=== PATIENT | male | born 1945 | race Caucasian/White ===

== ENCOUNTER → 2016-11-15 | Outpatient (CLI) | payer MEDICARE ==
--- NOTE | 2016-11-15 14:20 | XR ---
Abdomen HISTORY: Kidney stone Frontal view of the abdomen submitted and correlated to prior abdomen 28 June 2016 Surgical clips present in the pelvis. There are vascular calcifications present. Scoliotic curvature present in the lumbar spine. No bowel obstruction or pneumoperitoneum. There are small calcifications superimposed over the lower pole of the right kidney measuring approximately 3 mm in greatest dimens ion, smaller fragments are suspected, there may be 4-5 fragments. IMPRESSION: There may been interval lithotripsy lower pole right renal stone.
== END | disposition home or self-care (01) ==
LOC: RADXRMAIN 11:35
PROVIDERS: ATTEND Urology
DX: N20.0 Calculus of kidney (principal)
CPT/HCPCS: 74000

== ENCOUNTER → 2017-03-08 | Outpatient (CLI) | payer MEDICARE ==
--- NOTE | 2017-03-08 10:44 | US ---
EXAMINATION TYPE: US carotid duplex BILAT DATE OF EXAM: 03/08/2017 10:16 AM COMPARISON: NONE CLINICAL HISTORY: R42 Light Headedness. EXAM MEASUREMENTS: RIGHT: Peak Systolic Velocity (PSV) cm/sec ----- Right CCA: 66.6 ----- Right ICA: 86.6 ----- Right ECA: 107.0 ICA/CCA ratio: 1.3 RIGHT: End Diastole cm/sec ----- Right CCA: 16.0 ----- Right ICA: 27.0 ----- Right ECA: 12.5 LEFT: Peak Systolic Velocity (PSV) cm/sec ----- Left CCA: 74.5 ----- Left ICA: 88.8 ----- Left ECA: 109.2 ICA/CCA ratio: 1.2 LEFT: End Diastole cm/sec ----- Left CCA: 18.9 ----- Left ICA: 28.0 ----- Left ECA: 17.1 VERTEBRALS (direction of flow): Right Vertebral: Antegrade Left Vertebral: Antegrade Mild atherosclerotic change in Left Bulb No hemodynamic stenosis Grayscale images show intimal hyperplasia bilaterally. There is mild eccentric plaque at left carot id bulb. Velocity measurements and ratios remain within normal limits bilaterally in both internal ca rotid arteries. IMPRESSION: No hemodynamically significant stenosis is seen in either internal carotid artery.
== END | disposition home or self-care (01) ==
LOC: RADUSWWP 09:51
PROVIDERS: ATTEND Family Medicine
DX: R42 Dizziness and giddiness (principal)
CPT/HCPCS: 93880

== ENCOUNTER → 2017-05-16 | Outpatient (CLI) | payer MEDICARE ==
--- NOTE | 2017-05-16 10:04 | XR ---
EXAMINATION TYPE: XR KUB DATE OF EXAM: 05/16/2017 COMPARISON: 11/15/2016 HISTORY: Lithotripsy TECHNIQUE: One view abdominal series FINDINGS: No suspicious calcifications overlying the left kidney. There are approximately 4 Punctate less than 5 mm calcification overlying the lower pole right kidney. Stable in morphology, size and number from previous exam. Calcifications in the pelvis are stable and may be vascular. Arthropathy of the hip joints and surgic al clips noted. Diffuse osteopenia and degenerative change of the spine. Bowel gas pattern nonspecifi c. IMPRESSION: 1. There remain four less than 5 mm punctate calcifications overlying the lower pole right kidney unc hanged in size or position from previous exam.
== END | disposition home or self-care (01) ==
LOC: RADXRMAIN 09:45
PROVIDERS: ATTEND Nurse Practitioner
DX: N20.0 Calculus of kidney (principal)
CPT/HCPCS: 74000

== ENCOUNTER 2018-05-08 11:20 | Day surgery (SDC) | payer MEDICARE ==
[2018-05-06 08:43] VITALS: BMI 29.3
[~2018-05-08 11:20] MED LIST: LACTATED RINGERS 1,000 ML IV SCH
[2018-05-08 11:47] VITALS: RESP 16; TEMP 97.6
[2018-05-08] MEDS ORDERED: LIDOCAINE 1% 20 ML VIAL (10MG/ML) FOR IV START INTRADERMA ONE (11:56)
[2018-05-08] MEDS ORDERED: fentaNYL (PF) 50 MCG/ML 2 ML AMP ONE (12:17)
[2018-05-08] MEDS ORDERED: PROPOFOL 10 MG/ML 20 ML VIAL IV ONE (12:17)
--- NOTE | 2018-05-08 12:41 | P.PCN ---
Date of Procedure: 05/08/18 Procedure(s) Performed: Procedure: Total colonoscopy and polypectomy. Preoperative diagnosis: Screening for neoplasia. Postoperative diagnosis: Small sigmoid polyp snared but no large polyps or cancer. Preparation: HalfLytely prep. Sedation: Was provided by anesthesia. Brief clinical history: The patient is a 72-year-old male who is scheduled for this evaluation for screening for neoplasia. He had a prior exam around 11 years ago or more. He has no abdominal complaints, bleeding or anemia. Procedure: With the patient on his left lateral decubitus position and after informed consent and adequate sedation, the perianal area was inspected and it did not show any fissures or fistulas. There were no masses felt on digital rectal examination. The Olympus CFQ 160L video colonoscope was then inserted in the rectum in the usual fashion and advanced to the cecum. There was no obvious diverticular disease. In the distal sigmoid there was a small polyp which I snared and retrieved by suction but there were no large polyps or cancer. The mucosa appeared healthy. I retroflexed the endoscope in the rectum before the endoscope was withdrawn. The patient tolerated the procedure well. Plan: The patient was reassured. He will follow up with you as planned and I recommended repeat colonoscopy in 5-10 years depending on the pathology results.
[2018-05-08 12:59] VITALS: BP 138/75; PULSE 70
== END 2018-05-08 13:25 | disposition home or self-care (01) ==
LOC: ORWHC2ENDO 11:20
DX: Z12.11 Encounter for screening for malignant neoplasm of colon (principal); K63.5 Polyp of colon; J44.9 Chronic obstructive pulmonary disease, unspecified; Z85.46 Personal history of malignant neoplasm of prostate; Z96.652 Presence of left artificial knee joint; Z79.51 Long term (current) use of inhaled steroids; Z79.899 Other long term (current) drug therapy; Z88.0 Allergy status to penicillin; Z87.891 Personal history of nicotine dependence
CPT/HCPCS: 88305; 45385; J3010; J2704

== ENCOUNTER 2019-02-19 10:31 | Inpatient (IN) | payer MEDICARE ==
[2019-02-19] MEDS ORDERED: SODIUM CHLORIDE 0.9% 1,000 ML IV STA (11:18)
[2019-02-19] MEDS ORDERED: MORPHINE SULFATE 4 MG/ML SYRINGE IV STA (11:18)
[2019-02-19] MEDS ORDERED: ONDANSETRON 4 MG/2 ML VIAL IVP STA (11:18)
[2019-02-19] MEDS ORDERED: IPRATROPIUM-ALBUTEROL 3 ML NEB INHALATION STA (11:19)
--- NOTE | 2019-02-19 11:27 | ED ---
Abdominal Pain HPI - General Chief Complaint: Abdominal Pain Stated Complaint: SOB/back pain Time Seen by Provider: 02/19/19 11:05 Source: patient, RN notes reviewed Mode of arrival: ambulatory Limitations: no limitations - History of Present Illness Initial Comments: This a 73-year-old male presents emergency Department with multiple complaints. Patient complains of low back pain, flank pain with a history kidney stones. Patient states that he did see his PCP for this who felt that he may have underlying infection or kidney stone. Patient states pain has not worsened it was primarily on the left side but now is bilateral flank and low back pain. Patient has some noted urinary difficulty though he's had prostate surgeries in the past. Patient also had lithotripsy. Patient denies fever but states he had severe chills last night. Patient states that was alleviated with aspirin. Patient denies any current nausea vomiting diarrhea constipation. Patient also states that his hadn't having worsening shortness of breath, wheezing and cough. states cough is nonproductive. He does get relief of the shortness of breath with his Ventolin inhaler. Patient has been diagnosed with COPD. Patient does not take any other current medications. - Related Data Home Medications Medication Instructions Recorded Confirmed Albuterol Inhaler [Ventolin Hfa 1 - 2 puff INHALATION RT-Q6H PRN 05/06/18 02/19/19 Inhaler] Aspirin 650 mg PO DAILY PRN 02/19/19 02/19/19 Allergies Allergy/AdvReac Type Severity Reaction Status Date / Time Penicillins Allergy Unknown Rash/Hives Verified 02/19/19 11:25 Review of Systems ROS Statement: Those systems with pertinent positive or pertinent negative responses have been documented in the HPI. ROS Other: All systems not noted in ROS Statement are negative. Past Medical History Past Medical History: Cancer, COPD Additional Past Medical History / Comment(s): HX PROSTATE CANCER WITH SURGERY & RADIATION (2006), KIDNEY STONES. History of Any Multi-Drug Resistant Organisms: None Reported Past Surgical History: Joint Replacement, Orthopedic Surgery, Prostate Surgery Additional Past Surgical History / Comment(s): BRAIN SURGERY TO RELIEVE PRESSURE AFTER HEAD INJURY (6 YRS OLD), TOTAL LEFT KNEE, LEFT SHOULDER SURGERY, LEFT ARM SURGERY AFTER CRUSHING INJURY. Past Anesthesia/Blood Transfusion Reactions: No Reported Reaction, Motion Sickness Additional Past Anesthesia/Blood Transfusion Reaction / Comment(s): SLOW TO WAKE UP Past Psychological History: No Psychological Hx Reported Smoking Status: Former smoker Past Alcohol Use History: Occasional Past Drug Use History: None Reported - Past Family History Mother Family Medical History: No Reported History General Exam Limitations: no limitations General appearance: alert, in no apparent distress Head exam: Present: atraumatic, normocephalic, normal inspection Respiratory exam: Present: wheezes, decreased breath sounds. Absent: normal lung sounds bilaterally, respiratory distress, rales, rhonchi, stridor Cardiovascular Exam: Present: regular rate, normal rhythm, normal heart sounds. Absent: systolic murmur, diastolic murmur, rubs, gallop, clicks GI/Abdominal exam: Present: soft, tenderness, normal bowel sounds. Absent: distended, guarding, rebound, rigid Back exam: Present: full ROM, CVA tenderness (L). Absent: tenderness, CVA tenderness (R) Skin exam: Present: warm, dry, intact, normal color. Absent: rash Course Vital Signs 02/19/19 02/19/19 02/19/19 10:38 12:00 12:11 Temperature 97.6 F Pulse Rate 99 94 Respiratory 24 Rate Blood Pressure 145/77 138/73 O2 Sat by Pulse 96 Oximetry 02/19/19 02/19/19 02/19/19 12:21 13:00 13:30 Temperature Pulse Rate 91 100 97 Respiratory 22 18 Rate Blood Pressure 140/66 135/58 O2 Sat by Pulse 73 L 89 L Oximetry Medical Decision Making - Lab Data Result diagrams: 02/19/19 11:36 02/19/19 11:36 Lab Results 02/19/19 02/19/19 02/19/19 Range/Units 11:36 11:36 11:36 WBC 24.7 H (3.8-10.6) k/uL RBC 5.36 (4.30-5.90) m/uL Hgb 16.3 (13.0-17.5) gm/dL Hct 49.3 (39.0-53.0) % MCV 92.0 (80.0-100.0) fL MCH 30.4 (25.0-35.0) pg MCHC 33.1 (31.0-37.0) g/dL RDW 13.5 (11.5-15.5) % Plt Count 271 (150-450) k/uL Neutrophils % (Manual) 94 % Band Neutrophils % 4 % Lymphocytes % (Manual) 1 % Monocytes % (Manual) 1 % Neutrophils # (Manual) 24.20 H (1.3-7.7) k/uL Lymphocytes # (Manual) 0.25 L (1.0-4.8) k/uL Monocytes # (Manual) 0.25 (0-1.0) k/uL Nucleated RBCs 0 (0-0) /100 WBC Anisocytosis (manual) Present PT (9.0-12.0) sec INR (<1.2) APTT (22.0-30.0) sec Sodium 140 (137-145) mmol/L Potassium 4.4 (3.5-5.1) mmol/L Chloride 104 (98-107) mmol/L Carbon Dioxide 28 (22-30) mmol/L Anion Gap 8 mmol/L BUN 23 H (9-20) mg/dL Creatinine 0.81 (0.66-1.25) mg/dL Est GFR (CKD-EPI)AfAm >90 (>60 ml/min/1.73 sqM) Est GFR (CKD-EPI)NonAf 89 (>60 ml/min/1.73 sqM) Glucose 114 H (74-99) mg/dL Plasma Lactic Acid Alexis 2.1 H* (0.7-2.0) mmol/L Calcium 9.0 (8.4-10.2) mg/dL Total Bilirubin 1.2 (0.2-1.3) mg/dL AST 26 (17-59) U/L ALT 33 (21-72) U/L Alkaline Phosphatase 57 (38-126) U/L Troponin I (0.000-0.034) ng/mL Total Protein 6.9 (6.3-8.2) g/dL Albumin 4.0 (3.5-5.0) g/dL Amylase 47 (30-110) U/L Lipase 56 (23-300) U/L Urine Color Urine Appearance (Clear) Urine pH (5.0-8.0) Ur Specific [place] (1.001-1.035) Urine Protein (Negative) Urine Glucose (UA) (Negative) Urine Ketones (Negative) Urine Blood (Negative) Urine Nitrite (Negative) Urine Bilirubin (Negative) Urine Urobilinogen (<2.0) mg/dL Ur Leukocyte Esterase (Negative) Urine RBC (0-5) /hpf Urine WBC (0-5) /hpf Urine Bacteria (None) /hpf Hyaline Casts (0-2) /lpf Urine Mucus (None) /hpf 02/19/19 02/19/19 02/19/19 Range/Units 11:36 11:36 12:50 WBC (3.8-10.6) k/uL RBC (4.30-5.90) m/uL Hgb (13.0-17.5) gm/dL Hct (39.0-53.0) % MCV (80.0-100.0) fL MCH (25.0-35.0) pg MCHC (31.0-37.0) g/dL RDW (11.5-15.5) % Plt Count (150-450) k/uL Neutrophils % (Manual) % Band Neutrophils % % Lymphocytes % (Manual) % Monocytes % (Manual) % Neutrophils # (Manual) (1.3-7.7) k/uL Lymphocytes # (Manual) (1.0-4.8) k/uL Monocytes # (Manual) (0-1.0) k/uL Nucleated RBCs (0-0) /100 WBC Anisocytosis (manual) PT 11.3 (9.0-12.0) sec INR 1.1 (<1.2) APTT 24.1 (22.0-30.0) sec Sodium (137-145) mmol/L Potassium (3.5-5.1) mmol/L Chloride (98-107) mmol/L Carbon Dioxide (22-30) mmol/L Anion Gap mmol/L BUN (9-20) mg/dL Creatinine (0.66-1.25) mg/dL Est GFR (CKD-EPI)AfAm (>60 ml/min/1.73 sqM) Est GFR (CKD-EPI)NonAf (>60 ml/min/1.73 sqM) Glucose (74-99) mg/dL Plasma Lactic Acid Alexis (0.7-2.0) mmol/L Calcium (8.4-10.2) mg/dL Total Bilirubin (0.2-1.3) mg/dL AST (17-59) U/L ALT (21-72) U/L Alkaline Phosphatase (38-126) U/L Troponin I <0.012 (0.000-0.034) ng/mL Total Protein (6.3-8.2) g/dL Albumin (3.5-5.0) g/dL Amylase (30-110) U/L Lipase (23-300) U/L Urine Color Yellow Urine Appearance Cloudy (Clear) Urine pH 5.5 (5.0-8.0) Ur Specific [place] 1.027 (1.001-1.035) Urine Protein 1+ H (Negative) Urine Glucose (UA) Negative (Negative) Urine Ketones Negative (Negative) Urine Blood Moderate H (Negative) Urine Nitrite Negative (Negative) Urine Bilirubin Negative (Negative) Urine Urobilinogen <2.0 (<2.0) mg/dL Ur Leukocyte Esterase Small H (Negative) Urine RBC 150 H (0-5) /hpf Urine WBC 9 H (0-5) /hpf Urine Bacteria Rare H (None) /hpf Hyaline Casts 29 H (0-2) /lpf Urine Mucus Many H (None) /hpf Disposition Clinical Impression: COPD exacerbation, Mesenteric mass, Lymphoma Disposition: ADMITTED IP TO THIS [facility] Condition: Fair Referrals: Nathalie Garzon MD [Primary Care Provider] - 1-2 days
[2019-02-19 11:54] LABS: HCT 49.3 % (39.0-53.0); HGB 16.3 gm/dL (13.0-17.5); MCH 30.4 pg (25.0-35.0); MCHC 33.1 g/dL (31.0-37.0); Mean Platelet Volume 7.1; Platelet Count 271 k/uL (150-450); RBC 5.36 m/uL (4.30-5.90); RDW 13.5 % (11.5-15.5); WBC 24.7 k/uL (3.8-10.6)
[2019-02-19 12:03] LABS: Amylase 47 U/L (30-110); Anion Gap 8 mmol/L; Blood Urea Nitrogen 23 mg/dL (9-20); Carbon Dioxide 28 mmol/L (22-30); Chloride 104 mmol/L (98-107); Glucose 114 mg/dL (74-99); Lipase 56 U/L (23-300); Sodium 140 mmol/L (137-145); Total Bilirubin 1.2 mg/dL (0.2-1.3); Total Protein 6.9 g/dL (6.3-8.2)
[2019-02-19 12:10] LABS: ALT 33 U/L (21-72); AST 26 U/L (17-59); Alkaline Phosphatase 57 U/L (38-126); INR 1.1 (<1.2); Partial Thromboplastin Time 24.1 sec (22.0-30.0); Potassium 4.4 mmol/L (3.5-5.1); Prothrombin Time 11.3 sec (9.0-12.0)
[2019-02-19 12:11] LABS: Band Neutrophils % 4 %; Lymphocytes # (M) 0.25 k/uL (1.0-4.8); Monocytes # (M) 0.25 k/uL (0-1.0); Neutrophils % (M) 94 %; Nucleated Red Blood Cells 0 /100 WBC (0-0); Total Cells Counted 100
[2019-02-19 12:12] LABS: Anisocytosis (M) Present
--- NOTE | 2019-02-19 12:26 | CT ---
EXAMINATION TYPE: CT abdomen pelvis wo con DATE OF EXAM: 02/19/2019 COMPARISON: 02/25/2012 INDICATION: Flank pain DLP: 618.9 mGycm, Automated exposure control for dose reduction was used. CONTRAST: 0 mL of Isovue 300. Study performed without Oral Contrast TECHNIQUE: Axial images were obtained from above the diaphragm to the pubic rami in the axial plane a t 5 mm thick sections. Reconstructed images are reviewed on the computer in the coronal plane. FINDINGS: Limited CT sections are obtained the lung bases. There is a focal area of pneumonitis within the bas e right middle lobe. Series 201 image 10. There are patchy bilateral lung densities. Underlying nodul arity may be present measuring 0.9 and 0.8 cm, series 201 image is 13-15. This should be followed to clearing. Underlying mass is not excluded. CT ABDOMEN: Liver: Normal Spleen: Normal Pancreas: Normal Adrenal glands: The adrenal glands are normal. Gallbladder: Normal Kidneys: No masses are evident. No hydronephrosis is present. There is a 7.9 cm cyst measuring 6 Ho unsfield units on the anterior lateral lower pole left kidney. Multiple punctate nonobstructing renal stones are present on the right measuring approximately 0.2 cm each Aorta: Vascular calcification is within the aorta. Periaortic adenopathy is present below the level the renal arteries. This measures approximately 9.6 x 4.6 cm. Inferior vena cava: Normal. CT PELVIS: There is a nonspecific mass within the mid abdomen. This is difficult to separate from loops of bowel . Adenopathy could be considered. Consider other etiologies such as carcinoid. Some mild inflammatory changes within this region. This area measures 10.2 x 6.8 x 12.4 cm but includes small bowel. There are loops of bowel which are incompletely distended or lack oral contrast limiting their evaluation. Appendix: Normal as visualized. Urinary bladder: Normal. Suspected Surgical clips have been hardening artifact adjacent. Genitourinary structures: Prostate is normal. Small calcifications are within the prostate. Osseous structures: No suspicious lytic or sclerotic lesions. Degenerative disc changes are within th e lower lumbar spine. There is a grade 2 spondylolisthesis of L5 anterior on S1. A mild grade 1 retro listhesis of L4 on L5 is present. Spondylolysis of L5 is evident. IMPRESSIONS: 1. Soft tissue density within the mid mesentery with multiple large periaortic lymph nodes. Correlat e for lymphoma. Other etiologies including carcinoid could be considered. There is some limitation on this evaluation due to lack of intravenous and oral contrast. 2. Nonobstructing inferior pole right renal stones. 3. Cyst on the inferior pole left kidney. 4. Areas of pneumonitis and small nodularities at the lung bases. Metastatic disease is not excluded. Follow-up is recommended.
--- NOTE | 2019-02-19 13:16 | XR ---
EXAMINATION TYPE: XR chest 2V DATE OF EXAM: 02/19/2019 COMPARISON: CT same date HISTORY: Shortness of breath TECHNIQUE: Frontal and lateral views of the chest are obtained on 3 images. FINDINGS: There are overlying cardiac leads. Prominent lung volume with flattening the hemidiaphragm s may be indicative of underlying COPD. There are nodular densities at the posterior aspect of the lo wer lungs on the lateral exam. There is no pleural effusion or pneumothorax seen. The cardiac silho uette size is within normal limits. The osseous structures are intact. IMPRESSION: Lower lobe pulmonary nodules are present bilaterally.
[2019-02-19 13:28] LABS: Appearance,Urine Cloudy (Clear); Bacteria,Urine Rare /hpf; Bilirubin,Urine Negative (Negative); Blood,Urine Moderate (Negative); Color,Urine Yellow; Glucose,Urine (UA) Negative (Negative); Hyaline Casts,Urine 29 /lpf (0-2); Ketones,Urine Negative (Negative); Leukocyte Esterase,Urine Small (Negative); Mucus,Urine Many /hpf; Nitrite,Urine Negative (Negative); PH, Urine 5.5 (5.0-8.0); Protein,Urine 1+ (Negative); RBC,Urine 150 /hpf (0-5); Specific Gravity,Urine 1.027 (1.001-1.035); Urobilinogen,Urine <2.0 mg/dL (<2.0)
--- NOTE | 2019-02-19 14:30 | CT ---
CT CHEST FOR PULMONARY EMBOLISM. EXAMINATION TYPE: CT chest angio for PE DATE OF EXAM: 02/19/2019 INDICATION: SOB, back pain, history of prostate CA CT DLP: 447.4 mGycm, Automated exposure control for dose reduction was used. CONTRAST: Patient injected with 100 mL of Isovue 370. COMPARISON: CT abdomen pelvis 02/19/2019 TECHNIQUE: CT of the chest is performed on a spiral scan at 2 mm thick sections. Study is performed with intravenous contrast timed for evaluation for pulmonary embolism. This will limit additional po rtions of the evaluation. 3-D MIP images reconstructed by the technologist are reviewed on the compu ter in the coronal and sagittal planes. FINDINGS: No persistent filling defects are evident to suggest an acute pulmonary embolism. Some right hilar adenopathy may be present measuring 1.6 cm. Series 401 image 67. Shotty nodes are in the pretracheal and anterior mediastinum. The ascending aorta diameter at the level of the main pu lmonary artery is 3.2 cm. The main pulmonary artery diameter at the bifurcation is 2.6 cm. There is a pleural calcification and some tenting of the pleural margin in the posterior lateral righ t apex. This may has some pleural thickening estimated at 0.5 cm. Series 401 image 19. Small area of pneumonitis is in the superior segment right lower lobe. Series 406 image 77. This is n onspecific. Follow-up can be performed. Some peribronchial thickening extends in the right lower lobe . There are nodular densities within the posterior lateral left lung base.. These measure 0.8-1.2 cm in size. Image 406 image 24. These were present on the CT abdomen study same date. Limited CT section through the upper abdomen are unremarkable. IMPRESSIONS: 1. No acute pulmonary embolism. 2. Persistent nodularity at the left posterior lung base. 3. Suspected right hilar enlarged lymph node measuring 1.6 cm.
[2019-02-19] MEDS ORDERED: IPRATROPIUM-ALBUTEROL 3 ML NEB INHALATION PRN (15:11)
[2019-02-19] MEDS ORDERED: methylPREDNISolone SOD SUCCI 125 MG/2 ML VIAL IV STA (15:11)
[2019-02-19] MEDS ORDERED: MELATONIN 3 MG TABLET PO PRN (17:14)
[2019-02-19] MEDS ORDERED: HYDROcodone/APAP 5-325MG 1 EACH TAB PO PRN (17:14)
[2019-02-19] MEDS ORDERED: ALPRAZolam 0.25 MG TAB PO PRN (17:14)
[2019-02-19] MEDS ORDERED: NALOXONE 0.4 MG/ML 1 ML VIAL IV PRN (17:14)
[2019-02-19] MEDS ORDERED: ACETAMINOPHEN TAB 325 MG TAB PO PRN (17:14)
[2019-02-19] MEDS ORDERED: ONDANSETRON 4 MG/2 ML VIAL IVP PRN (17:14)
--- NOTE | 2019-02-19 17:16 | P.HPIM ---
History of Present Illness H&P Date: 02/19/19 Chief Complaint: back pain Patient is a 73-year-old male past medical history of nephrolithiasis requiring lithotripsy, COPD, prostate cancer status post prostatectomy and radiation, and history of pneumothorax requiring chest tube approximately 20 years ago who presented to the ER at the direction of his urologist for back pain. In the ER he underwent an extensive evaluation. His initial vital signs were within normal limits. Initial laboratory analysis demonstrated an elevated white blood cell count at 24.7, elevated lactic acid at 2.1, and a moderate ev unt of blood in the urine. He subsequently underwent a CT abdomen and pelvis as there was concern for kidney stones. CT abdomen and pelvis demonstrated a soft tissue mass within the mid mesentery with multiple large para-aortic lymph nodes. He subsequently underwent a CT PE protocol secondary to dyspnea which showed no PE but persistent nodularity at the left posterior lung base and enlarged right hilar lymph node measuring 1.6 cm. HEENT IV pain medications and DuoNeb's in the ER. He was found to be actively wheezing and was felt to have acute exacerbation of COPD. He was admitted for further monitoring and care. Patient seen and examined in the emergency department. He states that he started having back pain about 2 weeks ago. He had a sharp pain in the his left lower back it then resolved with Aspirin and recurred a week later. Yesterday evening he started having chills and riders he took 4 doses of aspirin and then felt very flushed and warm. He did not take temperature. Last night the back pain came back and was persistent. Back pain is now persisting and radiates across his low back. He states that aspirin did not take with the back pain. He then started having some shortness of breath and felt as though he was breathing fast. This led to some chest tightness which resolves once he slowed his breathing down and took a dose of his inhalers. He then noted some dizziness and palpitations. He laid down and was able to finally get some rest but again became slightly dyspneic. He reports a chronic cough with this unchanged. He denies any recent weight loss. He has had no changes in appetite. He has felt well otherwise up until this point. Review of Systems Pertinent positives and negatives as discussed in HPI, a complete review of systems was performed and all other systems are negative. Past Medical History Past Medical History: Cancer, COPD Additional Past Medical History / Comment(s): HX PROSTATE CANCER WITH SURGERY & RADIATION (2006), KIDNEY STONES. History of Any Multi-Drug Resistant Organisms: None Reported Past Surgical History: Joint Replacement, Orthopedic Surgery, Prostate Surgery Additional Past Surgical History / Comment(s): BRAIN SURGERY TO RELIEVE PRESSURE AFTER HEAD INJURY (6 YRS OLD), TOTAL LEFT KNEE, LEFT SHOULDER SURGERY, LEFT ARM SURGERY AFTER CRUSHING INJURY. Chest tube for pneumothorax. Lithotripsy. Prostatectomy secondary to prostate cancer. Past Anesthesia/Blood Transfusion Reactions: No Reported Reaction, Motion Sickness Additional Past Anesthesia/Blood Transfusion Reaction / Comment(s): SLOW TO WAKE UP Past Psychological History: No Psychological Hx Reported Smoking Status: Former smoker Past Alcohol Use History: Occasional Past Drug Use History: None Reported - Past Family History Mother Family Medical History: No Reported History Medications and Allergies Home Medications Medication Instructions Recorded Confirmed Type Albuterol Inhaler [Ventolin Hfa 1 - 2 puff INHALATION RT-Q6H PRN 05/06/18 02/19/19 History Inhaler] Aspirin 650 mg PO DAILY PRN 02/19/19 02/19/19 History Allergies Allergy/AdvReac Type Severity Reaction Status Date / Time Penicillins Allergy Unknown Rash/Hives Verified 02/19/19 11:25 Physical Exam Osteopathic Statement: *. No significant issues noted on an osteopathic structural exam other than those noted in the History and Physical/Consult. Vitals: Vital Signs Temp Pulse Resp BP Pulse Ox 02/19/19 16:53 96 02/19/19 16:41 96 02/19/19 15:30 91 16 116/61 95 02/19/19 15:00 93 14 120/68 92 L 02/19/19 14:30 100 16 136/64 93 L 02/19/19 13:30 97 18 135/58 89 L 02/19/19 13:00 100 22 140/66 73 L 02/19/19 12:21 91 02/19/19 12:11 94 02/19/19 12:00 138/73 02/19/19 10:38 97.6 F 99 24 145/77 96 Intake and Output 02/19/19 02/19/19 02/19/19 06:59 14:59 22:59 Other: Weight 89.358 kg General: non toxic, mild distress secondary to pain, appears at stated age, obese Derm: no unusual rashes/lesions no unusual ecchymoses, warm, dry Head: atraumatic, normocephalic, symmetric Eyes: EOMI, no lid lag, anicteric sclera, pupils equal round reactive to light ENT: Nose and ears atraumatic, no thrush, no pharyngeal erythema Neck: No thyromegaly, no cervical lymphadenopathy, trachea midline, supple Mouth: no lip lesion, mucus membranes moist Cardiovascular: S1S2 reg, no murmur, positive posterior tibial pulse bilateral, no edema, capillary refill less than 2 seconds Lungs: CTA bilateral, no rhonchi, no rales , no accessory muscle use Abdominal: soft, nontender to palpation, no guarding, no appreciable organomegaly, normal bowel sounds Ext: no gross muscle atrophy, muscle strength 5 out of 5 in all 4 extremities grossly, no contractures, Neuro: CN II-XI grossly intact, light touch intact all 4 extremities, finger to nose within normal limits, Psych: Alert, oriented, appropriate affect Results CBC & Chem 7: 02/19/19 11:36 02/19/19 11:36 Labs: Abnormal Lab Results - Last 24 Hours (Table) 02/19/19 02/19/19 02/19/19 Range/Units 11:36 11:36 11:36 WBC 24.7 H (3.8-10.6) k/uL Neutrophils # (Manual) 24.20 H (1.3-7.7) k/uL Lymphocytes # (Manual) 0.25 L (1.0-4.8) k/uL BUN 23 H (9-20) mg/dL Glucose 114 H (74-99) mg/dL Plasma Lactic Acid Alexis 2.1 H* (0.7-2.0) mmol/L Urine Protein (Negative) Urine Blood (Negative) Ur Leukocyte Esterase (Negative) Urine RBC (0-5) /hpf Urine WBC (0-5) /hpf Urine Bacteria (None) /hpf Hyaline Casts (0-2) /lpf Urine Mucus (None) /hpf 02/19/19 02/19/19 Range/Units 12:50 16:24 WBC (3.8-10.6) k/uL Neutrophils # (Manual) (1.3-7.7) k/uL Lymphocytes # (Manual) (1.0-4.8) k/uL BUN (9-20) mg/dL Glucose (74-99) mg/dL Plasma Lactic Acid Alexis 2.3 H* (0.7-2.0) mmol/L Urine Protein 1+ H (Negative) Urine Blood Moderate H (Negative) Ur Leukocyte Esterase Small H (Negative) Urine RBC 150 H (0-5) /hpf Urine WBC 9 H (0-5) /hpf Urine Bacteria Rare H (None) /hpf Hyaline Casts 29 H (0-2) /lpf Urine Mucus Many H (None) /hpf Comments: Soft tissue mass in the mid mesentery 10 X 12 cm, periaortic lymphadenopathy CT scan - abdomen: report reviewed CT scan - chest: report reviewed CT scan - pelvis: report reviewed Thrombosis Risk Factor Assmnt - DVT/VTE Prophylaxis DVT/VTE Prophylaxis: Mechanical Prophylaxis ordered - Choose All That Apply Each Factor Represents 1 point: Abnormal pulmonary function (COPD), Obesity (BMI >25) Each Risk Factor Represents 2 Points: Age 61-74 years, Malignancy Thrombosis Risk Factor Assessment Total Risk Factor Score: 6 Thrombosis Risk Factor Assessment Level: High Risk Assessment and Plan Assessment: Intractable back pain with mesenteric mass -Consult oncology for probable biopsy. Concern is for lymphoma with mesenteric mass and enlargement of periaortic lymph nodes as well as hilar lymph nodes. -Pain control with IV morphine and [place] Mild acute exacerbation of COPD -Continue with DuoNeb times, Pulmicort -Avoid systemic steroids of possible lymphoma prior to biopsy results if able, patient had decrease in his shortness of breath after one breathing treatment in the ER -Patient does not have purulent sputum and therefore will not start an antibiotic at this point in time Microscopic hematuria -Outpatient follow-up with his urologist out of [place] Elevated lactic acid -Not reflective of sepsis but reflective of his malignant process -No indication to continue to check lactic acid levels Leukocytosis -No signs of infection on CT chest, abdomen, pelvis or urinalysis -Likely reflective process -Repeat CBC with differential in a.m. Obesity BMI 30 - structured outpatient weight loss The patient is admitted with an anticipated greater than 2 midnight stay for evaluation of Acute exacerbation of COPD and mesenteric mass. Surrogate decision-maker: - Aminata CODE STATUS: Full, no prolonged vent DVT prophylaxis: SCDs Discussed with: Patient, family, nursing Anticipated discharge date: 1-[address]: home A total of 65 minutes was spent on the care of this complex patient more than 50% of the time was spent in counseling and care coordination.
[2019-02-19] MEDS ORDERED: ALBUTEROL NEBULIZED 2.5 MG/3 ML INHALATION PRN (17:17)
[2019-02-19] MEDS ORDERED: methylPREDNISolone SOD SUCCI 125 MG/2 ML VIAL IV SCH (18:00)
[2019-02-19] MEDS: MORPHINE SULFATE 4 MG/ML SYRINGE IV PRN (20:53)
[2019-02-19] MEDS: IPRATROPIUM-ALBUTEROL 3 ML NEB INHALATION SCH (21:12)
[2019-02-19] MEDS: BUDESONIDE 1 MG/2 ML NEBU INHALATION SCH (21:12)
[2019-02-19 21:19] VITALS: BMI 29.9
[2019-02-20] MEDS: MORPHINE SULFATE 4 MG/ML SYRINGE IV PRN (06:08)
[2019-02-20] MEDS: BUDESONIDE 1 MG/2 ML NEBU INHALATION SCH (09:00)
[2019-02-20] MEDS: IPRATROPIUM-ALBUTEROL 3 ML NEB INHALATION SCH ×4 (09:00→21:46)
[2019-02-20 12:05] LABS: Basophils # (A) 0.1 k/uL (0-0.2); Basophils % (A) 0 %; Eosinophils # (A) 0.1 k/uL (0-0.7); Eosinophils % (A) 1 %; HCT 43.9 % (39.0-53.0); HGB 14.1 gm/dL (13.0-17.5); Lymphocytes # (A) 0.8 k/uL (1.0-4.8); Lymphocytes % (A) 5 %; MCH 30.2 pg (25.0-35.0); MCHC 32.2 g/dL (31.0-37.0); MCV 93.9 fL (80.0-100.0); Monocytes # (A) 0.8 k/uL (0-1.0); Monocytes % (A) 5 %; Neutrophils # (A) 14.4 k/uL (1.3-7.7); Neutrophils % (A) 88 %; Platelet Count 240 k/uL (150-450); RBC 4.68 m/uL (4.30-5.90); RDW 13.7 % (11.5-15.5); WBC 16.4 k/uL (3.8-10.6)
[2019-02-20 12:15] LABS: ALT 29 U/L (21-72); AST 19 U/L (17-59); Albumin 3.4 g/dL (3.5-5.0); Alkaline Phosphatase 65 U/L (38-126); Anion Gap 7 mmol/L; Blood Urea Nitrogen 24 mg/dL (9-20); Carbon Dioxide 32 mmol/L (22-30); Chloride 99 mmol/L (98-107); Glucose 107 mg/dL (74-99); Potassium 3.9 mmol/L (3.5-5.1); Sodium 138 mmol/L (137-145); Total Bilirubin 1.2 mg/dL (0.2-1.3); Total Protein 5.9 g/dL (6.3-8.2)
--- NOTE | 2019-02-20 12:24 | P.PN ---
Subjective Progress Note Date: 02/20/19 Principal diagnosis: patient is seen in follow up for acute COPD exacerbation and mesenteric mass patient seen and examined today, reports trouble breathing, and coughing. denies any chest pain but reports chest tightness with bouts of coughing. denies any abd pain . Objective - Vital Signs Vital signs: Vital Signs Temp 98.8 F 02/20/19 07:00 Pulse 99 02/20/19 09:19 Resp 16 02/20/19 08:00 BP 126/68 02/20/19 07:00 Pulse Ox 93 L 02/20/19 09:00 Intake & Output 02/19/19 02/20/19 02/20/19 18:59 06:59 18:59 Weight 89.358 kg Other: # Voids 1 - Exam Constitutional: vital signs stable, patient is conversant and pleasant however difficulty with finishing sentences due to coughing and shortness of breath Lungs: Prolonged expiratory phase with expiratory wheezing, patient using accessory muscles of respiration Cardiovascular: Regular rate and rhythm, no murmurs, no gallops, no rubs, no peripheral edema Gastrointestinal: Mild distention, Soft, no tenderness to palpation, no palpable hepatosplenomegally, bowel sounds positive, no abdominal wall hernias Extremities: No digital cyanosis or clubbing, peripheral pulses palpable and equal over bilateral radial arteries and dorsalis pedis artery, no calf muscle tenderness Psych: Alert, oriented to place, person and time, appropriate affect, intact judgment - Labs CBC & Chem 7: 02/20/19 11:43 02/20/19 11:43 Labs: Abnormal Lab Results - Last 24 Hours (Table) 02/19/19 02/19/19 02/19/19 Range/Units 11:36 12:50 16:24 WBC (3.8-10.6) k/uL Neutrophils # (1.3-7.7) k/uL Lymphocytes # (1.0-4.8) k/uL Carbon Dioxide (22-30) mmol/L BUN (9-20) mg/dL Glucose (74-99) mg/dL Plasma Lactic Acid Alexis 2.1 H* 2.3 H* (0.7-2.0) mmol/L Total Protein (6.3-8.2) g/dL Albumin (3.5-5.0) g/dL Urine Protein 1+ H (Negative) Urine Blood Moderate H (Negative) Ur Leukocyte Esterase Small H (Negative) Urine RBC 150 H (0-5) /hpf Urine WBC 9 H (0-5) /hpf Urine Bacteria Rare H (None) /hpf Hyaline Casts 29 H (0-2) /lpf Urine Mucus Many H (None) /hpf 02/20/19 02/20/19 Range/Units 11:43 11:43 WBC 16.4 H (3.8-10.6) k/uL Neutrophils # 14.4 H (1.3-7.7) k/uL Lymphocytes # 0.8 L (1.0-4.8) k/uL Carbon Dioxide 32 H (22-30) mmol/L BUN 24 H (9-20) mg/dL Glucose 107 H (74-99) mg/dL Plasma Lactic Acid Alexis (0.7-2.0) mmol/L Total Protein 5.9 L (6.3-8.2) g/dL Albumin 3.4 L (3.5-5.0) g/dL Urine Protein (Negative) Urine Blood (Negative) Ur Leukocyte Esterase (Negative) Urine RBC (0-5) /hpf Urine WBC (0-5) /hpf Urine Bacteria (None) /hpf Hyaline Casts (0-2) /lpf Urine Mucus (None) /hpf Assessment and Plan Assessment: Patient is a 73-year-old male past medical history of nephrolithiasis requiring lithotripsy, COPD, not on home oxygen, prostate cancer status post prostatectomy and radiation, and history of pneumothorax requiring chest tube approximately 20 years ago who presented to the ER at the direction of his urologist for back pain. In the ER he underwent an extensive evaluation. Initial laboratory analysis demonstrated an elevated white blood cell count at 24.7, elevated lactic acid at 2.1, and a moderate amount of blood in the urine. He subsequently underwent a CT abdomen and pelvis which showed no kidney stones. CT abdomen and pelvis demonstrated a soft tissue mass within the mid mesentery with multiple large para-aortic lymph nodes. He subsequently underwent a CT PE protocol secondary to dyspnea which showed no PE but persistent nodularity at the left posterior lung base and enlarged right hilar lymph node measuring 1.6 cm. Today patient reports no ongoing abdominal pain or back pain. But he is conc erned regarding his mesenteric mass and lymph nodes enlargement. He is also having some trouble breathing with repeated dry cough and shortness of breath. Plan: acute exacerbation of COPD -Continue with DuoNeb , Symbicort, add doxycycline for bronchitis patient is complaining of pleuritic chest pain with repeated dry hacking cough, CT of the chest showed no evidence of infiltration, pneumonia ruled out -Start systemic by mouth steroids to optimize his breathing Assess for home oxygen requirement prior to discharge mesenteric mass -Consult oncology for probable biopsy. Concern is for lymphoma with mesenteric mass and enlargement of periaortic lymph nodes as well as hilar lymph nodes. -Pain control with IV morphine and [place] for back pain check PSA , with history of prostate cancer s/p resection Microscopic hematuria -Outpatient follow-up with his urologist out of [place] Elevated lactic acid -Not reflective of sepsis but reflective of his malignant process -Repeat lactic acid yesterday went up, we'll recheck lactic acid today Leukocytosis, improving -No signs of infection on CT chest, abdomen, pelvis or urinalysis -Likely reflective process -Repeat CBC with differential in a.m. Patient is afebrile Obesity BMI 30 - structured outpatient weight loss DVT prophylaxis heparin subcu 3 times a day
[2019-02-20] MEDS: SYMBICORT 160-4.5 MCG INHALER INHALATION SCH ×2 (13:34→21:46)
[2019-02-20] MEDS: BENZONATATE 100 MG CAP PO SCH ×3 (17:04→21:01)
[2019-02-20] MEDS: HEPARIN SODIUM,PORCINE 5,000 UNIT/ML 1 ML VIAL SQ SCH ×2 (17:04→23:24)
[2019-02-20] MEDS: DOXYCYCLINE 100 MG CAP PO SCH ×2 (17:12→21:01)
[2019-02-20] MEDS: predniSONE 20 MG TAB PO SCH (17:12)
--- NOTE | 2019-02-20 18:20 | P.CONS ---
History of Present Illness - Reason for Consult Consult date: 02/20/19 mesenteric mass,retroperitoneal lymphadenopathy - History of Present Illness The patient is a 73-year-old white male, with multiple vertebral overall well-controlled medical problems. The patient developed left-sided back pain that was fairly severe, about 2 weeks ago. This however resolved spontaneously. He had a prior history of kidney stones and thought he had passed the same. He had another episode about a week later. The day prior to this admission he developed subjective fever, though he did not take his temperature, along with flushing and chills. He then developed recurrent back pain that was radiating across his mid back. The pain did not resolve, and became more severe. He contacted his urologist and was last, into the emergency room. He also noted some increase in the pain with deep samuel athing. In the ER he had a CT of the abdomen and pelvis done, which showed a large mesenteric mass. A CT of the chest was negative for PE. It did show some nodular infiltration in the lower left lung, as well as a 1.4 cm right hilar node. Consult was therefore placed for further evaluation and recommendations He has a prior history of prostate cancer treated with surgery and radiation in 2006. He has been followed regularly by urology in the [place] area. Last PSA was about a year ago and was less than 1. Review of Systems Constitutional: Reports fatigue, Reports fever, Reports poor appetite Eyes: denies blurred vision, denies pain Ears: deny: decreased hearing, ear discharge, earache, tinnitus Ears, nose, mouth and throat: Denies headache, Denies sore throat Cardiovascular: Reports decreased exercise tolerance Respiratory: Reports dyspnea, Reports pain on inspiration Gastrointestinal: Denies abdominal pain, Denies diarrhea, Denies nausea, Denies vomiting Genitourinary: Reports as per HPI, Reports flank pain, Reports kidney stones Musculoskeletal: Reports low back pain Integumentary: Denies pruritus, Denies rash Neurological: Reports weakness, Denies numbness Psychiatric: Denies anxiety, Denies depression Endocrine: Reports fatigue Hematologic/Lymphatic: Reports as per HPI Past Medical History Past Medical History: Cancer, COPD Additional Past Medical History / Comment(s): HX PROSTATE CANCER WITH SURGERY & RADIATION (2006), KIDNEY STONES. History of Any Multi-Drug Resistant Organisms: None Reported Past Surgical History: Joint Replacement, Orthopedic Surgery, Prostate Surgery Additional Past Surgical History / Comment(s): BRAIN SURGERY TO RELIEVE PRESSURE AFTER HEAD INJURY (6 YRS OLD), TOTAL LEFT KNEE, LEFT SHOULDER SURGERY, LEFT ARM SURGERY AFTER CRUSHING INJURY. Chest tube for pneumothorax. Lithotripsy. Prostatectomy secondary to prostate cancer. Past Anesthesia/Blood Transfusion Reactions: No Reported Reaction, Motion Sic kness Additional Past Anesthesia/Blood Transfusion Reaction / Comm: SLOW TO WAKE UP Past Psychological History: No Psychological Hx Reported Smoking Status: Former smoker Past Alcohol Use History: Occasional Past Drug Use History: None Reported - Past Family History Mother Family Medical History: No Reported History Medications and Allergies Home Medications Medication Instructions Recorded Confirmed Type Albuterol Inhaler [Ventolin Hfa 1 - 2 puff INHALATION RT-Q6H PRN 05/06/18 02/19/19 History Inhaler] Aspirin 650 mg PO DAILY PRN 02/19/19 02/19/19 History Allergies Allergy/AdvReac Type Severity Reaction Status Date / Time Penicillins Allergy Unknown Rash/Hives Verified 02/19/19 11:25 Physical Exam Vitals: Vital Signs Temp Pulse Pulse Resp BP Pulse Ox 02/20/19 16:40 96 02/20/19 16:30 92 02/20/19 15:00 99.2 F 93 16 135/73 93 L 02/20/19 13:34 100 02/20/19 13:19 100 02/20/19 09:19 99 02/20/19 09:00 97 93 L 02/20/19 08:00 16 02/20/19 07:00 98.8 F 99 16 126/68 92 L 02/20/19 03:56 18 02/20/19 01:25 99.0 F 02/20/19 00:45 18 02/20/19 00:14 101.2 F H 111 H 15 145/71 91 L 02/19/19 21:27 108 H 02/19/19 21:13 115 H 02/19/19 20:00 15 02/19/19 19:24 99.7 F H 109 H 15 130/72 92 L Intake and Output 02/20/19 02/20/19 02/20/19 06:59 14:59 22:59 Other: # Voids 1 2 - Constitutional General appearance: no acute distress - EENT Eyes: EOMI, PERRLA ENT: hearing grossly normal, normal oropharynx - Neck Neck: no lymphadenopathy - Respiratory Respiratory: bilateral: CTA - Cardiovascular Rhythm: regular Heart sounds: normal: S1, S2 - Gastrointestinal General gastrointestinal: normal bowel sounds, soft - Neurologic Neurologic: CNII-XII intact - Musculoskeletal Musculoskeletal: generalized weakness, strength equal bilaterally - Psychiatric Psychiatric: A&O x's 3, appropriate affect Results CBC & Chem 7: 02/20/19 11:43 02/20/19 11:43 Labs: Abnormal Lab Results - Last 24 Hours (Table) 02/20/19 02/20/19 02/20/19 Range/Units 11:43 11:43 11:43 WBC 16.4 H (3.8-10.6) k/uL Neutrophils # 14.4 H (1.3-7.7) k/uL Lymphocytes # 0.8 L (1.0-4.8) k/uL Carbon Dioxide 32 H (22-30) mmol/L BUN 24 H (9-20) mg/dL Glucose 107 H (74-99) mg/dL Plasma Lactic Acid Alexis 2.1 H* (0.7-2.0) mmol/L Total Protein 5.9 L (6.3-8.2) g/dL Albumin 3.4 L (3.5-5.0) g/dL Chest x-ray: report reviewed CT scan - abdomen: report reviewed, image reviewed CT scan - chest: report reviewed CT scan - pelvis: report reviewed, image reviewed Assessment and Plan (1) Mesenteric mass Narrative/Plan: This is a new finding for this patient, on CT scan done to workup his back pain. The mass is quite substantial, about 12.4 cm. It is associated with fairly large periaortic adenopathy. Likely the adenopathy is responsible for his back pain. The CT findings and implications were discussed in detail with him and [facility] family members. He was advised that this is highly suspicious for malignancy. Recurrence of prostate cancer is a possibility though less so given the time lapse between his initial diagnosis, as well as the fact that his PSA was normal about a year ago. The patient did not have any palpable adenopathy. There was only one mildly enlarged right hilar lymph node on chest. The patient will need a tissue diagnosis. Based on my review of images, the mesenteric mass may be accessible to a percutaneous needle biopsy as it is fairly close to the anterior abdominal wall. The same will be ordered for interventional radiology. Check PSA Current Visit: Yes Status: Acute Code(s): K63.9 - DISEASE OF INTESTINE, UNSPECIFIED SNOMED Code(s): 532068435 (2) History of prostate cancer Narrative/Plan: Diagnostic and therapeutic circumstances as described. As noted this clinical presentation being a recurrence of prostate cancer is less likely but cannot be totally ruled out. PSA will be repeated. Current Visit: Yes Status: Acute Code(s): Z85.46 - PERSONAL HISTORY OF MALIGNANT NEOPLASM OF PROSTATE SNOMED Code(s): 984411557 Plan: Defer to the admitting service and other consultants for management of his multiple other medical problems. The patient is currently being treated for COPD exacerbation by pulmonary medicine. If he is stable from the medicine/pulmonary standpoint, he can be discharged home with biopsy as an outpatient and office follow-up
[2019-02-20 19:31] LABS: Glucose,Whole Blood 178 mg/dL (75-99)
[2019-02-21] MEDS: predniSONE 20 MG TAB PO SCH (07:11)
[2019-02-21] MEDS: BENZONATATE 100 MG CAP PO SCH ×3 (07:12→20:58)
[2019-02-21] MEDS: HEPARIN SODIUM,PORCINE 5,000 UNIT/ML 1 ML VIAL SQ SCH ×3 (07:12→23:50)
[2019-02-21] MEDS: DOXYCYCLINE 100 MG CAP PO SCH ×2 (07:12→20:58)
[2019-02-21] MEDS: IPRATROPIUM-ALBUTEROL 3 ML NEB INHALATION SCH ×4 (09:26→20:14)
[2019-02-21] MEDS: SYMBICORT 160-4.5 MCG INHALER INHALATION SCH (09:27)
--- NOTE | 2019-02-21 17:11 | P.PN ---
Subjective Progress Note Date: 02/21/19 Principal diagnosis: patient is seen in follow up for acute COPD exacerbation and mesenteric mass patient seen and examined today, patient became hypoxic upon ambulation on room air. Continues to have coughing, shortness of breath is improving. Tolerating by mouth intake denies any abdominal pain Objective - Vital Signs Vital signs: Vital Signs Temp 97.7 F 02/21/19 15:00 Pulse 92 02/21/19 16:43 Resp 15 02/21/19 15:00 BP 126/74 02/21/19 15:00 Pulse Ox 91 L 02/21/19 15:00 Intake & Output 02/20/19 02/21/19 02/21/19 18:59 06:59 18:59 Other: # Voids 2 2 - Exam Constitutional: vital signs stable, patient is conversant. Lungs: Prolonged expiratory phase, no wheezing or rhonchi. Good overall air entry Cardiovascular: Regular rate and rhythm, no murmurs, no gallops, no rubs, no peripheral edema Gastrointestinal: Mild distention, Soft, no tenderness to palpation, no palpable hepatosplenomegally, bowel sounds positive, no abdominal wall hernias Extremities: No digital cyanosis or clubbing, peripheral pulses palpable and equal over bilateral radial arteries and dorsalis pedis artery, no calf muscle tenderness Psych: Alert, oriented to place, person and time, appropriate affect, intact judgment - Labs CBC & Chem 7: 02/20/19 11:43 02/20/19 11:43 Labs: Abnormal Lab Results - Last 24 Hours (Table) 02/20/19 Range/Units 19:29 POC Glucose (mg/dL) 178 H (75-99) mg/dL Assessment and Plan Assessment: Patient is a 73-year-old male past medical history of nephrolithiasis requiring lithotripsy, COPD, not on home oxygen, prostate cancer status post prostatectomy and radiation, and history of pneumothorax requiring chest tube approximately 20 years ago who presented to the ER at the direction of his urologist for back pain. In the ER he underwent an extensive evaluation. Initial laboratory analysis demonstrated an elevated white blood cell count at 24.7, elevated lactic acid at 2.1, and a moderate amount of blood in the urine. He subsequently underwent a CT abdomen and pelvis which showed no kidney stones. CT abdomen and pelvis demonstrated a soft tissue mass within the mid mesentery with multiple large para-aortic lymph nodes. He subsequently underwent a CT PE protocol secondary to dyspnea which showed no PE but persistent nodularity at the left posterior lung base and enlarged right hilar lymph node measuring 1.6 cm. Patient continues on breathing treatments and COPD protocol with systemic steroids. He was evaluated by oncology who recommended to perform the biopsies inpatient versus outpatient. Patient was kept in the hospital due to acute hypoxic respiratory failure upon ambulation on room air in an attempt to optimize his COPD therapy. If he stays in the hospital until Saturday the biopsies will be performed while inpatient. He is expected to be discharged on Friday 02/23 Plan: Acute hypoxic respiratory failure secondary to underlying COPD exacerbation acute exacerbation of COPD, with bronchitis -Continue with DuoNeb , Symbicort, doxycycline for bronchitis patient is complaining of pleuritic chest pain with repeated dry hacking cough, CT of the chest showed no evidence of infiltration, pneumonia ruled out -Continue with by mouth prednisone Assess for home oxygen requirement prior to discharge, patient was hypoxic upon ambulation with room air today mesenteric mass -Oncology recommending biopsy inpatient versus outpatient. Interventional radiology was consulted if patient remains inpatient until Saturday and will be done while hospitalized -Pain control with IV morphine and [place] for back pain check PSA , with history of prostate cancer s/p resection Microscopic hematuria -Outpatient follow-up with his urologist out of [place] Elevated lactic acid, resolved Leukocytosis, improving -No signs of infection on CT chest, abdomen, pelvis or urinalysis -Likely reflective process -Continue to follow up Patient is afebrile Obesity BMI 30 - structured outpatient weight loss Plan to reassess his oxygen saturation upon ambulation on daily basis and optimizing his COPD therapy. By February 23 of patient continues to be hypoxic after 5 days of COPD treatment will start him on home oxygen and will be discharged on. If patient remains until Saturday hospitalized then he will get the biopsy done while inpatient prior to discharge DVT prophylaxis heparin subcu 3 times a day
[2019-02-21] MEDS: FORMOTEROL FUMARATE 20 MCG/2 ML NEBU INHALATION SCH (20:13)
[2019-02-21] MEDS: BUDESONIDE 1 MG/2 ML NEBU INHALATION SCH (20:14)
[2019-02-22] MEDS: IPRATROPIUM-ALBUTEROL 3 ML NEB INHALATION SCH ×4 (05:27→20:29)
[2019-02-22] MEDS: BENZONATATE 100 MG CAP PO SCH ×3 (06:51→21:05)
[2019-02-22] MEDS: DOXYCYCLINE 100 MG CAP PO SCH ×2 (06:51→21:05)
[2019-02-22] MEDS: predniSONE 20 MG TAB PO SCH (06:52)
[2019-02-22] MEDS: HEPARIN SODIUM,PORCINE 5,000 UNIT/ML 1 ML VIAL SQ SCH ×2 (06:53→16:49)
[2019-02-22] MEDS: FORMOTEROL FUMARATE 20 MCG/2 ML NEBU INHALATION SCH ×2 (08:29→20:29)
[2019-02-22] MEDS: BUDESONIDE 1 MG/2 ML NEBU INHALATION SCH ×2 (08:29→20:29)
--- NOTE | 2019-02-22 10:37 | P.PN ---
Subjective Progress Note Date: 02/22/19 Principal diagnosis: patient is seen in follow up for acute COPD exacerbation and mesenteric mass patient seen and examined today, patient was able to keep his oxygen saturation above 90% while ambulating on room air, he felt better compared to yesterday , no wheezing no coughing attack after walking. he feels way better compared to yesterday. denies any chest pain , nausea or vomiting Objective - Vital Signs Vital signs: Vital Signs Temp 98.7 F 02/22/19 07:00 Pulse 96 02/22/19 08:43 Resp 16 02/22/19 07:00 BP 151/73 02/22/19 07:00 Pulse Ox 91 L 02/22/19 09:18 Intake & Output 02/21/19 02/22/19 02/22/19 18:59 06:59 18:59 Other: Voiding Method Toilet Toilet # Voids 2 1 - Exam Constitutional: vital signs stable, patient is conversant. Lungs: good breath sounds clear to auscultation minimal scattered wheezing exp, no rales or rhonchi. Good overall air entry Cardiovascular: Regular rate and rhythm, no murmurs, no gallops, no rubs, no peripheral edema Gastrointestinal: Mild distention, Soft, no tenderness to palpation, no palpable hepatosplenomegally, bowel sounds positive, no abdominal wall hernias Extremities: No digital cyanosis or clubbing, peripheral pulses palpable and equal over bilateral radial arteries and dorsalis pedis artery, no calf muscle tenderness Psych: Alert, oriented to place, person and time, appropriate affect, intact judgment - Labs CBC & Chem 7: 02/20/19 11:43 02/20/19 11:43 Assessment and Plan Assessment: Patient is a 73-year-old male past medical history of nephrolithiasis requiring lithotripsy, COPD, not on home oxygen, prostate cancer status post prostatectomy and radiation, and history of pneumothorax requiring chest tube approximately 20 years ago who presented to the ER at the direction of his urologist for back pain. In the ER he underwent an extensive evaluation. [facility] analysis demonstrated an elevated white blood cell count at 24.7, elevated lactic acid at 2.1, and a moderate amount of blood in the urine. He subsequently underwent a CT abdomen and pelvis which showed no kidney stones. CT abdomen and pelvis demonstrated a soft tissue mass within the mid mesentery with multiple large para-aortic lymph nodes. He subsequently underwent a CT PE protocol secondary to dyspnea which showed no PE but persistent nodularity at the left posterior lung base and enlarged right hilar lymph node measuring 1.6 cm. 02/21 Patient continues on breathing treatments and COPD protocol with systemic steroids. He was evaluated by oncology who recommended to perform the biopsies inpatient versus outpatient. Patient was kept in the hospital due to acute h ypoxic respiratory failure upon ambulation on room air in an attempt to optimize his COPD therapy. If he stays in the hospital until Saturday the biopsies will be performed while inpatient. He is expected to be discharged on 02/23. breathing is much better, his oxygenation has improved compared to yesterday, still aiming at >92% on room air while ambulating, he would benefit from one more day of frequent breathing treatments and close monitoring of his pulmonary status, besides we would offer him the biopsy while inpatient in AM, after which if he is stable , he should be able to be discharged home, final home oxygen assessment will be performed tomorrow , patient agreeable with plan. he reported financial concerns with inhalers as they are expensive and he could not afford them in the past. Plan: Acute hypoxic respiratory failure secondary to underlying COPD exacerbation, improving acute exacerbation of COPD, with bronchitis -Continue with DuoNeb , ICS and LABA, doxycycline for bronchitis -Continue with by mouth prednisone Assess for home oxygen requirement prior to discharge, patient oygenation is improving mesenteric mass -Oncology recommending biopsy inpatient versus outpatient. Interventional radio logy was consulted if patient remains inpatient until Saturday and will be done while hospitalized -Pain control with IV morphine and [place] for back pain check PSA , with history of prostate cancer s/p resection NPO after midnight, check PT INR in am Microscopic hematuria -Outpatient follow-up with his urologist out of [place] Elevated lactic acid, resolved Leukocytosis, improving -No signs of infection on CT chest, abdomen, pelvis or urinalysis -Likely reflective process -Continue to follow up Patient is afebrile Obesity BMI 30 - structured outpatient weight loss Plan to reassess his oxygen saturation upon ambulation on daily basis and optimizing his COPD therapy. get the biopsy done while inpatient prior to discharge in AM, check PT inr, NPO AMN director of social services to assist with inhaler options upon discharge follow up with pulmonary as OP DVT prophylaxis heparin subcu 3 times a day
[2019-02-23] MEDS: HEPARIN SODIUM,PORCINE 5,000 UNIT/ML 1 ML VIAL SQ SCH ×2 (00:15→06:51)
[2019-02-23 06:37] LABS: Basophils % (A) 0 %; Eosinophils # (A) 0.1 k/uL (0-0.7); Eosinophils % (A) 1 %; HCT 43.7 % (39.0-53.0); HGB 14.2 gm/dL (13.0-17.5); Lymphocytes # (A) 1.6 k/uL (1.0-4.8); Lymphocytes % (A) 11 %; MCH 30.1 pg (25.0-35.0); MCHC 32.6 g/dL (31.0-37.0); MCV 92.4 fL (80.0-100.0); Mean Platelet Volume 6.7; Monocytes # (A) 1.1 k/uL (0-1.0); Monocytes % (A) 7 %; Neutrophils # (A) 11.1 k/uL (1.3-7.7); Neutrophils % (A) 78 %; Platelet Count 316 k/uL (150-450); RBC 4.73 m/uL (4.30-5.90); WBC 14.2 k/uL (3.8-10.6)
[2019-02-23 06:52] LABS: INR 0.9 (<1.2); Partial Thromboplastin Time 22.4 sec (22.0-30.0); Prothrombin Time 10.1 sec (9.0-12.0)
[2019-02-23] MEDS: BUDESONIDE 1 MG/2 ML NEBU INHALATION SCH ×2 (07:32→20:08)
[2019-02-23] MEDS: IPRATROPIUM-ALBUTEROL 3 ML NEB INHALATION SCH ×4 (07:32→20:08)
[2019-02-23] MEDS: FORMOTEROL FUMARATE 20 MCG/2 ML NEBU INHALATION SCH ×2 (07:32→20:08)
[2019-02-23] MEDS ORDERED: SODIUM CHLORIDE 0.9% 1,000 ML IV SCH (08:15)
[2019-02-23] MEDS: MORPHINE SULFATE 4 MG/ML SYRINGE IV PRN ×2 (10:25→14:46)
--- NOTE | 2019-02-23 11:01 | P.PN ---
Subjective Progress Note Date: 02/23/19 Principal diagnosis: patient is seen in follow up for acute COPD exacerbation and mesenteric mass patient seen and examined today, patient feels his breathing is better, denies any wheezing , or chest pain . patient is NPO for biopsy today. Objective - Vital Signs Vital signs: Vital Signs Temp 97.5 F L 02/23/19 07:36 Pulse 96 02/23/19 08:00 Resp 17 02/23/19 08:12 BP 129/63 02/23/19 07:36 Pulse Ox 90 L 02/23/19 07:36 Intake & Output 02/22/19 02/23/19 02/23/19 18:59 06:59 18:59 Intake Total 100 Balance 100 Intake: Oral 100 Other: Voiding Method Toilet # Voids 3 1 - Exam Constitutional: vital signs stable, patient is conversant. Lungs: good breath sounds clear to auscultation minimal scattered rhonci, no rales. Good overall air entry Cardiovascular: Regular rate and rhythm, no murmurs, no gallops, no rubs, no peripheral edema Gastrointestinal: Soft, no tenderness to palpation, no palpable masses, bowel sounds positive, no abdominal wall hernias Extremities: No digital cyanosis or clubbing, peripheral pulses palpable and equal over bilateral radial arteries and dorsalis pedis artery, no calf muscle tenderness Psych: Alert, oriented to place, person and time, appropriate affect, intact judgment - Labs CBC & Chem 7: 02/23/19 05:41 02/20/19 11:43 Labs: Abnormal Lab Results - Last 24 Hours (Table) 02/23/19 Range/Units 05:41 WBC 14.2 H (3.8-10.6) k/uL Neutrophils # 11.1 H (1.3-7.7) k/uL Monocytes # 1.1 H (0-1.0) k/uL Assessment and Plan Assessment: Patient is a 73-year-old male past medical history of nephrolithiasis requiring lithotripsy, COPD, not on home oxygen, prostate cancer status post prostatectomy and radiation, and history of pneumothorax requiring chest tube approximately 20 years ago who presented to the ER at the direction of his urologist for back pain. In the ER he underwent an extensive evaluation. Initial laboratory analysis demonstrated an elevated white blood cell count at 24.7, elevated lactic acid at 2.1, and a moderate amount of blood in the urine. He subsequently underwent a CT abdomen and pelvis which showed no kidney stones. CT abdomen and pelvis demonstrated a soft tissue mass within the mid mesentery with multiple large para-aortic lymph nodes. He subsequently underwent a CT PE protocol secondary to dyspnea which showed no PE but persistent nodularity at the left posterior lung base and enlarged right hilar lymph node measuring 1.6 cm. 02/21 Patient continues on breathing treatments and COPD protocol with systemic steroids. He was evaluated by oncology who recommended to perform the biopsies inpatient versus outpatient. Patient was kept in the hospital due to acute hypoxic respiratory failure upon ambulation on room air in an attempt to optimize his COPD therapy. If he stays in the hospital until Saturday the biopsies will be performed while inpatient. He is expected to be discharged on 02/23. breathing is much better, his oxygenation has improved compared to yesterday, still aiming at >92% on room air while ambulating, he would benefit from one more day of frequent breathing treatments and close monitoring of his pulmonary status, besides we would offer him the biopsy while inpatient in AM, after which if he is stable , he should be able to be discharged home, final home oxygen assessment will be performed tomorrow , patient agreeable with plan. he reported financial concerns with inhalers as they are expensive and he could not afford them in the past. 02/23 plans for biopsy today, patient is doing well. will assess his ambulatory oxygen level and determine if he will benefit from home oxygen. possible discharge today Plan: Acute hypoxic respiratory failure secondary to underlying COPD exacerbation, improving acute exacerbation of COPD, with bronchitis -Continue with DuoNeb , ICS and LABA, doxycycline for bronchitis -Continue with by mouth prednisone Assess for home oxygen requirement prior to discharge, patient oxygenation is improving mesenteric mass -IR for biopsy today oncology following -Pain control with IV morphine and [place] for back pain check PSA , with history of prostate cancer s/p resection PT/INR and Hgb all wnl Microscopic hematuria -Outpatient follow-up with his urologist out of [place] Elevated lactic acid, resolved Leukocytosis, improving -No signs of infection on CT chest, abdomen, pelvis or urinalysis -Likely reflective process -Continue to follow up Patient is afebrile Obesity BMI 30 - structured outpatient weight loss biopsy today , possible discharge later today after the procedure will need rescue inhaler, ICS, LABA, finish a 5 day course of systemic steroids. asses for home oxygen follow up with pulmonary as OP DVT prophylaxis heparin subcu 3 times a day
--- NOTE | 2019-02-23 13:05 | CT ---
EXAMINATION TYPE: CT abdomen w con DATE OF EXAM: 02/23/2019 COMPARISON: 02/19/2019 HISTORY: Abdominal mass CT DLP: 1770 mGycm Automated exposure control for dose reduction was used. TECHNIQUE: Helical acquisition of images was performed from the lung bases through the top of iliac crest to include entire abdomen. CONTRAST: Performed without Oral Contrast and with IV Contrast, patient injected with 100 mL of Isovue 300. FINDINGS: CT was performed prior to mesenteric lymph node biopsy. The mass was posterior to the bowel with no safe percutaneous access for mesenteric mass biopsy. Note is made of retroaortic adenopathy. However, the IVC is posterior in location with a retroaortic renal vein secured posterior access. Massive adenopathy hasn't variant retroaortic region noted. Aorta of normal caliber. Small hiatal her mary seen. Bilateral subsegmental consolidation noted. Simple left renal cyst noted. IMPRESSION: MESENTERIC MASS WAS OBSCURED BY BOWEL AND THERE WAS NO SAFE PERCUTANEOUS ACCESS FOR BIOPSY.
[2019-02-23] MEDS: predniSONE 20 MG TAB PO SCH (13:08)
[2019-02-23] MEDS: DOXYCYCLINE 100 MG CAP PO SCH (13:08)
[2019-02-23] MEDS: BENZONATATE 100 MG CAP PO SCH ×2 (13:08→16:33)
--- NOTE | 2019-02-23 16:24 | P.DS ---
Providers Date of admission: 02/19/19 14:39 Expected date of discharge: 02/23/19 Attending physician: Miri Ramos DO Consults: 02/19/19 15:11 Consult Physician Stat Consulting Provider: Edi Garcia Consult Reason/Comments: Mesenteric mass, rule out lymphoma Do you want consulting provider notified?: Yes [facility] Course: final diagnosis at discharge acute hypoxic respiratory failure 2/2 underlying acute COPD exacerbation mesenteric mass paraaortic lymphadenopathy Hospital course Patient is a 73-year-old male past medical history of nephrolithiasis requiring lithotripsy, COPD, not on home oxygen, prostate cancer status post prostatectomy and radiation, and history of pneumothorax requiring chest tube approximately 20 years ago who presented to the ER at the direction of his urologist for back pain. In the ER he underwent an extensive evaluation. Initial laboratory analysis demonstrated an elevated white blood cell count at 24.7, elevated lactic acid at 2.1, and a moderate amount of blood in the urine. He subsequently underwent a CT abdomen and pelvis which showed no kidney stones. CT abdomen and pelvis demonstrated a soft tissue mass within the mid mesentery with multiple large para-aortic lymph nodes. He subsequently underwent a CT PE protocol secondary to dyspnea which showed no PE but persistent nodularity at the left posterior lung base and enlarged right hilar lymph node measuring 1.6 cm. 02/21 Patient continues on breathing treatments and COPD protocol with systemic steroids. He was evaluated by oncology who recommended to perform the biopsies inpatient versus outpatient. Patient was kept in the hospital due to acute hypoxic respiratory failure upon ambulation on room air in an attempt to optimize his COPD therapy. If he stays in the hospital until Saturday the biopsies will be performed while inpatient. He is expected to be discharged on 02/23. breathing is much better, his oxygenation has improved compared to yesterday, still aiming at >92% on room air while ambulating, he would benefit from one more day of frequent breathing treatments and close monitoring of his pulmonary status, besides we would offer him the biopsy while inpatient in AM, after which if he is stable , he should be able to be discharged home, final home oxygen assessment will be performed tomorrow , patient agreeable with plan. he reported financial concerns with inhalers as they are expensive and he could not afford them in the past. 02/23 plans for biopsy today, patient is doing well. will assess his ambulatory oxygen level and determine if he will benefit from home oxygen. possible discharge today failed attempt for mesenteric biopsy under CT guidance, then radiologist was able to perform LN biopsy and was sent for flow and cytology patient seen and examined on day of discharge, denies any pain , tolerated procedure, denies any chest pain or trouble breathing. ambulatory oxygen saturation went well , and patient maintained his oxygen saturation above 91-92% on room air. Constitutional: vital signs stable, patient is conversant. Lungs: good breath sounds clear to auscultation minimal scattered rhonci, no rales. Good overall air entry Cardiovascular: Regular rate and rhythm, no murmurs, no gallops, no rubs, no peripheral edema Gastrointestinal: Soft, no tenderness to palpation, no palpable masses, bowel sounds positive, no abdominal wall hernias Extremities: No digital cyanosis or clubbing, peripheral pulses palpable and equal over bilateral radial arteries and dorsalis pedis artery, no calf muscle tenderness Psych: Alert, oriented to place, person and time, appropriate affect, intact judgment discharge home is stable clinical condition, follow up with PCP and oncology , on results of biopsy schedule an appointment with general surgery to perform Lap biopsy of the mesenteric mass if needed , depending on the results of the lymph node biopsy 45 minutes were spent discharging this patient, and more than 50% of the time was spent in counseling the patient and family and in coordinating care. Patient was examined immediately after LN biposy procedure and again interval exam [address] Samaniego, workers compensation claims specialist physician. Patient was stable and discharged home with stable vital sings and clinical condition with no signs of any complication post LN biopsy.. Pertinent Studies: CT abd pelvis and CTA chest Procedures: attempted mesenteeric biopsy under CT guide IR LN biopsy Patient Condition at Discharge: Stable Plan - Discharge Summary Discharge Rx Participant: No New Discharge Prescriptions: New Fluticasone/Salmeterol [Advair 250-50 Diskus] 1 inhalation PO BID 30 Days #1 inhaler predniSONE 60 mg PO DAILY #3 tab Tiotropium [place] [Spiriva] 1 cap INHALATION DAILY #1 device Albuterol Inhaler [Ventolin Hfa Inhaler] 1 - 2 puff INHALATION RT-Q6H PRN #1 inhaler PRN Reason: Shortness Of Breath Doxycycline [Vibramycin] 100 mg PO BID #6 cap Discontinued Albuterol Inhaler [Ventolin Hfa Inhaler] 1 - 2 puff INHALATION RT-Q6H PRN PRN Reason: Shortness Of Breath Aspirin 650 mg PO DAILY PRN PRN Reason: Pain Discharge Medication List Albuterol Inhaler [Ventolin Hfa Inhaler] 1 - 2 puff INHALATION RT-Q6H PRN #1 inhaler 02/23/19 [Rx] Doxycycline [Vibramycin] 100 mg PO BID #6 cap 02/23/19 [Rx] Fluticasone/Salmeterol [Advair 250-50 Diskus] 1 inhalation PO BID 30 Days #1 inhaler 02/23/19 [Rx] Tiotropium [place] [Spiriva] 1 cap INHALATION DAILY #1 device 02/23/19 [Rx] predniSONE 60 mg PO DAILY #3 tab 02/23/19 [Rx] Follow up Appointment(s)/Referral(s): Edi Garcia MD [STAFF PHYSICIAN] - 1 Week Kamilah Bobo DO [Doctor of Osteopathic Medicine] - 1 Week Azul Loco MD [STAFF PHYSICIAN] - 3 Weeks (for pulmonary function test) Nathalie Garzon MD [Primary Care Provider] - 3 Days Patient Instructions/Handouts: Lymphadenopathy (ED), COPD (Chronic Obstructive Pulmonary Disease) (ED) Care Plan Goals (MU): follow up with General surgery to schedule for laproscopic biopsy of the abd mass follow up with oncology and PCP , on lymphnode biopsy results follow up with pulmonary for pulmonary function test Discharge Disposition: HOME SELF-CARE
--- NOTE | 2019-02-23 16:26 | P.PN ---
Subjective Progress Note Date: 02/23/19 Principal diagnosis: Mesenteric Mass Patient sent for biopsy of mesenteric Mass, unfortunately due to location IR was unable to safely approach. Objective - Vital Signs Vital signs: Vital Signs Temp 98.4 F 02/23/19 13:47 Pulse 97 02/23/19 16:05 Resp 14 02/23/19 16:05 BP 145/82 02/23/19 16:05 Pulse Ox 93 L 02/23/19 16:05 Intake & Output 02/22/19 02/23/19 02/23/19 18:59 06:59 18:59 Intake Total 100 Balance 100 Intake: Oral 100 Other: Voiding Method Toilet # Voids 3 1 3 - Labs CBC & Chem 7: 02/23/19 05:41 02/20/19 11:43 Labs: Abnormal Lab Results - Last 24 Hours (Table) 02/23/19 Range/Units 05:41 WBC 14.2 H (3.8-10.6) k/uL Neutrophils # 11.1 H (1.3-7.7) k/uL Monocytes # 1.1 H (0-1.0) k/uL Assessment and Plan Plan: Chest x-ray: report reviewed CT scan - abdomen: report reviewed, image reviewed CT scan - chest: report reviewed CT scan - pelvis: report reviewed, image reviewed Assessment and Plan (1) Mesenteric mass - This is a new finding for this patient, on CT scan done to workup his back pain. - The mass is quite substantial, about 12.4 cm. It is associated with fairly large periaortic adenopathy. - Likely the adenopathy is responsible for his back pain. - The CT findings and implications were discussed in detail with him and multiple family members. - He was advised that this is highly suspicious for malignancy. - Recurrence of prostate cancer is a possibility though less so given the time lapse between his initial diagnosis, as well as the fact that his PSA was normal about a year ago. - The patient did not have any palpable adenopathy. There was only one mildly enlarged right hilar lymph node on chest. - The patient will need a tissue diagnosis. Unfortunetly due to location Interventional Radiology could not safely obtain this, will plan to set patient up as outpatient with OSH for tissue Biopsy. (2) History of prostate cancer - PSA does not show increase, mesenteric mass could likely be secondary primary cancer. Physician Attest: I have completed the full history and physical and developed the complete impression and plan, agree with dictation, dictated as a scribe
[2019-02-23 20:11] VITALS: BP 152/74; TEMP 98.3
[2019-02-23 20:15] VITALS: RESP 18
[2019-02-23 20:21] VITALS: PULSE 99
--- NOTE | 2019-02-24 08:34 | CT ---
EXAMINATION TYPE: CT biopsy lymph node DATE OF EXAM: 02/23/2019 COMPARISON: NONE HISTORY: Periaortic lymphadenopathy CT DLP: 4288mGycm The procedure was explained to the patient. The risks, complications, benefits, and alternatives wer e discussed and any questions were answered. Informed consent was obtained. Patient was placed pron e on the CT table and prepped and draped in the usual sterile fashion. All elements of maximal barrier and sterile technique utilized. Utilizing CT guidance, an 18 gauge core biopsy needle access into the right periaortic lymphadenopath y was achieved and a Two 18 gauge core samples were obtained. The patient was stable throughout the procedure and remained stable upon discharge. IMPRESSION: 1. Successful 18 gauge core biopsy of right periaortic lymphadenopathy.
--- NOTE | 2019-03-02 13:46 | CDI ---
Documentation Clarification Form Date: 03/02/19 From: Ivelisse Jeter Phone: If you have a question regardint this query, please contact Breann Lora at [phone] between 8am and 5pm. Admit Date: 02/19/2019 2:39:00 PM Patient Name: Dangelo Gibbons Visit Number: [id number] Discharge Date: 02/23/2019 9:16:00 PM ATTENTION: The Clinical Documentation Specialists (CDI) and [facility] Coding Staff appreciate your assistance in clarifying documentation. Please respond to the clarification below the line at the bottom and electronically sign. The CDI & [facility] Coding staff will review the response and follow-up if needed. Please note: Queries are made part of the Legal Health Record. If you have any questions, please contact the author of this message via ITS. Dr. 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 Documentation states: Mesenteric mass, rule out lymphoma. Patient history/risk factors: Patient has lymphadenopathy and a history of COPD. Clinical Indicators: Intractable back pain, mesenteric mass, enlargement of periaortic lymph nodes as well as hilar lymph nodes Procedure: biopsy of lymph node Please indicate if you concur with the pathology report specifying the paraaortic lymph node biopsy as B cell Non Hodgkin's Lymphoma consistent with follicular lymphoma? Yes No Other (please specify) Unable to determine yes MTDD
== END 2019-02-23 21:16 | disposition home or self-care (01) | DRG 190 ==
LOC: EC 10:31 → 4MS4W 14:39 → 4SSUR 18:07
PROVIDERS: ADMIT Internal Medicine; ATTEND Internal Medicine
PROC: 07D73ZX Extraction of Thorax Lymphatic, Percutaneous Approach, Diagnostic (ICD-10-PCS; principal; 2019-02-23)
DX: J44.1 Chronic obstructive pulmonary disease with (acute) exacerbation (principal); J96.01 Acute respiratory failure with hypoxia; C82.92 Follicular lymphoma, unspecified, intrathoracic lymph nodes; R31.29 Other microscopic hematuria; E66.9 Obesity, unspecified; D72.829 Elevated white blood cell count, unspecified; Z68.30 Body mass index [BMI] 30.0-30.9, adult; Z85.46 Personal history of malignant neoplasm of prostate; Z87.442 Personal history of urinary calculi; Z87.891 Personal history of nicotine dependence; Z90.79 Acquired absence of other genital organ(s); Z92.3 Personal history of irradiation; Z88.0 Allergy status to penicillin; Z96.60 Presence of unspecified orthopedic joint implant
CPT/HCPCS: 36415; 38505; 71046; 71275; 74160; 74176; 77012; 80053; 81001; 82150; 83605; 83690; 84153; 84484; 85025; 85610; 85730; 88305; 88341; 88342; 94640; 94760; 96361; 96374; 96375; 99285

== ENCOUNTER 2019-04-26 09:52 | Inpatient (IN) | payer MEDICARE ==
[2019-04-26] MEDS ORDERED: IPRATROPIUM-ALBUTEROL 3 ML NEB INHALATION STA (10:18)
[2019-04-26] MEDS ORDERED: methylPREDNISolone SOD SUCCI 125 MG/2 ML VIAL IV STA (10:18)
--- NOTE | 2019-04-26 10:50 | ED ---
URI HPI - General Source: patient, RN notes reviewed Mode of arrival: ambulatory Limitations: no limitations <Rashawn Kolb - Last Filed: 04/26/19 13:26> <Gordon Snell - Last Filed: 04/26/19 13:41> - General Chief Complaint: Upper Respiratory Infection Stated Complaint: LUNG Ca, COUGHING, CHEST TIGHTNESS, SOB Time Seen by Provider: 04/26/19 10:04 - History of Present Illness Initial Comments: This is a 73-year-old male presents emergency Department with chief complaint of cough, congestion shortness of breath. Patient was sent in by Dr. Garcia to rule out pneumonia versus PE. Patient sees Dr. Garcia for underlying lymphoma. Patient also states that he has underlying COPD. He did use his inhaler which helped some of his symptoms. Patient reports no fevers or chills. He initially had a productive cough which is now turned toward dry hacking type. He denies any current chest pain, nausea vomiting denies any fevers chills. (Rashawn Kolb) - Related Data Home Medications Medication Instructions Recorded Confirmed Docusate [Colace] 100 mg PO DAILY 04/26/19 04/26/19 Tiotropium [place] [Spiriva] 1 cap INHALATION RT-DAILY 04/26/19 04/26/19 Previous Rx's Medication Instructions Recorded Albuterol Inhaler [Ventolin Hfa 1 - 2 puff INHALATION RT-Q6H PRN 02/23/19 Inhaler] #1 inhaler Allergies Allergy/AdvReac Type Severity Reaction Status Date / Time Penicillins Allergy Unknown Rash/Hives Verified 04/26/19 10:35 Review of Systems ROS Other: All systems not noted in ROS Statement are negative. <Rashawn Kolb - Last Filed: 04/26/19 13:26> ROS Other: All systems not noted in ROS Statement are negative. <Gordon Snell - Last Filed: 04/26/19 13:41> ROS Statement: Those systems with pertinent positive or pertinent negative responses have been documented in the HPI. Past Medical History Past Medical History: Cancer, COPD Additional Past Medical History / Comment(s): HX PROSTATE CANCER WITH SURGERY & RADIATION (2006), KIDNEY STONES. lymphoma History of Any Multi-Drug Resistant Organisms: None Reported Past Surgical History: Joint Replacement, Orthopedic Surgery, Prostate Surgery Additional Past Surgical History / Comment(s): BRAIN SURGERY TO RELIEVE PRESSURE AFTER HEAD INJURY (6 YRS OLD), TOTAL LEFT KNEE, LEFT SHOULDER SURGERY, LEFT ARM SURGERY AFTER CRUSHING INJURY. Chest tube for pneumothorax. Lithotripsy. Prostatectomy secondary to prostate cancer. Past Anesthesia/Blood Transfusion Reactions: No Reported Reaction, Motion Sickness Additional Past Anesthesia/Blood Transfusion Reaction / Comment(s): SLOW TO WAKE UP Past Psychological History: No Psychological Hx Reported Smoking Status: Former smoker Past Alcohol Use History: Occasional Past Drug Use History: None Reported - Past Family History Mother Family Medical History: No Reported History <Rashawn Kolb - Last Filed: 04/26/19 13:26> General Exam General appearance: alert, in no apparent distress Head exam: Present: atraumatic, normocephalic, normal inspection Eye exam: Present: normal appearance, PERRL, EOMI. Absent: scleral icterus, conjunctival injection, periorbital swelling ENT exam: Present: normal exam, normal oropharynx, mucous membranes moist Neck exam: Present: normal inspection, full ROM. Absent: tenderness, meningismus, lymphadenopathy Respiratory exam: Present: wheezes. Absent: normal lung sounds bilaterally, respiratory distress, rales, rhonchi, stridor Cardiovascular Exam: Present: normal rhythm, tachycardia, normal heart sounds. Absent: systolic murmur, diastolic murmur, rubs, gallop, clicks GI/Abdominal exam: Present: soft, normal bowel sounds. Absent: distended, tenderness, guarding, rebound, rigid Neurological exam: Present: alert, oriented X3, CN II-XII intact Skin exam: Present: warm, dry, intact, normal color. Absent: rash <Rashawn Kolb - Last Filed: 04/26/19 13:26> Course <Gordon Snell - Last Filed: 04/26/19 13:41> Vital Signs 04/26/19 04/26/19 04/26/19 09:58 12:00 12:05 Temperature 98.4 F Pulse Rate 103 H 91 92 Respiratory 20 18 Rate Blood Pressure 137/62 157/98 O2 Sat by Pulse 94 L 95 Oximetry 04/26/19 04/26/19 12:18 13:00 Temperature Pulse Rate 92 96 Respiratory 18 Rate Blood Pressure 151/79 O2 Sat by Pulse 95 Oximetry - Reevaluation(s) Reevaluation #1: 04/26/19 13:41 A supervision: I proceeded [id number] evaluation the patient he does demonstrate evidence of exertional dyspnea. He was directed to come here by Dr. Garcia this morning who I did talk to. Patient scan was negative for PE or pneumonia. He demonstrates evidence of a COPD exacerbation at did discuss the case with Dr. Jovel patient will be admitted with consultation by pulmonary medicine. I do agree with the assessment and plan (Gordon Snell) Medical Decision Making - Lab Data Result diagrams: 04/26/19 11:21 04/26/19 11:21 <Rashawn Kolb - Last Filed: 04/26/19 13:26> - Lab Data Result diagrams: 04/26/19 11:21 04/26/19 11:21 <Gordon Snell - Last Filed: 04/26/19 13:41> - Medical Decision Making 73-year-old male presented for shortness breath. Patient had labs, x-ray and CT CT was negative for acute PE. Patient does have some atelectasis and scarring. Patient has known COPD. He had minimal improvement. Treatments. She still complains of shortness breath of the pain rates. Patient will be admitted for COPD exacerbation further evaluation. (Rashawn Kolb) - Lab Data Lab Results 04/26/19 04/26/19 04/26/19 Range/Units 11:21 11:21 11:21 WBC 16.4 H (3.8-10.6) k/uL RBC 5.43 (4.30-5.90) m/uL Hgb 16.4 (13.0-17.5) gm/dL Hct 49.9 (39.0-53.0) % MCV 91.9 (80.0-100.0) fL MCH 30.1 (25.0-35.0) pg MCHC 32.8 (31.0-37.0) g/dL RDW 17.1 H (11.5-15.5) % Plt Count 233 (150-450) k/uL Neutrophils % 87 % Lymphocytes % 4 % Monocytes % 6 % Eosinophils % 1 % Basophils % 0 % Neutrophils # 14.3 H (1.3-7.7) k/uL Lymphocytes # 0.6 L (1.0-4.8) k/uL Monocytes # 0.9 (0-1.0) k/uL Eosinophils # 0.2 (0-0.7) k/uL Basophils # 0.1 (0-0.2) k/uL Anisocytosis Slight PT 10.1 (9.0-12.0) sec INR 0.9 (<1.2) APTT 24.1 (22.0-30.0) sec D-Dimer 0.91 H (<0.60) mg/L FEU Sodium 139 (137-145) mmol/L Potassium 4.2 (3.5-5.1) mmol/L Chloride 104 (98-107) mmol/L Carbon Dioxide 29 (22-30) mmol/L Anion Gap 6 mmol/L BUN 10 (9-20) mg/dL Creatinine 0.83 (0.66-1.25) mg/dL Est GFR (CKD-EPI)AfAm >90 (>60 ml/min/1.73 sqM) Est GFR (CKD-EPI)NonAf 89 (>60 ml/min/1.73 sqM) Glucose 163 H (74-99) mg/dL Calcium 9.1 (8.4-10.2) mg/dL Total Bilirubin 0.9 (0.2-1.3) mg/dL AST 22 (17-59) U/L ALT 29 (21-72) U/L Alkaline Phosphatase 69 (38-126) U/L Troponin I (0.000-0.034) ng/mL NT-Pro-B Natriuret Pep pg/mL Total Protein 6.9 (6.3-8.2) g/dL Albumin 4.1 (3.5-5.0) g/dL 04/26/19 04/26/19 Range/Units 11:21 11:21 WBC (3.8-10.6) k/uL RBC (4.30-5.90) m/uL Hgb (13.0-17.5) gm/dL Hct (39.0-53.0) % MCV (80.0-100.0) fL MCH (25.0-35.0) pg MCHC (31.0-37.0) g/dL RDW (11.5-15.5) % Plt Count (150-450) k/uL Neutrophils % % Lymphocytes % % Monocytes % % Eosinophils % % Basophils % % Neutrophils # (1.3-7.7) k/uL Lymphocytes # (1.0-4.8) k/uL Monocytes # (0-1.0) k/uL Eosinophils # (0-0.7) k/uL Basophils # (0-0.2) k/uL Anisocytosis PT (9.0-12.0) sec INR (<1.2) APTT (22.0-30.0) sec D-Dimer (<0.60) mg/L FEU Sodium (137-145) mmol/L Potassium (3.5-5.1) mmol/L Chloride (98-107) mmol/L Carbon Dioxide (22-30) mmol/L Anion Gap mmol/L BUN (9-20) mg/dL Creatinine (0.66-1.25) mg/dL Est GFR (CKD-EPI)AfAm (>60 ml/min/1.73 sqM) Est GFR (CKD-EPI)NonAf (>60 ml/min/1.73 sqM) Glucose (74-99) mg/dL Calcium (8.4-10.2) mg/dL Total Bilirubin (0.2-1.3) mg/dL AST (17-59) U/L ALT (21-72) U/L Alkaline Phosphatase (38-126) U/L Troponin I <0.012 (0.000-0.034) ng/mL NT-Pro-B Natriuret Pep 206 pg/mL Total Protein (6.3-8.2) g/dL Albumin (3.5-5.0) g/dL 04/26/19 11:55 EKG performed at 11:17 no sinus rhythm rate of 96 AL 170 QRS 70 QT/QTC 354/447 (Rashawn Kolb) Disposition <Rashawn Kolb - Last Filed: 04/26/19 13:26> <Gordon Snell - Last Filed: 04/26/19 13:41> Clinical Impression: COPD exacerbation Disposition: ADMITTED IP TO THIS HOSP Condition: Fair Referrals: Nathalie Garzon MD [Primary Care Provider] - 1-2 days
[2019-04-26 11:42] LABS: ALT 29 U/L (21-72); AST 22 U/L (17-59); African American GFR (CKD) >90 (>60 ml/min/1.73 sqM); Albumin 4.1 g/dL (3.5-5.0); Alkaline Phosphatase 69 U/L (38-126); Anion Gap 6 mmol/L; Blood Urea Nitrogen 10 mg/dL (9-20); Calcium 9.1 mg/dL (8.4-10.2); Carbon Dioxide 29 mmol/L (22-30); Chloride 104 mmol/L (98-107); Glucose 163 mg/dL (74-99); Potassium 4.2 mmol/L (3.5-5.1); Sodium 139 mmol/L (137-145); Total Bilirubin 0.9 mg/dL (0.2-1.3); Total Protein 6.9 g/dL (6.3-8.2)
[2019-04-26 11:43] LABS: Anisocytosis Slight; Basophils # (A) 0.1 k/uL (0-0.2); Basophils % (A) 0 %; Eosinophils # (A) 0.2 k/uL (0-0.7); Eosinophils % (A) 1 %; HCT 49.9 % (39.0-53.0); HGB 16.4 gm/dL (13.0-17.5); Lymphocytes # (A) 0.6 k/uL (1.0-4.8); Lymphocytes % (A) 4 %; MCH 30.1 pg (25.0-35.0); MCHC 32.8 g/dL (31.0-37.0); MCV 91.9 fL (80.0-100.0); Monocytes # (A) 0.9 k/uL (0-1.0); Monocytes % (A) 6 %; Neutrophils # (A) 14.3 k/uL (1.3-7.7); Neutrophils % (A) 87 %; Platelet Count 233 k/uL (150-450); RBC 5.43 m/uL (4.30-5.90); RDW 17.1 % (11.5-15.5); WBC 16.4 k/uL (3.8-10.6)
[2019-04-26 11:52] LABS: INR 0.9 (<1.2)
--- NOTE | 2019-04-26 11:52 | XR ---
EXAMINATION TYPE: XR chest 2V DATE OF EXAM: 04/26/2019 HISTORY: difficulty breathing. REFERENCE: Previous study dated 02/19/2019. FINDINGS: Lung volumes are prominent. There is chronic apparent elevation right hemidiaphragm. Bilate ral lower lobe nodules are less clearly defined on this examination. There is some atelectasis at the right lung base. The heart is not enlarged. Pleural spaces are clear. IMPRESSION: 1. CORRELATE FOR COPD. 2. BIBASILAR NODULES. 3. ATELECTASIS, RIGHT LUNG BASE.
[2019-04-26 11:53] LABS: Partial Thromboplastin Time 24.1 sec (22.0-30.0); Prothrombin Time 10.1 sec (9.0-12.0)
[2019-04-26 11:56] LABS: D-Dimer 0.91 mg/L FEU (<0.60)
--- NOTE | 2019-04-26 13:03 | CT ---
EXAMINATION TYPE: CT chest angio for PE DATE OF EXAM: 04/26/2019 COMPARISON: Previous study dated 02/19/2019 HISTORY: Cough and congestion CT DLP: 405.8 mGycm Automated exposure control for dose reduction was used. CONTRAST: CT Chest for pulmonary embolism performed with with IV Contrast, patient injected with 100, wasted 21 mL of Isovue 370. FINDINGS: There is developed some atelectatic change at the right lung base. Nodularity at the lung b ases previously described is not as clearly evident on this examination. There is some nonspecific adenopathy in the right hilum. No definite pathologically involved lymph no daphne are seen. There is no evidence of pulmonary embolus. The aorta is normal in caliber without evidence of dissect ion. There is no pleural or pericardial fluid. The heart is not enlarged. Within the abdomen there is a simple appearing 2.8 cm left renal cyst. There is probable fatty infilt ration of the liver. No other definite abnormality is seen in the upper abdomen. There is minimal hypertrophic spondylosis within the spine. IMPRESSION: 1. THIS EXAMINATION IS NEGATIVE FOR PULMONARY EMBOLUS. 2. WORSENING ATELECTASIS OR CONSOLIDATION AT THE RIGHT LUNG BASE. 3. LEFT RENAL CYST. 4. MILD DEGENERATIVE CHANGE WITHIN THE SPINE.
[2019-04-26] MEDS ORDERED: AZITHROMYCIN 500 MG in SODIUM CHLORIDE 0.9% 250 ML IVPB STA (13:27)
[2019-04-26] MEDS ORDERED: cefTRIAXone IN SWFI 1,000 MG/10 ML SYRINGE IVP STA (13:27)
[2019-04-26] MEDS ORDERED: ALBUTEROL NEBULIZED 2.5 MG/3 ML INHALATION PRN (13:28)
[2019-04-26] MEDS ORDERED: INSULIN ASPART (NovoLOG) 100 UNIT/ML VIAL SQ PRN (15:11)
--- NOTE | 2019-04-26 15:25 | P.HPIM ---
History of Present Illness H&P Date: 04/26/19 Chief Complaint: Cough and difficulty breathing The patient is a 73-year-old male the past medical of prostate cancer status post prostatectomy and radiation and recently diagnosed B-cell non- Hodgkin's follicular lymphoma currently receiving chemotherapy from his o ncologist Dr. Stephenson and COPD not known to be oxygen dependent who presents to the ER via private vehicle with chief complaint of difficulty breathing starting yesterday. Apparently the patient began having shortness of breath with intermittently productive cough since yesterday, he denies any fevers or chills or night sweats. He denies any chest pain, nausea vomiting, diarrhea or abdominal pain. The patient reports given himself the treatment of his rescue inhaler then subsequently presented to the ER where he received a second breathing treatment. In the ER he had a comprehensive workup chest x-ray showed bibasilar nodules and atelectasis of the right lung base, d-dimer was slightly elevated at 0.91 and subsequent CTA of the chest was negative for PE, that showed worsening atelectasis or consolidation of the right lung base and left renal cyst. The patient was started on systemic steroids with IV Solu-Medrol and placed on empiric IV antibiotics with azithromycin and Rocephin and recommended for admission for COPD exacerbation Review of Systems Pertinent positives per HPI all other review of system otherwise negative Past Medical History Past Medical History: Cancer, COPD Additional Past Medical History / Comment(s): HX PROSTATE CANCER WITH SURGERY & RADIATION (2006), KIDNEY STONES. lymphoma History of Any Multi-Drug Resistant Organisms: None Reported Past Surgical History: Joint Replacement, Orthopedic Surgery, Prostate Surgery Additional Past Surgical History / Comment(s): BRAIN SURGERY TO RELIEVE PRESSURE AFTER HEAD INJURY (6 YRS OLD), TOTAL LEFT KNEE, LEFT SHOULDER SURGERY, LEFT ARM SURGERY AFTER CRUSHING INJURY. Chest tube for pneumothorax. Lithotripsy. Prostatectomy secondary to prostate cancer. Past Anesthesia/Blood Transfusion Reactions: No Reported Reaction, Motion Sickness Additional Past Anesthesia/Blood Transfusion Reaction / Comment(s): SLOW TO WAKE UP Past Psychological History: No Psychological Hx Reported Smoking Status: Former smoker Past Alcohol Use History: Occasional Past Drug Use History: None Reported - Past Family History Mother Family Medical History: No Reported History Medications and Allergies Home Medications Medication Instructions Recorded Confirmed Type Albuterol Inhaler [Ventolin Hfa 1 - 2 puff INHALATION RT-Q6H PRN 04/15/19 06/16/19 Rx Inhaler] #1 inhaler Docusate [Colace] 100 mg PO DAILY 04/26/19 04/26/19 History Tiotropium [place] [Spiriva] 1 cap INHALATION RT-DAILY 04/26/19 04/26/19 History Allergies Allergy/AdvReac Type Severity Reaction Status Date / Time Penicillins Allergy Unknown Rash/Hives Verified 04/26/19 10:35 Physical Exam Vitals: Vital Signs Temp Pulse Resp BP Pulse Ox 04/26/19 14:00 99 20 151/78 97 04/26/19 13:00 96 18 151/79 95 04/26/19 12:18 92 04/26/19 12:05 92 04/26/19 12:00 91 18 157/98 95 04/26/19 09:58 98.4 F 103 H 20 137/62 94 L Intake and Output 04/26/19 04/26/19 04/26/19 06:59 14:59 22:59 Other: Weight 88.36 kg Constitutional: No acute distress, conversant, pleasant Eyes: Anicteric sclerae, moist conjunctiva, no lid-lag, PERRLA ENMT: NC/AT,Oropharynx clear, no erythema, exudates Neck:Supple, FROM, no masses, or JVD, No carotid bruits; No thyromegaly Lungs: Diminished in the bases, faint wheezes, unlabored, no conversational dyspnea noted, normal saturations on 2 L is a cannula Cardiovascular: Heart regular in rate and rhythm, No murmurs, gallops, or rubs no peripheral edema Abdominal: Soft Nontender, nom distended, no guarding, no rebound or rigidity, Normoactive bowel sounds No hepatomegaly, No splenomegaly, No palpable mass No abdominal wall hernia noted Skin: Normal temperature, tone, texture, turgor, No induration No subcutaneous nodules, No rash, lesions, No ulcers Extremities:No digital cyanosis No clubbing, Pedal pulses intact and sym metrical Radial pulses intact and symmetrical Normal gait and station, No calf tenderness Psychiatric: Alert and oriented to person, place and time, Appropriate affect Intact judgement Neuro: Muscles Strength 5/5 in all 4 extremities, Sensation to light touch grossly present throughout, Cranial nerves II-XII grossly intact. No focal sensory deficits Results CBC & Chem 7: 04/26/19 11:21 04/26/19 11:21 Labs: Abnormal Lab Results - Last 24 Hours (Table) 04/26/19 04/26/19 04/26/19 Range/Units 11:21 11:21 11:21 WBC 16.4 H (3.8-10.6) k/uL RDW 17.1 H (11.5-15.5) % Neutrophils # 14.3 H (1.3-7.7) k/uL Lymphocytes # 0.6 L (1.0-4.8) k/uL D-Dimer 0.91 H (<0.60) mg/L FEU Glucose 163 H (74-99) mg/dL Assessment and Plan (1) COPD exacerbation Current Visit: Yes Status: Acute Code(s): J44.1 - CHRONIC OBSTRUCTIVE PULMONARY DISEASE W (ACUTE) EXACERBATION SNOMED Code(s): 574224364 (2) Leukocytosis Current Visit: Yes Status: Acute Code(s): D72.829 - ELEVATED WHITE BLOOD CELL COUNT, UNSPECIFIED SNOMED Code(s): 632111714 (3) Elevated blood pressure reading without diagnosis of hypertension Current Visit: Yes Status: Acute Code(s): R03.0 - ELEVATED BLOOD-PRESSURE READING, W/O DIAGNOSIS OF HTN SNOMED Code(s): 068060968 (4) Steroid-induced hyperglycemia Current Visit: Yes Status: Acute Code(s): R73.9 - HYPERGLYCEMIA, UNSPECIFIED; T38.0X5A - ADVERSE EFFECT OF GLUCOCORT/SYNTH ANALOG, INIT SNOMED Code(s): 212447707 (5) Lymphoma Current Visit: No Status: Acute Code(s): C85.90 - NON-HODGKIN LYMPHOMA, UNSPECIFIED, UNSPECIFIED SITE SNOMED Code(s): 389757128 Plan: The patient observation anticipated less than 2 midnight stay with acute COPD exacerbation after presenting with difficulty breathing and cough, workup with CT of the chest showing right lower lobe atelectasis versus consolidation, noted leukocytosis have that appears to be chronic. The patient is immunosuppressed and is on chemotherapy for his follicular B-cell lymphoma, we'll continue empiric IV antibiotics with Levaquin, continue systemic steroids Solu-Medrol, initiate perforomist and continue albuterol Atrovent DuoNeb breathing treatments Q4 and prn. The patient started on correctional scale insulin coverage for expected steroid-induced hyperglycemia. Patient SCDs and PPI therapy for DVT and GI prophylaxis Surrogate decision-maker: - Aminata CODE STATUS: Full, no prolonged vent DVT prophylaxis: SCDs Discussed with: Patient, family, nursing Anticipated discharge date: 1-[address]: home A total of 65 minutes was spent on the care of this complex patient more than 50% of the time was spent in counseling and care coordination.
[2019-04-26] MEDS: IPRATROPIUM-ALBUTEROL 3 ML NEB INHALATION SCH ×2 (15:46→19:28)
[2019-04-26] MEDS ORDERED: IPRATROPIUM-ALBUTEROL 3 ML NEB INHALATION SCH (16:00)
[2019-04-26 16:47] LABS: Glucose,Whole Blood 292 mg/dL (75-99)
[2019-04-26 17:00] VITALS: BMI 29.6
[2019-04-26] MEDS: LEVOFLOXACIN 750MG-D5W PMX 750 MG in DEXTROSE/WATER 1 150ML.BAG IVPB SCH (18:00)
[2019-04-26] MEDS: methylPREDNISolone SOD SUCCI 125 MG/2 ML VIAL IV SCH ×2 (18:00→23:45)
[2019-04-26] MEDS ORDERED: INSULIN ASPART (NovoLOG) 100 UNIT/ML VIAL SQ ONE (18:04)
[2019-04-26] MEDS: FORMOTEROL FUMARATE 20 MCG/2 ML NEBU INHALATION SCH (19:28)
[2019-04-26 20:22] LABS: Glucose,Whole Blood 244 mg/dL (75-99)
[2019-04-26] MEDS: guaiFENesin 600 MG TABLET.ER PO SCH (21:04)
[2019-04-26] MEDS: INSULIN ASPART (NovoLOG) 100 UNIT/ML VIAL SQ SCH (21:06)
[2019-04-27] MEDS ORDERED: hydrALAZINE HCL 25 MG TAB PO STA (04:42)
[2019-04-27] MEDS: methylPREDNISolone SOD SUCCI 125 MG/2 ML VIAL IV SCH ×2 (05:19→13:16)
[2019-04-27 07:03] LABS: Glucose,Whole Blood 219 mg/dL (75-99)
[2019-04-27] MEDS: IPRATROPIUM-ALBUTEROL 3 ML NEB INHALATION SCH ×4 (07:43→20:15)
[2019-04-27] MEDS: FORMOTEROL FUMARATE 20 MCG/2 ML NEBU INHALATION SCH ×2 (07:43→20:15)
[2019-04-27] MEDS: INSULIN ASPART (NovoLOG) 100 UNIT/ML VIAL SQ SCH ×8 (07:50→23:16)
[2019-04-27] MEDS: guaiFENesin 600 MG TABLET.ER PO SCH ×2 (07:50→21:40)
[2019-04-27 11:22] LABS: Basophils % (A) 0 %; Eosinophils % (A) 0 %; HCT 49.2 % (39.0-53.0); HGB 15.7 gm/dL (13.0-17.5); Lymphocytes # (A) 0.2 k/uL (1.0-4.8); Lymphocytes % (A) 1 %; MCH 29.6 pg (25.0-35.0); MCHC 31.9 g/dL (31.0-37.0); MCV 92.9 fL (80.0-100.0); Mean Platelet Volume 6.7; Monocytes # (A) 0.9 k/uL (0-1.0); Monocytes % (A) 5 %; Neutrophils # (A) 17.9 k/uL (1.3-7.7); Neutrophils % (A) 92 %; Platelet Count 263 k/uL (150-450); RDW 14.2 % (11.5-15.5); WBC 19.4 k/uL (3.8-10.6)
[2019-04-27 11:29] LABS: African American GFR (CKD) >90 (>60 ml/min/1.73 sqM); Anion Gap 12 mmol/L; Blood Urea Nitrogen 17 mg/dL (9-20); Calcium 9.5 mg/dL (8.4-10.2); Carbon Dioxide 21 mmol/L (22-30); Chloride 104 mmol/L (98-107); Glucose 326 mg/dL (74-99); Potassium 4.1 mmol/L (3.5-5.1); Sodium 137 mmol/L (137-145)
[2019-04-27 12:06] LABS: Glucose,Whole Blood 277 mg/dL (75-99)
[2019-04-27] MEDS ORDERED: IPRATROPIUM-ALBUTEROL 3 ML NEB INHALATION PRN (12:52)
[2019-04-27] MEDS ORDERED: NALOXONE 0.4 MG/ML 1 ML VIAL IV PRN (12:57)
--- NOTE | 2019-04-27 13:11 | P.CNPUL ---
History of Present Illness Consult date: 04/27/19 Requesting physician: Elkin Jovel Reason for consult: dyspnea, COPD Chief complaint: Shortness of breath, cough, congestion History of present illness: This a very pleasant 73-year-old gentleman who follows with Dr. Robertson as his primary care physician. He has a history of previous pneumothorax requiring chest tube placement, prostate cancer status post prostatectomy radiation, kidney stones with previous lithotripsy. He also has significant chronic obstructive pulmonary disease Gold stage II with an FEV1 value of 49% of predicted. He follows in our office for the same. He is continued on Breo and Spiriva in the outpatient setting. He is a former smoker of 30+ years at 1 pack per day however quit back in 1998. Computed tomography scan of the chest from previous admission in February 2019 revealed persistent nodularity at the left lung base. There is suspected right hilar enlarged lymph node measuring 1.6 cm. 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 He's been following with Dr. Garcia. He presented here to the emergency room yesterday with complaints of increasing shortness of breath, cough and congestion. Chest x-ray revealed evidence of COPD. Noted bibasilar nodules. Atelectatic changes in the right lung base. CT angiogram was negative for pulmonary embolus. There is some worsening atelectasis or consolidation in the right lung base. Previous basilar nodularity is not as clearly evident on this exam as compared to previous 02/19/2019. He is seen today in consultation on the regular medical floor. He is awake and alert in no acute distress. He is stating he is breathing a bit easier today as compared to yesterday. Still with a loose nonproductive cough. No chills or night sweats. He is afebrile. Maintaining O2 saturations in the 90s on room air. White count 19.4. Hemoglobin 15.7. Creatinine 0.79. He has been initiated on DuoNeb inhalations, IV Solu-Medrol. Antibiotics in the form of Levaquin. Review of Systems REVIEW OF SYSTEMS: CONSTITUTIONAL: Denies any recent significant weight loss or weight gain. EYES: Denies change in vision. EARS, NOSE, MOUTH, THROAT: Denies headaches, denies sore throat. CARDIOVASCULAR: Denies chest pain, palpitations or syncopal episodes. RESPIRATORY: Positive for shortness of breath, cough, congestion no hemoptysis. GASTROINTESTINAL: Denies change in appetite, denies abdominal pain GENITOURINARY: Denies hematuria, denies infections. MUSKULOSKELETAL: Denies pain, denies swelling. INTEGUMENTARY: Denies rash, denies eczema. NEUROLOGICAL: Denies recent memory loss, no recent seizure activity. PSYCHIATRIC: Denies anxiety, denies depression. HEMATOLOGIC/LYMPHATIC: Denies anemia, denies enlarged lymph nodes. Past Medical History Past Medical History: Cancer, COPD Additional Past Medical History / Comment(s): HX PROSTATE CANCER WITH SURGERY & RADIATION (2006), KIDNEY STONES. lymphoma History of Any Multi-Drug Resistant Organisms: None Reported Past Surgical History: Joint Replacement, Orthopedic Surgery, Prostate Surgery Additional Past Surgical History / Comment(s): BRAIN SURGERY TO RELIEVE PRESSURE AFTER HEAD INJURY (6 YRS OLD), TOTAL LEFT KNEE, LEFT SHOULDER SURGERY, LEFT ARM SURGERY AFTER CRUSHING INJURY. Chest tube for pneumothorax. Lithotripsy. Prostatectomy secondary to prostate cancer. Past Anesthesia/Blood Transfusion Reactions: No Reported Reaction, Motion Sickness Additional Past Anesthesia/Blood Transfusion Reaction / Comment(s): SLOW TO WAKE UP Past Psychological History: No Psychological Hx Reported Smoking Status: Former smoker Past Alcohol Use History: Occasional Past Drug Use History: None Reported - Past Family History Mother Family Medical History: No Reported History Medications and Allergies Home Medications Medication Instructions Recorded Confirmed Type Albuterol Inhaler [Ventolin Hfa 1 - 2 puff INHALATION RT-Q6H PRN 02/23/19 04/26/19 Rx Inhaler] #1 inhaler Docusate [Colace] 100 mg PO DAILY 04/26/19 04/26/19 History Tiotropium [place] [Spiriva] 1 cap INHALATION RT-DAILY 04/26/19 04/26/19 History Allergies Allergy/AdvReac Type Severity Reaction Status Date / Time Penicillins Allergy Unknown Rash/Hives Verified 04/26/19 10:35 Physical Exam Vitals: Vital Signs Temp Pulse Pulse Resp BP BP Pulse Ox 04/27/19 11:31 92 04/27/19 11:19 96 04/27/19 09:02 99 154/78 04/27/19 08:45 101 H 16 04/27/19 08:06 100 04/27/19 07:56 96 04/27/19 07:55 96 04/27/19 07:43 100 04/27/19 06:27 162/71 04/27/19 05:00 97.7 F 101 H 16 182/88 93 L 04/26/19 23:35 110 H 24 04/26/19 21:00 97.5 F L 110 H 16 145/65 94 L 04/26/19 19:41 96 04/26/19 19:27 98 04/26/19 16:02 98.2 F 99 18 134/62 93 L 04/26/19 15:55 99 04/26/19 15:49 98 04/26/19 15:48 101 H 04/26/19 14:00 99 20 151/78 97 04/26/19 13:00 96 18 151/79 95 Intake and Output 04/26/19 04/27/19 04/27/19 22:59 06:59 14:59 Intake Total 200 590 Balance 200 590 Intake: Oral 200 590 Other: Voiding Method Toilet Toilet Toilet # Voids 2 GENERAL EXAM: Alert, active, comfortable in no apparent distress. On room air. HEAD: Normocephalic. EYES: Normal reaction of pupils, equal size. NOSE: Clear with pink turbinates. THROAT: No erythema or exudates. NECK: No masses, no JVD. CHEST: No chest wall deformity. LUNGS: Equal air entry with crackles in the right posterior base, end expiratory wheeze, diminished CVS: S1 and S2 normal with no audible murmur, regular rhythm. ABDOMEN: No hepatosplenomegaly, normal bowel sounds, no guarding or rigidity. SPINE: No scoliosis or deformity SKIN: No rashes CENTRAL NERVOUS SYSTEM: No focal deficits, tone is normal in all 4 extremities. EXTREMITIES: There is no peripheral edema. No clubbing, no cyanosis. Peripheral pulses are intact. Results - Laboratory Findings CBC and BMP: 04/27/19 10:56 04/27/19 10:56 PT/INR, D-dimer PT 10.1 sec (9.0-12.0) 04/26/19 11:21 INR 0.9 (<1.2) 04/26/19 11:21 D-Dimer 0.91 mg/L FEU (<0.60) H 04/26/19 11:21 Abnormal lab findings: Abnormal Labs 04/26/19 04/26/19 04/26/19 11:21 11:21 11:21 WBC 16.4 H RDW 17.1 H Neutrophils # 14.3 H Lymphocytes # 0.6 L D-Dimer 0.91 H Carbon Dioxide Glucose 163 H POC Glucose (mg/dL) 04/26/19 04/26/19 04/27/19 16:46 20:21 06:57 WBC RDW Neutrophils # Lymphocytes # D-Dimer Carbon Dioxide Glucose POC Glucose (mg/dL) 292 H 244 H 219 H 04/27/19 04/27/19 04/27/19 10:56 10:56 11:51 WBC 19.4 H RDW Neutrophils # 17.9 H Lymphocytes # 0.2 L D-Dimer Carbon Dioxide 21 L Glucose 326 H POC Glucose (mg/dL) 277 H - Diagnostic Findings Chest x-ray: image reviewed CT scan - chest: image reviewed Assessment and Plan Assessment: Impression: #1 Acute exacerbation of chronic obstructive pulmonary disease with some noted atelectasis/consolidation changes in the right lower lobe, previous nodularity not clearly seen on this CAT scan. Pulmonary embolism ruled out. #2 History of chronic tobacco use of 30 years at 1 pack per day however quit back in 1998. #3 Recent diagnosis of B-cell non-Hodgkin's lymphoma. #4 History of previous pneumothorax status post chest tube placement 20 years ago. #5 History of prostate cancer status post prostatectomy and radiation. #6 History of nephrolithiasis, status post lithotripsy. Plan: The patient was seen and evaluated by Dr. Matthews. Chest x-ray, CAT scans and labs all reviewed. We'll continue with the current treatment plan including DuoNeb inhalations, Pulmicort and Perforomist inhalations, IV Solu-Medrol. Cur rently on antibiotics in the form of Levaquin. Increase his activity as tolerated. We will continue to follow and make further recommendations based on his clinical status. I, the cosigning physician, performed a history & physical examination of the patient. Lungs sounds have bilateral end expiratory wheeze, crackles in the right posterior base. Maintaining good O2 saturations in the 90s on room air. I discussed the assessment and plan of care with my nurse practitioner, Ally Mendieta. I attest to the above note as dictated by her. Time with Patient: Greater than 30
--- NOTE | 2019-04-27 14:23 | P.CONS ---
History of Present Illness - Reason for Consult Consult date: 04/27/19 NHL Requesting physician: Rashawn Kolb - Chief Complaint SOB - History of Present Illness Mr. Gibbons is a pleasant male pt of Dr. Garcia, initially seen in consult on 02/20/19. Presented with left-sided back pain, 2 weeks duration, severe but, resolved spontaneously-pt attributed this to kidney stone. He came into the ER with recurrent symptoms, radiating across the mid back, subjective fever with flushing and chills prior. CT AP showed a large mesenteric mass, 0.4 cm in size as well as significant periaortic adenopathy. The patient had a prior history of prostate cancer treated with surgery and radiation in 2006. PSA has been normal. The mesenteric mass was not safe for biopsy due to proximity to bowel, had biopsy of retroperitoneal nodes on 02/23/19, pathology positive for B cell non-Hodgkin's lymphoma, follicular, grade 1-2. He was started on bendamustine - Rituxan for symptomatic disease on 03/17/19. He is s/p 2 cycles, next treatment due 05/11. Pt called office over the weekend with c/o chest pain and MILES, he was directed to ER for evaluation, CTA was negative for PE but suspicious for pneumonia/COPD exacerbation. His symptoms have improved since admit, he is looking forward to going home. No fevers, chills, nausea, chest pain, MILES, diarrhea or constipation. Review of Systems 14 point ROS is negative except as stated in HPI Past Medical History Past Medical History: Cancer, COPD Additional Past Medical History / Comment(s): HX PROSTATE CANCER WITH SURGERY & RADIATION (2006), KIDNEY STONES. lymphoma History of Any Multi-Drug Resistant Organisms: None Reported Past Surgical History: Joint Replacement, Orthopedic Surgery, Prostate Surgery Additional Past Surgical History / Comment(s): BRAIN SURGERY TO RELIEVE PRESSURE AFTER HEAD INJURY (6 YRS OLD), TOTAL LEFT KNEE, LEFT SHOULDER SURGERY, LEFT ARM SURGERY AFTER CRUSHING INJURY. Chest tube for pneumothorax. Lithotripsy. Prostatectomy secondary to prostate cancer. Past Anesthesia/Blood Transfusion Reactions: No Reported Reaction, Motion Sickness Additional Past Anesthesia/Blood Transfusion Reaction / Comm: SLOW TO WAKE UP Past Psychological History: No Psychological Hx Reported Smoking Status: Former smoker Past Alcohol Use History: Occasional Past Drug Use History: None Reported - Past Family History Mother Family Medical History: No Reported History Medications and Allergies Home Medications Medication Instructions Recorded Confirmed Type Albuterol Inhaler [Ventolin Hfa 1 - 2 puff INHALATION RT-Q6H PRN 02/23/19 04/26/19 Rx Inhaler] #1 inhaler Docusate [Colace] 100 mg PO DAILY 04/26/19 04/26/19 History Tiotropium [place] [Spiriva] 1 cap INHALATION RT-DAILY 04/26/19 04/26/19 History Allergies Allergy/AdvReac Type Severity Reaction Status Date / Time Penicillins Allergy Unknown Rash/Hives Verified 04/26/19 10:35 Physical Exam Vitals: Vital Signs Temp Pulse Pulse Resp BP BP Pulse Ox 04/27/19 09:02 99 154/78 04/27/19 08:45 101 H 16 04/27/19 08:06 100 04/27/19 07:56 96 04/27/19 07:55 96 04/27/19 07:43 100 04/27/19 06:27 162/71 04/27/19 05:00 97.7 F 101 H 16 182/88 93 L 04/26/19 23:35 110 H 24 04/26/19 21:00 97.5 F L 110 H 16 145/65 94 L 04/26/19 19:41 96 04/26/19 19:27 98 04/26/19 16:02 98.2 F 99 18 134/62 93 L 04/26/19 15:55 99 04/26/19 15:49 98 04/26/19 15:48 101 H 04/26/19 14:00 99 20 151/78 97 04/26/19 13:00 96 18 151/79 95 04/26/19 12:18 92 04/26/19 12:05 92 04/26/19 12:00 91 18 157/98 95 04/26/19 09:58 98.4 F 103 H 20 137/62 94 L Intake and Output 04/26/19 04/27/19 04/27/19 22:59 06:59 14:59 Intake Total 200 590 Balance 200 590 Intake: Oral 200 590 Other: Voiding Method Toilet Toilet Toilet # Voids 2 - Constitutional General appearance: average body habitus, cooperative, no acute distress - EENT Eyes: anicteric sclerae, EOMI, normal appearance ENT: hearing grossly normal, normal oropharynx - Neck Neck: no lymphadenopathy - Respiratory Respiratory: right: rales (few scattered), bilateral: CTA - Cardiovascular Rhythm: regular Heart sounds: normal: S1, S2 Abnormal Heart Sounds: no systolic murmur, no diastolic murmur, no rub, no S3 Gallop, no S4 Gallop, no click, no other leg Peripheral Edema: bilateral: None - Gastrointestinal General gastrointestinal: no absent bowel sounds, no decreased bowel sounds, no distended, no hepatomegaly, no hyperactive bowel sounds, normal bowel sounds, no organomegaly, no rigid, no scaphoid, soft, no splenomegaly, no tenderness, no umbilical hernia, no ventral hernia - Integumentary Integumentary: normal - Neurologic Neurologic: CNII-XII intact - Musculoskeletal Musculoskeletal: strength equal bilaterally - Psychiatric Psychiatric: A&O x's 3, appropriate affect, intact judgment & insight Results CBC & Chem 7: 04/27/19 10:56 04/27/19 10:56 Labs: Abnormal Lab Results - Last 24 Hours (Table) 04/26/19 04/26/19 04/26/19 Range/Units 11:21 11:21 11:21 WBC 16.4 H (3.8-10.6) k/uL RDW 17.1 H (11.5-15.5) % Neutrophils # 14.3 H (1.3-7.7) k/uL Lymphocytes # 0.6 L (1.0-4.8) k/uL D-Dimer 0.91 H (<0.60) mg/L FEU Glucose 163 H (74-99) mg/dL POC Glucose (mg/dL) (75-99) mg/dL 04/26/19 04/26/19 04/27/19 Range/Units 16:46 20:21 06:57 WBC (3.8-10.6) k/uL RDW (11.5-15.5) % Neutrophils # (1.3-7.7) k/uL Lymphocytes # (1.0-4.8) k/uL D-Dimer (<0.60) mg/L FEU Glucose (74-99) mg/dL POC Glucose (mg/dL) 292 H 244 H 219 H (75-99) mg/dL CT scan - chest: report reviewed Assessment and Plan (1) Lymphoma Narrative/Plan: Pt is s/p 2 cycle of BR-dose last week. He will be due in 2 weeks for next cycle. Pt understands that he will complete antibiotic regimen prescribed to him, he has f/u with Dr. Garcia in office tomorrow if he is discharged today. Current Visit: Yes Status: Acute Priority: Medium Code(s): C85.90 - NON- HODGKIN LYMPHOMA, UNSPECIFIED, UNSPECIFIED SITE SNOMED Code(s): 482720057 (2) Pneumonia Current Visit: Yes Status: Acute Priority: High Code(s): J18.9 - PNEUMONI A, UNSPECIFIED ORGANISM SNOMED Code(s): 176736683 (3) COPD exacerbation Current Visit: Yes Status: Acute Priority: High Code(s): J44.1 - CHRONIC OBSTRUCTIVE PULMONARY DISEASE W (ACUTE) EXACERBATION SNOMED Code(s): 669091192 Plan: Cont abx as prescribed for COPD exacerbation/pneumonia Attests: I have seen pt, completed H&P and developed impression and plan of care. Discussed with dictator, agree with note, documented as a scribe.
[2019-04-27] MEDS: LEVOFLOXACIN 750MG-D5W PMX 750 MG in DEXTROSE/WATER 1 150ML.BAG IVPB SCH (16:32)
--- NOTE | 2019-04-27 16:56 | P.PN ---
Subjective Progress Note Date: 04/27/19 Principal diagnosis: COPD exacerbation, pneumonia Patient was seen and examined. No acute events overnight. Patient reports significant improvement in his breathing. Continues to complain of cough. States that he is 70% back to baseline. He denies any fever or chills. He d enies any chest pain or palpitations. No nausea or vomiting. Objective - Vital Signs Vital signs: Vital Signs Temp 97.7 F 04/27/19 05:00 Pulse 92 04/27/19 11:31 Resp 16 04/27/19 08:45 BP 154/78 04/27/19 09:02 Pulse Ox 93 L 04/27/19 05:00 Intake & Output 04/26/19 04/27/19 04/27/19 18:59 06:59 18:59 Intake Total 790 Balance 790 Weight 88.36 kg Intake: Oral 790 Other: Voiding Method Toilet Toilet Toilet # Voids 2 - Exam General: [non toxic], [no distress], [appears at stated age] Derm: [warm], [dry] Head: [atraumatic], [normocephalic], [symmetric] Eyes: [EOMI], [no lid lag], [anicteric sclera] Mouth: [no lip lesion], [mucus membranes moist] Cardiovascular: [S1S2 reg], [pericardium], [positive DP is pulse bilateral], Lungs: [decreased breath sounds bilateral], [no rhonchi, no rales] , [no accessory muscle use] Abdominal: [soft], [ nontender to palpation], [no guarding], [no appreciable organomegaly] Ext: [no gross muscle atrophy], [no edema], [no contractures] Neuro: [no focal neuro deficits] Psych: [Alert], [oriented], [appropriate affect] - Labs CBC & Chem 7: 04/27/19 10:56 04/27/19 10:56 Labs: Abnormal Lab Results - Last 24 Hours (Table) 04/26/19 04/26/19 04/27/19 Range/Units 16:46 20:21 06:57 WBC (3.8-10.6) k/uL Neutrophils # (1.3-7.7) k/uL Lymphocytes # (1.0-4.8) k/uL Carbon Dioxide (22-30) mmol/L Glucose (74-99) mg/dL POC Glucose (mg/dL) 292 H 244 H 219 H (75-99) mg/dL 04/27/19 04/27/19 04/27/19 Range/Units 10:56 10:56 11:51 WBC 19.4 H (3.8-10.6) k/uL Neutrophils # 17.9 H (1.3-7.7) k/uL Lymphocytes # 0.2 L (1.0-4.8) k/uL Carbon Dioxide 21 L (22-30) mmol/L Glucose 326 H (74-99) mg/dL POC Glucose (mg/dL) 277 H (75-99) mg/dL Assessment and Plan Assessment: Assessment and Plan Shortness of breath, likely COPD exacerbation secondary to pneumonia Community acquired pneumonia Leukocytosis Elevated blood pressure reading Steroid-induced hyperglycemia Lymphoma D-dimer elevated, CTA chest rules out PE. Troponin less than 0.012, 0.023,EKG showing normal sinus rhythm, ACS ruled out. CTA chest shows signs concerning for pneumonia. Plans: DuoNeb 4 times a day scheduled and as needed for shortness of breath and wheezing. Continue formoterol and budesonide. Continue IV Levaquin for treatment and pneumonia.continue Solu-Medrol 60 mg IV every 6 hours. O2 per NC to maintain O2 saturation greater than 92%. Follow pulmonology recommendations. Plans: Management as above. Obtain blood and sputum cultures. Start Robitussin. Leukocytosis from 16.4 to 19.4. Likely secondary to steroids. Plan: Daily CBC. BP 154/78. Plans:monitor vitals, adjust medications as necessary. [id number]-[id number] glucose 227. Likely secondary to slight medical. Plans: Continue insulin sliding scale. Will add NovoLog 5 units 3 times a day. Regular Accu- Cheks. Hypoglycemic precautions. Plans: Follow oncology recommendations. Patient admitted for COPD exacerbation likely secondary to maintain core pneumonia. Pulmonology was consulted. Oncology was consulted for continuity care. Patient is pending clinical improvement. Likely DC in 1-2 days.
[2019-04-27 17:17] LABS: Glucose,Whole Blood 234 mg/dL (75-99)
[2019-04-27 20:02] LABS: Glucose,Whole Blood 260 mg/dL (75-99)
[2019-04-27] MEDS: BUDESONIDE 1 MG/2 ML NEBU INHALATION SCH (20:15)
[2019-04-27] MEDS ORDERED: INSULIN REGULAR BOLUS (FROM DRIP BAG) IV ONE (21:52)
[2019-04-27] MEDS ORDERED: INSULIN REGULAR 100 UNIT in SODIUM CHLORIDE 0.9% 100 ML IV SCH (22:00)
[2019-04-27 22:34] LABS: Glucose,Whole Blood 206 mg/dL (75-99)
[2019-04-27] MEDS ORDERED: MELATONIN 5 MG TABLET PO STA (23:16)
[2019-04-27] MEDS: methylPREDNISolone SOD SUCCI 40 MG/ML 1 ML VIAL IV SCH (23:36)
[2019-04-28 07:10] LABS: Glucose,Whole Blood 180 mg/dL (75-99)
[2019-04-28] MEDS ORDERED: INSULIN ASPART (NovoLOG) 100 UNIT/ML VIAL SQ SCH ×2 (07:30)
[2019-04-28] MEDS: methylPREDNISolone SOD SUCCI 40 MG/ML 1 ML VIAL IV SCH (07:47)
[2019-04-28] MEDS: INSULIN ASPART (NovoLOG) 100 UNIT/ML VIAL SQ SCH ×8 (07:47→21:24)
[2019-04-28] MEDS: guaiFENesin 600 MG TABLET.ER PO SCH ×2 (07:47→21:24)
[2019-04-28] MEDS: FORMOTEROL FUMARATE 20 MCG/2 ML NEBU INHALATION SCH ×2 (08:14→19:59)
[2019-04-28] MEDS: BUDESONIDE 1 MG/2 ML NEBU INHALATION SCH ×2 (08:14→19:59)
[2019-04-28] MEDS: IPRATROPIUM-ALBUTEROL 3 ML NEB INHALATION SCH ×4 (08:14→19:58)
[2019-04-28 10:17] LABS: Basophils % (A) 0 %; Eosinophils % (A) 0 %; HCT 47.3 % (39.0-53.0); HGB 14.9 gm/dL (13.0-17.5); Lymphocytes # (A) 0.3 k/uL (1.0-4.8); Lymphocytes % (A) 2 %; MCH 30.1 pg (25.0-35.0); MCHC 31.5 g/dL (31.0-37.0); MCV 95.6 fL (80.0-100.0); Mean Platelet Volume 7.1; Monocytes # (A) 0.6 k/uL (0-1.0); Monocytes % (A) 3 %; Neutrophils % (A) 94 %; Platelet Count 313 k/uL (150-450); RBC 4.95 m/uL (4.30-5.90); RDW 15.1 % (11.5-15.5)
--- NOTE | 2019-04-28 11:02 | P.DS ---
Providers Date of admission: 04/26/19 14:12 Expected date of discharge: 04/28/19 Attending physician: Elkin Jovel MD Consults: 04/26/19 13:28 Consult Physician Routine Consulting Provider: Azul Loco Consult Reason/Comments: COPD exacerbation Do you want consulting provider notified?: Yes Consult Physician Routine Consulting Provider: Edi Garcia Consult Reason/Comments: Lymphoma Do you want consulting provider notified?: Yes Primary care physician: [facility]ath[facility] Course: The patient is a 73-year-old male the past medical of prostate cancer status post prostatectomy and radiation and recently diagnosed B-cell non- Hodgkin's follicular lymphoma currently receiving chemotherapy from his oncologist Dr. Stephenson and COPD not known to be oxygen dependent who presents to the ER via private vehicle with chief complaint of difficulty breathing starting yesterday. Patient shortness of breath was thought to be secondary to COPD exacerbation and possible pneumonia. Patient was noted to have an elevated d-dimer, but CT of the chest ruled out PE. Troponin was less than 0.012, 0.023 with EKG showing normal sinus rhythm and acute coronary syndrome was ruled out. CT of the chest showed signs that was concerning for pneumonia. He was started on DuoNeb's 4 times a day scheduled and as needed for shortness of breath and wheezing. Patient was started on Solu-Medrol and Levaquin IV for treatment and pneumonia. Pulmonology was consulted as well. Patient was noted to have elevated blood sugars throughout hospitalization this was thought to be secondary to steroid- induced hyperglycemia. He was started on insulin sliding scale. NovoLog 5 units 3 times a day was added for better glycemic coverage. Patient was seen and examined. No acute events overnight. Patient reports significant improvement in his breathing since yesterday. States that he underwent a 6 minute walk test this morning, 94% at his lowest on room air. Looking for to going home. He denies any chest pain, shortness of breath or palpitations. General: [non toxic], [no distress], [appears at stated age] Derm: [warm], [dry] Head: [atraumatic], [normocephalic], [symmetric] Eyes: [EOMI], [no lid lag], [anicteric sclera] Mouth: [no lip lesion], [mucus membranes moist] Cardiovascular: [S1S2 reg], [pericardium], [positive DP is pulse bilateral], Lungs: [decreased breath sounds bilateral], [no rhonchi, no rales] , [no accessory muscle use] Abdominal: [soft], [ nontender to palpation], [no guarding], [no appreciable organomegaly] Ext: [no gross muscle atrophy], [no edema], [no contractures] Neuro: [no focal neuro deficits] Psych: [Alert], [oriented], [appropriate affect] Assessment and Plan Shortness of breath, likely COPD exacerbation secondary to pneumonia Community acquired pneumonia Leukocytosis Elevated blood pressure reading Steroid-induced hyperglycemia Lymphoma D-dimer elevated, CTA chest rules out PE. Troponin less than 0.012, 0.023, EKG showing normal sinus rhythm, ACS ruled out. CTA chest shows signs concerning for pneumonia. Plans: DuoNeb 4 times a day scheduled and as needed for shortness of breath and wheezing. Continue formoterol and budesonide. Change Levaquin to PO to complete total 7 days. Transition Solumedrol to Prednisone to complete 5 days total. O2 per NC to maintain O2 saturation greater than 92%. Follow pulmonology recommendations. Plans: Management as above. Obtain blood and sputum cultures. Start Robitussin. Leukocytosis from 16.4 to 19.4 to 19. Likely secondary to steroids. Plan: Daily CBC. BP 155/81. Plans:monitor vitals, adjust medications as necessary. [id number]-[id number]-zsdy glucose 180. Likely secondary to slight medical. Plans: Continue insulin sliding scale. Will add NovoLog 5 units 3 times a day. Regular Accu- Cheks. Hypoglycemic precautions. Plans: Follow oncology recommendations. Patient admitted for COPD exacerbation likely secondary to maintain core p neumonia. Pulmonology was consulted. Oncology was consulted for continuity care. Patient is pending clinical improvement. Likely DC today. Pertinent Studies: Chest x-ray, chest CTA Patient Condition at Discharge: Fair Plan - Discharge Summary New Discharge Prescriptions: New Ipratropium-Albuterol Nebulize [Duoneb 0.5 mg-3 mg/3 ml Soln] 3 ml INHALATION RT-QID PRN #90 ampul.neb PRN Reason: Shortness Of Breath Or Wheezing Levofloxacin [Levaquin] 750 mg PO DAILY 5 Days #5 tab predniSONE 40 mg PO DAILY #8 tab Continue Albuterol Inhaler [Ventolin Hfa Inhaler] 1 - 2 puff INHALATION RT-Q6H PRN #1 inhaler PRN Reason: Shortness Of Breath Tiotropium [place] [Spiriva] 1 cap INHALATION RT-DAILY Docusate [Colace] 100 mg PO DAILY Discharge Medication List Albuterol Inhaler [Ventolin Hfa Inhaler] 1 - 2 puff INHALATION RT-Q6H PRN #1 inhaler 02/23/19 [Rx] Docusate [Colace] 100 mg PO DAILY 04/26/19 [History] Tiotropium [place] [Spiriva] 1 cap INHALATION RT-DAILY 04/26/19 [History] Ipratropium-Albuterol Nebulize [Duoneb 0.5 mg-3 mg/3 ml Soln] 3 ml INHALATION RT-QID PRN #90 ampul.neb 04/28/19 [Rx] Levofloxacin [Levaquin] 750 mg PO DAILY 5 Days #5 tab 04/28/19 [Rx] predniSONE 40 mg PO DAILY #8 tab 04/28/19 [Rx] Follow up Appointment(s)/Referral(s): Nathalie Garzon MD [Primary Care Provider] - 1-2 days Harry Matthews MD [STAFF PHYSICIAN] - 1 Week Activity/Diet/Wound Care/Special Instructions: Diet: Heart healthy Follow-up with PCP within 1-2 days of discharge. Follow-up with pulmonology within 1 week of discharge. Discharge Disposition: HOME SELF-CARE
[2019-04-28 11:31] LABS: Glucose,Whole Blood 264 mg/dL (75-99)
--- NOTE | 2019-04-28 12:59 | P.PN ---
Subjective Progress Note Date: 04/28/19 Principal diagnosis: Acute exacerbation of chronic obstructive pulmonary disease This a very pleasant 73-year-old gentleman who follows with Dr. Robertson as his primary care physician. He has a history of previous pneumothorax requiring chest tube placement, prostate cancer status post prostatectomy radiation, kidney stones with previous lithotripsy. He also has significant chronic obstructive pulmonary disease Gold stage II with an FEV1 value of 49% of predicted. He follows in our office for the same. He is continued on Breo and Spiriva in the outpatient setting. He is a former smoker of 30+ years at 1 pack per day however quit back in 1998. Computed tomography scan of the chest from previous admission in February 2019 revealed persistent nodularity at the left lung base. There is suspected right hilar enlarged lymph node measuring 1.6 cm. 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 He's been following with Dr. Garcia. He presented here to the emergency room yesterday with complaints of increasing shortness of breath, cough and congestion. Chest x-ray revealed evidence of COPD. Noted bibasilar nodules. Atelectatic changes in the right lung base. CT angiogram was negative for pulmonary embolus. There is some worsening atelectasis or consolidation in the right lung base. Previous basilar nodularity is not as clearly evident on this exam as compared to previous 02/19/2019. He is seen today in consultation on the regular medical floor. He is awake and alert in no acute distress. He is stating he is breathing a bit easier today as compared to yesterday. Still with a loose nonproductive cough. No chills or night sweats. He is afebrile. Maintaining O2 saturations in the 90s on room air. White count 19.4. Hemoglobin 15.7. Creatinine 0.79. He has been initiated on DuoNeb inhalations, IV Solu-Medrol. Antibiotics in the form of Levaquin. The patient was seen today 04/28/2019 in follow-up on the regular medical floor. Awake and alert in no acute distress. He is breathing quite a bit better today as compared to yesterday. Nearly back to his baseline. He is anxious to go home. He is maintaining good O2 saturations in the 90s on room air. He's been afebrile. Sputum cultures nonrevealing presumptive staph aureus. White count 19.0. Hemoglobin 14.9. He is currently on bronchodilators, IV Solu-Medrol, Levaquin. Objective - Vital Signs Vital signs: Vital Signs Temp 97.4 F L 04/28/19 05:00 Pulse 76 04/28/19 11:36 Resp 16 04/28/19 05:00 BP 155/81 04/28/19 05:00 Pulse Ox 95 04/28/19 05:00 Intake & Output 04/27/19 04/28/19 04/28/19 18:59 06:59 18:59 Intake Total 360 1380 240 Balance 360 1380 240 Intake: Oral 360 1380 240 Other: Voiding Method Toilet Toilet # Voids 3 3 - Exam GENERAL EXAM: Alert, active, comfortable in no apparent distress. On room air. HEAD: Normocephalic. EYES: Normal reaction of pupils, equal size. NOSE: Clear with pink turbinates. THROAT: No erythema or exudates. NECK: No masses, no JVD. CHEST: No chest wall deformity. LUNGS: Equal air entry with no crackles, wheeze, rhonchi or dullness. Diminished. CVS: S1 and S2 normal with no audible murmur, regular rhythm. ABDOMEN: No hepatosplenomegaly, normal bowel sounds, no guarding or rigidity. SPINE: No scoliosis or deformity SKIN: No rashes CENTRAL NERVOUS SYSTEM: No focal deficits, tone is normal in all 4 extremities. EXTREMITIES: There is no peripheral edema. No clubbing, no cyanosis. Peripheral pulses are intact. - Labs CBC & Chem 7: 04/28/19 09:20 04/27/19 10:56 Labs: Abnormal Lab Results - Last 24 Hours (Table) 04/27/19 04/27/19 04/27/19 Range/Units 17:12 20:01 22:32 WBC (3.8-10.6) k/uL Neutrophils # (1.3-7.7) k/uL Lymphocytes # (1.0-4.8) k/uL POC Glucose (mg/dL) 234 H 260 H 206 H (75-99) mg/dL 04/28/19 04/28/19 04/28/19 Range/Units 07:09 09:20 11:29 WBC 19.0 H (3.8-10.6) k/uL Neutrophils # 18.0 H (1.3-7.7) k/uL Lymphocytes # 0.3 L (1.0-4.8) k/uL POC Glucose (mg/dL) 180 H 264 H (75-99) mg/dL Microbiology - Last 24 Hours (Table) 04/27/19 15:37 Gram Stain - Preliminary Sputum Sputum Culture - Preliminary Presumptive Staph aureus Assessment and Plan Assessment: Impression: #1 Acute exacerbation of chronic obstructive pulmonary disease with some noted atelectasis/consolidation changes in the right lower lobe, previous nodularity not clearly seen on this CAT scan. Sputum is positive for presumptive staph aureus. #2 History of chronic tobacco use of 30 years at 1 pack per day however quit back in 1998. #3 Recent diagnosis of B-cell non-Hodgkin's lymphoma. #4 History of previous pneumothorax status post chest tube placement 20 years ago. #5 History of prostate cancer status post prostatectomy and radiation. #6 History of nephrolithiasis, status post lithotripsy. Plan: The patient was seen and evaluated by Dr. Matthews. Sputum culture with presumptive staph aureus. We will need to start the patient on IV vancomycin until final cultures resulted. Continue with his current treatment plan. I, the cosigning physician, performed a history & physical examination of the patient. Lungs sounds have bilateral end expiratory wheeze, crackles in the right posterior base. Maintaining good O2 saturations in the 90s on room air. I discussed the assessment and plan of care with my nurse practitioner, Ally Mendieta. I attest to the above note as dictated by her.
[2019-04-28] MEDS ORDERED: VANCOMYCIN 1,000 MG in SODIUM CHLORIDE 0.9% 250 ML IVPB STA (13:00)
[2019-04-28] MEDS ORDERED: VANCOMYCIN IV PER PHARMACY 1 EACH MISC MISCELLANE PRN (13:00)
[2019-04-28] MEDS: VANCOMYCIN 1,750 MG in SODIUM CHLORIDE 0.9% 500 ML 500 ML IVPB SCH (15:43)
[2019-04-28 16:54] LABS: Glucose,Whole Blood 222 mg/dL (75-99)
[2019-04-28] MEDS: methylPREDNISolone 4 MG TAB TAPER PO SCH (16:59)
[2019-04-28 18:57] LABS: Hemoglobin A1C 6.6 % (4.0-6.0)
[2019-04-28] MEDS: LEVOFLOXACIN 750MG-D5W PMX 750 MG in DEXTROSE/WATER 1 150ML.BAG IVPB SCH (19:24)
[2019-04-28 20:28] LABS: Glucose,Whole Blood 239 mg/dL (75-99)
[2019-04-28] MEDS: MAG HYDROX/AL HYDROX/SIMETH 30 ML CUP PO PRN (21:24)
[2019-04-29] MEDS: VANCOMYCIN 1,750 MG in SODIUM CHLORIDE 0.9% 500 ML 500 ML IVPB SCH ×3 (00:17→23:35)
[2019-04-29] MEDS: ZOLPIDEM 5 MG TAB PO PRN ×2 (00:18→23:35)
[2019-04-29 06:50] LABS: Glucose,Whole Blood 136 mg/dL (75-99)
[2019-04-29] MEDS: guaiFENesin 600 MG TABLET.ER PO SCH ×2 (08:54→21:15)
[2019-04-29] MEDS: INSULIN ASPART (NovoLOG) 100 UNIT/ML VIAL SQ SCH ×8 (08:55→21:15)
[2019-04-29] MEDS: IPRATROPIUM-ALBUTEROL 3 ML NEB INHALATION SCH ×4 (08:58→19:25)
[2019-04-29] MEDS: BUDESONIDE 1 MG/2 ML NEBU INHALATION SCH ×2 (08:58→19:25)
[2019-04-29] MEDS: FORMOTEROL FUMARATE 20 MCG/2 ML NEBU INHALATION SCH ×2 (08:58→19:25)
[2019-04-29 09:46] LABS: HCT 45.5 % (39.0-53.0); HGB 14.3 gm/dL (13.0-17.5); MCH 29.9 pg (25.0-35.0); MCHC 31.5 g/dL (31.0-37.0); MCV 94.9 fL (80.0-100.0); Platelet Count 303 k/uL (150-450); RBC 4.79 m/uL (4.30-5.90); RDW 15.1 % (11.5-15.5); WBC 13.6 k/uL (3.8-10.6)
[2019-04-29] MEDS: methylPREDNISolone 4 MG TAB TAPER PO SCH (09:48)
[2019-04-29 09:58] LABS: African American GFR (CKD) >90 (>60 ml/min/1.73 sqM); Anion Gap 7 mmol/L; Blood Urea Nitrogen 22 mg/dL (9-20); Calcium 8.6 mg/dL (8.4-10.2); Carbon Dioxide 27 mmol/L (22-30); Chloride 104 mmol/L (98-107); Glucose 254 mg/dL (74-99); Potassium 4.3 mmol/L (3.5-5.1); Sodium 138 mmol/L (137-145)
--- NOTE | 2019-04-29 11:24 | P.PN ---
Subjective Progress Note Date: 04/29/19 Principal diagnosis: Acute exacerbation of chronic obstructive pulmonary disease This a very pleasant 73-year-old gentleman who follows with Dr. Robertson as his primary care physician. He has a history of previous pneumothorax requiring chest tube placement, prostate cancer status post prostatectomy radiation, kidney stones with previous lithotripsy. He also has significant chronic obstructive pulmonary disease Gold stage II with an FEV1 value of 49% of predicted. He follows in our office for the same. He is continued on Breo and Spiriva in the outpatient setting. He is a former smoker of 30+ years at 1 pack per day however quit back in 1998. Computed tomography scan of the chest from previous admission in February 2019 revealed persistent nodularity at the left lung base. There is suspected right hilar enlarged lymph node measuring 1.6 cm. 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 He's been following with Dr. Garcia. He presented here to the emergency room yesterday with complaints of increasing shortness of breath, cough and congestion. Chest x-ray revealed evidence of COPD. Noted bibasilar nodules. Atelectatic changes in the right lung base. CT angiogram was negative for pulmonary embolus. There is some worsening atelectasis or consolidation in the right lung base. Previous basilar nodularity is not as clearly evident on this exam as compared to previous 02/19/2019. He is seen today in consultation on the regular medical floor. He is awake and alert in no acute distress. He is stating he is breathing a bit easier today as compared to yesterday. Still with a loose nonproductive cough. No chills or night sweats. He is afebrile. Maintaining O2 saturations in the 90s on room air. White count 19.4. Hemoglobin 15.7. Creatinine 0.79. He has been initiated on DuoNeb inhalations, IV Solu-Medrol. Antibiotics in the form of Levaquin. The patient was seen today 04/28/2019 in follow-up on the regular medical floor. Awake and alert in no acute distress. He is breathing quite a bit better today as compared to yesterday. Nearly back to his baseline. He is anxious to go home. He is maintaining good O2 saturations in the 90s on room air. He's been afebrile. Sputum cultures nonrevealing presumptive staph aureus. White count 19.0. Hemoglobin 14.9. He is currently on bronchodilators, IV Solu-Medrol, Levaquin. The patient is seen today 04/29/2019 in follow-up on the regular medical floor. He is awake and alert in no acute distress. Resting quite comfortably in bed. He's been initiated on vancomycin for the presumptive staph aureus in his sputum. Final cultures pending. He is breathing better today compared to yesterday. Continued on DuoNeb inhalations, Pulmicort and Perforomist inhalations, IV Solu-Medrol. Remains on vancomycin and Levaquin. Objective - Vital Signs Vital signs: Vital Signs Temp 97.7 F 04/29/19 04:49 Pulse 88 04/29/19 09:21 Resp 20 04/29/19 08:00 BP 160/88 04/29/19 04:49 Pulse Ox 97 04/29/19 04:49 Intake & Output 04/28/19 04/29/19 04/29/19 18:59 06:59 18:59 Intake Total 240 1180 Balance 240 1180 Intake: Oral 240 1180 Other: Voiding Method Toilet Toilet # Voids 3 2 - Exam GENERAL EXAM: Alert, active, comfortable in no apparent distress. On room air. HEAD: Normocephalic. EYES: Normal reaction of pupils, equal size. NOSE: Clear with pink turbinates. THROAT: No erythema or exudates. NECK: No masses, no JVD. CHEST: No chest wall deformity. LUNGS: Equal air entry with scattered rhonchi, end expiratory wheeze. Diminished. CVS: S1 and S2 normal with no audible murmur, regular rhythm. ABDOMEN: No hepatosplenomegaly, normal bowel sounds, no guarding or rigidity. SPINE: No scoliosis or deformity SKIN: No rashes CENTRAL NERVOUS SYSTEM: No focal deficits, tone is normal in all 4 extremities. EXTREMITIES: There is no peripheral edema. No clubbing, no cyanosis. Peripheral pulses are intact. - Labs CBC & Chem 7: 04/29/19 09:10 04/29/19 09:10 Labs: Abnormal Lab Results - Last 24 Hours (Table) 04/28/19 04/28/19 04/28/19 Range/Units 09:20 11:29 16:52 WBC (3.8-10.6) k/uL BUN (9-20) mg/dL Glucose (74-99) mg/dL POC Glucose (mg/dL) 264 H 222 H (75-99) mg/dL Hemoglobin A1c 6.6 H (4.0-6.0) % 04/28/19 04/29/19 04/29/19 Range/Units 20:27 06:49 09:10 WBC 13.6 H (3.8-10.6) k/uL BUN (9-20) mg/dL Glucose (74-99) mg/dL POC Glucose (mg/dL) 239 H 136 H (75-99) mg/dL Hemoglobin A1c (4.0-6.0) % 04/29/19 Range/Units 09:10 WBC (3.8-10.6) k/uL BUN 22 H (9-20) mg/dL Glucose 254 H (74-99) mg/dL POC Glucose (mg/dL) (75-99) mg/dL Hemoglobin A1c (4.0-6.0) % Microbiology - Last 24 Hours (Table) 04/27/19 14:53 Blood Culture - Preliminary Blood No Growth after 24 hours 04/27/19 15:37 Gram Stain - Preliminary Sputum Sputum Culture - Preliminary Presumptive Staph aureus Assessment and Plan Assessment: Impression: #1 Acute exacerbation of chronic obstructive pulmonary disease with some noted atelectasis/consolidation changes in the right lower lobe, previous nodularity not clearly seen on this CAT scan. Sputum is positive for presumptive staph aureus. #2 History of chronic tobacco use of 30 years at 1 pack per day however quit back in 1998. #3 Recent diagnosis of B-cell non-Hodgkin's lymphoma. #4 History of previous pneumothorax status post chest tube placement 20 years ago. #5 History of prostate cancer status post prostatectomy and radiation. #6 History of nephrolithiasis, status post lithotripsy. Plan: The patient was seen and evaluated by Dr. Matthews. Sputum culture with presumptive staph aureus. Final culture pending. Continue vancomycin and Levaq uin. Continue bronchodilators and steroids. Increase his activity as tolerated. We'll continue to follow and make further recommendations based on his clinical status I, the cosigning physician, performed a history & physical examination of the patient. Lungs sounds have bilateral end expiratory wheeze, few scattered rhonchi. Maintaining good O2 saturations in the 90s on room air. I discussed the assessment and plan of care with my nurse practitioner, Ally Mendieta. I attest to the above note as dictated by her.
[2019-04-29 11:41] LABS: Glucose,Whole Blood 206 mg/dL (75-99)
[2019-04-29] MEDS: methylPREDNISolone SOD SUCCI 40 MG/ML 1 ML VIAL IV SCH ×3 (12:27→23:35)
--- NOTE | 2019-04-29 14:41 | P.PN ---
Subjective Progress Note Date: 04/29/19 Principal diagnosis: COPD exacerbation, on treatment for Non-Hodgkin's lymphoma In follow-up today patient only c/o is he wants to go home, his breathing is stable, no fevers, nausea, appetite is decent, no chest pains, abdominal pains, diarrhea, he is independently ambulatory Objective - Vital Signs Vital signs: Vital Signs Temp 98 F 04/29/19 12:37 Pulse 88 04/29/19 13:12 Resp 18 04/29/19 12:37 BP 152/73 04/29/19 12:37 Pulse Ox 94 L 04/29/19 12:37 Intake & Output 04/28/19 04/29/19 04/29/19 18:59 06:59 18:59 Intake Total 240 1180 Balance 240 1180 Intake: Oral 240 1180 Other: Voiding Method Toilet Toilet # Voids 3 2 - Constitutional General appearance: Present: average body habitus, cooperative, no acute distress - EENT Eyes: Present: anicteric sclerae, EOMI ENT: Present: hearing grossly normal - Respiratory Respiratory: bilateral: CTA - Cardiovascular Heart sounds: normal: S1, S2 Abnormal Heart Sounds: Absent: systolic murmur, diastolic murmur, rub, S3 Gallop, S4 Gallop, click, other - Peripheral edema leg Peripheral Edema: bilateral: None - Gastrointestinal General gastrointestinal: Present: normal bowel sounds, soft - Musculoskeletal Musculoskeletal: Present: strength equal bilaterally - Psychiatric Psychiatric: Present: A&O x's 3, appropriate affect, intact judgment & insight - Labs CBC & Chem 7: 04/29/19 09:10 04/29/19 09:10 Labs: Abnormal Lab Results - Last 24 Hours (Table) 04/28/19 04/28/19 04/28/19 Range/Units 09:20 16:52 20:27 WBC (3.8-10.6) k/uL BUN (9-20) mg/dL Glucose (74-99) mg/dL POC Glucose (mg/dL) 222 H 239 H (75-99) mg/dL Hemoglobin A1c 6.6 H (4.0-6.0) % 04/29/19 04/29/19 04/29/19 Range/Units 06:49 09:10 09:10 WBC 13.6 H (3.8-10.6) k/uL BUN 22 H (9-20) mg/dL Glucose 254 H (74-99) mg/dL POC Glucose (mg/dL) 136 H (75-99) mg/dL Hemoglobin A1c (4.0-6.0) % 04/29/19 Range/Units 11:40 WBC (3.8-10.6) k/uL BUN (9-20) mg/dL Glucose (74-99) mg/dL POC Glucose (mg/dL) 206 H (75-99) mg/dL Hemoglobin A1c (4.0-6.0) % Microbiology - Last 24 Hours (Table) 04/27/19 14:53 Blood Culture - Preliminary Blood No Growth after 24 hours 04/27/19 15:37 Gram Stain - Preliminary Sputum Sputum Culture - Preliminary Presumptive Staph aureus Assessment and Plan (1) Lymphoma Narrative/Plan: Pt is s/p 2 cycle of BR-dose last week. He will be due in 2 weeks for next cycle. Pt understands that he will complete the antibiotic regimen prescribed to him, he has f/u with Dr. Garcia Current Visit: Yes Status: Acute Priority: Medium Code(s): C85.90 - NON- HODGKIN LYMPHOMA, UNSPECIFIED, UNSPECIFIED SITE SNOMED Code(s): 592368135 (2) Pneumonia Current Visit: Yes Status: Acute Priority: High Code(s): J18.9 - PNEUMONIA, UNSPECIFIED ORGANISM SNOMED Code(s): 085730216 (3) COPD exacerbation Current Visit: Yes Status: Acute Priority: High Code(s): J44.1 - CHRONIC OBSTRUCTIVE PULMONARY DISEASE W (ACUTE) EXACERBATION SNOMED Code(s): 745722723 Plan: Pending finalization of sputum culture. The patient that this does take some time but, if he is not on the right antibiotics that he is not going to recover. Understanding. Also educated on the importance of taking all antibiotics as pre scribed. Cont abx as prescribed for COPD exacerbation/pneumonia
[2019-04-29] MEDS ORDERED: LEVOFLOXACIN 750 MG TAB PO SCH (16:00)
[2019-04-29 16:52] LABS: Glucose,Whole Blood 185 mg/dL (75-99)
--- NOTE | 2019-04-29 17:55 | P.PN ---
Subjective Progress Note Date: 04/29/19 Principal diagnosis: COPD exacerbation Patient was seen and examined. No acute events overnight. Objective - Vital Signs Vital signs: Vital Signs Temp 97.7 F 04/29/19 04:49 Pulse 88 04/29/19 09:21 Resp 20 04/29/19 08:00 BP 160/88 04/29/19 04:49 Pulse Ox 97 04/29/19 04:49 Intake & Output 04/28/19 04/29/19 04/29/19 18:59 06:59 18:59 Intake Total 240 1180 Balance 240 1180 Intake: Oral 240 1180 Other: Voiding Method Toilet Toilet # Voids 3 2 - Exam General: [non toxic], [no distress], [appears at stated age] Derm: [warm], [dry] Head: [atraumatic], [normocephalic], [symmetric] Eyes: [EOMI], [no lid lag], [anicteric sclera] Mouth: [no lip lesion], [mucus membranes moist] Cardiovascular: [S1S2 reg], [pericardium], [positive DP is pulse bilateral], Lungs: [decreased breath sounds bilateral], [no rhonchi, no rales] , [no accessory muscle use] Abdominal: [soft], [ nontender to palpation], [no guarding], [no appreciable organomegaly] Ext: [no gross muscle atrophy], [no edema], [no contractures] Neuro: [no focal neuro deficits] Psych: [Alert], [oriented], [appropriate affect] - Labs CBC & Chem 7: 04/29/19 09:10 04/29/19 09:10 Labs: Abnormal Lab Results - Last 24 Hours (Table) 04/28/19 04/28/19 04/28/19 Range/Units 09:20 11:29 16:52 WBC (3.8-10.6) k/uL BUN (9-20) mg/dL Glucose (74-99) mg/dL POC Glucose (mg/dL) 264 H 222 H (75-99) mg/dL Hemoglobin A1c 6.6 H (4.0-6.0) % 04/28/19 04/29/19 04/29/19 Range/Units 20:27 06:49 09:10 WBC 13.6 H (3.8-10.6) k/uL BUN (9-20) mg/dL Glucose (74-99) mg/dL POC Glucose (mg/dL) 239 H 136 H (75-99) mg/dL Hemoglobin A1c (4.0-6.0) % 04/29/19 Range/Units 09:10 WBC (3.8-10.6) k/uL BUN 22 H (9-20) mg/dL Glucose 254 H (74-99) mg/dL POC Glucose (mg/dL) (75-99) mg/dL Hemoglobin A1c (4.0-6.0) % Microbiology - Last 24 Hours (Table) 04/27/19 14:53 Blood Culture - Preliminary Blood No Growth after 24 hours 04/27/19 15:37 Gram Stain - Preliminary Sputum Sputum Culture - Preliminary Presumptive Staph aureus Assessment and Plan Assessment: Assessment and Plan Shortness of breath, likely COPD exacerbation secondary to pneumonia Community acquired pneumonia Leukocytosis Elevated blood pressure reading Steroid-induced hyperglycemia Lymphoma D-dimer elevated, CTA chest rules out PE. Troponin less than 0.012, 0.023, EKG showing normal sinus rhythm, ACS ruled out. CTA chest shows signs concerning for pneumonia. Sputum culture positive for possible staph aureus. Plans: DuoNeb 4 times a day scheduled and as needed for shortness of breath and wheezing. Continue formoterol and budesonide. Continue Levaquin by mouth. Patient started on vancomycin IV for concerns of MRSA. Prednisone changed back to Solu- Medrol as per pulmonology recommendations. O2 per [place] to maintain O2 saturation greater than 92%. Follow pulmonology recommendations. Plans: Management as above. Obtain blood and sputum cultures. Start Robitussin. Leukocytosis from 16.4 to 19.4 to 19-13.6. Likely secondary to steroids. Plan: Daily CBC. BP 160/88. Plans: Monitor vitals, adjust medications as necessary. [id number] glucose 254. Likely secondary to steroids. Plans: Continue insulin sliding scale. Continue NovoLog 5 units 3 times a day. Regular Accu- Cheks. Hypoglycemic precautions. Plans: Follow oncology recommendations. Patient admitted for COPD exacerbation likely secondary to pneumonia. Sputum culture positive for staph aureus, final culture pending. Pulmonology recommendations switch back to IV steroids. Patient is pending clinical improvement. Likely DC in 1-2 days.
[2019-04-29 21:01] LABS: Glucose,Whole Blood 297 mg/dL (75-99)
[2019-04-29] MEDS: MAG HYDROX/AL HYDROX/SIMETH 30 ML CUP PO PRN (23:35)
[2019-04-30 05:02] VITALS: BP 166/82; RESP 20; TEMP 97.7
[2019-04-30 06:45] LABS: Glucose,Whole Blood 152 mg/dL (75-99)
--- NOTE | 2019-04-30 08:00 | P.PN ---
Subjective Progress Note Date: 04/30/19 Principal diagnosis: COPD exacerbation Patient was seen and examined. No acute events overnight. Patient reports improvement in his breathing. Back to baseline. Looking forward to going home. He denies any chest pain, shortness of breath or palpitations. Objective - Vital Signs Vital signs: Vital Signs Temp 97.7 F 04/30/19 04:50 Pulse 88 04/30/19 04:50 Resp 20 04/30/19 04:50 BP 166/82 04/30/19 04:50 Pulse Ox 95 04/30/19 04:50 Intake & Output 04/29/19 04/30/19 04/30/19 18:59 06:59 18:59 Intake Total 900 Balance 900 Intake: Intake, IV Titration 500 Amount Vancomycin 1,750 mg In 500 Sodium Chloride 0.9% 500 ml 500 ml @ 167 mls/hr IVPB Q12HR@0000,1200 AARON Rx#:[id number] Oral 400 Other: Voiding Method Toilet Toilet # Voids 1 - Exam General: [non toxic], [no distress], [appears at stated age] Derm: [warm], [dry] Head: [atraumatic], [normocephalic], [symmetric] Eyes: [EOMI], [no lid lag], [anicteric sclera] Mouth: [no lip lesion], [mucus membranes moist] Cardiovascular: [S1S2 reg], [pericardium], [positive DP is pulse bilateral], Lungs: [decreased breath sounds bilateral], [no rhonchi, no rales] , [no accessory muscle use] Abdominal: [soft], [ nontender to palpation], [no guarding], [no appreciable organomegaly] Ext: [no gross muscle atrophy], [no edema], [no contractures] Neuro: [no focal neuro deficits] Psych: [Alert], [oriented], [appropriate affect] - Labs CBC & Chem 7: 04/29/19 09:10 04/29/19 09:10 Labs: Abnormal Lab Results - Last 24 Hours (Table) 04/29/19 04/29/19 04/29/19 Range/Units 09:10 09:10 11:40 WBC 13.6 H (3.8-10.6) k/uL BUN 22 H (9-20) mg/dL Glucose 254 H (74-99) mg/dL POC Glucose (mg/dL) 206 H (75-99) mg/dL 04/29/19 04/29/19 04/30/19 Range/Units 16:51 20:59 06:42 WBC (3.8-10.6) k/uL BUN (9-20) mg/dL Glucose (74-99) mg/dL POC Glucose (mg/dL) 185 H 297 H 152 H (75-99) mg/dL Microbiology - Last 24 Hours (Table) 04/27/19 14:53 Blood Culture - Preliminary Blood No Growth after 48 hours Assessment and Plan Assessment: Assessment and Plan Shortness of breath, likely COPD exacerbation secondary to pneumonia Community acquired pneumonia Leukocytosis Elevated blood pressure reading Steroid-induced hyperglycemia Lymphoma D-dimer elevated, CTA chest rules out PE. Troponin less than 0.012, 0.023, EKG showing normal sinus rhythm, ACS ruled out. CTA chest shows signs concerning for pneumonia. Sputum culture positive for possible staph aureus. Plans: DuoNeb 4 times a day scheduled and as needed for shortness of breath and wheezing. Continue formoterol and budesonide. Continue Levaquin by mouth. Patient started on vancomycin IV for concerns of MRSA. Prednisone changed back to Solu- Medrol as per pulmonology recommendations. O2 per [place] to maintain O2 saturation greater than 92%. Follow pulmonology recommendations. Plans: Management as above. Obtain blood and sputum cultures. Start Robitussin. Leukocytosis from 16.4 to 19.4 to 19-13.6. Likely secondary to steroids. Plan: Daily CBC. BP 166/82. Plans: Monitor vitals, adjust medications as necessary. [id number] glucose 152. Likely secondary to steroids. Plans: Continue insulin sliding scale. Continue NovoLog 5 units 3 times a day. Regular Accu- Cheks. Hypoglycemic precautions. Plans: Follow oncology recommendations. Patient admitted for COPD exacerbation likely secondary to pneumonia. Sputum culture positive for staph aureus, final culture pending. DC after cultures ret urn.
[2019-04-30] MEDS: guaiFENesin 600 MG TABLET.ER PO SCH (08:56)
[2019-04-30] MEDS: methylPREDNISolone SOD SUCCI 40 MG/ML 1 ML VIAL IV SCH (08:56)
[2019-04-30] MEDS: INSULIN ASPART (NovoLOG) 100 UNIT/ML VIAL SQ SCH ×2 (08:56)
[2019-04-30] MEDS: IPRATROPIUM-ALBUTEROL 3 ML NEB INHALATION SCH ×2 (08:57→12:15)
[2019-04-30] MEDS: FORMOTEROL FUMARATE 20 MCG/2 ML NEBU INHALATION SCH (08:57)
[2019-04-30] MEDS: BUDESONIDE 1 MG/2 ML NEBU INHALATION SCH (08:57)
[2019-04-30] MEDS ORDERED: VANCOMYCIN TROUGH DUE 1 EACH MISC MISCELLANE ONE (11:00)
--- NOTE | 2019-04-30 11:55 | P.PN ---
Subjective Progress Note Date: 04/30/19 Principal diagnosis: Acute exacerbation of chronic obstructive pulmonary disease This a very pleasant 73-year-old gentleman who follows with Dr. Robertson as his primary care physician. He has a history of previous pneumothorax requiring chest tube placement, prostate cancer status post prostatectomy radiation, kidney stones with previous lithotripsy. He also has significant chronic obstructive pulmonary disease Gold stage II with an FEV1 value of 49% of predicted. He follows in our office for the same. He is continued on Breo and Spiriva in the outpatient setting. He is a former smoker of 30+ years at 1 pack per day however quit back in 1998. Computed tomography scan of the chest from previous admission in February 2019 revealed persistent nodularity at the left lung base. There is suspected right hilar enlarged lymph node measuring 1.6 cm. 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 He's been following with Dr. Garcia. He presented here to the emergency room yesterday with complaints of increasing shortness of breath, cough and congestion. Chest x-ray revealed evidence of COPD. Noted bibasilar nodules. Atelectatic changes in the right lung base. CT angiogram was negative for pulmonary embolus. There is some worsening atelectasis or consolidation in the right lung base. Previous basilar nodularity is not as clearly evident on this exam as compared to previous 02/19/2019. He is seen today in consultation on the regular medical floor. He is awake and alert in no acute distress. He is stating he is breathing a bit easier today as compared to yesterday. Still with a loose nonproductive cough. No chills or night sweats. He is afebrile. Maintaining O2 saturations in the 90s on room air. White count 19.4. Hemoglobin 15.7. Creatinine 0.79. He has been initiated on DuoNeb inhalations, IV Solu-Medrol. Antibiotics in the form of Levaquin. The patient was seen today 04/28/2019 in follow-up on the regular medical floor. Awake and alert in no acute distress. He is breathing quite a bit better today as compared to yesterday. Nearly back to his baseline. He is anxious to go home. He is maintaining good O2 saturations in the 90s on room air. He's been afebrile. Sputum cultures nonrevealing presumptive staph aureus. White count 19.0. Hemoglobin 14.9. He is currently on bronchodilators, IV Solu-Medrol, Levaquin. The patient is seen today 04/29/2019 in follow-up on the regular medical floor. He is awake and alert in no acute distress. Resting quite comfortably in bed. He's been initiated on vancomycin for the presumptive staph aureus in his sputum. Final cultures pending. He is breathing better today compared to yesterday. Continued on DuoNeb inhalations, Pulmicort and Perforomist inhalations, IV Solu-Medrol. Remains on vancomycin and Levaquin. Patient is seen today 04/30/2019 in follow-up on the regular medical floor. He is awake and alert in no acute distress. Up ambulating in the hallway. Maintaining O2 saturations in the mid 90s on room air. He's been afebrile. Anxious to go home. His sputum culture is positive for methicillin sensitive Staphylococcus aureus. Blood culture reveals no growth. Objective - Vital Signs Vital signs: Vital Signs Temp 97.7 F 04/30/19 04:50 Pulse 104 H 04/30/19 09:19 Resp 20 04/30/19 04:50 BP 166/82 04/30/19 04:50 Pulse Ox 95 04/30/19 04:50 Intake & Output 04/29/19 04/30/19 04/30/19 18:59 06:59 18:59 Intake Total 900 Balance 900 Intake: Intake, IV Titration 500 Amount Vancomycin 1,750 mg In 500 Sodium Chloride 0.9% 500 ml 500 ml @ 167 mls/hr IVPB Q12HR@0000,1200 [facility] Rx#:[id number] Oral 400 Other: Voiding Method Toilet Toilet # Voids 1 - Exam GENERAL EXAM: Alert, active, comfortable in no apparent distress. On room air. HEAD: Normocephalic. EYES: Normal reaction of pupils, equal size. NOSE: Clear with pink turbinates. THROAT: No erythema or exudates. NECK: No masses, no JVD. CHEST: No chest wall deformity. LUNGS: Equal air entry with no rhonchi, wheeze or crackles. Diminished. CVS: S1 and S2 normal with no audible murmur, regular rhythm. ABDOMEN: No hepatosplenomegaly, normal bowel sounds, no guarding or rigidity. SPINE: No scoliosis or deformity SKIN: No rashes CENTRAL NERVOUS SYSTEM: No focal deficits, tone is normal in all 4 extremities. EXTREMITIES: There is no peripheral edema. No clubbing, no cyanosis. Peripheral pulses are intact. - Labs CBC & Chem 7: 04/29/19 09:10 04/29/19 09:10 Labs: Abnormal Lab Results - Last 24 Hours (Table) 04/29/19 04/29/19 04/30/19 Range/Units 16:51 20:59 06:42 POC Glucose (mg/dL) 185 H 297 H 152 H (75-99) mg/dL Microbiology - Last 24 Hours (Table) 04/27/19 15:37 Gram Stain - Final Sputum Sputum Culture - Final Staphylococcus aureus 04/27/19 14:53 Blood Culture - Preliminary Blood No Growth after 48 hours Assessment and Plan Assessment: Impression: #1 Acute exacerbation of chronic obstructive pulmonary disease with some noted atelectasis/consolidation changes in the right lower lobe, previous nodularity not clearly seen on this CAT scan. Sputum is positive for MSSA. #2 History of chronic tobacco use of 30 years at 1 pack per day however quit back in 1998. #3 Recent diagnosis of B-cell non-Hodgkin's lymphoma. #4 History of previous pneumothorax status post chest tube placement 20 years ago. #5 History of prostate cancer status post prostatectomy and radiation. #6 History of nephrolithiasis, status post lithotripsy. Plan: The patient was seen and evaluated by Dr. Matthews. Sputum culture with MSSA. He is cleared for discharge in the pulmonary standpoint. Complete 5 days of azithromycin. Complete prednisone burst and taper starting at 40 mg daily for 4 days. Follow-up in our office in 1-2 weeks' time. He is encouraged to call sooner with any recurrence of symptoms or other questions or concerns. I, the cosigning physician, performed a history & physical examination of the patient. Lungs sounds are clear, diminished. Maintaining good O2 saturations in the 90s on room air. I discussed the assessment and plan of care with my nurse practitioner, Ally Mendieta. I attest to the above note as dictated by her.
[2019-04-30 11:56] LABS: Glucose,Whole Blood 178 mg/dL (75-99)
[2019-04-30 12:29] VITALS: PULSE 88
--- NOTE | 2019-04-30 13:43 | CDI ---
Documentation Clarification Form Date: 04/30/2019 1:02:44 PM From: Thuy Kramer RN, CCDS Admit Date: 04/29/2019 2:10:00 PM Patient Name: Dangelo Gibbons Visit Number: [id number] Discharge Date: 04/30/2019 12:55:00 PM ATTENTION: The Clinical Documentation Specialists (CDI) and [facility] Coding Staff appreciate your assistance in clarifying documentation. Please respond to the clarification below the line at the bottom and electronically sign. The CDI & [facility] Coding staff will review the response and follow-up if needed. Please note: Queries are made part of the Legal Health Record. If you have any questions, please contact the author of this message via ITS. Dr. Nina Reed Community acquired Pneumonia was documented in your H/P and ongoing progress notes and further clarification is needed History/Risk Factors: COPD Gold stage II, B-cell non-Hodgkin's lymphoma, Pneumothorax Clinical Indicators: 73-year-old male who present with shortness of breath. He was evaluated and treated for COPD exacerbation secondary to pneumonia. 04/29/19 progress notes has sputum culture positive for staph aureus. Vital signs: 152/73 81 18 98.0 94 % RA WBC/Left shift: 13.6 Sputum culture Final: Staphyloccus aures X-ray: CTA negative for pulmonary embolus; some worsening atelectasis or consolidation in the right lung base;signs concerning for pneumonia Lung/Breathing assessment: Equal air entry with scattered rhonchi, end expiratory wheeze. Diminished breath sounds. Treatment: O2 per NC to maintain O2 saturations greater than 92 % Antibiotics Levaquin IV, Vancomycin IV Solu-medrol IV (taper) Breathing Tx: Duoneb's inhalations, Pulmicort and Perforomist inhalations In order to capture the severity of condition, please clarify if the condition signifies and you are treating for: Pneumonia due to Staphlococcus aureus Other, please specify Unable to determine (Last Revision: February 2018) Pneumonia, community acquired, unknown organism. S. aureus is likely normal flora MTDD
[2019-05-01] MEDS ORDERED: AZITHROMYCIN 500 MG TAB PO SCH (09:00)
== END 2019-04-30 12:55 | disposition home or self-care (01) | DRG 190 ==
LOC: EC 09:52 → 3NMEDONC 14:12 → OBSVTOIN 04-29 14:10
PROVIDERS: ADMIT Family Medicine; ATTEND Family Medicine
DX: J44.1 Chronic obstructive pulmonary disease with (acute) exacerbation (principal); J18.9 Pneumonia, unspecified organism; J98.11 Atelectasis; C82.90 Follicular lymphoma, unspecified, unspecified site; J44.0 Chronic obstructive pulmonary disease with (acute) lower respiratory infection; N28.1 Cyst of kidney, acquired; T38.0X5A Adverse effect of glucocorticoids and synthetic analogues, initial encounter; R03.0 Elevated blood-pressure reading, without diagnosis of hypertension; R73.9 Hyperglycemia, unspecified; D72.829 Elevated white blood cell count, unspecified; Z88.0 Allergy status to penicillin; Z85.46 Personal history of malignant neoplasm of prostate; Z87.442 Personal history of urinary calculi; Z87.891 Personal history of nicotine dependence; Z90.79 Acquired absence of other genital organ(s); Z92.3 Personal history of irradiation; Z96.652 Presence of left artificial knee joint
CPT/HCPCS: 36415; 71046; 71275; 80048; 80053; 83036; 83880; 84145; 84484; 85025; 85027; 85379; 85610; 85730; 87040; 87070; 87077; 87186; 87205; 93005; 94640; 94760; 96365; 96375; 99285

== ENCOUNTER 2019-05-11 08:57 | Emergency (ER) | payer MEDICARE ==
[2019-05-11 09:14] VITALS: RESP 18; TEMP 98.6
[2019-05-11] MEDS ORDERED: SODIUM CHLORIDE 0.9% 1,000 ML IV STA (09:35)
--- NOTE | 2019-05-11 09:38 | ED ---
General Adult HPI - General Chief complaint: Back Pain/Injury Stated complaint: low back pain Time Seen by Provider: 05/11/19 09:31 Source: patient, family, RN notes reviewed Mode of arrival: ambulatory Limitations: no limitations - History of Present Illness Initial comments: Patient is a pleasant 73-year-old male presenting to the emergency Department with low back discomfort. Onset of symptoms was around a week ago. Patient did see his doctor and have urinalysis done that was reported as normal to him. Discomfort is lower back on both sides. Discomfort is positional. No abdominal pain. No history of chronic back pain. Patient does have history of non- Hodgkin's lymphoma and is on chemotherapy for this. - Related Data Home Medications Medication Instructions Recorded Confirmed Tiotropium [place] [Spiriva] 1 cap INHALATION RT-DAILY 04/26/19 05/11/19 Nystatin 100,000 Unit/ml Susp 500,000 units PO QID 05/11/19 05/11/19 [Mycostatin Oral Susp] Previous Rx's Medication Instructions Recorded Albuterol Inhaler [Ventolin Hfa 1 - 2 puff INHALATION RT-Q6H PRN 02/23/19 Inhaler] #1 inhaler Cyclobenzaprine [Flexeril] 10 mg PO TID PRN #12 tablet 05/11/19 Allergies Allergy/AdvReac Type Severity Reaction Status Date / Time Penicillins Allergy Unknown Rash/Hives Verified 05/11/19 09:39 Review of Systems ROS Statement: Those systems with pertinent positive or pertinent negative responses have been documented in the HPI. ROS Other: All systems not noted in ROS Statement are negative. Constitutional: Denies: fever Eyes: Denies: eye pain ENT: Denies: ear pain Respiratory: Denies: cough Cardiovascular: Denies: chest pain Endocrine: Denies: fatigue Gastrointestinal: Denies: abdominal pain Genitourinary: Denies: dysuria Musculoskeletal: Reports: back pain Skin: Denies: rash Neurological: Denies: weakness Past Medical History Past Medical History: Cancer, COPD Additional Past Medical History / Comment(s): HX PROSTATE CANCER WITH SURGERY & RADIATION (2006), KIDNEY STONES. lymphoma History of Any Multi-Drug Resistant Organisms: None Reported Past Surgical History: Joint Replacement, Orthopedic Surgery, Prostate Surgery Additional Past Surgical History / Comment(s): BRAIN SURGERY TO RELIEVE PRESSURE AFTER HEAD INJURY (6 YRS OLD), TOTAL LEFT KNEE, LEFT SHOULDER SURGERY, LEFT ARM SURGERY AFTER CRUSHING INJURY. Chest tube for pneumothorax. Lithotripsy. Prostatectomy secondary to prostate cancer. Past Anesthesia/Blood Transfusion Reactions: No Reported Reaction, Motion Sickness Additional Past Anesthesia/Blood Transfusion Reaction / Comment(s): SLOW TO WAKE UP Past Psychological History: No Psychological Hx Reported Smoking Status: Former smoker Past Alcohol Use History: Occasional Past Drug Use History: None Reported - Past Family History Mother Family Medical History: No Reported History General Exam Limitations: no limitations General appearance: alert, in no apparent distress Head exam: Present: atraumatic Eye exam: Present: normal appearance, PERRL ENT exam: Present: normal oropharynx Neck exam: Present: normal inspection Respiratory exam: Present: normal lung sounds bilaterally Cardiovascular Exam: Present: regular rate, normal rhythm Expanded Peripheral pulses: 2+: Dorsalis Pedis (R), Dorsalis Pedis (L) GI/Abdominal exam: Present: soft, normal bowel sounds. Absent: distended, tenderness, guarding, rebound, rigid, pulsatile mass Extremities exam: Present: normal inspection. Absent: pedal edema, calf tend erness Back exam: Present: normal inspection. Absent: tenderness, paraspinal tenderness, vertebral tenderness Neurological exam: Present: alert. Absent: motor sensory deficit Psychiatric exam: Present: normal affect, normal mood Skin exam: Present: normal color. Absent: rash Course Vital Signs 05/11/19 05/11/19 09:10 10:13 Temperature 98.6 F Pulse Rate 91 80 Respiratory 18 18 Rate Blood Pressure 128/65 140/73 O2 Sat by Pulse 96 96 Oximetry - Reevaluation(s) Reevaluation #1: 05/11/19 09:39 Patient does not want any pain medication. Medical Decision Making - Medical Decision Making Patient reevaluated and resting comfortably in bed. Patient and family are updated on results and plan. Case was discussed in detail with Dr. Saunders who is agreeable to have patient go to the office for his chemotherapy today. He is agreeable also with [place]. - Lab Data Result diagrams: 05/11/19 09:40 05/11/19 09:40 Lab Results 05/11/19 05/11/19 05/11/19 Range/Units 09:40 09:40 09:40 WBC 11.3 H (3.8-10.6) k/uL RBC 5.05 (4.30-5.90) m/uL Hgb 15.3 (13.0-17.5) gm/dL Hct 46.6 (39.0-53.0) % MCV 92.3 (80.0-100.0) fL MCH 30.4 (25.0-35.0) pg MCHC 32.9 (31.0-37.0) g/dL RDW 15.9 H (11.5-15.5) % Plt Count 227 (150-450) k/uL Neutrophils % 83 % Lymphocytes % 5 % Monocytes % 9 % Eosinophils % 2 % Basophils % 1 % Neutrophils # 9.4 H (1.3-7.7) k/uL Lymphocytes # 0.5 L (1.0-4.8) k/uL Monocytes # 1.0 (0-1.0) k/uL Eosinophils # 0.2 (0-0.7) k/uL Basophils # 0.1 (0-0.2) k/uL PT (9.0-12.0) sec INR (<1.2) APTT (22.0-30.0) sec Sodium 138 (137-145) mmol/L Potassium 4.6 (3.5-5.1) mmol/L Chloride 102 (98-107) mmol/L Carbon Dioxide 29 (22-30) mmol/L Anion Gap 7 mmol/L BUN 18 (9-20) mg/dL Creatinine 0.81 (0.66-1.25) mg/dL Est GFR (CKD-EPI)AfAm >90 (>60 ml/min/1.73 sqM) Est GFR (CKD-EPI)NonAf 89 (>60 ml/min/1.73 sqM) Glucose 175 H (74-99) mg/dL Calcium 8.9 (8.4-10.2) mg/dL Total Bilirubin 1.0 (0.2-1.3) mg/dL AST 17 (17-59) U/L ALT 29 (21-72) U/L Alkaline Phosphatase 65 (38-126) U/L Total Protein 6.2 L (6.3-8.2) g/dL Albumin 3.6 (3.5-5.0) g/dL Amylase 56 (30-110) U/L Lipase 93 (23-300) U/L Urine Color Yellow Urine Appearance Clear (Clear) Urine pH 5.0 (5.0-8.0) Ur Specific [place] 1.023 (1.001-1.035) Urine Protein Trace H (Negative) Urine Glucose (UA) 2+ H (Negative) Urine Ketones Negative (Negative) Urine Blood Trace H (Negative) Urine Nitrite Negative (Negative) Urine Bilirubin Negative (Negative) Urine Urobilinogen <2.0 (<2.0) mg/dL Ur Leukocyte Esterase Negative (Negative) Urine RBC 2 (0-5) /hpf Urine WBC 4 (0-5) /hpf Ur Squamous Epith Cells <1 (0-4) /hpf Urine Mucus Occasional H (None) /hpf 05/11/19 Range/Units 09:40 WBC (3.8-10.6) k/uL RBC (4.30-5.90) m/uL Hgb (13.0-17.5) gm/dL Hct (39.0-53.0) % MCV (80.0-100.0) fL MCH (25.0-35.0) pg MCHC (31.0-37.0) g/dL RDW (11.5-15.5) % Plt Count (150-450) k/uL Neutrophils % % Lymphocytes % % Monocytes % % Eosinophils % % Basophils % % Neutrophils # (1.3-7.7) k/uL Lymphocytes # (1.0-4.8) k/uL Monocytes # (0-1.0) k/uL Eosinophils # (0-0.7) k/uL Basophils # (0-0.2) k/uL PT 10.1 (9.0-12.0) sec INR 0.9 (<1.2) APTT 23.5 (22.0-30.0) sec Sodium (137-145) mmol/L Potassium (3.5-5.1) mmol/L Chloride (98-107) mmol/L Carbon Dioxide (22-30) mmol/L Anion Gap mmol/L BUN (9-20) mg/dL Creatinine (0.66-1.25) mg/dL Est GFR (CKD-EPI)AfAm (>60 ml/min/1.73 sqM) Est GFR (CKD-EPI)NonAf (>60 ml/min/1.73 sqM) Glucose (74-99) mg/dL Calcium (8.4-10.2) mg/dL Total Bilirubin (0.2-1.3) mg/dL AST (17-59) U/L ALT (21-72) U/L Alkaline Phosphatase (38-126) U/L Total Protein (6.3-8.2) g/dL Albumin (3.5-5.0) g/dL Amylase (30-110) U/L Lipase (23-300) U/L Urine Color Urine Appearance (Clear) Urine pH (5.0-8.0) Ur Specific [place] (1.001-1.035) Urine Protein (Negative) Urine Glucose (UA) (Negative) Urine Ketones (Negative) Urine Blood (Negative) Urine Nitrite (Negative) Urine Bilirubin (Negative) Urine Urobilinogen (<2.0) mg/dL Ur Leukocyte Esterase (Negative) Urine RBC (0-5) /hpf Urine WBC (0-5) /hpf Ur Squamous Epith Cells (0-4) /hpf Urine Mucus (None) /hpf - Radiology Data Radiology results: report reviewed (Computed tomography scan of the abdomen pelvis does show retroperitoneal and mesenteric mass again noted however size is improved/reduced from previous evaluation. Patient does have some degenerative disease of the lumbar spine as well. Renal cyst.) Disposition Clinical Impression: Low back pain Disposition: HOME SELF-CARE Condition: Stable Instructions (If sedation given, give patient instructions): Acute Low Back Pain (ED) Additional Instructions: You may go back to Dr. Garcia/Dr. Saunders's office for chemotherapy today. Return for increased pain, weakness, fevers, worsening or changing symptoms or other concerns. Prescriptions: Cyclobenzaprine [Flexeril] 10 mg PO TID PRN #12 tablet PRN Reason: Pain Is patient prescribed a controlled substance at d/c from ED?: No Referrals: Nathalie Garzon MD [Primary Care Provider] - 1-2 days Edi Garcia MD [STAFF PHYSICIAN] - 1-2 days Time of Disposition: 11:26
[2019-05-11 10:22] LABS: Appearance,Urine Clear (Clear); Bilirubin,Urine Negative (Negative); Blood,Urine Trace (Negative); Color,Urine Yellow; Glucose,Urine (UA) 2+ (Negative); Ketones,Urine Negative (Negative); Leukocyte Esterase,Urine Negative (Negative); Mucus,Urine Occasional /hpf; Nitrite,Urine Negative (Negative); Protein,Urine Trace (Negative); RBC,Urine 2 /hpf (0-5); Specific Gravity,Urine 1.023 (1.001-1.035); Squamous Epithelial Cell,Urine <1 /hpf (0-4); Urobilinogen,Urine <2.0 mg/dL (<2.0); WBC,Urine 4 /hpf (0-5)
[2019-05-11 10:23] LABS: Basophils # (A) 0.1 k/uL (0-0.2); Basophils % (A) 1 %; Eosinophils # (A) 0.2 k/uL (0-0.7); Eosinophils % (A) 2 %; HCT 46.6 % (39.0-53.0); HGB 15.3 gm/dL (13.0-17.5); Lymphocytes # (A) 0.5 k/uL (1.0-4.8); Lymphocytes % (A) 5 %; MCH 30.4 pg (25.0-35.0); MCHC 32.9 g/dL (31.0-37.0); MCV 92.3 fL (80.0-100.0); Mean Platelet Volume 7.5; Monocytes % (A) 9 %; Neutrophils # (A) 9.4 k/uL (1.3-7.7); Neutrophils % (A) 83 %; Platelet Count 227 k/uL (150-450); RBC 5.05 m/uL (4.30-5.90); RDW 15.9 % (11.5-15.5); WBC 11.3 k/uL (3.8-10.6)
[2019-05-11 10:24] VITALS: PULSE 80
[2019-05-11 10:28] LABS: INR 0.9 (<1.2); Partial Thromboplastin Time 23.5 sec (22.0-30.0); Prothrombin Time 10.1 sec (9.0-12.0)
[2019-05-11 10:31] LABS: ALT 29 U/L (21-72); AST 17 U/L (17-59); African American GFR (CKD) >90 (>60 ml/min/1.73 sqM); Albumin 3.6 g/dL (3.5-5.0); Alkaline Phosphatase 65 U/L (38-126); Amylase 56 U/L (30-110); Anion Gap 7 mmol/L; Blood Urea Nitrogen 18 mg/dL (9-20); Calcium 8.9 mg/dL (8.4-10.2); Carbon Dioxide 29 mmol/L (22-30); Chloride 102 mmol/L (98-107); Glucose 175 mg/dL (74-99); Lipase 93 U/L (23-300); Potassium 4.6 mmol/L (3.5-5.1); Sodium 138 mmol/L (137-145); Total Protein 6.2 g/dL (6.3-8.2)
--- NOTE | 2019-05-11 10:33 | CT ---
EXAMINATION TYPE: CT abdomen pelvis w con DATE OF EXAM: 05/11/2019 COMPARISON: 02/19/2019 HISTORY: Low back pain CT DLP: 1010.2 mGycm Automated exposure control for dose reduction was used. CONTRAST: CT scan of the abdomen pelvis is performed with IV Contrast, patient injected with 100 ml mL of Isovu e 300. FINDINGS- motion artifact limits the exam. LUNG BASES-subsegmental atelectasis or scarring at the lung bases.. LIVER/GB-there are somewhat heterogeneous in pattern. Correlate with liver function studies.. PANCREAS- No gross abnormality is seen. SPLEEN- No gross abnormality is seen. ADRENALS- No gross abnormality is seen. KIDNEYS/BLADDER- no hydronephrosis or nephrolithiasis. There is a 7.8 cm simple appearing left renal cyst. Retroaortic left renal vein noted.. BOWEL- no bowel dilatation. Normal appendix. LYMPH NODES- No greater than 1cm abdominal or pelvic lymph nodes are appreciated. OSSEOUS STRUCTURES- No significant abnormality is seen. OTHER- abnormal soft tissue mass in the mesentery is again noted with findings suggestive of possibl e retroperitoneal adenopathy. Amount of retroperitoneal abnormal attenuation is reduced relative to t he prior exam. Surgical clips in the pelvis noted. Hypertrophic and degenerative changes of the spine are seen with grade 1 anterolisthesis L5 on S1. Bilateral spondylolysis incidentally noted. IMPRESSION- 1. Mesenteric and retroperitoneal mass again noted. There may be reduction in size relative to the pr ior exam with regard to the retroperitoneal adenopathy. 2. Heterogeneous pattern of liver is nonspecific may be seen with hepatic steatosis correlate with li kehinde function studies to exclude hepatocellular disease. 3. Large 7.8 cm simple left renal cyst. 4 multilevel severe degenerative disc disease with spondyloli sthesis and bilateral spondylolysis L5.
[2019-05-11] MEDS ORDERED: CYCLOBENZAPRINE 10MG STARTER 3 TAB BTL PO STA (11:27)
[2019-05-11 11:46] VITALS: BP 128/67
== END 2019-05-11 11:46 | disposition home or self-care (01) ==
LOC: EC 08:57
DX: M54.5 Low back pain (principal); J44.9 Chronic obstructive pulmonary disease, unspecified; Z85.46 Personal history of malignant neoplasm of prostate; Z85.72 Personal history of non-Hodgkin lymphomas; Z92.21 Personal history of antineoplastic chemotherapy; Z96.652 Presence of left artificial knee joint; Z87.891 Personal history of nicotine dependence; Z79.899 Other long term (current) drug therapy; Z88.0 Allergy status to penicillin
CPT/HCPCS: 36415; 80053; 82150; 83690; 85025; 85610; 85730; 81001; 74177; 99284; Q9967

== ENCOUNTER → 2019-08-10 | Outpatient (CLI) | payer MEDICARE ==
[2019-08-10 13:21] LABS: African American GFR (CKD) >90 (>60 ml/min/1.73 sqM); Blood Urea Nitrogen 11 mg/dL (9-20)
--- NOTE | 2019-08-11 05:44 | CT ---
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 TECHNIQUE: Contiguous axial scanning of the chest, abdomen, and pelvis performed with IV Contrast, pa tient injected with 100 mL of Isovue M300. Delayed images through the kidneys were obtained. Coronal/ sagittal reconstructions performed. CT DLP: 1269.1 mGycm Automated exposure control for dose reduction was used. FINDINGS: Chest: Heart normal size without pericardial effusion. Aorta normal caliber with moderate atherosclerotic plaque in the aortic arch and suggestion of ulcera nae plaque within the origin of the brachiocephalic artery. No thoracic lymphadenopathy by CT size criteria. Previous nodularity within the right lower lobe appears to have resolved. Background of mild to moder ate centrilobular emphysema particularly in the upper lungs. No consolidation or pleural effusion. 9 mm density in the right retrocrural space. Unable to determine if this represents a lymph node or s ome nonspecific fluid density. ABDOMEN: Tiny hiatal hernia. No focal liver lesion or biliary ductal dilatation. Portal venous system is patent. Gallbladder, right adrenal gland, spleen, and pancreas appear within normal limits. Area of stable russo bcentimeter hypodensity posterior right kidney too small for accurate CT characterization, likely tin y cyst. Stable mild diffuse thickening of the left adrenal gland without discrete nodularity. Redemonstrated large 8.2 cm cyst anterior left kidney. Retroaortic left renal vein. Soft tissue density partial encasement along the retroperitoneum at the level of the kidneys and adriel tional confluent soft tissue density extending along the central mesentery is redemonstrated. It over all has a slightly less confluent appearance from prior exam. No dilated small bowel, free fluid, or free air. Normal appendix. Mild stool burden. No pericolonic inflammatory change. No progressive abdominal lymphadenopathy seen. Pelvis: Surgical clips in the pelvis. Prostate gland not seen, probably surgically absent. Bladder partially distended. No abnormal fluid collection in the pelvis or pelvic lymphadenopathy. Bones: Degenerative changes at the pubic symphysis with bony ankylosis. Bilateral L5 pars defects with grade 2/3 anterolisthesis at L5-S1. Multilevel [id number] degenerative disc disease. IMPRESSION: 1. REDEMONSTRATED INFILTRATIVE SOFT TISSUE ALONG THE MID RETROPERITONEUM AND MID MESENTERY COMPATIBLE WITH PATIENT'S KNOWN LYMPHOMA. OVERALL APPEARANCE IS SLIGHTLY LESS CONFLUENT FROM 05/11/2019. THIS MAY REFLECT PARTIAL TREATMENT RESPONSE. 2. 9 MM DENSITY IN THE RIGHT RETROCRURAL SPACE IS NEW AND COULD REPRESENT ENLARGING LYMPH NODE OR JAVIER E NONSPECIFIC STRANDING FLUID. ATTENTION ON FOLLOW-UP. OTHERWISE, NO NEW OR ENLARGING LYMPHADENOPATHY SEEN. 3. MODERATE ULCERATED ATHEROSCLEROTIC PLAQUE AT THE ORIGIN OF THE RIGHT BRACHIOCEPHALIC ARTERY. 4. BILATERAL L5 PARS DEFECTS WITH GRADE 2 VERSUS GRADE 3 ANTEROLISTHESIS AT L5-S1.
== END ==
LOC: RADCTMAIN 12:39
PROVIDERS: ATTEND Internal Medicine Hematology & Oncology
DX: C83.02 Small cell B-cell lymphoma, intrathoracic lymph nodes (principal)
CPT/HCPCS: 82565; 84520; 71260; 74177; 36415; Q9967 ×2

== ENCOUNTER 2019-08-12 17:08 | Emergency (ER) | payer MEDICARE ==
[2019-08-12] MEDS ORDERED: IBUPROFEN 600 MG TAB PO STA (18:00)
[2019-08-12] MEDS ORDERED: ACETAMINOPHEN TAB 500 MG TAB PO STA (18:00)
[2019-08-12] MEDS ORDERED: SODIUM CHLORIDE 0.9% 1,000 ML IV STA ×2 (18:00)
[2019-08-12] MEDS ORDERED: SODIUM CHLORIDE 0.9% 500 ML 500 ML IV STA ×2 (18:00→20:55)
--- NOTE | 2019-08-12 18:00 | ED ---
Fever HPI - General Chief Complaint: Fever Stated Complaint: Not feeling well Time Seen by Provider: 08/12/19 17:50 Source: patient, RN notes reviewed, old records reviewed Mode of arrival: wheelchair Limitations: no limitations - History of Present Illness Initial Comments: This is a 74-year-old male the ER for evaluation patient resents today for eval uation regards to fever. A she has history of lymphoma which she is been cleared up as far as he knows, patient recently did receive recent Neupogen shot which did taking a lot of his energy away. Patient is not to 6 treatments with no prior history of significant abnormal blood work or fever. Patient is complaining of significant diffuse body pains and aches. He has history of COPD some does also have a cough but that is more chronic. States he felt a little bit weaker today. He does have recent diagnosis of shingles on his forehead. That is improving. Patient denies any nausea vomiting, no diarrhea no abdominal pain. Just the diffuse body pains muscle aches MD Complaint: fever, other (muscle aches) -: hour(s) Temperature Source: tympanic Context: sick contacts, recent antibiotic use Associated Symptoms: chills, myalgias, cough Treatments Prior to Arrival: Acetaminophen - Related Data Home Medications Medication Instructions Recorded Confirmed Tiotropium Benson [Spiriva] 1 cap INHALATION RT-DAILY 04/26/19 08/12/19 Budesonide/Formoterol Fumarate 1 puff INHALATION BID 08/12/19 08/12/19 [Symbicort 160-4.5 Mcg Inhaler] valACYclovir HCL [Valtrex] 1,000 mg PO BID 08/12/19 08/12/19 Previous Rx's Medication Instructions Recorded Albuterol Inhaler [Ventolin Hfa 1 - 2 puff INHALATION RT-Q6H PRN 02/23/19 Inhaler] #1 inhaler Allergies Allergy/AdvReac Type Severity Reaction Status Date / Time Penicillins Allergy Unknown Rash/Hives Verified 08/12/19 18:17 Review of Systems ROS Statement: Those systems with pertinent positive or pertinent negative responses have been documented in the HPI. ROS Other: All systems not noted in ROS Statement are negative. Past Medical History Past Medical History: Cancer, COPD Additional Past Medical History / Comment(s): HX PROSTATE CANCER WITH SURGERY & RADIATION (2006), KIDNEY STONES. lymphoma History of Any Multi-Drug Resistant Organisms: None Reported Past Surgical History: Joint Replacement, Orthopedic Surgery, Prostate Surgery Additional Past Surgical History / Comment(s): BRAIN SURGERY TO RELIEVE PRESSURE AFTER HEAD INJURY (6 YRS OLD), TOTAL LEFT KNEE, LEFT SHOULDER SURGERY, LEFT ARM SURGERY AFTER CRUSHING INJURY. Chest tube for pneumothorax. Lithotripsy. Prostatectomy secondary to prostate cancer. Past Anesthesia/Blood Transfusion Reactions: No Reported Reaction, Motion Sickness Additional Past Anesthesia/Blood Transfusion Reaction / Comment(s): SLOW TO WAKE UP Past Psychological History: No Psychological Hx Reported Smoking Status: Former smoker Past Alcohol Use History: Occasional Past Drug Use History: None Reported - Past Family History Mother Family Medical History: No Reported History General Exam Limitations: no limitations General appearance: alert, in no apparent distress Head exam: Present: atraumatic, normocephalic, normal inspection, other (Shingles on her anterior forehead) Eye exam: Present: normal appearance, EOMI. Absent: scleral icterus, conjunctival injection, periorbital swelling ENT exam: Present: normal exam, mucous membranes moist Neck exam: Present: normal inspection. Absent: tenderness, meningismus, lymphadenopathy Respiratory exam: Present: wheezes. Absent: respiratory distress, rales, rhonchi, stridor Cardiovascular Exam: Present: normal rhythm, tachycardia, normal heart sounds. Absent: systolic murmur, diastolic murmur, rubs, gallop, clicks GI/Abdominal exam: Present: soft, normal bowel sounds. Absent: distended, tenderness, guarding, rebound, rigid Extremities exam: Present: normal inspection, full ROM, normal capillary refill. Absent: tenderness, pedal edema, joint swelling, calf tenderness Back exam: Present: normal inspection Neurological exam: Present: alert, oriented X3, CN II-XII intact Psychiatric exam: Present: normal affect, normal mood Skin exam: Present: warm, dry, intact, normal color. Absent: rash Course Vital Signs 08/12/19 08/12/19 17:11 20:44 Temperature 98.8 F Pulse Rate 122 H 105 H Respiratory 18 18 Rate Blood Pressure 149/73 122/66 O2 Sat by Pulse 97 95 Oximetry - Reevaluation(s) Reevaluation #1: 08/12/19 17:59 medical record reviewed Reevaluation #2: 08/12/19 20:58 A she is in no acute distress here in the ER, fevers control, eating and drinking Medical Decision Making - Medical Decision Making 89 male the ER for evaluation of fever on chemotherapy. Patient is not neutropenic will be started on antibiotics. Patient given antibiotics here in the ER. Spoke with Dr. gaviria's partner Dr. San, patient okay for discharge and follow-up in the office - Lab Data Result diagrams: 08/12/19 18:30 08/12/19 18:30 Lab Results 08/12/19 08/12/19 08/12/19 Range/Units 18:30 18:30 18:30 WBC 9.9 (3.8-10.6) k/uL RBC 5.14 (4.30-5.90) m/uL Hgb 16.7 (13.0-17.5) gm/dL Hct 47.5 (39.0-53.0) % MCV 92.3 (80.0-100.0) fL MCH 32.4 (25.0-35.0) pg MCHC 35.1 (31.0-37.0) g/dL RDW 14.2 (11.5-15.5) % Plt Count 114 L (150-450) k/uL Neutrophils % 90 % Lymphocytes % 0 % Monocytes % 5 % Eosinophils % 1 % Basophils % 2 % Neutrophils # 8.9 H (1.3-7.7) k/uL Lymphocytes # 0.0 L (1.0-4.8) k/uL Monocytes # 0.5 (0-1.0) k/uL Eosinophils # 0.1 (0-0.7) k/uL Basophils # 0.2 (0-0.2) k/uL Sodium 136 L (137-145) mmol/L Potassium 4.1 (3.5-5.1) mmol/L Chloride 100 (98-107) mmol/L Carbon Dioxide 25 (22-30) mmol/L Anion Gap 11 mmol/L BUN 10 (9-20) mg/dL Creatinine 0.83 (0.66-1.25) mg/dL Est GFR (CKD-EPI)AfAm >90 (>60 ml/min/1.73 sqM) Est GFR (CKD-EPI)NonAf 88 (>60 ml/min/1.73 sqM) Glucose 169 H (74-99) mg/dL Plasma Lactic Acid Alexis 2.9 H* (0.7-2.0) mmol/L Calcium 9.2 (8.4-10.2) mg/dL Phosphorus 3.0 (2.5-4.5) mg/dL Magnesium 2.0 (1.6-2.3) mg/dL Total Bilirubin 0.6 (0.2-1.3) mg/dL AST 32 (17-59) U/L ALT 26 (21-72) U/L Alkaline Phosphatase 92 (38-126) U/L Total Protein 6.4 (6.3-8.2) g/dL Albumin 3.9 (3.5-5.0) g/dL Influenza Type A RNA (Not Detectd) Influenza Type B (PCR) (Not Detectd) 08/12/19 Range/Units 19:30 WBC (3.8-10.6) k/uL RBC (4.30-5.90) m/uL Hgb (13.0-17.5) gm/dL Hct (39.0-53.0) % MCV (80.0-100.0) fL MCH (25.0-35.0) pg MCHC (31.0-37.0) g/dL RDW (11.5-15.5) % Plt Count (150-450) k/uL Neutrophils % % Lymphocytes % % Monocytes % % Eosinophils % % Basophils % % Neutrophils # (1.3-7.7) k/uL Lymphocytes # (1.0-4.8) k/uL Monocytes # (0-1.0) k/uL Eosinophils # (0-0.7) k/uL Basophils # (0-0.2) k/uL Sodium (137-145) mmol/L Potassium (3.5-5.1) mmol/L Chloride (98-107) mmol/L Carbon Dioxide (22-30) mmol/L Anion Gap mmol/L BUN (9-20) mg/dL Creatinine (0.66-1.25) mg/dL Est GFR (CKD-EPI)AfAm (>60 ml/min/1.73 sqM) Est GFR (CKD-EPI)NonAf (>60 ml/min/1.73 sqM) Glucose (74-99) mg/dL Plasma Lactic Acid Alexis (0.7-2.0) mmol/L Calcium (8.4-10.2) mg/dL Phosphorus (2.5-4.5) mg/dL Magnesium (1.6-2.3) mg/dL Total Bilirubin (0.2-1.3) mg/dL AST (17-59) U/L ALT (21-72) U/L Alkaline Phosphatase (38-126) U/L Total Protein (6.3-8.2) g/dL Albumin (3.5-5.0) g/dL Influenza Type A RNA Not Detected (Not Detectd) Influenza Type B (PCR) Not Detected (Not Detectd) - Radiology Data Radiology results: report reviewed (Chest x-rays negative for acute disease), image reviewed Disposition Clinical Impression: Fever Disposition: HOME SELF-CARE Condition: Good Instructions (If sedation given, give patient instructions): Fever in Adults (ED) Is patient prescribed a controlled substance at d/c from ED?: No Referrals: Nathalie Garzon MD [Primary Care Provider] - 1-2 days
[2019-08-12 18:55] LABS: Basophils # (A) 0.2 k/uL (0-0.2); Basophils % (A) 2 %; Eosinophils # (A) 0.1 k/uL (0-0.7); Eosinophils % (A) 1 %; HCT 47.5 % (39.0-53.0); HGB 16.7 gm/dL (13.0-17.5); Lymphocytes % (A) 0 %; MCH 32.4 pg (25.0-35.0); MCHC 35.1 g/dL (31.0-37.0); MCV 92.3 fL (80.0-100.0); Mean Platelet Volume 6.4; Monocytes # (A) 0.5 k/uL (0-1.0); Monocytes % (A) 5 %; Neutrophils # (A) 8.9 k/uL (1.3-7.7); Neutrophils % (A) 90 %; Platelet Count 114 k/uL (150-450); RBC 5.14 m/uL (4.30-5.90); RDW 14.2 % (11.5-15.5); WBC 9.9 k/uL (3.8-10.6)
--- NOTE | 2019-08-12 19:04 | XR ---
EXAMINATION TYPE: XR chest 2V DATE OF EXAM: 08/12/2019 COMPARISON: 04/26/2019 HISTORY: Cough TECHNIQUE: Frontal and lateral views of the chest are obtained. FINDINGS: Heart is normal. Lungs are clear of infiltrate. There are no hilar masses. Bony thorax is intact. IMPRESSION: No active cardiopulmonary disease. No change.
[2019-08-12 19:20] LABS: ALT 26 U/L (21-72); AST 32 U/L (17-59); African American GFR (CKD) >90 (>60 ml/min/1.73 sqM); Albumin 3.9 g/dL (3.5-5.0); Alkaline Phosphatase 92 U/L (38-126); Anion Gap 11 mmol/L; Blood Urea Nitrogen 10 mg/dL (9-20); Calcium 9.2 mg/dL (8.4-10.2); Carbon Dioxide 25 mmol/L (22-30); Chloride 100 mmol/L (98-107); Glucose 169 mg/dL (74-99); Potassium 4.1 mmol/L (3.5-5.1); Sodium 136 mmol/L (137-145); Total Bilirubin 0.6 mg/dL (0.2-1.3); Total Protein 6.4 g/dL (6.3-8.2)
[2019-08-12] MEDS ORDERED: MORPHINE SULFATE 4 MG/ML SYRINGE IVP STA (19:58)
[2019-08-12 20:45] VITALS: BP 122/66
[2019-08-12] MEDS ORDERED: cefTRIAXone IN SWFI 1,000 MG/10 ML SYRINGE IVP STA (20:55)
[2019-08-12 21:29] VITALS: PULSE 72; RESP 16; TEMP 98.7
== END 2019-08-12 21:25 | disposition home or self-care (01) ==
LOC: EC 17:08
DX: R50.9 Fever, unspecified (principal); J44.9 Chronic obstructive pulmonary disease, unspecified; B02.9 Zoster without complications; Z79.51 Long term (current) use of inhaled steroids; Z79.899 Other long term (current) drug therapy; Z88.0 Allergy status to penicillin; Z87.891 Personal history of nicotine dependence; Z92.3 Personal history of irradiation; Z90.79 Acquired absence of other genital organ(s); Z85.72 Personal history of non-Hodgkin lymphomas; Z53.20 Procedure and treatment not carried out because of patient's decision for unspecified reasons; Z85.46 Personal history of malignant neoplasm of prostate
CPT/HCPCS: 36415; 71046; 80053; 83605; 83735; 84100; 85025; 87040; 87502; 96360; 96361; 99284

== ENCOUNTER → 2020-03-08 | Outpatient (CLI) | payer MEDICARE ==
[2020-03-08 13:23] LABS: African American GFR (CKD) >90 (>60 ml/min/1.73 sqM); Blood Urea Nitrogen 18 mg/dL (9-20); Non-African American GFR(CKD) 90 (>60 ml/min/1.73 sqM)
--- NOTE | 2020-03-08 19:44 | CT ---
EXAMINATION TYPE: CT ChestAbdPelvis w con DATE OF EXAM: 03/08/2020 INDICATION: Follow up intra abdominal lymphoma COMPARISON: 08/10/2019 CT DLP: 969.2 mGycm CONTRAST: Performed with Oral Contrast and with IV Contrast, patient injected with 100 mL of Isovue 300. TECHNIQUE: Axial images at 5 mm thick sections. Reconstructed images in the coronal plane. Delayed images through the kidneys. FINDINGS: CT CHEST: Portion of the thyroid visualized is normal. There is a 0.1 cm nodule right middle lobe. Series 4 image 30 there is an area of pneumonitis within the posterior right middle lobe. This area measures 1.2 cm in diameter. Series 4 image 35. Some addit ional pneumonitis changes in the midportion right middle lobe. 2 to 3 mm nodules are within the super ior segment right lower lobe. Series 4 image 39. Scattered areas of pneumonitis are in the posterior right lung. There is a density measuring 0.7 cm which is new the posterior medial right lung base. Se donald 4 image 46. Posterior left lung base pleural-based density measuring 0.8 cm is present. Series 4 image 49. Multiple peripheral densities are in the posterior lateral right lung base. No enlarged mediastinal or hilar adenopathy is evident. The ascending aorta diameter at the level of the main pulmonary artery is 3.3 cm. The main pulmonary artery diameter at the bifurcation is 2.2 cm. Minimal hiatal hernia may be present. CT ABDOMEN: Liver: Normal Spleen: Normal Pancreas: Normal Adrenal glands: The adrenal glands are normal. Gallbladder: Normal Kidneys: No masses are evident. No hydronephrosis is present. There is 7.2 cm cyst in the anterior mid to inferior pole left kidney measuring 13 Hounsfield units. Delayed images were obtained through the kidneys, which remain unremarkable. Aorta: Vascular calcification is within the aorta. Inferior vena cava: Normal. CT PELVIS: Loops of bowel within the abdomen and pelvis are normal. There are loops of bowel which are incom pletely distended or lack oral contrast limiting their evaluation. Appendix: Normal as visualized. Urinary bladder: Normal. Genitourinary structures: Prostate is enlarged and has calcification. Some subtle increased densities in the periaortic region. Soft tissue is diminished from the comparis on. Note is made of a retroaortic left renal vein. Osseous structures: No suspicious lytic or sclerotic lesions. Degenerative changes are within the fac ets. IMPRESSIONS: 1. Interval development of multiple peripheral, predominantly right basilar, infiltrates are irregula r densities. While metastatic disease could be considered, infectious etiology should also be conside red within the differential. Findings however aren't interval development from 08/10/2019. 2. Minimal residual but improving periaortic and mid mesentery soft tissue.
== END | disposition home or self-care (01) ==
LOC: RADCTMAIN 12:37
PROVIDERS: ATTEND Internal Medicine Hematology & Oncology
DX: R91.8 Other nonspecific abnormal finding of lung field (principal); M79.89 Other specified soft tissue disorders; C82.03 Follicular lymphoma grade I, intra-abdominal lymph nodes; Z88.0 Allergy status to penicillin
CPT/HCPCS: 82565; 84520; 71260; 74177; 36415; Q9967

== ENCOUNTER → 2020-09-09 | Outpatient (CLI) | payer MEDICARE ==
--- NOTE | 2020-09-10 17:52 | CT ---
EXAMINATION TYPE: CT ChestAbdPelvis w con DATE OF EXAM: 09/09/2020 INDICATION: f/u lymphoma, productive cough COMPARISON: 03/08/2020 CT DLP: 1334.4 mGycm CONTRAST: Performed with Oral Contrast and with IV Contrast, patient injected with 100 mL of Isovue 300. TECHNIQUE: Axial images at 5 mm thick sections. Reconstructed images in the coronal plane. Delayed images through the kidneys. FINDINGS: CT CHEST: Portion of the thyroid visualized is normal. There is consolidation in the posterior right lung base. Correlate for pneumonia. Underlying mass is not excluded. This should be followed to clearing. There is mild infiltrate in the posterior left lung base. Correlate for atelectasis. No enlarged mediastinal or hilar adenopathy is evident. Couple of small superior mediastinal lymph no daphne may be present. Small pretracheal lymph node is present not enlarged by CT criteria. A 0.8 cm rig ht infrahilar lymph node may be present. Series 3 image 44 No suspicious shotty lymphadenopathy withi n the hilar regions within the mediastinum are otherwise evident. Axillary regions appear normal. The ascending aorta diameter at the level of the main pulmonary artery is 3.4 cm. The main pulmonary artery diameter at the bifurcation is 2.[address] ABDOMEN: Liver: There may be some mild fatty infiltration of the liver. Spleen: Normal Pancreas: Normal Adrenal glands: The adrenal glands are normal. Gallbladder: Decompressed but otherwise unremarkable. Kidneys: No masses are evident. No hydronephrosis is present. There is a large simple cyst on the a nterior lateral left kidney measuring 8.1 x 8.4 cm and 8 Hounsfield units. Delayed images were obtai stephie through the kidneys, which remain unremarkable. Aorta: Vascular calcification is within the aorta. Inferior vena cava: Normal. CT PELVIS: Loops of bowel within the abdomen and pelvis are normal. There are loops of bowel which are incom pletely distended or lack oral contrast limiting their evaluation. Appendix: Normal as visualized. Urinary bladder: Normal. Genitourinary structures: Prostate contains calcification but is not enlarged. Osseous structures: No suspicious lytic or sclerotic lesions. There is a grade 1 spondylolisthesis of L5 anterior on S1. A grade 1 retrolisthesis of L4 on L5 is present. Degenerative disc changes are pr esent L3-4, L4-5, L5-S1. IMPRESSIONS: 1. Degenerative disc changes and spondylolisthesis within the lower lumbar spine discussed above. 2. Simple cyst appearing cyst on the left kidney. This has enlarged over the interval. Continued abner toring is recommended. 3. Consolidation within the posterior right lung base. Correlate for pneumonia. This should be follow ed to clearing. Underlying mass is not excluded. 4. Mild fatty infiltration liver. 5. No suspicious enlarged lymphadenopathy to suggest recurrent lymphoma.
== END | disposition home or self-care (01) ==
LOC: RADCTMAIN 14:10
PROVIDERS: ATTEND Internal Medicine Hematology & Oncology
DX: N28.1 Cyst of kidney, acquired (principal); K76.0 Fatty (change of) liver, not elsewhere classified; J18.1 Lobar pneumonia, unspecified organism; C82.13 Follicular lymphoma grade II, intra-abdominal lymph nodes; Z88.0 Allergy status to penicillin
CPT/HCPCS: 82565; 84520; 71260; 74177; 36415; Q9967

== ENCOUNTER 2020-09-15 09:58 | Day surgery (SDC) | payer MEDICARE ==
[2020-09-14 09:40] VITALS: BMI 27.9
[~2020-09-15 09:58] MED LIST changes: +ALBUTEROL NEB (CONC) 2.5 MG/0.5 ML INHALATION ONE; +ATROPINE SULFATE 0.4 MG/ML 1 ML VIAL IM ONE; +LIDOCAINE 1% (10MG/ML) FOR IV START INTRADERMA PRN; +LIDOCAINE 2% (PF) 20 MG/ML 5 ML VIAL INHALATION ONE; +LIDOCAINE VISCOUS 300 MG/15 ML CUP MUCOUS MEM ONE; +SODIUM CHLORIDE 0.9% 1,000 ML IV SCH
[2020-09-15] MEDS ORDERED: LIDOCAINE 1% INJ 10MG/ML (20 ML MDV) ONE (11:43)
[2020-09-15] MEDS ORDERED: SUCCINYLCHOLINE CHLORIDE 100 MG/5 ML SYR IV ONE (11:43)
[2020-09-15] MEDS ORDERED: PROPOFOL 10 MG/ML 20 ML VIAL IV ONE (11:43)
--- NOTE | 2020-09-15 12:28 | FL ---
EXAMINATION TYPE: FL bronchoscopy DATE OF EXAM: 09/15/2020 CLINICAL HISTORY: Fluoroscopy TECHNIQUE: Fluoroscopy. COMPARISON: None. FINDINGS: Fluoroscopic guidance was provided 1 minute 11 seconds. IMPRESSION: As Above.
[2020-09-15 12:31] VITALS: TEMP 97
--- NOTE | 2020-09-15 13:17 | XR ---
EXAMINATION TYPE: XR chest 1V DATE OF EXAM: 09/15/2020 COMPARISON: 08/12/2019 HISTORY: Post bronchoscopy TECHNIQUE: Single frontal view of the chest is obtained. FINDINGS: Hyperinflation suggests COPD. No sizable pneumothorax. Heart size normal. Basilar consolid ation again noted. IMPRESSION: COPD with right basilar consolidation persisting. No pneumothorax.
[2020-09-15] MEDS ORDERED: ALBUTEROL NEBULIZED 2.5 MG/3 ML INHALATION ONE (13:25)
[2020-09-15 13:51] VITALS: RESP 20
[2020-09-15 14:10] VITALS: BP 123/55; PULSE 109
[2020-09-15 17:32] LABS: Appearance,BF Cloudy; Color,BF Colorless
[2020-09-15 17:35] LABS: Mononuclear WBC,Body Fluid 2 %; Nucleated Cells, Body Fluid 7000 /uL; Polynuclear WBC,Body Fluid 98 %; RBC, Body Fluid 1950 /uL
--- NOTE | 2020-09-15 21:56 | OP ---
OPERATIVE REPORT PROCEDURE: Bronchoscopy, airway examination, therapeutic lavage, BAL right lower lobe, brushes right lower lobe, transbronchial biopsies, right lower lobe. PREOPERATIVE DIAGNOSIS: Pneumonia versus mass, right lower lobe. POSTOPERATIVE DIAGNOSIS: Pneumonia versus mass, right lower lobe. VIDEO GAME TECHNICIAN: Dr. Faye. Tabatha Vides CRNA, provided general anesthesia along with Dr. Reynoso. PROCEDURE DESCRIPTION: The patient's procedure was done in room #1. There was informed consent and universal timeout. After the patient was intubated and fully anesthetized, the bronchoscope was inserted through the bronchoscope adapter connected to the endotracheal tube. Next we went down and inspected the left lung. The left upper lobe and its 2 segments, the lingula and its 2 segments and the left lower lobe and its 4 segments were all normal. On the right side there were thick mucus plugs noted in the right mainstem. They were suctioned with some difficulty. There was also mucus noted within the trifurcated right upper lobe. It was also suctioned. Thick, very difficult to suction mucus plugs were noted in the bronchus intermedius and in the right middle lobe and right lower lobe. They were suctioned. Once they were removed, the bronchoscope was wedged into the right lower lobe. The BAL took place. There were no immediate complications from that. Next, brushes were done in the right lower lobe as well. Finally, under fluoroscopic guidance, multiple transbronchial biopsies were done in the right lower lobe. At least 8 specimens were obtained. The patient tolerated the procedure well. There was no significant bleeding. There was no obvious pneumothorax on fluoroscopy. A formal chest x-ray was ordered. There was no immediate complication and the patient will be recovered. MMODL / IJN: [id number] /
== END 2020-09-15 14:26 | disposition home or self-care (01) ==
LOC: ORWHC2ENDO 09:58
PROVIDERS: ATTEND Internal Medicine Critical Care Medicine
DX: R05 Cough (principal); R22.9 Localized swelling, mass and lump, unspecified; J44.9 Chronic obstructive pulmonary disease, unspecified; C85.99 Non-Hodgkin lymphoma, unspecified, extranodal and solid organ sites; Z85.46 Personal history of malignant neoplasm of prostate; Z87.09 Personal history of other diseases of the respiratory system; Z87.01 Personal history of pneumonia (recurrent); Z87.442 Personal history of urinary calculi; Z87.891 Personal history of nicotine dependence; Z90.79 Acquired absence of other genital organ(s); Z96.652 Presence of left artificial knee joint; Z98.890 Other specified postprocedural states; Z79.51 Long term (current) use of inhaled steroids; Z79.899 Other long term (current) drug therapy; Z88.0 Allergy status to penicillin; Z97.2 Presence of dental prosthetic device (complete) (partial)
CPT/HCPCS: 87798 ×3; 87496; 87498; 87529; 88104; 88108; 88305; 89050; 87252; 87502; 87634; 87070; 87205; 87116; 87102; 87206; 71045; 31628; 31624; J0461; J2001; J0330; J2704; 31623

== ENCOUNTER → 2020-09-16 | Outpatient (CLI) | payer MEDICARE | END | disposition home or self-care (01) | LOC: LABWHC1 14:09 | PROVIDERS: ATTEND Internal Medicine Hematology & Oncology | DX: C82.03 Follicular lymphoma grade I, intra-abdominal lymph nodes (principal); C82.13 Follicular lymphoma grade II, intra-abdominal lymph nodes; B02.9 Zoster without complications; M12.9 Arthropathy, unspecified | CPT/HCPCS: U0003; C9803 ==

== ENCOUNTER 2020-09-18 20:02 | Inpatient (IN) | payer MEDICARE ==
[2020-09-18] MEDS ORDERED: ALBUTEROL NEBULIZED 2.5 MG/3 ML INHALATION STA (20:39)
[2020-09-18] MEDS ORDERED: SODIUM CHLORIDE 0.9% 1,000 ML IV STA (20:39)
[2020-09-18] MEDS ORDERED: IPRATROPIUM 0.5 MG/2.5 ML NEBU INHALATION STA (20:39)
--- NOTE | 2020-09-18 20:40 | ED ---
SOB HPI - General Chief Complaint: Shortness of Breath Stated Complaint: SOB Time Seen by Provider: 09/18/20 20:38 Source: patient Mode of arrival: wheelchair Limitations: no limitations - Related Data Home Medications Medication Instructions Recorded Confirmed Budesonide/Formoterol Fumarate 1 puff INHALATION BID 08/12/19 09/14/20 [Symbicort 160-4.5 Mcg Inhaler] Albuterol Nebulized (Conc) 2.5 mg INHALATION Q6H 09/14/20 09/14/20 [Ventolin Nebulized (Conc)] Doxycycline Monohydrate [Monodox] 100 mg PO Q12HR 09/14/20 09/14/20 Previous Rx's Medication Instructions Recorded Albuterol Inhaler (Mhu) [Ventolin 1 - 2 puff INHALATION RT-Q6H PRN 02/23/19 Hfa Inhaler (Mhu)] #1 inhaler Allergies Allergy/AdvReac Type Severity Reaction Status Date / Time Penicillins Allergy Unknown Rash/Hives Verified 09/18/20 20:16 Review of Systems ROS Statement: Those systems with pertinent positive or pertinent negative responses have been documented in the HPI. ROS Other: All systems not noted in ROS Statement are negative. Past Medical History Past Medical History: Cancer, COPD Additional Past Medical History / Comment(s): HX PROSTATE CANCER WITH SURGERY & RADIATION (2006), KIDNEY STONES. lymphoma History of Any Multi-Drug Resistant Organisms: None Reported Past Surgical History: Joint Replacement, Orthopedic Surgery, Prostate Surgery Additional Past Surgical History / Comment(s): BRAIN SURGERY TO RELIEVE PRESSURE AFTER HEAD INJURY (6 YRS OLD), TOTAL LEFT KNEE, LEFT SHOULDER SURGERY, LEFT ARM SURGERY AFTER CRUSHING INJURY. Chest tube for pneumothorax. Lithotripsy. Prostatectomy secondary to prostate cancer. Past Anesthesia/Blood Transfusion Reactions: Motion Sickness Additional Past Anesthesia/Blood Transfusion Reaction / Comment(s): SLOW TO WAKE UP Past Psychological History: No Psychological Hx Reported Smoking Status: Former smoker Past Alcohol Use History: None Reported Past Drug Use History: None Reported - Past Family History Mother Family Medical History: No Reported History General Exam Limitations: no limitations Course Vital Signs 09/18/20 09/18/20 09/18/20 20:07 21:02 21:20 Temperature 99.9 F H Pulse Rate 126 H 120 H 113 H Respiratory 22 16 Rate Blood Pressure 119/54 110/70 O2 Sat by Pulse 86 L 98 Oximetry 11/08/20 21:36 Temperature Pulse Rate 117 H Respiratory Rate Blood Pressure O2 Sat by Pulse Oximetry Medical Decision Making - Lab Data Result diagrams: 09/18/20 20:57 Lab Results 09/18/20 09/18/20 09/18/20 Range/Units 20:57 20:57 20:57 WBC 14.4 H (3.8-10.6) k/uL RBC 5.04 (4.30-5.90) m/uL Hgb 15.7 (13.0-17.5) gm/dL Hct 49.3 (39.0-53.0) % MCV 97.7 (80.0-100.0) fL MCH 31.2 (25.0-35.0) pg MCHC 31.9 (31.0-37.0) g/dL RDW 13.4 (11.5-15.5) % Plt Count 512 H (150-450) k/uL Neutrophils % 92 % Lymphocytes % 2 % Monocytes % 4 % Eosinophils % 1 % Basophils % 1 % Neutrophils # 13.2 H (1.3-7.7) k/uL Lymphocytes # 0.3 L (1.0-4.8) k/uL Monocytes # 0.6 (0-1.0) k/uL Eosinophils # 0.2 (0-0.7) k/uL Basophils # 0.1 (0-0.2) k/uL PT 10.5 (9.0-12.0) sec INR 1.0 (<1.2) APTT 24.6 (22.0-30.0) sec Troponin I <0.012 (0.000-0.034) ng/mL - EKG Data -: EKG Interpreted by Me (EKG shows sinus tachycardia 113 [address] 152 QRS 74 QTc 441) Disposition Referrals: Nathalie Garzon MD [Primary Care Provider] - 1-2 days
[2020-09-18 21:22] LABS: Basophils # (A) 0.1 k/uL (0-0.2); Basophils % (A) 1 %; Eosinophils # (A) 0.2 k/uL (0-0.7); Eosinophils % (A) 1 %; HCT 49.3 % (39.0-53.0); HGB 15.7 gm/dL (13.0-17.5); Lymphocytes # (A) 0.3 k/uL (1.0-4.8); Lymphocytes % (A) 2 %; MCH 31.2 pg (25.0-35.0); MCHC 31.9 g/dL (31.0-37.0); MCV 97.7 fL (80.0-100.0); Mean Platelet Volume 7.1; Monocytes # (A) 0.6 k/uL (0-1.0); Monocytes % (A) 4 %; Neutrophils # (A) 13.2 k/uL (1.3-7.7); Neutrophils % (A) 92 %; Platelet Count 512 k/uL (150-450); RBC 5.04 m/uL (4.30-5.90); RDW 13.4 % (11.5-15.5); WBC 14.4 k/uL (3.8-10.6)
[2020-09-18 21:41] LABS: Partial Thromboplastin Time 24.6 sec (22.0-30.0); Prothrombin Time 10.5 sec (9.0-12.0)
[2020-09-18 22:10] LABS: ALT 29 U/L (4-49); AST 28 U/L (17-59); African American GFR (CKD) >90 (>60 ml/min/1.73 sqM); Albumin 3.5 g/dL (3.5-5.0); Alkaline Phosphatase 76 U/L (38-126); Anion Gap 6 mmol/L; Blood Urea Nitrogen 15 mg/dL (9-20); Calcium 8.9 mg/dL (8.4-10.2); Carbon Dioxide 29 mmol/L (22-30); Chloride 101 mmol/L (98-107); Creatine Kinase 49 U/L (55-170); Glucose 129 mg/dL (74-99); Magnesium 2.1 mg/dL (1.6-2.3); Non-African American GFR(CKD) 81 (>60 ml/min/1.73 sqM); Potassium 4.6 mmol/L (3.5-5.1); Sodium 136 mmol/L (137-145); Total Bilirubin 0.6 mg/dL (0.2-1.3)
--- NOTE | 2020-09-18 22:13 | XR ---
EXAMINATION TYPE: XR chest 2V DATE OF EXAM: 09/18/2020 COMPARISON: 09/15/2020 HISTORY: Short of breath TECHNIQUE: FINDINGS: There is no heart failure nor confluent pneumonic infiltrate. Costophrenic angles are clear . There are no hilar masses. Heart size is normal. There is no evidence of pleural effusion. Bony tho rax is intact. IMPRESSION: No active cardiopulmonary disease. No change.
[2020-09-18] MEDS ORDERED: methylPREDNISolone SOD SUCCI 125 MG/2 ML VIAL IV STA (23:11)
[2020-09-18] MEDS: SODIUM CHLORIDE 0.9% 1,000 ML IV SCH (23:17)
[2020-09-19] MEDS: methylPREDNISolone SOD SUCCI 125 MG/2 ML VIAL IV SCH ×2 (01:05→11:13)
[2020-09-19] MEDS ORDERED: IPRATROPIUM-ALBUTEROL 3 ML NEB INHALATION PRN (01:52)
--- NOTE | 2020-09-19 01:53 | P.HPIM ---
History of Present Illness H&P Date: 09/19/20 Patient is a 75-year-old male with a PMH of COPD (follows with Dr. Faye in the pulmonary clinic) presented to the emergency room with cough and shortness of breath. Patient notes that he has been suffering with this severe cough productive of yellowish phlegm for the past 4 weeks and that he had undergone a bronchoscopy with pulmonary washout on . Reports that following the washout, his symptoms had resolved for 2 days but then recurred earlier today. He reports excessive coughing with pleuritic chest discomfort and shortness of breath. Denied exertional chest discomfort or chest discomfort at rest. He denied fever, abdominal pain, nausea, vomiting, diarrhea. Also denied dizzi ness, headaches. Chest x-ray in the emergency room was unremarkable. EKG revealed sinus tachycardia with PVCs at 1 13 bpm. Laboratory evaluation was reviewed with WBC count 14.4, platelets 512, sodium 136, be on 15, creatinine 0.94, CK 49, and troponin less than 0.012. Review of Systems Pertinent positives and negatives as discussed in HPI, a complete review of sys tems was performed and all other systems are negative. Past Medical History Past Medical History: Cancer, COPD Additional Past Medical History / Comment(s): HX PROSTATE CANCER WITH SURGERY & RADIATION (2006), KIDNEY STONES. lymphoma History of Any Multi-Drug Resistant Organisms: None Reported Past Surgical History: Joint Replacement, Orthopedic Surgery, Prostate Surgery Additional Past Surgical History / Comment(s): BRAIN SURGERY TO RELIEVE PRESSURE AFTER HEAD INJURY (6 YRS OLD), TOTAL LEFT KNEE, LEFT SHOULDER SURGERY, LEFT ARM SURGERY AFTER CRUSHING INJURY. Chest tube for pneumothorax. Lithotripsy. Prostatectomy secondary to prostate cancer. Past Anesthesia/Blood Transfusion Reactions: Motion Sickness Additional Past Anesthesia/Blood Transfusion Reaction / Comment(s): SLOW TO WAKE UP Past Psychological History: No Psychological Hx Reported Smoking Status: Former smoker Past Alcohol Use History: None Reported Past Drug Use History: None Reported - Past Family History Mother Family Medical History: No Reported History Medications and Allergies Home Medications Medication Instructions Recorded Confirmed Type Budesonide/Formoterol Fumarate 2 puff INHALATION RT-BID 08/12/19 09/18/20 Hi story [Symbicort 160-4.5 Mcg Inhaler] Doxycycline Monohydrate [Monodox] 100 mg PO Q12HR 09/14/20 09/18/20 History Albuterol Nebulized [Ventolin 2.5 mg INHALATION RT-Q6H PRN 09/18/20 09/18/20 History Nebulized] Albuterol Sulfate [Ventolin HFA] 2 puff INHALATION RT-Q4H PRN 09/18/20 09/18/20 History Allergies Allergy/AdvReac Type Severity Reaction Status Date / Time Penicillins Allergy Unknown Rash/Hives Verified 09/18/20 22:23 Physical Exam Vitals: Vital Signs Temp Pulse Resp BP Pulse Ox 09/19/20 01:03 115 H 18 122/60 96 09/18/20 23:10 99.4 F 87 18 123/63 95 09/18/20 22:44 119 H 16 131/55 94 L 09/18/20 21:36 117 H 09/18/20 21:20 113 H 16 110/70 98 09/18/20 21:02 120 H 09/18/20 20:07 99.9 F H 126 H 22 119/54 86 L Intake and Output 09/18/20 09/18/20 09/19/20 14:59 22:59 06:59 Other: Weight 81.647 kg General: non toxic, no distress, appears at stated age, overweight Derm: no unusual rashes/lesions no unusual ecchymoses, warm, dry Head: atraumatic, normocephalic, symmetric Eyes: EOMI, no lid lag, anicteric sclera, pupils equal round reactive to light ENT: Nose and ears atraumatic, no thrush, no pharyngeal erythema Neck: No thyromegaly, no cervical lymphadenopathy, trachea midline, supple Mouth: no lip lesion, mucus membranes moist Cardiovascular: S1S2 reg, no murmur, positive posterior tibial pulse bilateral, no edema, capillary refill less than 2 seconds Lungs: Bilateral somewhat poor air entry with minimal expiratory wheezing, no rales or rhonchi appreciated , no accessory muscle use Abdominal: soft, nontender to palpation, no guarding, no appreciable organomegaly, normal bowel sounds Ext: no gross muscle atrophy, muscle strength 5 out of 5 in all 4 extremities grossly, no contractures, Neuro: CN II-XI grossly intact, light touch intact all 4 extremities, finger to nose within normal limits, Psych: Alert, oriented, appropriate affect Results CBC & Chem 7: 09/18/20 20:57 09/18/20 21:50 Labs: Abnormal Lab Results - Last 24 Hours (Table) 09/18/20 09/18/20 Range/Units 20:57 21:50 WBC 14.4 H (3.8-10.6) k/uL Plt Count 512 H (150-450) k/uL Neutrophils # 13.2 H (1.3-7.7) k/uL Lymphocytes # 0.3 L (1.0-4.8) k/uL Sodium 136 L (137-145) mmol/L Glucose 129 H (74-99) mg/dL Creatine Kinase 49 L (55-170) U/L Total Protein 6.0 L (6.3-8.2) g/dL Assessment and Plan Plan: Acute COPD exacerbation -Continue with Solu-Medrol -DuoNeb's [id number] and as needed -Pulmonary consult -Supplemental oxygen -Continue with home Symbicort inhaler DVT prophylaxis -Lovenox The patient is admitted with an anticipated greater than 2 midnight stay for evaluation of acute COPD exacerbation CODE STATUS: Full Code Discussed with: Patient Anticipated discharge date: 2-[address]: Home A total of 35 minutes was spent on the care of this complex patient more than 50% of the time was spent in counseling and care coordination.
[2020-09-19] MEDS ORDERED: SYMBICORT 160-4.5 MCG INHALER INHALATION SCH (08:00)
[2020-09-19] MEDS: IPRATROPIUM-ALBUTEROL 3 ML NEB INHALATION SCH ×2 (08:03→11:51)
[2020-09-19] MEDS ORDERED: DOXYCYCLINE 100 MG CAP PO SCH (09:00)
[2020-09-19] MEDS ORDERED: ENOXAPARIN 40 MG/0.4 ML SYRINGE SQ SCH (09:00)
[2020-09-19] MEDS: SODIUM CHLORIDE 0.9% 1,000 ML IV SCH (11:15)
[2020-09-19 11:21] VITALS: BP 131/65; RESP 18
[2020-09-19 12:01] VITALS: PULSE 104
[2020-09-19 13:09] VITALS: TEMP 97.8
--- NOTE | 2020-09-19 17:31 | P.DS ---
Providers Date of admission: 09/18/20 23:12 Attending physician: Darien Samaniego MD Consults: 09/18/20 23:00 Consult Physician Routine Consulting Provider: Gordon Faye Consult Reason/Comments: known Do you want consulting provider notified?: Yes Primary care physician: Nathalie Garzon - Discharge Diagnosis(es) (1) COPD exacerbation Nebs, so Status: Acute Priority: High Hospital Course: The patient is a 75-year-old male with history of COPD, recent bronchoscopy he was on oral doxycycline. The patient presented with cough and shortness of breath and was hypoxic in the emergency room. The patient was treated for COPD exacerbation and treatment his hypoxia resolved prostatitis and anticipated. The patient was seen by me in the morning and he was 91% on room air. The patient was able to ambulate without any hypoxia or chest pain. The patient will be discharged to continue his oral doxycycline and completed course of prednisone 50 mg daily 5 days. The patient had his questions addressed by me at the bedside. I also notified his telephonically of the plan. He will follow-up with his family physician and his design drafter. Discharge to home the patient had recovery process faster than anticipated Patient Condition at Discharge: Fair Plan - Discharge Summary Discharge Rx Participant: Yes New Discharge Prescriptions: New predniSONE 50 mg PO DAILY #5 tab Benzonatate [Tessalon Perles] 100 mg PO TID PRN 14 Days #30 cap PRN Reason: Cough No Action Budesonide/Formoterol Fumarate [Symbicort 160-4.5 Mcg Inhaler] 2 puff INHALATION RT-BID Doxycycline Monohydrate [Monodox] 100 mg PO Q12HR Albuterol Sulfate [Ventolin HFA] 2 puff INHALATION RT-Q4H PRN PRN Reason: Shortness Of Breath Albuterol Nebulized [Ventolin Nebulized] 2.5 mg INHALATION RT-Q6H PRN PRN Reason: Shortness Of Breath Discharge Medication List Budesonide/Formoterol Fumarate [Symbicort 160-4.5 Mcg Inhaler] 2 puff INHALATION RT-BID 08/12/19 [History] Doxycycline Monohydrate [Monodox] 100 mg PO Q12HR 09/14/20 [History] Albuterol Nebulized [Ventolin Nebulized] 2.5 mg INHALATION RT-Q6H PRN 09/18/20 [History] Albuterol Sulfate [Ventolin HFA] 2 puff INHALATION RT-Q4H PRN 09/18/20 [History] Benzonatate [Tessalon Perles] 100 mg PO TID PRN 14 Days #30 cap 09/19/20 [Rx] predniSONE 50 mg PO DAILY #5 tab 09/19/20 [Rx] Follow up Appointment(s)/Referral(s): Nathalie Garzon MD [Primary Care Provider] - 1-2 days Patient Instructions/Handouts: COPD (Chronic Obstructive Pulmonary Disease) (ED) Discharge Disposition: HOME SELF-CARE
== END 2020-09-19 16:16 | disposition home or self-care (01) | DRG 192 ==
LOC: EC 20:02 → 6NMEDSUR 23:12
PROVIDERS: ADMIT Internal Medicine; ATTEND Internal Medicine
DX: J44.1 Chronic obstructive pulmonary disease with (acute) exacerbation (principal); I49.3 Ventricular premature depolarization; R09.02 Hypoxemia; Z79.51 Long term (current) use of inhaled steroids; Z79.899 Other long term (current) drug therapy; Z87.891 Personal history of nicotine dependence; Z85.46 Personal history of malignant neoplasm of prostate; Z92.3 Personal history of irradiation; Z87.442 Personal history of urinary calculi; Z85.72 Personal history of non-Hodgkin lymphomas; Z96.652 Presence of left artificial knee joint; Z98.52 Vasectomy status; Z87.19 Personal history of other diseases of the digestive system; Z87.820 Personal history of traumatic brain injury; Z87.39 Personal history of other diseases of the musculoskeletal system and connective tissue; Z98.890 Other specified postprocedural states; Z90.79 Acquired absence of other genital organ(s); Z88.0 Allergy status to penicillin
CPT/HCPCS: 36415; 71046; 80053; 82550; 83735; 83880; 84484; 85025; 85610; 85730; 93005; 94640

== ENCOUNTER 2020-10-04 10:36 | Inpatient (IN) | payer MEDICARE ==
[2020-10-04] MEDS ORDERED: ACETAMINOPHEN TAB 500 MG TAB PO STA (10:44)
--- NOTE | 2020-10-04 11:06 | ED ---
General Adult HPI - General Chief complaint: Shortness of Breath Stated complaint: MILES,Cough Time Seen by Provider: 10/04/20 10:43 Source: patient Mode of arrival: wheelchair Limitations: physical limitation - History of Present Illness Initial comments: Dictation was produced using [employer] dictation software. please excuse any grammatical, word or spelling errors. This patient was cared for during a federal and state declared state of emergency secondary to Covid 19 Chief Complaint: 75-year-old male past medical history of COPD presents with dyspnea. History of Present Illness: 75-year-old male who has past medical history of [place] PD, prostate cancer presents today with shortness of breath. Patient states he's been battling dyspnea for approximately one month. Decided come to the emergency department because his symptoms have been getting worse. Patient recently had a bronchoscopy done earlier this month evaluate for possible malignant lung disease. Cytology specimens were negative for malignant processes. Patient states that he denies any constitutional symptoms. He's been tested for: Before that was negative. Patient denies any chest pain. The ROS documented in this emergency department record has been reviewed and confirmed by me. Those systems with pertinent positive or negative responses have been documented in the HPI. All other systems are other negative and/or noncontributory. PHYSICAL EXAM: General Impression: Alert and oriented x3, dyspneic HEENT: Normocephalic atraumatic, extra-ocular movements intact, pupils equal and reactive to light bilaterally, mucous membranes moist. Cardiovascular: Heart regular rate and rhythm Chest: 3 word sentences, mild retractions, no tachypnea Abdomen: abdomen soft, non-tender, non-distended, no organomegaly Musculoskeletal: Pulses present and equal in all extremities, no peripheral edema Motor: no focal deficits noted Neurological: CN II-XII grossly intact, no focal motor or sensory deficits noted Skin: Intact with no visualized rashes Psych: Normal affect and mood ED course: 75-year-old male presents with dyspnea. Vital signs upon arrival shows temperature 101.5, respiratory rate of 26, O2 saturation 89% on room air. Patient is an initial evaluation is concerning for possible sepsis however given that we are undergoing a coronavirus pathogenic we will determine likely causes of patient's infectious symptoms before providing him with fluids given that excessive fluid administration in the setting of covid 19 can be harmful. Laboratory evaluation obtained. CBC is within acceptable limits. There is lymph lymphocytopenia. Coag panel negative. D-dimer is slightly elevated 0.82. Metabolic panel is unremarkable. CRP is 134, LDH 642. Rotavirus is positive. Chest x-ray shows no acute processes. Patient will be admitted for hypoxic respiratory failure secondary to Covid 19. EKG interpretation: Ventricular rate 70, sinus tachycardia,. Interval 160, QRS 76, QTC 427. No [place] prolongation, no QTC prolongation, no ST or T-wave changes noted. EKG compared to 09/18/2020 showing no changes. Overall, this EKG is unremarkable - Related Data Home Medications Medication Instructions Recorded Confirmed Budesonide/Formoterol Fumarate 2 puff INHALATION RT-BID 08/12/19 10/04/20 [Symbicort 160-4.5 Mcg Inhaler] Albuterol Nebulized [Ventolin 2.5 mg INHALATION RT-Q6H PRN 09/18/20 10/04/20 Nebulized] Albuterol Sulfate [Ventolin HFA] 2 puff INHALATION RT-Q4H PRN 09/18/20 10/04/20 Doxycycline Hyclate [Vibramycin] 100 mg PO BID 10/04/20 10/04/20 Allergies Allergy/AdvReac Type Severity Reaction Status Date / Time Penicillins Allergy Unknown Rash/Hives Verified 10/04/20 11:33 Review of Systems ROS Statement: Those systems with pertinent positive or pertinent negative responses have been documented in the HPI. ROS Other: All systems not noted in ROS Statement are negative. Past Medical History Past Medical History: Cancer, COPD Additional Past Medical History / Comment(s): HX PROSTATE CANCER WITH SURGERY & RADIATION (2006), KIDNEY STONES. lymphoma History of Any Multi-Drug Resistant Organisms: None Reported Past Surgical History: Joint Replacement, Orthopedic Surgery, Prostate Surgery Additional Past Surgical History / Comment(s): BRAIN SURGERY TO RELIEVE PRESSURE AFTER HEAD INJURY (6 YRS OLD), TOTAL LEFT KNEE, LEFT SHOULDER SURGERY, LEFT ARM SURGERY AFTER CRUSHING INJURY. Chest tube for pneumothorax. Lithotripsy. Prostatectomy secondary to prostate cancer. Past Anesthesia/Blood Transfusion Reactions: Motion Sickness Additional Past Anesthesia/Blood Transfusion Reaction / Comment(s): SLOW TO WAKE UP Past Psychological History: No Psychological Hx Reported Smoking Status: Former smoker Past Alcohol Use History: None Reported Past Drug Use History: None Reported - Past Family History Mother History Unknown: Yes Family Medical History: No Reported History Father Family Medical History: COPD Additional Family Medical History / Comment(s): Pt was adopted and does not know much of his natural fathers medical hx General Exam Limitations: physical limitation Course Vital Signs 10/04/20 10/04/20 10/04/20 10:37 13:00 13:07 Temperature 101.5 F H Pulse Rate 60 92 Respiratory 26 H 16 22 Rate Blood Pressure 108/53 105/65 O2 Sat by Pulse 89 L 90 L Oximetry Medical Decision Making - Lab Data Result diagrams: 10/04/20 11:00 10/04/20 10:59 Lab Results 10/04/20 10/04/20 10/04/20 Range/Units 10:59 10:59 10:59 WBC (3.8-10.6) k/uL RBC (4.30-5.90) m/uL Hgb (13.0-17.5) gm/dL Hct (39.0-53.0) % MCV (80.0-100.0) fL MCH (25.0-35.0) pg MCHC (31.0-37.0) g/dL RDW (11.5-15.5) % Plt Count (150-450) k/uL MPV Neutrophils % % Lymphocytes % % Monocytes % % Eosinophils % % Basophils % % Neutrophils # (1.3-7.7) k/uL Lymphocytes # (1.0-4.8) k/uL Monocytes # (0-1.0) k/uL Eosinophils # (0-0.7) k/uL Basophils # (0-0.2) k/uL Manual Slide Review RBC Morphology PT 10.8 (9.0-12.0) sec INR 1.0 (<1.2) APTT 24.5 (22.0-30.0) sec D-Dimer 0.82 H (<0.60) mg/L FEU Sodium 134 L (137-145) mmol/L Potassium 4.4 (3.5-5.1) mmol/L Chloride 99 (98-107) mmol/L Carbon Dioxide 28 (22-30) mmol/L Anion Gap 7 mmol/L BUN 16 (9-20) mg/dL Creatinine 0.92 (0.66-1.25) mg/dL Est GFR (CKD-EPI)AfAm >90 (>60 ml/min/1.73 sqM) Est GFR (CKD-EPI)NonAf 82 (>60 ml/min/1.73 sqM) Glucose 117 H (74-99) mg/dL Plasma Lactic Acid Alexis 1.3 (0.7-2.0) mmol/L Calcium 8.6 (8.4-10.2) mg/dL Magnesium 1.9 (1.6-2.3) mg/dL Total Bilirubin 1.1 (0.2-1.3) mg/dL AST 31 (17-59) U/L ALT 25 (4-49) U/L Alkaline Phosphatase 69 (38-126) U/L Lactate Dehydrogenase 642 H (313-618) U/L C-Reactive Protein 134.1 H (<10.0) mg/L Total Protein 6.0 L (6.3-8.2) g/dL Albumin 3.6 (3.5-5.0) g/dL Coronavirus (PCR) (Not Detectd) 10/04/20 10/04/20 Range/Units 11:00 13:00 WBC 10.2 (3.8-10.6) k/uL RBC 5.01 (4.30-5.90) m/uL Hgb 15.9 (13.0-17.5) gm/dL Hct 47.1 (39.0-53.0) % MCV 94.0 (80.0-100.0) fL MCH 31.7 (25.0-35.0) pg MCHC 33.7 (31.0-37.0) g/dL RDW 13.3 (11.5-15.5) % Plt Count 184 D (150-450) k/uL MPV 7.5 Neutrophils % 84 % Lymphocytes % 1 % Monocytes % 12 % Eosinophils % 0 % Basophils % 3 % Neutrophils # 8.6 H (1.3-7.7) k/uL Lymphocytes # 0.1 L (1.0-4.8) k/uL Monocytes # 1.2 H (0-1.0) k/uL Eosinophils # 0.0 (0-0.7) k/uL Basophils # 0.3 H (0-0.2) k/uL Manual Slide Review Performed RBC Morphology Normal PT (9.0-12.0) sec INR (<1.2) APTT (22.0-30.0) sec D-Dimer (<0.60) mg/L FEU Sodium (137-145) mmol/L Potassium (3.5-5.1) mmol/L Chloride (98-107) mmol/L Carbon Dioxide (22-30) mmol/L Anion Gap mmol/L BUN (9-20) mg/dL Creatinine (0.66-1.25) mg/dL Est GFR (CKD-EPI)AfAm (>60 ml/min/1.73 sqM) Est GFR (CKD-EPI)NonAf (>60 ml/min/1.73 sqM) Glucose (74-99) mg/dL Plasma Lactic Acid Alexis (0.7-2.0) mmol/L Calcium (8.4-10.2) mg/dL Magnesium (1.6-2.3) mg/dL Total Bilirubin (0.2-1.3) mg/dL AST (17-59) U/L ALT (4-49) U/L Alkaline Phosphatase (38-126) U/L Lactate Dehydrogenase (313-618) U/L C-Reactive Protein (<10.0) mg/L Total Protein (6.3-8.2) g/dL Albumin (3.5-5.0) g/dL Coronavirus (PCR) Detected A (Not Detectd) Disposition Clinical Impression: COVID-19 Disposition: ADMITTED IP TO THIS [facility] Condition: Fair Decision Time: 14:02
[2020-10-04 11:20] LABS: Basophils # (A) 0.3 k/uL (0-0.2); Basophils % (A) 3 %; Eosinophils % (A) 0 %; HCT 47.1 % (39.0-53.0); HGB 15.9 gm/dL (13.0-17.5); Lymphocytes # (A) 0.1 k/uL (1.0-4.8); Lymphocytes % (A) 1 %; MCH 31.7 pg (25.0-35.0); MCHC 33.7 g/dL (31.0-37.0); Mean Platelet Volume 7.5; Monocytes # (A) 1.2 k/uL (0-1.0); Monocytes % (A) 12 %; Neutrophils # (A) 8.6 k/uL (1.3-7.7); Neutrophils % (A) 84 %; RBC 5.01 m/uL (4.30-5.90); RDW 13.3 % (11.5-15.5); WBC 10.2 k/uL (3.8-10.6)
[2020-10-04] MEDS: SODIUM CHLORIDE 0.9% 1,000 ML IV STA ×2 (11:23→17:36)
[2020-10-04 11:25] LABS: ALT 25 U/L (4-49); AST 31 U/L (17-59); African American GFR (CKD) >90 (>60 ml/min/1.73 sqM); Albumin 3.6 g/dL (3.5-5.0); Alkaline Phosphatase 69 U/L (38-126); Anion Gap 7 mmol/L; Blood Urea Nitrogen 16 mg/dL (9-20); Calcium 8.6 mg/dL (8.4-10.2); Carbon Dioxide 28 mmol/L (22-30); Chloride 99 mmol/L (98-107); Glucose 117 mg/dL (74-99); LDH 642 U/L (313-618); Magnesium 1.9 mg/dL (1.6-2.3); Non-African American GFR(CKD) 82 (>60 ml/min/1.73 sqM); Potassium 4.4 mmol/L (3.5-5.1); Sodium 134 mmol/L (137-145); Total Bilirubin 1.1 mg/dL (0.2-1.3)
[2020-10-04 11:37] LABS: C Reactive Protein 134.1 mg/L (<10.0)
[2020-10-04 11:38] LABS: Partial Thromboplastin Time 24.5 sec (22.0-30.0); Prothrombin Time 10.8 sec (9.0-12.0)
[2020-10-04 11:42] LABS: Platelet Count 184 k/uL (150-450)
--- NOTE | 2020-10-04 11:47 | XR ---
EXAMINATION TYPE: XR chest 1V portable DATE OF EXAM: 10/04/2020 HISTORY: Shortness of breath. COMPARISON: 09/18/2020 TECHNIQUE: Single view of the chest is submitted. FINDINGS: Demonstrated are scattered senescent parenchymal change. Patchy density left lower lobe may reflect pneumonia. The heart is stable. Hilar and mediastinal structures are within normal limits. Degenerative changes are seen of the dorsal spine. IMPRESSION: 1. Patchy density left lower lobe may reflect pneumonia.
[2020-10-04 11:55] LABS: D-Dimer 0.82 mg/L FEU (<0.60)
[2020-10-04] MEDS ORDERED: NALOXONE 0.4 MG/ML 1 ML VIAL IV PRN (13:01)
[2020-10-04] MEDS ORDERED: ACETAMINOPHEN TAB 325 MG TAB PO PRN (13:01)
--- NOTE | 2020-10-04 13:38 | XR ---
EXAMINATION TYPE: XR chest 1V portable DATE OF EXAM: 10/04/2020 COMPARISON: Chest x-ray September 18, 2020 HISTORY: History of lymphoma with cough. TECHNIQUE: Single AP portable frontal upright view of the chest is obtained. FINDINGS: There is background chronic emphysematous change and right-sided volume loss redemonstrate d. There is no new suspicious focal air space opacity, pleural effusion, or pneumothorax seen. The c ardiac silhouette size is stable and within normal limits. The osseous structures are intact. IMPRESSION: Chronic changes without new suspicious acute pulmonary process.
[2020-10-04] MEDS: SODIUM CHLORIDE 0.9% 1,000 ML IV SCH (16:58)
[2020-10-04] MEDS ORDERED: REMDESIVIR (EUA) 200 MG in SODIUM CHLORIDE 0.9% 250 ML IVPB ONE (17:00)
[2020-10-04] MEDS: ENOXAPARIN 40 MG/0.4 ML SYRINGE SQ SCH (17:15)
[2020-10-04] MEDS: ASCORBIC ACID 500 MG TAB PO SCH (17:15)
[2020-10-04] MEDS: methylPREDNISolone SOD SUCCI 125 MG/2 ML VIAL IV SCH (17:15)
[2020-10-04] MEDS: CHOLECALCIFEROL 400 UNIT TAB PO SCH (17:35)
--- NOTE | 2020-10-04 17:48 | P.HPIM ---
History of Present Illness H&P Date: 10/04/20 Chief Complaint: Shortness of breath The patient is a 75-year-old male with a history of COPD, recent hospitalization 119 for COPD exacerbation. The patient states he was not feeling well so he presented to the emergency room today. The patient workup in emergency room sh owed him to be febrile, tachypneic and hypoxic. The patient's chest x-ray was negative he was tested for Covid-19 and he'll was started on IV steroids in the emergency room. The patient was hospitalized for further workup and management. He denies any recent sick contacts. The patient states he is recently status post bronchoscopy for possible malignancy and this was negative. He denies any chest pain, lower extremity edema, PND or orthopnea he states he has been having a cough but he feels like his usual COPD. Review of Systems Complete review of systems was done and negative other than stated above Past Medical History Past Medical History: Cancer, COPD Additional Past Medical History / Comment(s): HX PROSTATE CANCER WITH SURGERY & RADIATION (2006), KIDNEY STONES. lymphoma History of Any Multi-Drug Resistant Organisms: None Reported Past Surgical History: Joint Replacement, Orthopedic Surgery, Prostate Surgery Additional Past Surgical History / Comment(s): BRAIN SURGERY TO RELIEVE PRESSURE AFTER HEAD INJURY (6 YRS OLD), TOTAL LEFT KNEE, LEFT SHOULDER SURGERY, LEFT ARM SURGERY AFTER CRUSHING INJURY. Chest tube for pneumothorax. Lithotripsy. Prostatectomy secondary to prostate cancer. Past Anesthesia/Blood Transfusion Reactions: Motion Sickness Additional Past Anesthesia/Blood Transfusion Reaction / Comment(s): SLOW TO WAKE UP Past Psychological History: No Psychological Hx Reported Smoking Status: Former smoker Past Alcohol Use History: None Reported Past Drug Use History: None Reported - Past Family History Mother History Unknown: Yes Family Medical History: No Reported History Additional Family Medical History / Comment(s): Pt was adopted and does not know natural mother's medical hx: Father Family Medical History: COPD Additional Family Medical History / Comment(s): Pt was adopted and does not know much of his natural fathers medical hx Medications and Allergies Home Medications Medication Instructions Recorded Confirmed Type Budesonide/Formoterol Fumarate 2 puff INHALATION RT-BID 08/12/19 10/04/20 History [Symbicort 160-4.5 Mcg Inhaler] Albuterol Nebulized [Ventolin 2.5 mg INHALATION RT-Q6H PRN 09/18/20 10/04/20 History Nebulized] Albuterol Sulfate [Ventolin HFA] 2 puff INHALATION RT-Q4H PRN 09/18/20 10/04/20 History Doxycycline Hyclate [Vibramycin] 100 mg PO BID 10/04/20 10/04/20 History Allergies Allergy/AdvReac Type Severity Reaction Status Date / Time Penicillins Allergy Unknown Rash/Hives Verified 10/04/20 11:33 Physical Exam Vitals: Vital Signs Temp Pulse Pulse Resp BP BP Pulse Ox 10/04/20 17:30 98.8 F 91 18 92/56 95 10/04/20 13:07 22 10/04/20 13:00 92 16 105/65 90 L 10/04/20 10:37 101.5 F H 60 26 H 108/53 89 L Intake and Output 10/04/20 10/04/20 10/04/20 06:59 14:59 22:59 Other: Weight 81.193 kg - Constitutional General appearance: no acute distress - EENT Eyes: PERRLA - Respiratory Respiratory: bilateral: diminished, wheezing - Cardiovascular Rhythm: regular - Gastrointestinal General gastrointestinal: normal bowel sounds - Integumentary Integumentary: normal - Neurologic Neurologic: CNII-XII intact - Musculoskeletal Musculoskeletal: strength equal bilaterally - Psychiatric Psychiatric: A&O x's 3, appropriate affect, intact judgment & insight Results CBC & Chem 7: 10/04/20 11:00 10/04/20 10:59 Labs: Abnormal Lab Results - Last 24 Hours (Table) 10/04/20 10/04/20 10/04/20 Range/Units 10:59 10:59 11:00 Neutrophils # 8.6 H (1.3-7.7) k/uL Lymphocytes # 0.1 L (1.0-4.8) k/uL Monocytes # 1.2 H (0-1.0) k/uL Basophils # 0.3 H (0-0.2) k/uL D-Dimer 0.82 H (<0.60) mg/L FEU Sodium 134 L (137-145) mmol/L Glucose 117 H (74-99) mg/dL Lactate Dehydrogenase 642 H (313-618) U/L C-Reactive Protein 134.1 H (<10.0) mg/L Total Protein 6.0 L (6.3-8.2) g/dL Coronavirus (PCR) (Not Detectd) 10/04/20 Range/Units 13:00 Neutrophils # (1.3-7.7) k/uL Lymphocytes # (1.0-4.8) k/uL Monocytes # (0-1.0) k/uL Basophils # (0-0.2) k/uL D-Dimer (<0.60) mg/L FEU Sodium (137-145) mmol/L Glucose (74-99) mg/dL Lactate Dehydrogenase (313-618) U/L C-Reactive Protein (<10.0) mg/L Total Protein (6.3-8.2) g/dL Coronavirus (PCR) Detected A (Not Detectd) Abdominal x-ray: report reviewed Thrombosis Risk Factor Assmnt - Choose All That Apply Any of the Below Risk Factors Present?: Yes Each Factor Represents 1 point: Abnormal pulmonary function (COPD), Obesity (BMI >25), Serious lung disease incl. pneumonia (< 1month) Other Risk Factors: Yes Each Risk Factor Represents 2 Points: Age 61-74 years, Malignancy Other congenital or acquired thrombophilia - If yes, enter type in comment: No Thrombosis Risk Factor Assessment Total Risk Factor Score: 7 Thrombosis Risk Factor Assessment Level: High Risk Assessment and Plan (1) COVID-19 Narrative/Plan: Continue Remdisivir, Steroids, Zinc, Vitamin C , pulmonary consut, Oxygen supplementation Current Visit: Yes Status: Acute Code(s): U07.1 - COVID-19 SNOMED Code(s): 118428832 (2) COPD exacerbation Narrative/Plan: Continue treatment for COPD exacerbation Current Visit: No Status: Acute Priority: High Code(s): J44.1 - CHRONIC OBSTRUCTIVE PULMONARY DISEASE W (ACUTE) EXACERBATION SNOMED Code(s): 545291325 (3) History of prostate cancer Narrative/Plan: Outpatient management Current Visit: No Status: Acute Code(s): Z85.46 - PERSONAL HISTORY OF MALIGNANT NEOPLASM OF PROSTATE SNOMED Code(s): 619985485 (4) Steroid-induced hyperglycemia Narrative/Plan: The patient was history of steroid-induced hyperglycemia we will monitor while on's steroids Current Visit: No Status: Acute Code(s): R73.9 - HYPERGLYCEMIA, UNSPECIFIED; T38.0X5A - ADVERSE EFFECT OF GLUCOCORT/SYNTH ANALOG, INIT SNOMED Code(s): 317365401 Plan: Given the patient underlying COPD hypoxia meeting sepsis criteria with severe sepsis anticipated the patient will need graded midnights stay on admit as inpatient
--- NOTE | 2020-10-04 18:07 | P.CNPUL ---
History of Present Illness Consult date: 10/04/20 Requesting physician: Rony Holloway Reason for consult: dyspnea, hypoxemia, abnormal CXR/CT Chief complaint: Dyspnea, fever History of present illness: 75-year-old white male patient of Dr. Alessandra Lizarraga, with a history of COPD with baseline FEV1 of 49% of predicted, former smoker, history of B cell non- Hodgkin's lymphoma he is under the care of Dr. Garcia, came into the emergency department on 10/04/2020 for evaluation of shortness of breath. Patient had been dyspneic. He has a recent hospitalization for COPD exacerbation. Patient however felt progressively short of breath, on presentation she was febrile with a temp of 101.5F, she was 89% on room air, he is currently requiring 5 L of oxygen and his pulse ox of 90-95%. Chest x-ray revealed chronic back on emphysematous changes with a right-sided volume loss, but no suspicious focal air space opacity, pleural effusion or pneumothorax. Patient tested for over 19 and was found to be positive, he is significantly short of breath with any exertion including just speaking. He has a congested nonproductive cough. No complaints of chest pain. Is quite wheezy and bronchospastic, we started him on IV steroids at 60 mg every 6 hours, he'll be started on nebulized bronchodilators and we will add Remdesivir Review of Systems All systems: negative Constitutional: Denies chills, Denies fever Eyes: denies blurred vision, denies pain Ears, nose, mouth and throat: Denies headache, Denies sore throat Cardiovascular: Denies chest pain, Denies shortness of breath Respiratory: Reports dyspnea, Reports respiratory infections, Reports wheezing, Denies cough Gastrointestinal: Denies abdominal pain, Denies diarrhea, Denies nausea, Denies vomiting Musculoskeletal: Denies myalgias Integumentary: Denies pruritus, Denies rash Neurological: Denies numbness, Denies weakness Psychiatric: Denies anxiety, Denies depression Endocrine: Denies fatigue, Denies weight change Past Medical History Past Medical History: Cancer, COPD Additional Past Medical History / Comment(s): HX PROSTATE CANCER WITH SURGERY & RADIATION (2006), KIDNEY STONES. lymphoma History of Any Multi-Drug Resistant Organisms: None Reported Past Surgical History: Joint Replacement, Orthopedic Surgery, Prostate Surgery Additional Past Surgical History / Comment(s): BRAIN SURGERY TO RELIEVE PRESSURE AFTER HEAD INJURY (6 YRS OLD), TOTAL LEFT KNEE, LEFT SHOULDER SURGERY, LEFT ARM SURGERY AFTER CRUSHING INJURY. Chest tube for pneumothorax. Lithotripsy. Prostatectomy secondary to prostate cancer. Past Anesthesia/Blood Transfusion Reactions: Motion Sickness Additional Past Anesthesia/Blood Transfusion Reaction / Comment(s): SLOW TO WAKE UP Past Psychological History: No Psychological Hx Reported Smoking Status: Former smoker Past Alcohol Use History: None Reported Past Drug Use History: None Reported - Past Family History Mother History Unknown: Yes Family Medical History: No Reported History Additional Family Medical History / Comment(s): Pt was adopted and does not know natural mother's medical hx: Father Family Medical History: COPD Additional Family Medical History / Comment(s): Pt was adopted and does not know much of his natural fathers medical hx Medications and Allergies Home Medications Medication Instructions Recorded Confirmed Type Budesonide/Formoterol Fumarate 2 puff INHALATION RT-BID 08/12/19 10/04/20 History [Symbicort 160-4.5 Mcg Inhaler] Albuterol Nebulized [Ventolin 2.5 mg INHALATION RT-Q6H PRN 09/18/20 10/04/20 History Nebulized] Albuterol Sulfate [Ventolin HFA] 2 puff INHALATION RT-Q4H PRN 09/18/20 10/04/20 History Doxycycline Hyclate [Vibramycin] 100 mg PO BID 10/04/20 10/04/20 History Allergies Allergy/AdvReac Type Severity Reaction Status Date / Time Penicillins Allergy Unknown Rash/Hives Verified 10/04/20 11:33 Physical Exam Vitals: Vital Signs Temp Pulse Pulse Resp BP BP Pulse Ox 10/04/20 17:30 98.8 F 91 18 92/56 95 10/04/20 13:07 22 10/04/20 13:00 92 16 105/65 90 L 10/04/20 10:37 101.5 F H 60 26 H 108/53 89 L Intake and Output 10/04/20 10/04/20 10/04/20 06:59 14:59 22:59 Other: Weight 81.193 kg GENERAL EXAM: Alert, very pleasant, 75-year-old white male, 5 L of oxygen pulse ox of 90-95%, quite wheezy, bronchospastic and short of breath with conversation comfortable in no apparent distress. HEAD: Normocephalic/atraumatic. EYES: Normal reaction of pupils, equal size. Conjunctiva pink, sclera white. NOSE: Clear with pink turbinates. THROAT: No erythema or exudates. NECK: No masses, no JVD, no thyroid enlargement, no adenopathy. CHEST: No chest wall deformity. Symmetrical expansion. LUNGS: Equal air entry with diffuse wheezes CVS: Regular rate and rhythm, normal S1 and S2, no gallops, no murmurs, no rubs ABDOMEN: Soft, nontender. No hepatosplenomegaly, normal bowel sounds, no guarding or rigidity. EXTREMITIES: No clubbing, no edema, no cyanosis, 2+ pulses and upper and lower extremities. MUSCULOSKELETAL: Muscle strength and tone normal. SPINE: No scoliosis or deformity SKIN: No rashes CENTRAL NERVOUS SYSTEM: Alert and oriented -3. No focal deficits, tone is normal in all 4 extremities. PSYCHIATRIC: Alert and oriented -3. Appropriate affect. Intact judgment and insight. Results - Laboratory Findings CBC and BMP: 10/04/20 11:00 10/04/20 10:59 PT/INR, D-dimer PT 10.8 sec (9.0-12.0) 10/04/20 10:59 INR 1.0 (<1.2) 10/04/20 10:59 D-Dimer 0.82 mg/L FEU (<0.60) H 10/04/20 10:59 Abnormal lab findings: Abnormal Labs 10/04/20 10/04/20 10/04/20 10:59 10:59 11:00 Neutrophils # 8.6 H Lymphocytes # 0.1 L Monocytes # 1.2 H Basophils # 0.3 H D-Dimer 0.82 H Sodium 134 L Glucose 117 H Lactate Dehydrogenase 642 H C-Reactive Protein 134.1 H Total Protein 6.0 L Coronavirus (PCR) 10/04/20 13:00 Neutrophils # Lymphocytes # Monocytes # Basophils # D-Dimer Sodium Glucose Lactate Dehydrogenase C-Reactive Protein Total Protein Coronavirus (PCR) Detected A - Diagnostic Findings Chest x-ray: report reviewed, image reviewed Assessment and Plan Plan: Assessment: #1. Acute COVID 19 infection, with worsening dyspnea for close to a week #2. Acute exacerbation of COPD related to the above #3. Recent hospitalization for COPD exacerbation #4. Stage 2 COPD #5. Lumbar smoker #6. Increased inflammatory markers including LDH and CRP #7. Mildly elevated d-dimer at 0.82, will follow, will start the patient on prophylactic dose Lovenox Plan: We'll add Remdesivir, we'll start IV Solu-Medrol 60 mg every 6 hours, Floxin dose Lovenox, vitamin C, zinc supplement, vitamin D, we'll continue to follow, monitor oxygenation. Monito febrile pattern, follow blood work in the morning, obtain pro-calcitonin level. Continue to follow I performed a history & physical examination of the patient and discussed their management with my nurse practitioner, Debra Red. I reviewed the nurse practitioner's note and agree with the documented findings and plan of care. Lung sounds are positive for diffuse wheezes. The findings and the impression was discussed with the patient. I attest to the documentation by the nurse practitioner. Time with Patient: Greater than 30
[2020-10-04 19:05] LABS: Ferritin 1465.9 ng/mL (22.0-322.0)
[2020-10-04] MEDS: ALBUTEROL HFA INHALER INHALATION PRN (20:21)
[2020-10-04] MEDS: SYMBICORT 160-4.5 MCG INHALER INHALATION SCH (20:22)
[2020-10-04] MEDS: MELATONIN 5 MG TABLET PO SCH (20:34)
[2020-10-05] MEDS: methylPREDNISolone SOD SUCCI 125 MG/2 ML VIAL IV SCH ×5 (00:53→23:18)
[2020-10-05] MEDS: ENOXAPARIN 40 MG/0.4 ML SYRINGE SQ SCH (08:09)
[2020-10-05] MEDS: ASCORBIC ACID 500 MG TAB PO SCH (08:09)
[2020-10-05] MEDS: CHOLECALCIFEROL 400 UNIT TAB PO SCH (08:09)
[2020-10-05] MEDS: ALBUTEROL HFA INHALER INHALATION PRN ×4 (08:23→20:18)
[2020-10-05] MEDS: SYMBICORT 160-4.5 MCG INHALER INHALATION SCH ×2 (08:23→20:18)
[2020-10-05] MEDS: SODIUM CHLORIDE 0.9% 1,000 ML IV SCH (13:07)
--- NOTE | 2020-10-05 13:57 | P.PN ---
Subjective Progress Note Date: 10/05/20 Principal diagnosis: COVID 19 75-year-old white male patient of Dr. Alessandra Lizarraga, with a history of COPD with baseline FEV1 of 49% of predicted, former smoker, history of B cell non- Hodgkin's lymphoma he is under the care of Dr. Garcia, came into the emergency department on 10/04/2020 for evaluation of shortness of breath. Patient had been dyspneic. He has a recent hospitalization for COPD exacerbation. Patient however felt progressively short of breath, on presentation she was febrile with a temp of 101.5F, she was 89% on room air, he is currently requiring 5 L of oxy gen and his pulse ox of 90-95%. Chest x-ray revealed chronic back on emphysematous changes with a right-sided volume loss, but no suspicious focal air space opacity, pleural effusion or pneumothorax. Patient tested for over 19 and was found to be positive, he is significantly short of breath with any exertion including just speaking. He has a congested nonproductive cough. No complaints of chest pain. Is quite wheezy and bronchospastic, we started him on IV steroids at 60 mg every 6 hours, he'll be started on nebulized bronchodilators and we will add Remdesivir On 10/05/2020 patient seen in follow-up on Gen. medical surgical floor. He is feeling better today, still short of breath, but breathing easier, sounds less bronchospastic on today's exam, today is day 2 of Remdesivir, is currently on 3 L of oxygen pulse ox is 93%, hemodynamically stable, afebrile. Continues on IV steroids, and bronchodilators, has had no acute events overnight. His COVID 19 PCR was positive, bronchial sitting level was 0.22. Overall he is feeling better. Objective - Vital Signs Vital signs: Vital Signs Temp 98 F 10/05/20 12:22 Pulse 91 10/05/20 12:22 Resp 17 10/05/20 12:22 BP 131/64 10/05/20 12:22 Pulse Ox 93 L 10/05/20 12:22 Intake & Output 10/04/20 10/05/20 10/05/20 18:59 06:59 18:59 Intake Total 590 480 Balance 590 480 Weight 81.193 kg Intake: Oral 590 480 Other: # Voids 2 - Exam GENERAL EXAM: Alert, very pleasant, 75-year-old white male, 3 L of oxygen pulse ox of 93%, less bronchospastic and short of breath with conversation comfortable in no apparent distress. HEAD: Normocephalic/atraumatic. EYES: Normal reaction of pupils, equal size. Conjunctiva pink, sclera white. NOSE: Clear with pink turbinates. THROAT: No erythema or exudates. NECK: No masses, no JVD, no thyroid enlargement, no adenopathy. CHEST: No chest wall deformity. Symmetrical expansion. LUNGS: Equal air entry with diffuse wheezes CVS: Regular rate and rhythm, normal S1 and S2, no gallops, no murmurs, no rubs ABDOMEN: Soft, nontender. No hepatosplenomegaly, normal bowel sounds, no guarding or rigidity. EXTREMITIES: No clubbing, no edema, no cyanosis, 2+ pulses and upper and lower extremities. MUSCULOSKELETAL: Muscle strength and tone normal. SPINE: No scoliosis or deformity SKIN: No rashes CENTRAL NERVOUS SYSTEM: Alert and oriented -3. No focal deficits, tone is normal in all 4 extremities. PSYCHIATRIC: Alert and oriented -3. Appropriate affect. Intact judgment and insight. - Labs CBC & Chem 7: 10/04/20 11:00 10/04/20 10:59 Labs: Abnormal Lab Results - Last 24 Hours (Table) 10/04/20 10/04/20 10/04/20 Range/Units 10:59 11:00 13:00 Ferritin 1465.9 H (22.0-322.0) ng/mL Procalcitonin 0.22 H (0.02-0.09) ng/mL Coronavirus (PCR) Detected A (Not Detectd) Assessment and Plan Plan: Assessment: #1. Acute COVID 19 infection, with worsening dyspnea for close to a week #2. Acute exacerbation of COPD related to the above #3. Recent hospitalization for COPD exacerbation #4. Stage 2 COPD #5. Former smoker #6. Increased inflammatory markers including LDH and CRP #7. Mildly elevated d-dimer at 0.82, will follow, will start the patient on prophylactic dose Lovenox Plan: Continue current medical treatment, continue Remdesivir cholestasis day 2 of treatment, continue IV Solu-Medrol, bronchodilators, breathing is improving, less bronchospastic and short of breath, no acute events overnight, afebrile, continue prophylactic dose Lovenox will follow I performed a history & physical examination of the patient and discussed their management with my nurse practitioner, Debra Red. I reviewed the nurse practitioner's note and agree with the documented findings and plan of care. Lung sounds are positive for diffuse wheezes. The findings and the impression was discussed with the patient. I attest to the documentation by the nurse practitioner. Time with Patient: Less than 30
[2020-10-05 15:56] VITALS: BMI 27.2
[2020-10-05] MEDS: REMDESIVIR (EUA) 100 MG in SODIUM CHLORIDE 0.9% 250 ML IVPB SCH (17:07)
[2020-10-05] MEDS: MELATONIN 5 MG TABLET PO SCH (19:57)
--- NOTE | 2020-10-05 20:10 | P.PN ---
Subjective Progress Note Date: 10/05/20 (delayed charting seen at 1130) Principal diagnosis: shortness of breath Patient is a 75-year-old male with COPD, prostate cancer, kidney stones, and prior lymphoma who presented to the hospital with increasing shortness of breath. He was recently here in early September with acute exacerbation of COPD. On arrival to the ER he was found to be febrile, tachypneic, hypoxic. Chest x- ray showed chronic changes without acute pulmonary process. He did test positive for Covid 19. He was subsequently admitted. Pulmonary was consulted. He was started on vitamin C, vitamin D, zinc, Pepcid, and melatonin. He was also started on dexamethasone which was subsequently switched to Solu-Medrol secondary to bronchospasm. He was also started on Remdesivir Patient seen and examined at bedside. He reports his breathing is much better than yesterday. He denies any nausea, vomiting, or diarrhea. He states his appetite has returned. General: Ill-appearing, no distress, appears at stated age Derm: warm, dry Head: atraumatic, normocephalic, symmetric Eyes: EOMI, no lid lag, anicteric sclera Mouth: no lip lesion, mucus membranes moist Cardiovascular: S1S2 reg, no murmur, positive posterior tibial pulse bilateral, Lungs: Course breath sounds bilateral, no rhonchi, no rales , no accessory muscle use Abdominal: soft, nontender to palpation, no guarding, no appreciable organ omegaly Ext: no gross muscle atrophy, no edema, no contractures Neuro: CN II-XI grossly intact, no focal neuro deficits Psych: Alert, oriented, appropriate affect Covid 19. acute hypoxic respiratory failure -On Solu-Medrol secondary to bronchospasm -Remdesivir days #2 -On vitamin C, vitamin D, melatonin, Pepcid, will add zinc -Currently on 5 L nasal cannula -Convalescent plasma: Not needed at this point in time -Pulmonary recommendations -On Lovenox Acute exacerbation of COPD -Steroids, bronchodilators -Pulmonary hygiene -Pulmonary recommendations Chronic: Prior prostate cancer Lymphoma DVT prophylaxis: Lovenox Discussed with: patient, nursing Anticipated discharge: 2-[address]: home A total of 25 minutes was spent on the care of this complex patient more than 50% of the time was spent in counseling and care coordination. Objective - Vital Signs Vital signs: Vital Signs Temp 98 F 10/05/20 12:22 Pulse 91 10/05/20 12:22 Resp 17 10/05/20 12:22 BP 131/64 10/05/20 12:22 Pulse Ox 93 L 10/05/20 12:22 Intake & Output 10/04/20 10/05/20 10/05/20 18:59 06:59 18:59 Intake Total 590 480 Balance 590 480 Weight 81.193 kg 81.193 kg Intake: Oral 590 480 Other: # Voids 2 - Labs CBC & Chem 7: 10/04/20 11:00 10/04/20 10:59 Labs: Abnormal Lab Results - Last 24 Hours (Table) 10/04/20 10/04/20 Range/Units 10:59 11:00 Ferritin 1465.9 H (22.0-322.0) ng/mL Procalcitonin 0.22 H (0.02-0.09) ng/mL
[2020-10-06] MEDS: methylPREDNISolone SOD SUCCI 125 MG/2 ML VIAL IV SCH ×3 (05:50→17:49)
[2020-10-06 07:23] LABS: Basophils % (A) 0 %; Eosinophils % (A) 0 %; HCT 43.3 % (39.0-53.0); HGB 14.3 gm/dL (13.0-17.5); Lymphocytes # (A) 0.2 k/uL (1.0-4.8); Lymphocytes % (A) 1 %; MCH 31.4 pg (25.0-35.0); MCHC 32.9 g/dL (31.0-37.0); MCV 95.5 fL (80.0-100.0); Mean Platelet Volume 8.1; Monocytes # (A) 0.6 k/uL (0-1.0); Monocytes % (A) 6 %; Neutrophils # (A) 9.6 k/uL (1.3-7.7); Neutrophils % (A) 91 %; Platelet Count 174 k/uL (150-450); RBC 4.54 m/uL (4.30-5.90); RDW 13.1 % (11.5-15.5); WBC 10.5 k/uL (3.8-10.6)
[2020-10-06] MEDS: SYMBICORT 160-4.5 MCG INHALER INHALATION SCH ×2 (08:38→19:42)
[2020-10-06] MEDS: ALBUTEROL HFA INHALER INHALATION PRN ×2 (08:38→12:12)
[2020-10-06] MEDS ORDERED: BENZONATATE 100 MG CAP PO PRN (10:49)
[2020-10-06 11:53] LABS: African American GFR (CKD) 102.7 (60.0-200.0); Albumin 3.5 g/dL (3.80-4.90); Albumin/Globulin Ratio 2.5 (1.60-3.17); Anion Gap 5.7 mmol/L (4.00-12.00); BUN/Creat Ratio 26.25 Ratio (12.00-20.00); Calcium 8.3 mg/dL (8.7-10.3); Carbon Dioxide 30.3 mmol/L (21.6-31.8); Globulin 1.4 g/dL (1.6-3.3); Non-African American GFR(CKD) 88.6 (60.0-200.0); Potassium 4.3 mmol/L (3.5-5.5); Total Bilirubin 0.3 mg/dL (0.3-1.2); Total Protein 4.9 g/dL (6.2-8.2)
[2020-10-06] MEDS: ENOXAPARIN 40 MG/0.4 ML SYRINGE SQ SCH (12:25)
[2020-10-06] MEDS: ZINC SULFATE 220 MG CAP PO SCH (12:25)
[2020-10-06] MEDS: ASCORBIC ACID 500 MG TAB PO SCH (12:25)
[2020-10-06] MEDS: guaiFENesin 600 MG TABLET.ER PO SCH ×2 (12:25→20:00)
[2020-10-06] MEDS: CHOLECALCIFEROL 400 UNIT TAB PO SCH (12:26)
--- NOTE | 2020-10-06 13:37 | P.PN ---
Subjective Progress Note Date: 10/06/20 Principal diagnosis: CoVID 19 pneumonitis 75-year-old white male patient of Dr. Alessandra Lizarraga, with a history of COPD with baseline FEV1 of 49% of predicted, former smoker, history of B cell non- Hodgkin's lymphoma he is under the care of Dr. Garcia, came into the emergency department on 10/04/2020 for evaluation of shortness of breath. Patient had been dyspneic. He has a recent hospitalization for COPD exacerbation. Patient however felt progressively short of breath, on presentation she was febrile with a temp of 101.5F, she was 89% on room air, he is currently requiring 5 L of oxygen and his pulse ox of 90-95%. Chest x-ray revealed chronic back on emphysematous changes with a right-sided volume loss, but no suspicious focal air space opacity, pleural effusion or pneumothorax. Patient tested for over 19 and was found to be positive, he is significantly short of breath with any exertion including just speaking. He has a congested nonproductive cough. No complaints of chest pain. Is quite wheezy and bronchospastic, we started him on IV steroids at 60 mg every 6 hours, he'll be started on nebulized bronchodilators and we will add Remdesivir On 10/05/2020 patient seen in follow-up on Gen. medical surgical floor. He is feeling better today, still short of breath, but breathing easier, sounds less bronchospastic on today's exam, today is day 2 of Remdesivir, is currently on 3 L of oxygen pulse ox is 93%, hemodynamically stable, afebrile. Continues on IV steroids, and bronchodilators, has had no acute events overnight. His COVID 19 PCR was positive, bronchial sitting level was 0.22. Overall he is feeling better. The patient is seen today 10/06/2020 and follow-up on the regular medical floor. He is currently sitting up in a chair at the bedside. Awake and alert in no acute distress. No worsening shortness of breath. Continues with a dry nonproductive cough. No fever chills or night sweats. Including O2 saturation in the mid 90s on 4 L/m per nasal cannula. Afebrile. Hemodynamically stable. White count 10.5. Hemoglobin 14.3. Sodium 138. Potassium 4.3. Creatinine 0.8. Lymphocytes 0.2. He remains on bronchodilators, IV Solu-Medrol, Lovenox. This is day #3 of Remdesivir. Objective - Vital Signs Vital signs: Vital Signs Temp 97.5 F L 10/06/20 12:10 Pulse 79 10/06/20 12:10 Resp 18 10/06/20 12:10 BP 115/67 10/06/20 12:10 Pulse Ox 95 10/06/20 12:10 Intake & Output 10/05/20 10/06/20 10/06/20 18:59 06:59 18:59 Intake Total 970 500 Balance 970 500 Weight 81.193 kg Intake: Intake, IV Titration 490 Amount Remdesivir (Eua) 100 mg 250 In Sodium Chloride 0.9% 250 ml @ 250 mls/hr IVPB Q24H [facility] Rx#:[id number] Sodium Chloride 0.9% 1, 240 000 ml @ 20 mls/hr IV . Q24H [facility] Rx#:[id number] Oral 480 500 Other: Voiding Method Toilet Toilet # Voids 3 2 - Exam GENERAL EXAM: Alert, very pleasant, 75-year-old male patient, 4 L of oxygen pulse ox of 95%, comfortable in no apparent distress. HEAD: Normocephalic/atraumatic. EYES: Normal reaction of pupils, equal size. Conjunctiva pink, sclera white. NOSE: Clear with pink turbinates. THROAT: No erythema or exudates. NECK: No masses, no JVD, no thyroid enlargement, no adenopathy. CHEST: No chest wall deformity. Symmetrical expansion. LUNGS: Equal air entry with bilateral scattered end expiratory wheeze, few scattered rhonchi CVS: Regular rate and rhythm, normal S1 and S2, no gallops, no murmurs, no rubs ABDOMEN: Soft, nontender. No hepatosplenomegaly, normal bowel sounds, no guarding or rigidity. EXTREMITIES: No clubbing, no edema, no cyanosis, 2+ pulses and upper and lower extremities. MUSCULOSKELETAL: Muscle strength and tone normal. SPINE: No scoliosis or deformity SKIN: No rashes CENTRAL NERVOUS SYSTEM: Alert and oriented -3. No focal deficits, tone is normal in all 4 extremities. PSYCHIATRIC: Alert and oriented -3. Appropriate affect. Intact judgment and insight. - Labs CBC & Chem 7: 10/06/20 06:47 10/06/20 06:47 Labs: Abnormal Lab Results - Last 24 Hours (Table) 10/06/20 10/06/20 Range/Units 06:47 06:47 Neutrophils # 9.6 H (1.3-7.7) k/uL Lymphocytes # 0.2 L (1.0-4.8) k/uL BUN/Creatinine Ratio 26.25 H (12.00-20.00) Ratio Glucose 291 H (70-110) mg/dL Calcium 8.3 L (8.7-10.3) mg/dL Total Protein 4.9 L (6.2-8.2) g/dL Albumin 3.50 L (3.80-4.90) g/dL Globulin 1.4 L (1.6-3.3) g/dL Assessment and Plan Assessment: #1. Acute COVID 19 infection, with worsening dyspnea #2. Acute exacerbation of COPD related to the above #3. Recent hospitalization for COPD exacerbation #4. Stage 2 COPD #5. Former smoker #6. Increased inflammatory markers including LDH and CRP #7. Mildly elevated d-dimer at 0.82, will follow, will start the patient on prophylactic dose Lovenox Plan: The patient was seen and evaluated by Dr. Matthews This is day 3 of Remdesivir Continue the current treatment plan Probable home on 10/08/2020 Increase his activity as tolerated Titrate down the FiO2 as tolerated We'll continue to follow I, the cosigning physician, performed a history & physical examination of the patient. Lungs sounds with few scattered rhonchi, bilateral end expiratory wheeze. Maintaining good O2 saturations in the 90s on 4 L/m per nasal. I discussed the assessment and plan of care with my nurse practitioner, Ally Mendieta. I attest to the above note as dictated by her.
--- NOTE | 2020-10-06 17:35 | P.PN ---
Subjective Progress Note Date: 10/06/20 (delayed charting seen at 0945) Principal diagnosis: shortness of breath Patient is a 75-year-old male with COPD, prostate cancer, kidney stones, and prior lymphoma who presented to the hospital with increasing shortness of breath. He was recently here in early September with acute exacerbation of COPD. On arrival to the ER he was found to be febrile, tachypneic, hypoxic. Chest x- ray showed chronic changes without acute pulmonary process. He did test positive for Covid 19. He was subsequently admitted. Pulmonary was consulted. He was started on vitamin C, vitamin D, zinc, Pepcid, and melatonin. He was also started on dexamethasone which was subsequently switched to Solu-Medrol secondary to bronchospasm. He was also started on Remdesivir. He has been progressing well, but continues to cough. Patient seen and examined at bedside. He states that he is having difficulty breathing, however on further questioning it appears that he is continuing to have a cough which makes him feel it is difficult to breathe in between coughing spells he is okay. With coughing he has some chest pain that relieved at rest. He denies any nausea, vomiting, or diarrhea. He states his appetite has returned but he is still not eating quite as much is normal. He has been dri nking well. was on the phone number when I was in the room I answered all her questions. General: Ill-appearing, no distress, appears at stated age Derm: warm, dry Head: atraumatic, normocephalic, symmetric Eyes: EOMI, no lid lag, anicteric sclera Mouth: no lip lesion, mucus membranes moist Cardiovascular: S1S2 reg, no murmur, positive posterior tibial pulse bilateral, Lungs: Course breath sounds bilateral, no rhonchi, no rales , no accessory muscle use Abdominal: soft, nontender to palpation, no guarding, no appreciable organomegaly Ext: no gross muscle atrophy, no edema, no contractures Neuro: CN II-XI grossly intact, no focal neuro deficits Psych: Alert, oriented, appropriate affect Covid 19 infection, acute hypoxic respiratory failure -On Solu-Medrol secondary to bronchospasm -Remdesivir days #3 -On vitamin C, vitamin D, melatonin, Pepcid, zinc -Currently on 4 L nasal cannula -Convalescent plasma: Not needed at this point in time -Pulmonary recommendations -On Lovenox Acute exacerbation of COPD -Steroids, bronchodilators -Pulmonary hygiene -Pulmonary recommendations Chronic: Prior prostate cancer Lymphoma DVT prophylaxis: Lovenox Discussed with: patient, nursing, over phone while in patients room Anticipated discharge: 10/08, likely will need home O2 Anticipated discharge place: home A total of 25 minutes was spent on the care of this complex patient more than 50% of the time was spent in counseling and care coordination. Objective - Vital Signs Vital signs: Vital Signs Temp 97.5 F L 10/06/20 12:10 Pulse 79 10/06/20 12:10 Resp 18 10/06/20 12:10 BP 115/67 10/06/20 12:10 Pulse Ox 95 10/06/20 12:10 Intake & Output 10/05/20 10/06/20 10/06/20 18:59 06:59 18:59 Intake Total 970 500 Balance 970 500 Weight 81.193 kg Intake: Intake, IV Titration 490 Amount Remdesivir (Eua) 100 mg 250 In Sodium Chloride 0.9% 250 ml @ 250 mls/hr IVPB Q24H [facility] Rx#:[id number] Sodium Chloride 0.9% 1, 240 000 ml @ 20 mls/hr IV . Q24H [facility] Rx#:[id number] Oral 480 500 Other: Voiding Method Toilet Toilet # Voids 3 2 2 - Labs CBC & Chem 7: 10/06/20 06:47 10/06/20 06:47 Labs: Abnormal Lab Results - Last 24 Hours (Table) 10/06/20 10/06/20 Range/Units 06:47 06:47 Neutrophils # 9.6 H (1.3-7.7) k/uL Lymphocytes # 0.2 L (1.0-4.8) k/uL BUN/Creatinine Ratio 26.25 H (12.00-20.00) Ratio Glucose 291 H (70-110) mg/dL Calcium 8.3 L (8.7-10.3) mg/dL Total Protein 4.9 L (6.2-8.2) g/dL Albumin 3.50 L (3.80-4.90) g/dL Globulin 1.4 L (1.6-3.3) g/dL
[2020-10-06] MEDS: SODIUM CHLORIDE 0.9% 1,000 ML IV SCH (17:45)
[2020-10-06] MEDS: REMDESIVIR (EUA) 100 MG in SODIUM CHLORIDE 0.9% 250 ML IVPB SCH (17:49)
[2020-10-06] MEDS: MELATONIN 5 MG TABLET PO SCH (20:00)
[2020-10-07] MEDS: methylPREDNISolone SOD SUCCI 125 MG/2 ML VIAL IV SCH ×5 (00:14→23:51)
[2020-10-07] MEDS: CHOLECALCIFEROL 400 UNIT TAB PO SCH (08:16)
[2020-10-07] MEDS: ENOXAPARIN 40 MG/0.4 ML SYRINGE SQ SCH (08:16)
[2020-10-07] MEDS: ZINC SULFATE 220 MG CAP PO SCH (08:17)
[2020-10-07] MEDS: ASCORBIC ACID 500 MG TAB PO SCH (08:17)
[2020-10-07] MEDS: guaiFENesin 600 MG TABLET.ER PO SCH ×3 (08:17→19:34)
[2020-10-07 08:23] LABS: Glucose,Whole Blood 224 mg/dL (75-99)
[2020-10-07] MEDS: SYMBICORT 160-4.5 MCG INHALER INHALATION SCH ×2 (09:17→19:57)
[2020-10-07 12:13] LABS: Basophils % (A) 0 %; Eosinophils % (A) 0 %; HCT 44.7 % (39.0-53.0); HGB 14.4 gm/dL (13.0-17.5); Lymphocytes # (A) 0.2 k/uL (1.0-4.8); Lymphocytes % (A) 2 %; MCH 30.9 pg (25.0-35.0); MCHC 32.1 g/dL (31.0-37.0); MCV 96.2 fL (80.0-100.0); Mean Platelet Volume 9.2; Monocytes # (A) 0.6 k/uL (0-1.0); Monocytes % (A) 6 %; Neutrophils # (A) 8.9 k/uL (1.3-7.7); Neutrophils % (A) 92 %; Platelet Count 210 k/uL (150-450); RBC 4.65 m/uL (4.30-5.90); RDW 13.6 % (11.5-15.5); WBC 9.7 k/uL (3.8-10.6)
[2020-10-07 12:18] LABS: ALT 46 U/L (4-49); African American GFR (CKD) >90 (>60 ml/min/1.73 sqM); Albumin 3.1 g/dL (3.5-5.0); Albumin/Globulin Ratio 1.1; Anion Gap 4 mmol/L; Blood Urea Nitrogen 23 mg/dL (9-20); Calcium 8.1 mg/dL (8.4-10.2); Carbon Dioxide 29 mmol/L (22-30); Chloride 102 mmol/L (98-107); Globulin 2.7 g/dL; Glucose 255 mg/dL (74-99); Non-African American GFR(CKD) >90 (>60 ml/min/1.73 sqM); Sodium 135 mmol/L (137-145); Total Bilirubin 0.7 mg/dL (0.2-1.3); Total Protein 5.8 g/dL (6.3-8.2)
[2020-10-07 12:23] LABS: AST 50 U/L (17-59); Alkaline Phosphatase 52 U/L (38-126); Potassium 4.6 mmol/L (3.5-5.1)
[2020-10-07 12:33] LABS: Glucose,Whole Blood 251 mg/dL (75-99)
[2020-10-07] MEDS ORDERED: guaiFENesin-Coden 100-10MG/5ML 10 ML CUP PO PRN (14:06)
--- NOTE | 2020-10-07 14:06 | P.PN ---
Subjective Progress Note Date: 10/07/20 Principal diagnosis: COVID 19 75-year-old white male patient of Dr. Alessandra Lizarraga, with a history of COPD with baseline FEV1 of 49% of predicted, former smoker, history of B cell non- Hodgkin's lymphoma he is under the care of Dr. Garcia, came into the emergency department on 10/04/2020 for evaluation of shortness of breath. Patient had been dyspneic. He has a recent hospitalization for COPD exacerbation. Patient however felt progressively short of breath, on presentation she was febrile with a temp of 101.5F, she was 89% on room air, he is currently requiring 5 L of oxy gen and his pulse ox of 90-95%. Chest x-ray revealed chronic back on emphysematous changes with a right-sided volume loss, but no suspicious focal air space opacity, pleural effusion or pneumothorax. Patient tested for over 19 and was found to be positive, he is significantly short of breath with any exertion including just speaking. He has a congested nonproductive cough. No complaints of chest pain. Is quite wheezy and bronchospastic, we started him on IV steroids at 60 mg every 6 hours, he'll be started on nebulized bronchodilators and we will add Remdesivir On 10/05/2020 patient seen in follow-up on [facility]. medical surgical floor. He is feeling better today, still short of breath, but breathing easier, sounds less bronchospastic on today's exam, today is day 2 of Remdesivir, is currently on 3 L of oxygen pulse ox is 93%, hemodynamically stable, afebrile. Continues on IV steroids, and bronchodilators, has had no acute events overnight. His COVID 19 PCR was positive, bronchial sitting level was 0.22. Overall he is feeling better. On 10/07/2020 patient seen in follow-up on the general medical surgical floor, still has some coughing spells, but otherwise no worsening dyspnea, he is on 2 L of oxygen his pulse ox between 92-95%, does have exertional dyspnea, but no acute distress, his main complaint is intermittent severe coughing spells. He has been afebrile, he is on day 4 of his Remdesivir treatment, he continues on Solu-Medrol 60 mg every 6 hours and inhalers, he is on Tessalon Perles for the coughing spells. No chest pain, no palpitations, no nausea vomiting or diarrhea. Objective - Vital Signs Vital signs: Vital Signs Temp 97.7 F 10/07/20 07:21 Pulse 75 10/07/20 07:21 Resp 18 10/07/20 07:21 BP 135/66 10/07/20 07:21 Pulse Ox 92 L 10/07/20 07:21 Intake & Output 10/06/20 10/07/20 10/07/20 18:59 06:59 18:59 Intake Total 240 540 Balance 240 540 Intake: Oral 240 540 Other: Voiding Method Toilet Toilet Toilet # Voids 4 2 2 - Exam GENERAL EXAM: Alert, very pleasant, 75-year-old white male, 3 L of oxygen pulse ox of 95%, less bronchospastic and short of breath with conversation comfortable in no apparent distress. HEAD: Normocephalic/atraumatic. EYES: Normal reaction of pupils, equal size. Conjunctiva pink, sclera white. NOSE: Clear with pink turbinates. THROAT: No erythema or exudates. NECK: No masses, no JVD, no thyroid enlargement, no adenopathy. CHEST: No chest wall deformity. Symmetrical expansion. LUNGS: Equal air entry with diffuse wheezes CVS: Regular rate and rhythm, normal S1 and S2, no gallops, no murmurs, no rubs ABDOMEN: Soft, nontender. No hepatosplenomegaly, normal bowel sounds, no guarding or rigidity. EXTREMITIES: No clubbing, no edema, no cyanosis, 2+ pulses and upper and lower extremities. MUSCULOSKELETAL: Muscle strength and tone normal. SPINE: No scoliosis or deformity SKIN: No rashes CENTRAL NERVOUS SYSTEM: Alert and oriented -3. No focal deficits, tone is normal in all 4 extremities. PSYCHIATRIC: Alert and oriented -3. Appropriate affect. Intact judgment and insight. - Labs CBC & Chem 7: 10/07/20 11:23 10/07/20 11:23 Labs: Abnormal Lab Results - Last 24 Hours (Table) 10/07/20 10/07/20 10/07/20 Range/Units 08:14 11:23 11:23 Neutrophils # 8.9 H (1.3-7.7) k/uL Lymphocytes # 0.2 L (1.0-4.8) k/uL Sodium 135 L (137-145) mmol/L BUN 23 H (9-20) mg/dL Creatinine 0.62 L (0.66-1.25) mg/dL Glucose 255 H (74-99) mg/dL POC Glucose (mg/dL) 224 H (75-99) mg/dL Calcium 8.1 L (8.4-10.2) mg/dL Total Protein 5.8 L (6.3-8.2) g/dL Albumin 3.1 L (3.5-5.0) g/dL 10/07/20 Range/Units 12:30 Neutrophils # (1.3-7.7) k/uL Lymphocytes # (1.0-4.8) k/uL Sodium (137-145) mmol/L BUN (9-20) mg/dL Creatinine (0.66-1.25) mg/dL Glucose (74-99) mg/dL POC Glucose (mg/dL) 251 H (75-99) mg/dL Calcium (8.4-10.2) mg/dL Total Protein (6.3-8.2) g/dL Albumin (3.5-5.0) g/dL Assessment and Plan Plan: Assessment: #1. Acute COVID 19 infection, with worsening dyspnea for close to a week, started on Remdesivir treatment on 10/04/2020 #2. Acute exacerbation of COPD related to the above #3. Recent hospitalization for COPD exacerbation #4. Stage 2 COPD #5. Former smoker #6. Increased inflammatory markers including LDH and CRP #7. Mildly elevated d-dimer at 0.82, will follow, will start the patient on prophylactic dose Lovenox Plan: Continue current medical treatment, continue IV steroids, Remdesivir, patient is on day 4 of treatment, continue Tessalon, will add Robitussin, still having severe intermittent coughing spells, exertional dyspnea, we'll continue to monitor. Follow-up chest x-ray tomorrow I performed a history & physical examination of the patient and discussed their management with my nurse practitioner, Debra Red. I reviewed the nurse practitioner's note and agree with the documented findings and plan of care. Lung sounds are positive for diffuse wheezes. The findings and the impression was discussed with the patient. I attest to the documentation by the nurse practitioner. Time with Patient: Less than 30
[2020-10-07] MEDS: ALBUTEROL HFA INHALER INHALATION PRN ×2 (15:44→19:57)
--- NOTE | 2020-10-07 17:03 | P.PN ---
Subjective Progress Note Date: 10/07/20 (delayed charting seen at 0930) Principal diagnosis: shortness of breath Patient is a 75-year-old male with COPD, prostate cancer, kidney stones, and prior lymphoma who presented to the hospital with increasing shortness of breath. He was recently here in early September with acute exacerbation of COPD. On arrival to the ER he was found to be febrile, tachypneic, hypoxic. Chest x- ray showed chronic changes without acute pulmonary process. He did test positive for Covid 19. He was subsequently admitted. Pulmonary was consulted. He was started on vitamin C, vitamin D, zinc, Pepcid, and melatonin. He was also started on dexamethasone which was subsequently switched to Solu-Medrol secondary to bronchospasm. He was also started on Remdesivir. He has been progressing well, but continues to cough. Patient seen and examined at bedside. Feels that his coughing is better than yesterday and that he is having less rattling. He was winded when he got up to go to the bathroom without oxygen but it resolved about 5-10 minutes after sitting. No chest pain, nuasea or vomiting. Appetite is increasing. was on the phone number when I was in the room I answered all her questions. General: Ill-appearing, no distress, appears at stated age Derm: warm, dry Head: atraumatic, normocephalic, symmetric Eyes: EOMI, no lid lag, anicteric sclera Mouth: no lip lesion, mucus membranes moist Cardiovascular: S1S2 reg, no murmur, positive posterior tibial pulse bilateral, Lungs: Course breath sounds bilateral, no rhonchi, no rales , no accessory muscle use Abdominal: soft, nontender to palpation, no guarding, no appreciable organomegaly Ext: no gross muscle atrophy, no edema, no contractures Neuro: CN II-XI grossly intact, no focal neuro deficits Psych: Alert, oriented, appropriate affect Covid 19 infection, acute hypoxic respiratory failure -On Solu-Medrol secondary to bronchospasm -Remdesivir days #4 -On vitamin C, vitamin D, melatonin, Pepcid, zinc -Currently on 2L nasal cannula -Convalescent plasma: Not needed at this point in time -Pulmonary recommendations appreicated -On Lovenox - mucinex, tessalon Acute exacerbation of COPD -Steroids, bronchodilators -Pulmonary hygiene -Pulmonary recommendations Chronic: Prior prostate cancer Lymphoma DVT prophylaxis: Lovenox Discussed with: patient, nursing Anticipated discharge: 10/08, likely will need home O2 Anticipated discharge place: home A total of 25 minutes was spent on the care of this complex patient more than 50% of the time was spent in counseling and care coordination. Objective - Vital Signs Vital signs: Vital Signs Temp 97.7 F 10/07/20 14:00 Pulse 100 10/07/20 14:00 Resp 20 10/07/20 14:00 BP 133/79 10/07/20 14:00 Pulse Ox 97 10/07/20 15:45 Intake & Output 10/06/20 10/07/20 10/07/20 18:59 06:59 18:59 Intake Total 240 540 Balance 240 540 Intake: Oral 240 540 Other: Voiding Method Toilet Toilet Toilet # Voids 4 2 2 - Labs CBC & Chem 7: 10/07/20 11:23 10/07/20 11:23 Labs: Abnormal Lab Results - Last 24 Hours (Table) 10/07/20 10/07/20 10/07/20 Range/Units 08:14 11:23 11:23 Neutrophils # 8.9 H (1.3-7.7) k/uL Lymphocytes # 0.2 L (1.0-4.8) k/uL Sodium 135 L (137-145) mmol/L BUN 23 H (9-20) mg/dL Creatinine 0.62 L (0.66-1.25) mg/dL Glucose 255 H (74-99) mg/dL POC Glucose (mg/dL) 224 H (75-99) mg/dL Calcium 8.1 L (8.4-10.2) mg/dL Total Protein 5.8 L (6.3-8.2) g/dL Albumin 3.1 L (3.5-5.0) g/dL 10/07/20 Range/Units 12:30 Neutrophils # (1.3-7.7) k/uL Lymphocytes # (1.0-4.8) k/uL Sodium (137-145) mmol/L BUN (9-20) mg/dL Creatinine (0.66-1.25) mg/dL Glucose (74-99) mg/dL POC Glucose (mg/dL) 251 H (75-99) mg/dL Calcium (8.4-10.2) mg/dL Total Protein (6.3-8.2) g/dL Albumin (3.5-5.0) g/dL
[2020-10-07 17:30] LABS: Glucose,Whole Blood 230 mg/dL (75-99)
[2020-10-07] MEDS: REMDESIVIR (EUA) 100 MG in SODIUM CHLORIDE 0.9% 250 ML IVPB SCH (17:44)
[2020-10-07] MEDS: MELATONIN 5 MG TABLET PO SCH (19:34)
[2020-10-07] MEDS: SODIUM CHLORIDE 0.9% 1,000 ML IV SCH (19:37)
[2020-10-07 21:11] LABS: Glucose,Whole Blood 279 mg/dL (75-99)
[2020-10-07] MEDS: INSULIN ASPART (NovoLOG) 100 UNIT/ML VIAL SQ SCH (23:52)
[2020-10-08] MEDS: methylPREDNISolone SOD SUCCI 125 MG/2 ML VIAL IV SCH ×2 (05:37→12:44)
--- NOTE | 2020-10-08 06:55 | XR ---
EXAMINATION TYPE: XR chest 1V portable DATE OF EXAM: 10/08/2020 CLINICAL HISTORY: Difficulty breathing progress study. TECHNIQUE: Single AP portable upright view of the chest is obtained. COMPARISON: Chest x-ray from 4 days earlier FINDINGS: There is background chronic emphysematous change and subtle right-sided volume loss redemo nstrated. There is no new suspicious focal air space opacity, pleural effusion, or pneumothorax seen. The cardiac silhouette size is stable and within normal limits. The osseous structures are intact . IMPRESSION: Chronic changes without acute pulmonary process. No significant change from prior.
[2020-10-08 07:38] LABS: Basophils % (A) 0 %; Eosinophils % (A) 0 %; HCT 44.2 % (39.0-53.0); HGB 14.6 gm/dL (13.0-17.5); Lymphocytes # (A) 0.1 k/uL (1.0-4.8); Lymphocytes % (A) 1 %; MCV 94.1 fL (80.0-100.0); Mean Platelet Volume 7.9; Monocytes # (A) 0.5 k/uL (0-1.0); Monocytes % (A) 6 %; Neutrophils # (A) 7.6 k/uL (1.3-7.7); Neutrophils % (A) 92 %; Platelet Count 199 k/uL (150-450); RBC 4.69 m/uL (4.30-5.90); RDW 12.9 % (11.5-15.5); WBC 8.3 k/uL (3.8-10.6)
[2020-10-08 07:50] LABS: Glucose,Whole Blood 256 mg/dL (75-99)
[2020-10-08] MEDS: SYMBICORT 160-4.5 MCG INHALER INHALATION SCH (08:49)
[2020-10-08] MEDS: ALBUTEROL HFA INHALER INHALATION PRN ×2 (08:49→13:42)
[2020-10-08] MEDS: guaiFENesin 600 MG TABLET.ER PO SCH (09:53)
[2020-10-08] MEDS: INSULIN ASPART (NovoLOG) 100 UNIT/ML VIAL SQ SCH ×3 (09:53→17:48)
[2020-10-08] MEDS: ENOXAPARIN 40 MG/0.4 ML SYRINGE SQ SCH (09:53)
[2020-10-08] MEDS: ASCORBIC ACID 500 MG TAB PO SCH (09:54)
[2020-10-08] MEDS: ZINC SULFATE 220 MG CAP PO SCH (09:54)
[2020-10-08] MEDS: CHOLECALCIFEROL 400 UNIT TAB PO SCH (09:54)
[2020-10-08 12:15] LABS: Glucose,Whole Blood 288 mg/dL (75-99)
[2020-10-08 13:46] LABS: African American GFR (CKD) 115.6 (60.0-200.0); Albumin 3.5 g/dL (3.80-4.90); Albumin/Globulin Ratio 2.69 (1.60-3.17); Anion Gap 7.4 mmol/L (4.00-12.00); BUN/Creat Ratio 38.33 Ratio (12.00-20.00); C Reactive Protein 2.8 mg/dL (0.0-0.8); Calcium 8.2 mg/dL (8.7-10.3); Carbon Dioxide 29.6 mmol/L (21.6-31.8); Globulin 1.3 g/dL (1.6-3.3); Non-African American GFR(CKD) 99.7 (60.0-200.0); Potassium 4.2 mmol/L (3.5-5.5); Total Bilirubin 0.4 mg/dL (0.3-1.2); Total Protein 4.8 g/dL (6.2-8.2)
[2020-10-08 13:57] LABS: Ferritin 1213.5 ng/mL (22.0-322.0)
--- NOTE | 2020-10-08 13:58 | P.PN ---
Subjective Progress Note Date: 10/08/20 Principal diagnosis: CoVID 19 pneumonitis 75-year-old white male patient of Dr. Alessandra Lizarraga, with a history of COPD with baseline FEV1 of 49% of predicted, former smoker, history of B cell non- Hodgkin's lymphoma he is under the care of Dr. Garcia, came into the emergency department on 10/04/2020 for evaluation of shortness of breath. Patient had been dyspneic. He has a recent hospitalization for COPD exacerbation. Patient however felt progressively short of breath, on presentation she was febrile with a temp of 101.5F, she was 89% on room air, he is currently requiring 5 L of oxygen and his pulse ox of 90-95%. Chest x-ray revealed chronic back on emphysematous changes with a right-sided volume loss, but no suspicious focal air space opacity, pleural effusion or pneumothorax. Patient tested for over 19 and was found to be positive, he is significantly short of breath with any exertion including just speaking. He has a congested nonproductive cough. No complaints of chest pain. Is quite wheezy and bronchospastic, we started him on IV steroids at 60 mg every 6 hours, he'll be started on nebulized bronchodilators and we will add Remdesivir On 10/05/2020 patient seen in follow-up on Gen. medical surgical floor. He is feeling better today, still short of breath, but breathing easier, sounds less bronchospastic on today's exam, today is day 2 of Remdesivir, is currently on 3 L of oxygen pulse ox is 93%, hemodynamically stable, afebrile. Continues on IV steroids, and bronchodilators, has had no acute events overnight. His COVID 19 PCR was positive, bronchial sitting level was 0.22. Overall he is feeling better. The patient is seen today 10/06/2020 and follow-up on the regular medical floor. He is currently sitting up in a chair at the bedside. Awake and alert in no acute distress. No worsening shortness of breath. Continues with a dry nonproductive cough. No fever chills or night sweats. Including O2 saturation in the mid 90s on 4 L/m per nasal cannula. Afebrile. Hemodynamically stable. White count 10.5. Hemoglobin 14.3. Sodium 138. Potassium 4.3. Creatinine 0.8. Lymphocytes 0.2. He remains on bronchodilators, IV Solu-Medrol, Lovenox. This is day #3 of Remdesivir. The patient is seen today 10/08/2020 in follow-up on the regular medical floor. He is currently up ambulating in his room. Awake and alert in no acute distress. Feeling back to baseline. He is requiring oxygen at 3 L/m per nasal cannula to maintain O2 saturations in the low 90s. He's been afebrile. White count 8.3. Hemoglobin 14.6. D-dimer 0.4. Sodium 138. Potassium 4.2. Creatinine 0.6. LDH 245. C-reactive protein 2.8. This is his last day of Remdesivir. He remains on IV Solu-Medrol. Lovenox. Vitamin supplements, melatonin. Objective - Vital Signs Vital signs: Vital Signs Temp 97.7 F 10/08/20 07:43 Pulse 81 10/08/20 07:43 Resp 20 10/08/20 07:43 BP 149/80 10/08/20 07:43 Pulse Ox 92 L 10/08/20 07:43 Intake & Output 10/07/20 10/08/20 10/08/20 18:59 06:59 18:59 Intake Total 1800 290 Balance 1800 290 Intake: Oral 1800 290 Other: Voiding Method Toilet Toilet Toilet # Voids 4 1 # Bowel Movements 1 - Exam GENERAL EXAM: Alert, very pleasant, 75-year-old male patient, 3 L of oxygen pulse ox of 92%, comfortable in no apparent distress. HEAD: Normocephalic/atraumatic. EYES: Normal reaction of pupils, equal size. Conjunctiva pink, sclera white. NOSE: Clear with pink turbinates. THROAT: No erythema or exudates. NECK: No masses, no JVD, no thyroid enlargement, no adenopathy. CHEST: No chest wall deformity. Symmetrical expansion. LUNGS: Equal air entry few scattered rhonchi CVS: Regular rate and rhythm, normal S1 and S2, no gallops, no murmurs, no rubs ABDOMEN: Soft, nontender. No hepatosplenomegaly, normal bowel sounds, no guarding or rigidity. EXTREMITIES: No clubbing, no edema, no cyanosis, 2+ pulses and upper and lower extremities. MUSCULOSKELETAL: Muscle strength and tone normal. SPINE: No scoliosis or deformity SKIN: No rashes CENTRAL NERVOUS SYSTEM: Alert and oriented -3. No focal deficits, tone is normal in all 4 extremities. PSYCHIATRIC: Alert and oriented -3. Appropriate affect. Intact judgment and insight. - Labs CBC & Chem 7: 10/08/20 07:05 10/08/20 07:05 Labs: Abnormal Lab Results - Last 24 Hours (Table) 10/07/20 10/07/20 10/08/20 Range/Units 17:19 21:09 07:05 Lymphocytes # 0.1 L (1.0-4.8) k/uL BUN/Creatinine Ratio (12.00-20.00) Ratio Glucose (70-110) mg/dL POC Glucose (mg/dL) 230 H 279 H (75-99) mg/dL Calcium (8.7-10.3) mg/dL AST (14-35) U/L ALT (10-49) U/L C-Reactive Protein (0.0-0.8) mg/dL Total Protein (6.2-8.2) g/dL Albumin (3.80-4.90) g/dL Globulin (1.6-3.3) g/dL 10/08/20 10/08/20 10/08/20 Range/Units 07:05 07:48 12:13 Lymphocytes # (1.0-4.8) k/uL BUN/Creatinine Ratio 38.33 H (12.00-20.00) Ratio Glucose 276 H (70-110) mg/dL POC Glucose (mg/dL) 256 H 288 H (75-99) mg/dL Calcium 8.2 L (8.7-10.3) mg/dL AST 37 H (14-35) U/L ALT 82 H (10-49) U/L C-Reactive Protein 2.8 H (0.0-0.8) mg/dL Total Protein 4.8 L (6.2-8.2) g/dL Albumin 3.50 L (3.80-4.90) g/dL Globulin 1.3 L (1.6-3.3) g/dL Assessment and Plan Assessment: 1 Acute COVID 19 infection 2 Acute exacerbation of COPD related to the above 3 Recent hospitalization for COPD exacerbation 4 Stage 2 COPD 5 Former smoker 6 Increased inflammatory markers including LDH and CRP, normalized 7 History of non-Hodgkin's lymphoma 8 History of prostate cancer Plan: The patient was seen and evaluated by Dr. Matthews This is day 5 of Remdesivir He is cleared for discharge from the pulmonary standpoint May qualify for home oxygen Complete a prednisone taper starting at 40 mg daily for 4 days Continue his home pulmonary medications Follow-up with his PCP in 1 week Follow up with Dr. Faye in the office in 4 weeks I, the cosigning physician, performed a history & physical examination of the patient. Lungs sounds with few scattered rhonchi,. Maintaining good O2 saturations in the 90s on 3 L/m per nasal. I discussed the assessment and plan of care with my nurse practitioner, Ally Mendieta. I attest to the above note as dictated by her.
[2020-10-08 15:26] VITALS: BP 165/70; PULSE 90; RESP 16; TEMP 97.9
[2020-10-08] MEDS: REMDESIVIR (EUA) 100 MG in SODIUM CHLORIDE 0.9% 250 ML IVPB SCH (16:36)
--- NOTE | 2020-10-08 17:32 | P.DS ---
Providers Date of admission: 10/04/20 13:01 Expected date of discharge: 10/08/20 Attending physician: Kailyn Coffey MD Consults: 10/04/20 13:05 Consult Physician Routine Consulting Provider: Harry Matthews Consult Reason/Comments: covid 19 Do you want consulting provider notified?: Yes Primary care physician: Nathalie [facility] Course: Discharge Diagnosis: COVID 19 infection Acute exacerbation of COPD Acute hypoxic respiratory failure Prior prostate cancer Lymphoma Hospital Course: Patient is a 75-year-old male with COPD, prostate cancer, kidney stones, and prior lymphoma who presented to the hospital with increasing shortness of breath. He was recently here in early September with acute exacerbation of COPD. On arrival to the ER he was found to be febrile, tachypneic, hypoxic. Chest x- ray showed chronic changes without acute pulmonary process. He did test positive for Covid 19. He was subsequently admitted. Pulmonary was consulted. He was started on vitamin C, vitamin D, zinc, Pepcid, and melatonin. He was also started on dexamethasone which was subsequently switched to Solu-Medrol secondary to bronchospasm. He was also started on Remdesivir and completed 5 days. He has been progressing well, but continues to cough. He was test for home O2 and does require it with ambulation as he was 88% on RA due to his COPD and COVID. He was much improved in terms stable for discharge home. He will complete another 4 days of dexamethasone therapy. He'll follow-up with Dr. Faye on 2 week to assess continued needed for home O2. He'll follow with his primary care physician in one week. He was given explicit instructions about him needing to isolate from his and her form team schedule. Is also check a that he may use his nebulizer and around by himself but not anywhere his will be within 3 hours of use. He will also take a baby aspirin daily while recovering from COVID Patient seen and examined at bedside. Still having some cough but getting better, still winded with ambulation Vital signs reviewed and stable. General: non toxic, no distress, appears at stated age Derm: warm, dry Head: atraumatic, normocephalic, symmetric Eyes: EOMI, no lid lag, anicteric sclera Mouth: no lip lesion, mucus membranes moist Cardiovascular: S1S2 reg, no murmur, positive posterior tibial pulse bilateral, Lungs: Course bs bilateral, no rhonchi, no rales , no accessory muscle use Abdominal: soft, nontender to palpation, no guarding, no appreciable organomegaly Ext: no gross muscle atrophy, no edema, no contractures Neuro: CN II-XI grossly intact, no focal neuro deficits Psych: Alert, oriented, appropriate affect A total of 35 minutes of time were spent preparing this complex discharge summary . Patient Condition at Discharge: Fair Plan - Discharge Summary Discharge Rx Participant: No New Discharge Prescriptions: New Dexamethasone 6 mg PO DIRECTED #7 tablet Melatonin 5 mg PO HS #10 tablet guaiFENesin [Mucinex] 600 mg PO Q12HR #0 tablet.er Zinc Sulfate [Orazinc] 220 mg PO DAILY #10 cap Benzonatate [Tessalon Perles] 100 mg PO TID PRN #30 cap PRN Reason: Cough Ascorbic Acid [Vitamin C] 1,000 mg PO DAILY #10 tab Cholecalciferol [Vitamin D3] 400 unit PO DAILY #10 tab Continue Budesonide/Formoterol Fumarate [Symbicort 160-4.5 Mcg Inhaler] 2 puff INHALATION RT-BID Albuterol Sulfate [Ventolin HFA] 2 puff INHALATION RT-Q4H PRN PRN Reason: Shortness Of Breath Albuterol Nebulized [Ventolin Nebulized] 2.5 mg INHALATION RT-Q6H PRN PRN Reason: Shortness Of Breath Discontinued Doxycycline Hyclate [Vibramycin] 100 mg PO BID Discharge Medication List Budesonide/Formoterol Fumarate [Symbicort 160-4.5 Mcg Inhaler] 2 puff INHALATION RT-BID 08/12/19 [History] Albuterol Nebulized [Ventolin Nebulized] 2.5 mg INHALATION RT-Q6H PRN 09/18/20 [History] Albuterol Sulfate [Ventolin HFA] 2 puff INHALATION RT-Q4H PRN 09/18/20 [History] Ascorbic Acid [Vitamin C] 1,000 mg PO DAILY #10 tab 10/08/20 [Rx] Benzonatate [Tessalon Perles] 100 mg PO TID PRN #30 cap 10/08/20 [Rx] Cholecalciferol [Vitamin D3] 400 unit PO DAILY #10 tab 10/08/20 [Rx] Dexamethasone 6 mg PO DIRECTED #7 tablet 10/08/20 [Rx] Melatonin 5 mg PO HS #10 tablet 10/08/20 [Rx] Zinc Sulfate [Orazinc] 220 mg PO DAILY #10 cap 10/08/20 [Rx] guaiFENesin [Mucinex] 600 mg PO Q12HR #0 tablet.er 10/08/20 [Rx] Follow up Appointment(s)/Referral(s): [facility] [NON-STAFF] - 1 Week Nathalie Garzon MD [Primary Care Provider] - 1-2 days Gordon Faye DO [Doctor of Osteopathic Medicine] - 2 Weeks Patient Instructions/Handouts: COPD (Chronic Obstructive Pulmonary Disease) (DC) Activity/Diet/Wound Care/Special Instructions: Activity: as tolerated Diet: heart healthy Special Instructions: Wear oxygen when up and active and at night For the next 3 days take your updrafts every 4 hours while awake Home o2 was order to treat the effect of covid 19 and COPD Discharge Disposition: HOME SELF-CARE
[2020-10-08 17:45] LABS: Glucose,Whole Blood 258 mg/dL (75-99)
[2020-10-08] MEDS ORDERED: INSULIN ASPART (NovoLOG) 100 UNIT/ML VIAL SQ SCH (21:21)
[2020-10-09] MEDS ORDERED: predniSONE 20 MG TAB PO SCH (09:00)
--- NOTE | 2020-10-11 02:19 | CDI ---
Documentation Clarification Form Date: 10/11/2020 From: [place]i [place] Phone: If you have a question about this query, please contact Breann Lora Cmm Operator at [phone] between 8am and 5pm. Admit Date: 10/04/2020 Discharge Date: 10/08/2020 Patient Name: Dangelo Gibbons Visit Number: [id number] ATTENTION: The Clinical Documentation Specialists (CDI) and [facility] Coding Staff appreciate your assistance in clarifying documentation. Please respond to the clarification below the line at the bottom and electronically sign. The CDI & [facility] Coding staff will review the response and follow-up if needed. Please note: Queries are made part of the Legal Health Record. If you have any questions, please contact the author of this message via ITS. Dear Miri Munoz DO., The patient presented with the He did test positive for Covid 19. History/Risk Factors: Acute respiratory failure, COVID 19, Nicotine dependence. Clinical Indicators: Patient is a 75-year-old male with COPD, prostate cancer, kidney stones, and prior lymphoma who presented to the hospital with increasing shortness of breath WBC : 10.2 Vitals signs on admission: Temperature 101.5 F H Pulse Rate 60 92 Respiratory 26 H 16 22 Rate Blood Pressure 108/53 105/65 O2 Sat by Pulse 89 L 90 LOximetry Treatment:continue IV Solu-Medrol, bronchodilators, Per HP stated "Given the patient underlying COPD hypoxia meeting sepsis criteria with severe sepsis anticipated the patient will need graded midnights stay on admit as inpatient". On arrival to the ER he was found to be febrile, tachypneic, hypoxic.Chest x-ray showed chronic changes without acute pulmonary process. In your professional opinion, please clarify if these findings signify one of the following conditions, if known: Condition Sepsis ruled out Sepsis Severe Sepsis Other, please specify Unable to determine Sepsis MTDD
== END 2020-10-08 18:23 | disposition home or self-care (01) | DRG 871 ==
LOC: EC 10:36 → 6NMEDSUR 13:01
PROVIDERS: ADMIT Internal Medicine; ATTEND Internal Medicine
PROC: XW033E5 Introduction of Remdesivir Anti-infective into Peripheral Vein, Percutaneous Approach, New Technology Group 5 (ICD-10-PCS; principal; 2020-10-04)
DX: A41.89 Other specified sepsis (principal); U07.1 COVID-19; J96.01 Acute respiratory failure with hypoxia; J12.89 Other viral pneumonia; J44.1 Chronic obstructive pulmonary disease with (acute) exacerbation; D72.810 Lymphocytopenia; F17.200 Nicotine dependence, unspecified, uncomplicated; T38.0X5A Adverse effect of glucocorticoids and synthetic analogues, initial encounter; N20.0 Calculus of kidney; Z79.51 Long term (current) use of inhaled steroids; Z79.82 Long term (current) use of aspirin; Z82.5 Family history of asthma and other chronic lower respiratory diseases; Z85.46 Personal history of malignant neoplasm of prostate; Z87.442 Personal history of urinary calculi; Z92.3 Personal history of irradiation; Z88.0 Allergy status to penicillin; Z98.890 Other specified postprocedural states; Z83.6 Family history of other diseases of the respiratory system
CPT/HCPCS: 36415; 71045; 80053; 82728; 83605; 83615; 83735; 84145; 85025; 85379; 85610; 85730; 86140; 87635; 93005; 94640; 99285

== ENCOUNTER 2020-10-14 10:51 | Inpatient (IN) | payer MEDICARE ==
[2020-10-14] MEDS ORDERED: IPRATROPIUM-ALBUTEROL 3 ML NEB INHALATION STA (11:06)
[2020-10-14] MEDS ORDERED: methylPREDNISolone SOD SUCCI 125 MG/2 ML VIAL IV STA (11:06)
--- NOTE | 2020-10-14 11:48 | ED ---
General Adult HPI - General Source: patient, RN notes reviewed Mode of arrival: wheelchair Limitations: physical limitation <Rashawn Kolb - Last Filed: 10/14/20 13:38> <Gordon Snell - Last Filed: 10/14/20 13:42> - General Chief complaint: Shortness of Breath Stated complaint: SOB Time Seen by Provider: 10/14/20 10:59 - History of Present Illness Initial comments: This is a 75-year-old male presents emergency Department chief complaint shortness of breath. Patient states he woke up short of breath. Patient has severe COPD on home oxygen. Patient states that he was discharged on Saturday after hospitalization for COPD, covid. Patient denies any recent fevers or chills no chest pain states that he did do breathing treatments morning which helped some. Patient has no headache or dizziness. Patient denies any leg swelling no history of CHF. (Rashawn Kolb) - Related Data Home Medications Medication Instructions Recorded Confirmed Budesonide/Formoterol Fumarate 2 puff INHALATION RT-BID 08/12/19 10/14/20 [Symbicort 160-4.5 Mcg Inhaler] Albuterol Nebulized [Ventolin 2.5 mg INHALATION RT-Q6H PRN 09/18/20 10/14/20 Nebulized] Albuterol Sulfate [Ventolin HFA] 2 puff INHALATION RT-Q4H PRN 09/18/20 10/14/20 Dexamethasone See Taper PO DIRECTED 10/14/20 10/14/20 Previous Rx's Medication Instructions Recorded Ascorbic Acid [Vitamin C] 1,000 mg PO DAILY #10 tab 10/08/20 Benzonatate [Tessalon Perles] 100 mg PO TID PRN #30 cap 10/08/20 Cholecalciferol [Vitamin D3] 400 unit PO DAILY #10 tab 10/08/20 Melatonin 5 mg PO HS #10 tablet 10/08/20 Zinc Sulfate [Orazinc] 220 mg PO DAILY #10 cap 10/08/20 guaiFENesin [Mucinex] 600 mg PO Q12HR #0 tablet.er 10/08/20 Allergies Allergy/AdvReac Type Severity Reaction Status Date / Time Penicillins Allergy Unknown Rash/Hives Verified 10/14/20 12:19 Review of Systems ROS Other: All systems not noted in ROS Statement are negative. <Rashawn Kolb - Last Filed: 10/14/20 13:38> ROS Other: All systems not noted in ROS Statement are negative. <Gordon Snell - Last Filed: 10/14/20 13:42> ROS Statement: Those systems with pertinent positive or pertinent negative responses have been documented in the HPI. Past Medical History Past Medical History: Cancer, COPD Additional Past Medical History / Comment(s): HX PROSTATE CANCER WITH SURGERY & RADIATION (2006), KIDNEY STONES. lymphoma, O2 dependent History of Any Multi-Drug Resistant Organisms: None Reported Past Surgical History: Joint Replacement, Orthopedic Surgery, Prostate Surgery Additional Past Surgical History / Comment(s): BRAIN SURGERY TO RELIEVE PRESSURE AFTER HEAD INJURY (6 YRS OLD), TOTAL LEFT KNEE, LEFT SHOULDER SURGERY, LEFT ARM SURGERY AFTER CRUSHING INJURY. Chest tube for pneumothorax. Lithotripsy. Prostatectomy secondary to prostate cancer. Past Anesthesia/Blood Transfusion Reactions: Motion Sickness Additional Past Anesthesia/Blood Transfusion Reaction / Comment(s): SLOW TO WAKE UP Past Psychological History: No Psychological Hx Reported Smoking Status: Former smoker Past Alcohol Use History: None Reported Past Drug Use History: None Reported - Past Family History Mother History Unknown: Yes Family Medical History: No Reported History Additional Family Medical History / Comment(s): Pt was adopted and does not know natural mother's medical hx: Father Family Medical History: COPD Additional Family Medical History / Comment(s): Pt was adopted and does not know much of his natural fathers medical hx <KellyRashawn menjivar - Last Filed: 10/14/20 13:38> General Exam Limitations: physical limitation General appearance: alert, in distress Head exam: Present: atraumatic, normocephalic, normal inspection Eye exam: Present: normal appearance, PERRL, EOMI. Absent: scleral icterus, conjunctival injection, periorbital swelling ENT exam: Present: normal exam, mucous membranes moist Neck exam: Present: normal inspection, full ROM. Absent: tenderness, meningismus, lymphadenopathy Respiratory exam: Present: respiratory distress, wheezes, decreased breath sounds. Absent: normal lung sounds bilaterally, rales, rhonchi, stridor Cardiovascular Exam: Present: normal rhythm, tachycardia, normal heart sounds. Absent: regular rate, systolic murmur, diastolic murmur, rubs, gallop, clicks GI/Abdominal exam: Present: soft, normal bowel sounds. Absent: distended, tenderness, guarding, rebound, rigid Neurological exam: Present: alert, oriented X3, CN II-XII intact <Rashawn Kolb - Last Filed: 10/14/20 13:38> Course <Gordon Snell - Last Filed: 10/14/20 13:42> Vital Signs 10/14/20 10/14/20 10/14/20 10:54 11:16 11:32 Temperature 99 F Pulse Rate 130 H 120 H 121 H Respiratory 28 H Rate Blood Pressure 132/78 O2 Sat by Pulse 89 L Oximetry 10/14/20 10/14/20 10/14/20 11:45 13:00 13:40 Temperature Pulse Rate 115 H 125 H 112 H Respiratory 24 28 H 22 Rate Blood Pressure 116/70 108/81 124/62 O2 Sat by Pulse 96 92 L 92 L Oximetry - Reevaluation(s) Reevaluation #1: 10/14/20 13:41 PA supervision: I pursued simz-eb-brnd evaluation the patient he presents today with complaints of source of breath he did have a fever. He was recently diagnosed with Covid 19 patient x-rays show evidence of a new left lower lobe infiltrate. He does demonstrate some evidence of hypoxemia. He will be admitted the case was discussed with Dr. Mcknight (Gordon Snell) EKG Findings - EKG Comments: EKG Findings:: EKG performed at 11:17 sinus tachycardia rate of 119 DE 138 QRS 68 QT/QTC 302/424 <Rashawn Kolb - Last Filed: 10/14/20 13:38> Medical Decision Making - Lab Data Result diagrams: 10/14/20 11:30 10/14/20 11:30 <Rashawn Kolb - Last Filed: 10/14/20 13:38> - Lab Data Result diagrams: 10/14/20 11:30 10/14/20 11:30 <Gordon Snell - Last Filed: 10/14/20 13:42> - Lab Data Lab Results 10/14/20 10/14/20 10/14/20 Range/Units 11:30 11:30 11:30 WBC 21.4 H (3.8-10.6) k/uL RBC 5.34 (4.30-5.90) m/uL Hgb 16.4 (13.0-17.5) gm/dL Hct 50.5 (39.0-53.0) % MCV 94.5 (80.0-100.0) fL MCH 30.6 (25.0-35.0) pg MCHC 32.4 (31.0-37.0) g/dL RDW 13.9 (11.5-15.5) % Plt Count 239 (150-450) k/uL MPV 7.6 Neutrophils % (Manual) 86 % Band Neuts % (Manual) 10 % Lymphocytes % (Manual) 1 % Monocytes % (Manual) 3 % Metamyelocytes % 1 % Neutrophils # (Manual) 20.50 H (1.3-7.7) k/uL Lymphocytes # (Manual) 0.21 L (1.0-4.8) k/uL Monocytes # (Manual) 0.64 (0-1.0) k/uL Metamyelocytes # (Man) 0.21 H (0) k/uL Nucleated RBCs 0 (0-0) /100 WBC Manual Slide Review Performed RBC Morphology Normal PT 9.9 (9.0-12.0) sec INR 0.9 (<1.2) APTT 20.7 L (22.0-30.0) sec Sodium 136 L (137-145) mmol/L Potassium 4.7 (3.5-5.1) mmol/L Chloride 97 L (98-107) mmol/L Carbon Dioxide 33 H (22-30) mmol/L Anion Gap 6 mmol/L BUN 26 H (9-20) mg/dL Creatinine 0.73 (0.66-1.25) mg/dL Est GFR (CKD-EPI)AfAm >90 (>60 ml/min/1.73 sqM) Est GFR (CKD-EPI)NonAf >90 (>60 ml/min/1.73 sqM) Glucose 171 H (74-99) mg/dL Plasma Lactic Acid Alexis (0.7-2.0) mmol/L Calcium 8.9 (8.4-10.2) mg/dL Magnesium 2.0 (1.6-2.3) mg/dL Total Bilirubin 1.0 (0.2-1.3) mg/dL AST 32 (17-59) U/L ALT 38 (4-49) U/L Alkaline Phosphatase 66 (38-126) U/L Troponin I (0.000-0.034) ng/mL NT-Pro-B Natriuret Pep pg/mL Total Protein 5.9 L (6.3-8.2) g/dL Albumin 3.4 L (3.5-5.0) g/dL 10/14/20 10/14/20 10/14/20 Range/Units 11:30 11:30 11:30 WBC (3.8-10.6) k/uL RBC (4.30-5.90) m/uL Hgb (13.0-17.5) gm/dL Hct (39.0-53.0) % MCV (80.0-100.0) fL MCH (25.0-35.0) pg MCHC (31.0-37.0) g/dL RDW (11.5-15.5) % Plt Count (150-450) k/uL MPV Neutrophils % (Manual) % Band Neuts % (Manual) % Lymphocytes % (Manual) % Monocytes % (Manual) % Metamyelocytes % % Neutrophils # (Manual) (1.3-7.7) k/uL Lymphocytes # (Manual) (1.0-4.8) k/uL Monocytes # (Manual) (0-1.0) k/uL Metamyelocytes # (Man) (0) k/uL Nucleated RBCs (0-0) /100 WBC Manual Slide Review RBC Morphology PT (9.0-12.0) sec INR (<1.2) APTT (22.0-30.0) sec Sodium (137-145) mmol/L Potassium (3.5-5.1) mmol/L Chloride (98-107) mmol/L Carbon Dioxide (22-30) mmol/L Anion Gap mmol/L BUN (9-20) mg/dL Creatinine (0.66-1.25) mg/dL Est GFR (CKD-EPI)AfAm (>60 ml/min/1.73 sqM) Est GFR (CKD-EPI)NonAf (>60 ml/min/1.73 sqM) Glucose (74-99) mg/dL Plasma Lactic Acid Alexis 3.6 H* (0.7-2.0) mmol/L Calcium (8.4-10.2) mg/dL Magnesium (1.6-2.3) mg/dL Total Bilirubin (0.2-1.3) mg/dL AST (17-59) U/L ALT (4-49) U/L Alkaline Phosphatase (38-126) U/L Troponin I 0.016 (0.000-0.034) ng/mL NT-Pro-B Natriuret Pep 368 pg/mL Total Protein (6.3-8.2) g/dL Albumin (3.5-5.0) g/dL Critical Care Time Critical Care Time: Yes Total Critical Care Time: 35 <Rashawn Kolb - Last Filed: 10/14/20 13:38> Critical Care Time: Total 35 minutes of critical care time were used and is evaluated patient, reviewed past medical history, according labs, EKG chest x-ray and medications. Patient has a curette for a stress secondary to COPD exacerbation, pneumonia. Patient does meet sepsis criteria. Antibiotics were ordered for hospital- acquired pneumonia. Patient will be admitted with pulmonology evaluation. (Rashawn Kolb) Disposition Time of Disposition: 13:15 <Rashawn Kolb - Last Filed: 10/14/20 13:38> <Gordon Snell - Last Filed: 10/14/20 13:42> Clinical Impression: COPD exacerbation, Pneumonia, Acute respiratory distress Disposition: ADMITTED IP TO THIS HOSP Condition: Serious Referrals: Nathalie Garzon MD [Primary Care Provider] - 1-2 days
[2020-10-14 12:18] LABS: HCT 50.5 % (39.0-53.0); HGB 16.4 gm/dL (13.0-17.5); MCH 30.6 pg (25.0-35.0); MCHC 32.4 g/dL (31.0-37.0); MCV 94.5 fL (80.0-100.0); Mean Platelet Volume 7.6; Platelet Count 239 k/uL (150-450); RBC 5.34 m/uL (4.30-5.90); RDW 13.9 % (11.5-15.5); WBC 21.4 k/uL (3.8-10.6)
[2020-10-14 12:31] LABS: ALT 38 U/L (4-49); African American GFR (CKD) >90 (>60 ml/min/1.73 sqM); Albumin 3.4 g/dL (3.5-5.0); Anion Gap 6 mmol/L; Blood Urea Nitrogen 26 mg/dL (9-20); Calcium 8.9 mg/dL (8.4-10.2); Carbon Dioxide 33 mmol/L (22-30); Chloride 97 mmol/L (98-107); Glucose 171 mg/dL (74-99); Non-African American GFR(CKD) >90 (>60 ml/min/1.73 sqM); Sodium 136 mmol/L (137-145); Total Protein 5.9 g/dL (6.3-8.2)
--- NOTE | 2020-10-14 12:36 | XR ---
EXAMINATION TYPE: XR chest 2V DATE OF EXAM: 10/14/2020 COMPARISON: Chest x-ray October 08, 2020. CT chest September 09, 2020 HISTORY: Dyspnea. TECHNIQUE: Frontal and lateral views of the chest are obtained. FINDINGS: There is chronic emphysematous and parenchymal changes with developing bibasilar opacities . The cardiac silhouette size remains within normal limits. Degenerative change bilateral glenohumer al joints. IMPRESSION: Chronic emphysematous and pulmonary fibrotic changes with new bibasilar acute infiltrate and/or atelectasis
[2020-10-14 12:43] LABS: INR 0.9 (<1.2); Prothrombin Time 9.9 sec (9.0-12.0)
[2020-10-14 12:52] LABS: Band Neutrophils % 10 %; Lymphocytes # (M) 0.21 k/uL (1.0-4.8); Metamyelocytes # (M) 0.21 k/uL (0); Metamyelocytes % 1 %; Monocytes # (M) 0.64 k/uL (0-1.0); Neutrophils % (M) 86 %; Nucleated Red Blood Cells 0 /100 WBC (0-0); Total Cells Counted 200
[2020-10-14 12:54] LABS: AST 32 U/L (17-59); Alkaline Phosphatase 66 U/L (38-126); Potassium 4.7 mmol/L (3.5-5.1)
[2020-10-14 12:57] LABS: Partial Thromboplastin Time 20.7 sec (22.0-30.0)
[2020-10-14] MEDS ORDERED: LEVOFLOXACIN 750MG-D5W PMX 750 MG in DEXTROSE/WATER 1 150ML.BAG IVPB STA (12:58)
[2020-10-14] MEDS ORDERED: VANCOMYCIN IV PER PHARMACY 1 EACH MISC MISCELLANE PRN (12:58)
[2020-10-14] MEDS ORDERED: ALBUTEROL NEBULIZED 2.5 MG/3 ML INHALATION STA (13:01)
[2020-10-14] MEDS ORDERED: SODIUM CHLORIDE 0.9% 1,000 ML IV ONE ×2 (13:03→20:04)
[2020-10-14] MEDS ORDERED: VANCOMYCIN 1,500 MG in SODIUM CHLORIDE 0.9% 250 ML IVPB ONE (13:30)
[2020-10-14] MEDS ORDERED: ALBUTEROL NEBULIZED 2.5 MG/3 ML INHALATION PRN (13:38)
[2020-10-14] MEDS ORDERED: PNEUMONIA PROTOCOL UTILIZED 1 EACH MISC PO PRN (13:38)
[2020-10-14] MEDS: SODIUM CHLORIDE 0.9% 1,000 ML IV SCH ×2 (14:56→23:55)
[2020-10-14] MEDS ORDERED: BENZONATATE 100 MG CAP PO PRN (15:08)
[2020-10-14 15:12] LABS: C Reactive Protein 65.9 mg/L (<10.0)
--- NOTE | 2020-10-14 15:35 | P.PN ---
Subjective Progress Note Date: 10/14/20 Principal diagnosis: Hospital-acquired pneumonia This is a 75-year-old male with past medical history noted below significant for underlying COPD on home O2 who was recently discharged from the hospital last Saturday after prolonged hospitalization for COVID-19 were his overall condition improved significantly and he was eventually discharged home on oxygen. Patient said that he was feeling fairly well first few days after his discharge for the last couple of days has been having worsening shortness of breath and wheezing. He was using his nebulizer machine at home with minimal relief. Today, patient started having worsening cough that was productive of greenish and yellowish sputum. He denies fevers or chills. He said that he called his doctor who advised him to come to the emergency room for further evaluation. In the ER, patient was found to have evidence of sepsis without septic shock. Lactic acid was elevated. Chest x-ray showed chronic emphysema with suspected bibasilar pneumonia versus atelectasis on chest x-ray. Patient will be admitted to the hospital for further management. Objective - Vital Signs Vital signs: Vital Signs Temp 97.1 F L 10/14/20 14:59 Pulse 101 H 10/14/20 15:00 Resp 22 10/14/20 15:00 BP 117/58 10/14/20 14:59 Pulse Ox 91 L 10/14/20 14:59 Intake & Output 10/13/20 10/14/20 10/14/20 18:59 06:59 18:59 Weight 79.832 kg Other: Voiding Method Urinal - Exam General: The patient is awake and alert, in no distress Eye: there is normal conjunctiva bilaterally. Neck: The neck is supple, there is no JVD. Cardiovascular: Normal S1-S2, no S3-S4, no murmurs. Respiratory: Lungs clear to auscultation bilaterally Gastrointestinal: Abdomen is soft, nontender Musculoskeletal: There is no pedal edema. Neurological:. Speech is normal. Skin: Skin is warm and dry - Labs CBC & Chem 7: 10/14/20 11:30 10/14/20 11:30 Labs: Abnormal Lab Results - Last 24 Hours (Table) 10/14/20 10/14/20 10/14/20 Range/Units 11:30 11:30 11:30 WBC 21.4 H (3.8-10.6) k/uL Neutrophils # (Manual) 20.50 H (1.3-7.7) k/uL Lymphocytes # (Manual) 0.21 L (1.0-4.8) k/uL Metamyelocytes # (Man) 0.21 H (0) k/uL APTT 20.7 L (22.0-30.0) sec D-Dimer (<0.60) mg/L FEU Sodium 136 L (137-145) mmol/L Chloride 97 L (98-107) mmol/L Carbon Dioxide 33 H (22-30) mmol/L BUN 26 H (9-20) mg/dL Glucose 171 H (74-99) mg/dL Plasma Lactic Acid Alexis (0.7-2.0) mmol/L Lactate Dehydrogenase (313-618) U/L C-Reactive Protein (<10.0) mg/L Total Protein 5.9 L (6.3-8.2) g/dL Albumin 3.4 L (3.5-5.0) g/dL 10/14/20 10/14/20 10/14/20 Range/Units 11:30 11:30 14:27 WBC (3.8-10.6) k/uL Neutrophils # (Manual) (1.3-7.7) k/uL Lymphocytes # (Manual) (1.0-4.8) k/uL Metamyelocytes # (Man) (0) k/uL APTT (22.0-30.0) sec D-Dimer 1.44 H (<0.60) mg/L FEU Sodium (137-145) mmol/L Chloride (98-107) mmol/L Carbon Dioxide (22-30) mmol/L BUN (9-20) mg/dL Glucose (74-99) mg/dL Plasma Lactic Acid Alexis 3.6 H* (0.7-2.0) mmol/L Lactate Dehydrogenase 1169 H (313-618) U/L C-Reactive Protein 65.9 H (<10.0) mg/L Total Protein (6.3-8.2) g/dL Albumin (3.5-5.0) g/dL Assessment and Plan Assessment: This is a 75-year-old male with past medical history noted below who presented to the hospital with worsening shortness of breath and cough. Patient was evaluated in the ER and admitted to the hospital for further management of his medical problems noted below 1. Severe sepsis without septic shock, continue aggressive IV fluid hydration and broad-spectrum antibiotic. Repeat lactic acid pending. Blood culture sent and pending. 2. Healthcare acquired pneumonia, sputum culture ordered. Continue broad spectrum antibiotic with IV vancomycin and cefepime. Pro-calcitonin ordered 3. Acute on chronic hypoxic respiratory failure. Currently on 5 L of oxygen area apparently at home he is on only 2 L since his last discharge. Wean off O2 as tolerated for O2 sats greater than 88%. 4. Acute COPD exacerbation: Continue duo nebs every 4 hours. Patient was given IV Solu-Medrol 125 mg one-time dose in the ER. Continue prednisone 40 mg daily. 5. recent COVID-19 pneumonia. I would order repeat inflammatory markers. Continue with vitamins and supplements including zinc, vitamin C, melatonin, 6. DVT prophylaxis with subcu Lovenox
[2020-10-14] MEDS ORDERED: IPRATROPIUM-ALBUTEROL 3 ML NEB INHALATION SCH ×2 (16:00)
[2020-10-14] MEDS ORDERED: IPRATROPIUM-ALBUTEROL 3 ML NEB INHALATION PRN (17:18)
[2020-10-14] MEDS: methylPREDNISolone SOD SUCCI 125 MG/2 ML VIAL IV SCH ×2 (18:08→23:54)
[2020-10-14] MEDS ORDERED: SYMBICORT 160-4.5 MCG INHALER INHALATION SCH (20:00)
[2020-10-14] MEDS: CEFEPIME 2 GM in SODIUM CHLORIDE 0.9% 100 ML IVPB SCH (20:29)
[2020-10-14] MEDS: guaiFENesin 600 MG TABLET.ER PO SCH (20:30)
[2020-10-14] MEDS: MELATONIN 5 MG TABLET PO SCH (20:30)
[2020-10-14] MEDS: IPRATROPIUM-ALBUTEROL 3 ML NEB INHALATION SCH (20:49)
[2020-10-14] MEDS: BUDESONIDE 1 MG/2 ML NEBU INHALATION SCH (20:51)
[2020-10-14] MEDS: FORMOTEROL FUMARATE 20 MCG/2 ML NEBU INHALATION SCH (20:52)
[2020-10-14] MEDS ORDERED: CEFEPIME 1 GM in SODIUM CHLORIDE 0.9% 50 ML IVPB SCH (21:00)
--- NOTE | 2020-10-14 22:38 | CONS ---
CONSULTATION PULMONARY/CRITICAL CARE CONSULTATION: DATE OF SERVICE: 10/14/2020 This is a 75-year-old male who presented to the emergency department with complaints of shortness of breath, cough, chest congestion, chest tightness and phlegm production. The phlegm is yellow. The patient does have a history of severe COPD. He does use home oxygen. He was recently in the hospital for an episode of COVID pneumonia. He was discharged this past Saturday for the episode of COVID pneumonia. Anyway, the patient comes back in having not felt well for a couple of days. For that reason he was brought into the ER and he was evaluated. He was diagnosed with possible underlying pneumonia. His chest x-ray shows some minimal infiltrates in both lung bases, left greater than right. 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 I did a bronchoscopy on him recently. We did some biopsies also which just showed organizing pneumonia. HOME MEDICATIONS: Reviewed. He is on Symbicort, albuterol updrafts, Ventolin inhaler and Decadron. He is also on ascorbic acid, Tessalon Perles, vitamin D3, melatonin, zinc and Mucinex. ALLERGIES: PENICILLIN. MEDICAL HISTORY: Medical history includes prostate cancer with previous surgery and radiation, kidney stones, gastric lymphoma, chronic hypoxemic respiratory failure, COPD, among other things. The patient also had a recent episode of COVID-19 pneumonia/pneumonitis with hospitalization at this institution. SURGICAL HISTORY: Surgical history includes prostate surgery, brain surgery, total left knee surgery, total left knee replacement, left shoulder surgery, left arm surgery, chest tube placement for pneumothorax, lithotripsy and prostatectomy. SOCIAL HISTORY: Positive for previous heavy tobacco use. He does not smoke currently. Denies any alcohol use or illicit drug use. FAMILY HISTORY: Not contributory. He does not know much about his mother's or father's medical history other than his father had COPD. REVIEW OF SYSTEMS: CONSTITUTIONAL: Negative. NEUROLOGIC: Negative. HEENT: Negative. CARDIOVASCULAR: Negative. PULMONARY: Shortness of breath, chest congestion, cough, wheezing, chest tightness, phlegm production. GI: Negative. : Negative. RHEUMATOLOGIC: Negative. IMMUNOLOGIC: Negative. ENDOCRINOLOGIC: Negative. DERMATOLOGIC: Negative. PHYSICAL EXAMINATION: VITAL SIGNS: Current vital signs reviewed. Temperature 97.1, T-max 99, heart rate 101, respiratory rate 22, blood pressure 124/62, mean 82. Five-liter saturation 91% to 92%. GENERAL APPEARANCE: He appears in no acute distress. There is no audible wheezing, use of accessory muscles or conversational dyspnea. HEENT: Examination is grossly unremarkable. Nasal cannula noted. NECK: Supple. Full range of motion. No adenopathy. Neck veins are flat. CARDIOVASCULAR: Examination reveals regular rhythm and rate. Heart rate 100 beats per minute. Heart sounds are distant. LUNGS: Lungs reveal diffuse coarse inspiratory and expiratory rhonchi and wheezes. Breath sounds are diminished. There is prolongation. He coughs and wheezes on forced maneuver. His cough is consistent with tracheobronchomalacia. ABDOMEN: Soft. Bowel sounds are heard. EXTREMITIES: Intact. No cyanosis, clubbing or edema. SKIN: Without rash. NEUROLOGIC: Neurologic examination is brief but nonfocal. LABS/IMAGING: White count 21.4, hemoglobin 16.4, hematocrit 50.5, platelet count 239,000. PT/INR normal. PTT 20.7. D-dimer 1.44. Sodium 136, potassium 4.7, chloride 97, CO2 33. Anion gap is 6. BUN and creatinine were 26 and 0.73. Lactic acid was 3.6. Repeat lactic acid 2.1. LDH 1169. Troponin 0.016. C-reactive protein 65.9. N-terminal proBNP is 368. Microbiology is negative. Chest x-ray shows some chronic emphysematous changes and some basilar infiltrates, left greater than right. CURRENT MEDICATIONS: Reviewed. The patient is currently on albuterol updrafts p.r.n., vitamin C, Tessalon Perles, Symbicort, Maxipime, vitamin D3, Lovenox, guaifenesin, albuterol and Atrovent updrafts, Levaquin, melatonin, Solu-Medrol, prednisone, vancomycin and zinc sulfate. ASSESSMENT: 1. Chronic obstructive pulmonary disease exacerbation complicated by purulent tracheobronchitis and possible bibasilar pneumonia. 2. Recent hospitalization for COVID-19 pneumonitis/pneumonia. 3. History of tracheobronchomalacia. 4. Recent bronchoscopy with biopsy showing organizing pneumonia, right lower lobe. 5. History of prostate cancer, status post prostatectomy and radiation. 6. History of kidney stones, status post lithotripsy. 7. History of gastric lymphoma. 8. Chronic hypoxemic respiratory failure. 9. Severe chronic obstructive pulmonary disease. 10.Status post chest tube placement for pneumothorax. PLAN: Please see my orders. Medications are adjusted. Will make sure that he is on appropriate medications, including Perforomist, Pulmicort solution, Solu-Medrol, antibiotics, oxygen therapy. Additional recommendations and suggestions are forthcoming. Prognosis is guarded. MMODL / IJN: [id number] /
--- NOTE | 2020-10-14 23:02 | CT ---
EXAMINATION TYPE: CT angio chest DATE OF EXAM: 10/14/2020 COMPARISON: 04/26/2019 HISTORY: Cough, covid+. CT DLP: 274.7 mGycm Automated exposure control for dose reduction was used. CONTRAST: Performed with IV Contrast, patient injected with 100ml mL of Isovue 370. There are 3-D post processed images. There is no mediastinal adenopathy. There are no hilar masses. Thoracic aorta is intact. There is no aneurysm or dissection. There are a few right-sided bronchial lymph nodes measuring up to 1 cm. There is bilateral lower lobe pulmonary airspace consolidation and atelectasis. I see no filling defects in the pulmonary arteries. The thoracic spine is intact. Ribs appear intact. Upper abdominal soft tissues are intact. IMPRESSION: No evidence of pulmonary embolism. There is bilateral lower lobe airspace consolidation and atelectasis that appears worse than chest CT scan 09/09/2020. This is consistent with pneumonia.
[2020-10-14] MEDS: VANCOMYCIN 1,500 MG in SODIUM CHLORIDE 0.9% 250 ML IVPB SCH (23:54)
[2020-10-15 01:38] LABS: Ferritin 1629.9 ng/mL (22.0-322.0)
[2020-10-15] MEDS: methylPREDNISolone SOD SUCCI 125 MG/2 ML VIAL IV SCH ×4 (05:51→23:21)
[2020-10-15 07:37] LABS: Basophils # (A) 0.1 k/uL (0-0.2); Basophils % (A) 0 %; Eosinophils % (A) 0 %; HCT 45.2 % (39.0-53.0); HGB 14.3 gm/dL (13.0-17.5); Lymphocytes # (A) 0.1 k/uL (1.0-4.8); Lymphocytes % (A) 0 %; MCH 30.4 pg (25.0-35.0); MCHC 31.5 g/dL (31.0-37.0); MCV 96.5 fL (80.0-100.0); Mean Platelet Volume 7.6; Monocytes # (A) 0.7 k/uL (0-1.0); Monocytes % (A) 4 %; Neutrophils # (A) 15.3 k/uL (1.3-7.7); Neutrophils % (A) 95 %; Platelet Count 171 k/uL (150-450); RBC 4.69 m/uL (4.30-5.90); RDW 14.1 % (11.5-15.5); WBC 16.1 k/uL (3.8-10.6)
--- NOTE | 2020-10-15 07:57 | XR ---
EXAMINATION TYPE: XR chest 1V portable DATE OF EXAM: 10/15/2020 Comparison: 10/14/2020 Clinical History: 75-year-old male covid Findings: Heart normal size. Focal patchy bibasilar opacities remain, greater right. No sizable effusion. Impression: Continued focal bibasilar infiltrates, left greater than right. Note areas of endobronchial opacifica tion on the patient's CT. Consider areas of mucous plugging or aspiration pneumonitis as additional c onsiderations.
[2020-10-15] MEDS: CEFEPIME 2 GM in SODIUM CHLORIDE 0.9% 100 ML IVPB SCH ×2 (08:24→20:11)
[2020-10-15] MEDS: CHOLECALCIFEROL 400 UNIT TAB PO SCH (08:24)
[2020-10-15] MEDS: ZINC SULFATE 220 MG CAP PO SCH (08:24)
[2020-10-15] MEDS: VANCOMYCIN 1,500 MG in SODIUM CHLORIDE 0.9% 250 ML IVPB SCH ×2 (08:24→16:41)
[2020-10-15] MEDS: ENOXAPARIN 40 MG/0.4 ML SYRINGE SQ SCH (08:24)
[2020-10-15] MEDS: guaiFENesin 600 MG TABLET.ER PO SCH ×2 (08:24→20:11)
[2020-10-15] MEDS: ASCORBIC ACID 500 MG TAB PO SCH (08:24)
[2020-10-15] MEDS ORDERED: predniSONE 20 MG TAB PO SCH (09:00)
[2020-10-15 10:55] VITALS: BMI 26.7
--- NOTE | 2020-10-15 11:07 | P.PN ---
Subjective Progress Note Date: 10/15/20 Principal diagnosis: Hospital-acquired pneumonia Patient is doing well today. Shortness of breath is improving. Unfortunately sputum sample container was not collected by nursing staff and was not sent to the laboratory. Objective - Vital Signs Vital signs: Vital Signs Temp 97.3 F L 10/15/20 10:00 Pulse 89 10/15/20 10:00 Resp 16 10/15/20 10:00 BP 150/67 10/15/20 10:00 Pulse Ox 93 L 10/15/20 10:00 Intake & Output 10/14/20 10/15/20 10/15/20 18:59 06:59 18:59 Intake Total 400 2650 Output Total 300 300 Balance 100 2650 -300 Weight 79.832 kg Intake: IV 400 Levofloxacin 750Mg-D5w 150 Pmx 750 mg In Dextrose/ Water 1 150ml.bag @ 100 mls/hr IVPB ONCE [facility] Rx#: [id number] Vancomycin 1,500 mg In 250 Sodium Chloride 0.9% 250 ml @ 125 mls/hr IVPB ONCE [facility] Rx#:[id number] Intake, IV Titration 2250 Amount Cefepime 2 gm In Sodium 100 Chloride 0.9% 100 ml @ 25 mls/hr IVPB Q12HR [facility] Rx #:[id number] Sodium Chloride 0.9% 1, 900 000 ml @ 75 mls/hr IV . [id number] [facility] Rx#:[id number] Sodium Chloride 0.9% 1, 1000 000 ml @ 999 mls/hr IV . Q1H1M [facility] Rx#:[id number] Vancomycin 1,500 mg In 250 Sodium Chloride 0.9% 250 ml @ 125 mls/hr IVPB Q8H [facility] Rx#:[id number] Oral 400 Output: Urine 300 300 Other: Voiding Method Urinal Urinal Urinal # Voids 3 3 - Exam General: The patient is awake and alert, in no distress Eye: there is normal conjunctiva bilaterally. Neck: The neck is supple, there is no JVD. Cardiovascular: Normal S1-S2, no S3-S4, no murmurs. Respiratory: Lungs diminished but clear to auscultation bilaterally Gastrointestinal: Abdomen is soft, nontender Musculoskeletal: There is no pedal edema. Neurological:. Speech is normal. Skin: Skin is warm and dry - Labs CBC & Chem 7: 10/15/20 06:35 10/14/20 11:30 Labs: Abnormal Lab Results - Last 24 Hours (Table) 10/14/20 10/14/20 10/14/20 Range/Units 11:30 11:30 11:30 WBC 21.4 H (3.8-10.6) k/uL Neutrophils # (1.3-7.7) k/uL Neutrophils # (Manual) 20.50 H (1.3-7.7) k/uL Lymphocytes # (1.0-4.8) k/uL Lymphocytes # (Manual) 0.21 L (1.0-4.8) k/uL Metamyelocytes # (Man) 0.21 H (0) k/uL APTT 20.7 L (22.0-30.0) sec D-Dimer (<0.60) mg/L FEU Sodium 136 L (137-145) mmol/L Chloride 97 L (98-107) mmol/L Carbon Dioxide 33 H (22-30) mmol/L BUN 26 H (9-20) mg/dL Glucose 171 H (74-99) mg/dL Plasma Lactic Acid Alexis (0.7-2.0) mmol/L Ferritin (22.0-322.0) ng/mL Lactate Dehydrogenase (313-618) U/L C-Reactive Protein (<10.0) mg/L Total Protein 5.9 L (6.3-8.2) g/dL Albumin 3.4 L (3.5-5.0) g/dL Procalcitonin (0.02-0.09) ng/mL 10/14/20 10/14/20 10/14/20 Range/Units 11:30 11:30 14:27 WBC (3.8-10.6) k/uL Neutrophils # (1.3-7.7) k/uL Neutrophils # (Manual) (1.3-7.7) k/uL Lymphocytes # (1.0-4.8) k/uL Lymphocytes # (Manual) (1.0-4.8) k/uL Metamyelocytes # (Man) (0) k/uL APTT (22.0-30.0) sec D-Dimer 1.44 H (<0.60) mg/L FEU Sodium (137-145) mmol/L Chloride (98-107) mmol/L Carbon Dioxide (22-30) mmol/L BUN (9-20) mg/dL Glucose (74-99) mg/dL Plasma Lactic Acid Alexis 3.6 H* (0.7-2.0) mmol/L Ferritin 1629.9 H (22.0-322.0) ng/mL Lactate Dehydrogenase 1169 H (313-618) U/L C-Reactive Protein 65.9 H (<10.0) mg/L Total Protein (6.3-8.2) g/dL Albumin (3.5-5.0) g/dL Procalcitonin (0.02-0.09) ng/mL 10/14/20 10/14/20 10/14/20 Range/Units 15:06 15:06 19:19 WBC (3.8-10.6) k/uL Neutrophils # (1.3-7.7) k/uL Neutrophils # (Manual) (1.3-7.7) k/uL Lymphocytes # (1.0-4.8) k/uL Lymphocytes # (Manual) (1.0-4.8) k/uL Metamyelocytes # (Man) (0) k/uL APTT (22.0-30.0) sec D-Dimer (<0.60) mg/L FEU Sodium (137-145) mmol/L Chloride (98-107) mmol/L Carbon Dioxide (22-30) mmol/L BUN (9-20) mg/dL Glucose (74-99) mg/dL Plasma Lactic Acid Alexis 2.1 H* 3.9 H* (0.7-2.0) mmol/L Ferritin (22.0-322.0) ng/mL Lactate Dehydrogenase (313-618) U/L C-Reactive Protein (<10.0) mg/L Total Protein (6.3-8.2) g/dL Albumin (3.5-5.0) g/dL Procalcitonin 0.14 H (0.02-0.09) ng/mL 10/14/20 10/15/20 Range/Units 22:29 06:35 WBC 16.1 H (3.8-10.6) k/uL Neutrophils # 15.3 H (1.3-7.7) k/uL Neutrophils # (Manual) (1.3-7.7) k/uL Lymphocytes # 0.1 L (1.0-4.8) k/uL Lymphocytes # (Manual) (1.0-4.8) k/uL Metamyelocytes # (Man) (0) k/uL APTT (22.0-30.0) sec D-Dimer (<0.60) mg/L FEU Sodium (137-145) mmol/L Chloride (98-107) mmol/L Carbon Dioxide (22-30) mmol/L BUN (9-20) mg/dL Glucose (74-99) mg/dL Plasma Lactic Acid Alexis 2.8 H* (0.7-2.0) mmol/L Ferritin (22.0-322.0) ng/mL Lactate Dehydrogenase (313-618) U/L C-Reactive Protein (<10.0) mg/L Total Protein (6.3-8.2) g/dL Albumin (3.5-5.0) g/dL Procalcitonin (0.02-0.09) ng/mL Assessment and Plan Assessment: This is a 75-year-old male with past medical history noted below who presented to the hospital with worsening shortness of breath and cough. Patient was evaluated in the ER and admitted to the hospital for further management of his medical problems noted below 1. Severe sepsis without septic shock, continue aggressive IV fluid hydration and broad-spectrum antibiotic. Lactic acid back to normal. Blood culture sent and pending. 2. Healthcare acquired pneumonia, sputum culture ordered. Continue broad spectrum antibiotic with IV vancomycin and cefepime. Pro-calcitonin slightly elevated 3. Acute on chronic hypoxic respiratory failure. Currently on 5 L of oxygen area apparently at home he is on only 2 L since his last discharge. Wean off O2 as tolerated for O2 sats greater than 88%. 4. Acute COPD exacerbation: Continue duo nebs every 4 hours. Patient was given IV Solu-Medrol 125 mg one-time dose in the ER. IV Solu-Medrol every 6 hours ordered by pulmonology 5. recent COVID-19 pneumonia. I would order repeat inflammatory markers. Continue with vitamins and supplements including zinc, vitamin C, melatonin, 6. DVT prophylaxis with subcu Lovenox
[2020-10-15] MEDS: FORMOTEROL FUMARATE 20 MCG/2 ML NEBU INHALATION SCH ×2 (11:36→19:43)
[2020-10-15] MEDS: BUDESONIDE 1 MG/2 ML NEBU INHALATION SCH ×2 (11:36→19:43)
[2020-10-15] MEDS: IPRATROPIUM-ALBUTEROL 3 ML NEB INHALATION SCH ×4 (11:37→19:43)
[2020-10-15 11:49] LABS: African American GFR (CKD) 102.7 (60.0-200.0); Anion Gap 7.4 mmol/L (4.00-12.00); BUN/Creat Ratio 26.25 Ratio (12.00-20.00); Calcium 8.3 mg/dL (8.7-10.3); Carbon Dioxide 32.6 mmol/L (21.6-31.8); Non-African American GFR(CKD) 88.6 (60.0-200.0); Potassium 4.7 mmol/L (3.5-5.5)
[2020-10-15] MEDS ORDERED: VANCOMYCIN TROUGH DUE 1 EACH MISC MISCELLANE ONE (15:00)
--- NOTE | 2020-10-15 15:50 | PN ---
PROGRESS NOTE PULMONARY/CRITICAL CARE PROGRESS NOTE: DATE OF SERVICE: October 15, 2020 HISTORY: A 75-year-old male who presented to the emergency department with complaints of shortness of breath, cough, chest congestion, chest tightness, and phlegm production. The phlegm is yellow. The patient does have a history of underlying severe COPD. He had a recent hospitalization for COVID-19 pneumonia. He was discharged this past Saturday. Also, relatively recently, the patient had bronchoscopy with BAL and biopsies of the right lower lobe. It was consistent with organizing pneumonia. The patient's chest x-ray shows some bibasilar infiltrates. This is also seen on the CT scan. Today, he is feeling better. 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 PHYSICAL EXAMINATION: VITAL SIGNS: Current vital signs are temperature 97.7. Heart rate 82, respiratory rate 20. Blood pressure 146/76. Mean 99, 5 L saturation 94%. GENERAL: Appears in no acute distress. HEENT: Examination is grossly unremarkable. NECK: Supple. Full range of motion. No adenopathy. Neck veins are flat. CARDIOVASCULAR: Examination reveals regular rhythm and rate. S1, S2 normal. No S3, S4, or murmur. LUNGS: Reveal diffuse coarse rhonchi and wheezes. Breath sounds are diminished. There is prolongation. ABDOMEN: Soft. Bowel sounds are heard. EXTREMITIES are intact. No cyanosis, clubbing, or edema. SKIN: Without rash. NEUROLOGIC: Examination is nonfocal. LABS: Reviewed. White count 16.1, hemoglobin 14.3, hematocrit 45.2. Platelet count 171,000. Sodium 139, potassium 4.7, chloride 99, CO2 33. The rest of the labs are reviewed. Everything else looks good. Repeat lactic acid was 1.9. Microbiology is currently negative or pending. CT scan yesterday shows evidence of bilateral lower lobe airspace disease. There was no evidence of pulmonary embolism. CHEST X-RAY: From October 15 again shows bibasilar infiltrates, left greater than right. CURRENT MEDICATIONS: Reviewed. The patient is on albuterol inhaler, vitamin C, Tessalon Perles, Pulmicort, cefepime, vitamin D3, Lovenox, formoterol, Mucinex, updrafts with DuoNeb, melatonin, Solu-Medrol, and vancomycin. He is also on zinc sulfate. ASSESSMENT: 1. Chronic obstructive pulmonary disease exacerbation complicated by purulent tracheobronchitis and bibasilar pneumonia. 2. Recent hospitalization for COVID-19 pneumonia/pneumonitis. 3. History of tracheobronchomalacia. 4. Recent bronchoscopy with biopsy showing organizing pneumonia, right lower lobe. 5. History of prostate cancer, status post prostatectomy and radiation. 6. History of kidney stones, status post lithotripsy. 7. History of gastric lymphoma. 8. Chronic hypoxemic respiratory failure. 9. Severe chronic obstructive pulmonary disease. 10.Status post chest tube placement for pneumothorax. PLAN: Currently, the patient is on appropriate medications. He is on appropriate antibiotics. We will continue to follow. Prognosis is guarded. I have told Dangelo multiple times that he needs to lower his expectations. He expects to breathe like he did 50 years ago. He hopefully appreciates this is unrealistic. No additional recommendations are made. We will continue to follow. Prognosis is guarded. MMODL / IJN: [id number] /
[2020-10-15] MEDS: NYSTATIN 100,000 UNIT/ML SUSP 500,000 UNIT/5 ML CUP PO SCH ×2 (17:49→20:11)
[2020-10-15] MEDS: MELATONIN 5 MG TABLET PO SCH (20:11)
[2020-10-16] MEDS: VANCOMYCIN 1,750 MG in SODIUM CHLORIDE 0.9% 500 ML 500 ML IVPB SCH ×3 (01:00→16:37)
[2020-10-16] MEDS: methylPREDNISolone SOD SUCCI 125 MG/2 ML VIAL IV SCH (06:02)
[2020-10-16 07:32] LABS: HCT 43.8 % (39.0-53.0); HGB 13.7 gm/dL (13.0-17.5); MCH 30.5 pg (25.0-35.0); MCHC 31.3 g/dL (31.0-37.0); MCV 97.3 fL (80.0-100.0); Mean Platelet Volume 8.1; Platelet Count 152 k/uL (150-450); WBC 17.2 k/uL (3.8-10.6)
[2020-10-16] MEDS: CEFEPIME 2 GM in SODIUM CHLORIDE 0.9% 100 ML IVPB SCH ×2 (08:05→21:02)
[2020-10-16 08:06] LABS: Anisocytosis (M) Present; Band Neutrophils % 13 %; Lymphocytes # (M) 1.03 k/uL (1.0-4.8); Monocytes # (M) 0.69 k/uL (0-1.0); Neutrophils % (M) 77 %; Nucleated Red Blood Cells 0 /100 WBC (0-0); Total Cells Counted 100
[2020-10-16] MEDS: CHOLECALCIFEROL 400 UNIT TAB PO SCH (08:06)
[2020-10-16] MEDS: ENOXAPARIN 40 MG/0.4 ML SYRINGE SQ SCH (08:06)
[2020-10-16] MEDS: guaiFENesin 600 MG TABLET.ER PO SCH ×2 (08:06→21:02)
[2020-10-16] MEDS: ASCORBIC ACID 500 MG TAB PO SCH (08:06)
[2020-10-16] MEDS: ZINC SULFATE 220 MG CAP PO SCH (08:06)
[2020-10-16] MEDS: NYSTATIN 100,000 UNIT/ML SUSP 500,000 UNIT/5 ML CUP PO SCH ×5 (08:06→21:03)
[2020-10-16] MEDS: IPRATROPIUM-ALBUTEROL 3 ML NEB INHALATION SCH ×4 (08:17→19:49)
[2020-10-16] MEDS: BUDESONIDE 1 MG/2 ML NEBU INHALATION SCH ×2 (08:17→19:49)
[2020-10-16] MEDS: FORMOTEROL FUMARATE 20 MCG/2 ML NEBU INHALATION SCH ×2 (08:18→19:49)
[2020-10-16 12:39] LABS: African American GFR (CKD) 102.7 (60.0-200.0); BUN/Creat Ratio 27.5 Ratio (12.00-20.00); Non-African American GFR(CKD) 88.6 (60.0-200.0); Potassium 4.2 mmol/L (3.5-5.5)
--- NOTE | 2020-10-16 16:17 | P.PN ---
Subjective Progress Note Date: 10/16/20 Principal diagnosis: Acute exacerbation of COPD complicated by a basilar pneumonia, recent CoVID pneumonia The patient is seen today 10/16/2020 in follow-up on the regular medical floor. He was admitted for an acute exacerbation of his COPD along with purulent tracheobronchitis and bibasilar pneumonia. He had recently been hospitalized for CoVID 19 pneumonia/pneumonitis. Previous bronchoscopy did reveal organizing pneumonia of the right lower lobe. Currently he is resting comfortably in bed. Maintaining O2 saturations in the mid 90s on 5 L/m per nasal cannula. He is afebrile. Hemodynamically stable. We'll culture reveals no growth. White count 17.2. Hemoglobin 13.7. Sodium 141. Potassium 4.2. Creatinine 0.8. Glucose 348. Currently on vancomycin and cefepime. Continued on bronchodilators, steroids, Lovenox. Objective - Vital Signs Vital signs: Vital Signs Temp 97.9 F 10/16/20 14:00 Pulse 78 10/16/20 16:04 Resp 22 10/16/20 14:00 BP 143/63 10/16/20 14:00 Pulse Ox 95 10/16/20 14:00 Intake & Output 10/15/20 10/16/20 10/16/20 18:59 06:59 18:59 Intake Total 1630 1100 Output Total 300 300 Balance 1330 1100 -300 Weight 79.832 kg Intake: Intake, IV Titration 950 Amount Cefepime 2 gm In Sodium 100 Chloride 0.9% 100 ml @ 25 mls/hr IVPB Q12HR [facility] Rx #:[id number] Sodium Chloride 0.9% 1, 600 000 ml @ 75 mls/hr IV . [id number] [facility] Rx#:[id number] Vancomycin 1,500 mg In 250 Sodium Chloride 0.9% 250 ml @ 125 mls/hr IVPB Q8H [facility] Rx#:[id number] Oral 680 1100 Output: Urine 300 300 Other: Voiding Method Urinal Urinal Urinal # Voids 3 1 1 - Exam GENERAL EXAM: Alert, pleasant 75-year-old gentleman, on 5 L nasal cannula, comfortable in no apparent distress. HEAD: Normocephalic. EYES: Normal reaction of pupils, equal size. NOSE: Clear with pink turbinates. THROAT: No erythema or exudates. NECK: No masses, no JVD. CHEST: No chest wall deformity. LUNGS: Equal air entry with bilateral end expiratory wheeze, crackles in the right base CVS: S1 and S2 normal with no audible murmur, regular rhythm. ABDOMEN: No hepatosplenomegaly, normal bowel sounds, no guarding or rigidity. SPINE: No scoliosis or deformity SKIN: No rashes CENTRAL NERVOUS SYSTEM: No focal deficits, tone is normal in all 4 extremities. EXTREMITIES: There is no peripheral edema. No clubbing, no cyanosis. Peripheral pulses are intact. - Labs CBC & Chem 7: 10/16/20 07:00 10/16/20 07:00 Labs: Abnormal Lab Results - Last 24 Hours (Table) 10/16/20 10/16/20 Range/Units 07:00 07:00 WBC 17.2 H (3.8-10.6) k/uL Neutrophils # (Manual) 15.40 H (1.3-7.7) k/uL Carbon Dioxide 33.0 H (21.6-31.8) mmol/L BUN/Creatinine Ratio 27.50 H (12.00-20.00) Ratio Glucose 348 H (70-110) mg/dL Calcium 8.0 L (8.7-10.3) mg/dL Microbiology - Last 24 Hours (Table) 10/14/20 13:07 Blood Culture - Preliminary Blood No Growth after 48 hours Assessment and Plan Assessment: 1 Acute on chronic hypoxemic respiratory failure secondary to an acute exace rbation of chronic obstructive pulmonary disease complicated by basilar pneumonia. 2 Recent admission for CoVID 19 pneumonia 3 Recent bronchoscopy with findings of right lower lobe organizing pneumonia 4 History of tracheobronchomalacia 5 History of prostate cancer status post prostatectomy and radiation 6 History of kidney stones status post lithotripsy 7 History of gastric lymphoma 8 History of chest tube placement for pneumothorax Plan: The patient was seen and evaluated by Dr. Faye Currently stable from the pulmonary standpoint Titrate down the FiO2 as tolerated Current treatment plan Repeat chest x-ray in a.m. We will continue to follow I, the cosigning physician, performed a history & physical examination of the patient. Lungs sounds are clear. Maintaining good O2 saturations in the 90s on .5 L/min per n.c I discussed the assessment and plan of care with my nurse practitioner, Ally Mendieta. I attest to the above note as dictated by her.
[2020-10-16] MEDS: MELATONIN 5 MG TABLET PO SCH (21:02)
[2020-10-16] MEDS: methylPREDNISolone SOD SUCCI 40 MG/ML 1 ML VIAL IV SCH (21:02)
[2020-10-17] MEDS: VANCOMYCIN 1,750 MG in SODIUM CHLORIDE 0.9% 500 ML 500 ML IVPB SCH ×2 (01:17→08:29)
[2020-10-17] MEDS ORDERED: VANCOMYCIN TROUGH DUE 1 EACH MISC MISCELLANE ONE (08:00)
[2020-10-17 08:02] LABS: Basophils % (A) 0 %; Eosinophils % (A) 0 %; HCT 42.1 % (39.0-53.0); HGB 13.7 gm/dL (13.0-17.5); Lymphocytes % (A) 0 %; MCH 31.1 pg (25.0-35.0); MCHC 32.4 g/dL (31.0-37.0); MCV 95.9 fL (80.0-100.0); Mean Platelet Volume 7.7; Monocytes # (A) 0.5 k/uL (0-1.0); Monocytes % (A) 4 %; Neutrophils # (A) 14.2 k/uL (1.3-7.7); Neutrophils % (A) 96 %; Platelet Count 143 k/uL (150-450); RBC 4.39 m/uL (4.30-5.90); RDW 14.1 % (11.5-15.5); WBC 14.9 k/uL (3.8-10.6)
[2020-10-17] MEDS: CEFEPIME 2 GM in SODIUM CHLORIDE 0.9% 100 ML IVPB SCH (08:26)
[2020-10-17] MEDS: ZINC SULFATE 220 MG CAP PO SCH (08:28)
[2020-10-17] MEDS: ASCORBIC ACID 500 MG TAB PO SCH (08:28)
[2020-10-17] MEDS: ENOXAPARIN 40 MG/0.4 ML SYRINGE SQ SCH (08:28)
[2020-10-17] MEDS: guaiFENesin 600 MG TABLET.ER PO SCH (08:29)
[2020-10-17] MEDS: methylPREDNISolone SOD SUCCI 40 MG/ML 1 ML VIAL IV SCH (08:29)
[2020-10-17] MEDS: CHOLECALCIFEROL 400 UNIT TAB PO SCH (08:29)
[2020-10-17] MEDS ORDERED: ALBUTEROL HFA INHALER INHALATION PRN (08:54)
[2020-10-17] MEDS ORDERED: predniSONE 20 MG TAB PO SCH (09:00)
[2020-10-17] MEDS ORDERED: amLODIPine 2.5 MG TAB PO SCH (09:00)
[2020-10-17] MEDS ORDERED: SYMBICORT 160-4.5 MCG INHALER INHALATION SCH (09:00)
[2020-10-17] MEDS ORDERED: TIOTROPIUM 18 MCG/PUFF INHALER INHALATION SCH (09:00)
[2020-10-17] MEDS: FORMOTEROL FUMARATE 20 MCG/2 ML NEBU INHALATION SCH (09:09)
[2020-10-17] MEDS: BUDESONIDE 1 MG/2 ML NEBU INHALATION SCH (09:09)
[2020-10-17] MEDS: IPRATROPIUM-ALBUTEROL 3 ML NEB INHALATION SCH (09:10)
[2020-10-17] MEDS: ALBUTEROL HFA INHALER INHALATION SCH ×2 (09:27→12:13)
[2020-10-17 10:01] VITALS: BP 169/52; PULSE 67; RESP 16; TEMP 97.8
--- NOTE | 2020-10-17 10:02 | P.DS ---
Providers Date of admission: 10/14/20 13:41 Expected date of discharge: 10/17/20 Attending physician: Ozzy Leon Consults: 10/14/20 13:38 Consult Physician Routine Consulting Provider: Gordon Faye Consult Reason/Comments: Pneumonia, COPD Do you want consulting provider notified?: Yes Primary care physician: [facility] Course: This is a 75-year-old male with past medical history noted below who presented to the hospital with worsening shortness of breath and cough. Patient was evaluated in the ER and admitted to the hospital for further management of his medical problems noted below 1. Severe sepsis without septic shock, improved with aggressive IV fluid hydration and broad-spectrum antibiotic. Lactic acid back to normal. Blood culture negative to date 2. Healthcare acquired pneumonia, sputum culture ordered on presentation but there was 2 days delay in the collection. Sputum culture eventually sent to days later after patient being on broad-spectrum antibiotic. broad spectrum antibiotic with IV vancomycin and cefepime will be switched to oral Levaquin to finish 7 days course. Patient has penicillin ALLERGY. Pro-calcitonin slightly elevated 3. Acute on chronic hypoxic respiratory failure. Currently on 2-3 L of oxygen. He was advised to monitor his oxygen level at home and follow-up with Dr. Faye in the office as directed 4. Acute COPD exacerbation: Improved with DuoNeb's and IV Solu-Medrol. Patient will be given a tapered course prednisone as he has been on steroids for a prolonged period of time since last hospitalization 5. recent COVID-19 pneumonia. During recent hospitalization. Continue with vitamins and supplements including zinc, vitamin C, melatonin, 6. Elevated blood pressure, constant since admission. May represent essential hypertension. Start Norvasc 2.5 mg daily. Follow-up with PCP as directed. 7. Oral thrush: Provided prescription for nystatin Patient will be discharged home in a stable condition. He declined home health care services. For further details about this hospitalization please refer to the electronic chart. Time spent on discharge > 30 minutes including counseling and coordination of care Patient Condition at Discharge: Serious Plan - Discharge Summary Discharge Rx Participant: Yes New Discharge Prescriptions: New Nystatin 100,000 Unit/ml Susp [Mycostatin Oral Susp] 500,000 unit PO QID #140 ml amLODIPine [Norvasc] 2.5 mg PO DAILY #30 tab predniSONE 0 mg PO DIRECTED #30 tab Tiotropium 18 Mcg/Puff [Spiriva] 1 puff INHALATION RT-DAILY #2 inhaler Levofloxacin [Levaquin] 500 mg PO DAILY 3 Days #3 tab Continue Budesonide/Formoterol Fumarate [Symbicort 160-4.5 Mcg Inhaler] 2 puff INHALATION RT-BID Albuterol Sulfate [Ventolin HFA] 2 puff INHALATION RT-Q4H PRN PRN Reason: Shortness Of Breath Albuterol Nebulized [Ventolin Nebulized] 2.5 mg INHALATION RT-Q6H PRN PRN Reason: Shortness Of Breath Melatonin 5 mg PO HS #10 tablet guaiFENesin [Mucinex] 600 mg PO Q12HR #0 tablet.er Zinc Sulfate [Orazinc] 220 mg PO DAILY #10 cap Benzonatate [Tessalon Perles] 100 mg PO TID PRN #30 cap PRN Reason: Cough Ascorbic Acid [Vitamin C] 1,000 mg PO DAILY #10 tab Cholecalciferol [Vitamin D3] 400 unit PO DAILY #10 tab Discontinued Dexamethasone See Taper PO DIRECTED Discharge Medication List Budesonide/Formoterol Fumarate [Symbicort 160-4.5 Mcg Inhaler] 2 puff INHALATION RT-BID 08/12/19 [History] Albuterol Nebulized [Ventolin Nebulized] 2.5 mg INHALATION RT-Q6H PRN 09/18/20 [History] Albuterol Sulfate [Ventolin HFA] 2 puff INHALATION RT-Q4H PRN 09/18/20 [History] Ascorbic Acid [Vitamin C] 1,000 mg PO DAILY #10 tab 10/08/20 [Rx] Benzonatate [Tessalon Perles] 100 mg PO TID PRN #30 cap 10/08/20 [Rx] Cholecalciferol [Vitamin D3] 400 unit PO DAILY #10 tab 10/08/20 [Rx] Melatonin 5 mg PO HS #10 tablet 10/08/20 [Rx] Zinc Sulfate [Orazinc] 220 mg PO DAILY #10 cap 10/08/20 [Rx] guaiFENesin [Mucinex] 600 mg PO Q12HR #0 tablet.er 10/08/20 [Rx] Levofloxacin [Levaquin] 500 mg PO DAILY 3 Days #3 tab 10/17/20 [Rx] Nystatin 100,000 Unit/ml Susp [Mycostatin Oral Susp] 500,000 unit PO QID #140 ml 10/17/20 [Rx] Tiotropium 18 Mcg/Puff [Spiriva] 1 puff INHALATION RT-DAILY #2 inhaler 10/17/20 [Rx] amLODIPine [Norvasc] 2.5 mg PO DAILY #30 tab 10/17/20 [Rx] predniSONE 0 mg PO DIRECTED #30 tab 10/17/20 [Rx] Follow up Appointment(s)/Referral(s): Nathalie Garzon MD [Primary Care Provider] - 3 Days Gordon Faye DO [Doctor of Osteopathic Medicine] - 1 Week Discharge Disposition: HOME SELF-CARE
--- NOTE | 2020-10-17 11:14 | P.PN ---
Subjective Progress Note Date: 10/17/20 On today's evaluation of 10/17/2020, the patient is doing well. The patient has no specific complaints. He had a previous history of duarte COVID19 pneumonia and the patient subsequently was hospitalized for bibasilar pneumonia worse on the right. He was given a combination of cefepime and vancomycin. The patient recovered. The patient was discharged home today on Levaquin and a prednisone burst taper. He also has Spiriva at home. His oxygen level is at 5 L per minute with saturation above 90%. No chest pain. No pleurisy. No hemoptysis. No other complaints.the patient has been weaned down to 3 L. Objective - Vital Signs Vital signs: Vital Signs Temp 97.8 F 10/17/20 05:36 Pulse 67 10/17/20 05:36 Resp 16 10/16/20 18:00 BP 169/52 10/17/20 05:36 Pulse Ox 93 L 10/17/20 05:36 Intake & Output 10/16/20 10/17/20 10/17/20 18:59 06:59 18:59 Intake Total 900 Output Total 300 Balance -300 900 Intake: Intake, IV Titration 600 Amount Cefepime 2 gm In Sodium 100 Chloride 0.9% 100 ml @ 25 mls/hr IVPB Q12HR [facility] Rx #:[id number] Vancomycin 1,750 mg In 500 Sodium Chloride 0.9% 500 ml 500 ml @ 167 mls/hr IVPB Q8H [facility] Rx#: [id number] Oral 300 Output: Urine 300 Other: Voiding Method Urinal # Voids 1 - Exam GENERAL EXAM: Alert, pleasant 75-year-old gentleman, on 5 L nasal cannula, comfortable in no apparent distress. HEAD: Normocephalic. EYES: Normal reaction of pupils, equal size. NOSE: Clear with pink turbinates. THROAT: No erythema or exudates. NECK: No masses, no JVD. CHEST: No chest wall deformity. LUNGS: Equal air entry with bilateral end expiratory wheeze, crackles in the right base CVS: S1 and S2 normal with no audible murmur, regular rhythm. ABDOMEN: No hepatosplenomegaly, normal bowel sounds, no guarding or rigidity. SPINE: No scoliosis or deformity SKIN: No rashes CENTRAL NERVOUS SYSTEM: No focal deficits, tone is normal in all 4 extremities. EXTREMITIES: There is no peripheral edema. No clubbing, no cyanosis. Peripheral pulses are intact. - Labs CBC & Chem 7: 10/17/20 07:03 10/16/20 07:00 Labs: Abnormal Lab Results - Last 24 Hours (Table) 10/16/20 10/17/20 Range/Units 07:00 07:03 WBC 14.9 H (3.8-10.6) k/uL Plt Count 143 L (150-450) k/uL Neutrophils # 14.2 H (1.3-7.7) k/uL Lymphocytes # 0.0 L (1.0-4.8) k/uL Carbon Dioxide 33.0 H (21.6-31.8) mmol/L BUN/Creatinine Ratio 27.50 H (12.00-20.00) Ratio Glucose 348 H (70-110) mg/dL Calcium 8.0 L (8.7-10.3) mg/dL Microbiology - Last 24 Hours (Table) 10/16/20 10:30 Gram Stain - Preliminary Sputum Sputum Culture - Preliminary 10/14/20 13:07 Blood Culture - Preliminary Blood No Growth after 48 hours Assessment and Plan Plan: 1 Acute on chronic hypoxemic respiratory failure secondary to an acute exacerbation of chronic obstructive pulmonary disease complicated by basilar pneumonia. 2 Recent admission for CoVID 19 pneumonia, Recovered 3 Recent bronchoscopy with findings of right lower lobe organizing pneumonia 4 History of tracheobronchomalacia 5 History of prostate cancer status post prostatectomy and radiation 6 History of kidney stones status post lithotripsy 7 History of gastric lymphoma 8 History of chest tube placement for pneumothorax Plan: Currently stable from the pulmonary standpoint Titrate down the FiO2 as tolerated patient is to be discharged home today.he'll be given Symbicort, Spiriva, prednisone burst taper and course of Levaquin. Is followed up in the office.
[2020-10-17 11:36] LABS: African American GFR (CKD) 115.6 (60.0-200.0); Anion Gap 7.8 mmol/L (4.00-12.00); BUN/Creat Ratio 33.33 Ratio (12.00-20.00); Calcium 7.9 mg/dL (8.7-10.3); Carbon Dioxide 32.2 mmol/L (21.6-31.8); Non-African American GFR(CKD) 99.7 (60.0-200.0); Potassium 3.9 mmol/L (3.5-5.5)
[2020-10-17] MEDS ORDERED: VANCOMYCIN 1,500 MG in SODIUM CHLORIDE 0.9% 250 ML IVPB SCH (17:00)
== END 2020-10-17 12:11 | disposition home or self-care (01) | DRG 871 ==
LOC: EC 10:51 → 4SSUR 13:41
PROVIDERS: ADMIT Internal Medicine; ATTEND Internal Medicine
DX: A41.9 Sepsis, unspecified organism (principal); J18.9 Pneumonia, unspecified organism; J96.21 Acute and chronic respiratory failure with hypoxia; E87.2 Acidosis; B37.0 Candidal stomatitis; J39.8 Other specified diseases of upper respiratory tract; Z99.81 Dependence on supplemental oxygen; R65.20 Severe sepsis without septic shock; J43.9 Emphysema, unspecified; I10 Essential (primary) hypertension; Y95 Nosocomial condition; Z71.3 Dietary counseling and surveillance; Z79.899 Other long term (current) drug therapy; Z79.51 Long term (current) use of inhaled steroids; Z85.46 Personal history of malignant neoplasm of prostate; Z87.442 Personal history of urinary calculi; Z86.19 Personal history of other infectious and parasitic diseases; Z87.01 Personal history of pneumonia (recurrent); Z92.3 Personal history of irradiation; Z85.72 Personal history of non-Hodgkin lymphomas; Z96.652 Presence of left artificial knee joint; Z98.890 Other specified postprocedural states; Z90.79 Acquired absence of other genital organ(s); Z87.828 Personal history of other (healed) physical injury and trauma; Z87.891 Personal history of nicotine dependence; Z88.0 Allergy status to penicillin; Z82.5 Family history of asthma and other chronic lower respiratory diseases
CPT/HCPCS: 36415; 71045; 71046; 71275; 80048; 80053; 80202; 82728; 83605; 83615; 83735; 83880; 84145; 84484; 85025; 85379; 85610; 85730; 86140; 87040; 87070; 87205; 93005; 94640; 96365; 96366; 96367; 96375; 99291

== ENCOUNTER 2020-10-29 14:52 | Inpatient (IN) | payer MEDICARE ==
[2020-10-29] MEDS ORDERED: SODIUM CHLORIDE 0.9% 1,000 ML IV STA (15:05)
--- NOTE | 2020-10-29 15:14 | ED ---
General Adult HPI - General Chief complaint: Weakness Stated complaint: Weakness Time Seen by Provider: 10/29/20 14:57 Source: family Mode of arrival: wheelchair Limitations: no limitations - History of Present Illness Initial comments: Dictation was produced using [employer] dictation software. please excuse any grammatical, word or spelling errors. This patient was cared for during a federal and state declared state of emergency secondary to Covid 19 Chief Complaint: 75-year-old male past medical history of COPD, recent coronavirus presents today with generalized weakness History of Present Illness: 75-year-old male who presents today with his Aminata. Daughter reports that E has been very weak for the last week or so. He was just discharged a week ago from the hospital. He was admitted at that time for pneumonia. Patient spent several days in the hospital prior to that admission for: 19 and hypoxic respiratory failure. Patient wears between 2-3 L of nasal cannula oxygen at home. reports that patient's been so weak unable to stand and do his activities of daily living. He requires a lot of assistance at home remote family members. also reports that patient is been confused he's been slow to speech and having disorganized thinking. does not know exactly when these altered mental status symptoms began. He was not noted to have any numbness and paresthesias to arms or legs. He has no hist ory of stroke. Patient is a poor historian. The ROS documented in this emergency department record has been reviewed and confirmed by me. Those systems with pertinent positive or negative responses have been documented in the HPI. All other systems are other negative and/or noncontributory. PHYSICAL EXAM: General Impression: Alert and oriented x3, not in acute distress HEENT: Normocephalic atraumatic, extra-ocular movements intact, pupils equal and reactive to light bilaterally, dry mucous membranes Cardiovascular: Tachycardia Chest: Able to complete full sentences, no retractions, no tachypnea Abdomen: abdomen soft, non-tender, non-distended, no organomegaly Musculoskeletal: Pulses present and equal in all extremities, no peripheral edema Motor: no focal deficits noted Neurological: CN II-XII grossly intact, slow delayed speech, no dysarthria, NIH of 0, no focal motor or sensory deficits Skin: Intact with no visualized rashes Psych: Normal affect and mood ED course: 75-year-old male presents with generalized weakness. He was recently admitted for respiratory infections on 2 occasions in the month of September. Just discharged from the hospital week ago. Vital signs upon arrival shows heart rate of 134, 87% on room air. Patient normally worse to 3 L of nasal cannula. On the nasal cannula he is in the low 90s. He is not showing any signs of respiratory distress. He is confused however shows no focal neurologic deficits to suggest stroke. Furthermore, is unclear when patient's symptoms began. EKG interpretation: Ventricular rate 123, sinus tachycardia, HI interval 140, QRS 72, QTc 460. No HI prolongation, no QTC prolongation, no ST or T-wave changes noted. EKG compared to 10/14/2020 showing no changes. Overall, this EKG is unremarkable Laboratory evaluation obtained. Leukocytosis of 10.8 which appears to be better. Coag panels around baseline. D-dimer is significantly elevated 11.53. Metabolic panel shows sodium 1:30, potassium 5.2, lactic acidosis 2.4. Rest of labs unremarkable. Given patient's confusion computed tomography scan of the brain was obtained showing no acute processes. Chest x-ray shows increase right lateral lower lobe pneumonia and pleural reaction. Given degree of elevation of d-dimer CT angiogram of the chest obtained to evaluate for pulmonary embolism. His CTA appears to be unchanged compared to recent exam. Patient reevaluated. To be stable at bedside. Reevaluated at approximately 7:15 PM. His vital signs are slightly improved however he still mildly tachycardic. Considering improvement of his numbers, no pyrexia and stable imaging studies no clear indication for antibiotic and menstruation at this time. We'll have patient observed for persistent tachycardia, generalized weakness. A pulmonology on consult. - Related Data Home Medications Medication Instructions Recorded Confirmed Budesonide/Formoterol Fumarate 2 puff INHALATION RT-BID 08/12/19 10/14/20 [Symbicort 160-4.5 Mcg Inhaler] Albuterol Nebulized [Ventolin 2.5 mg INHALATION RT-Q6H PRN 09/18/20 10/14/20 Nebulized] Albuterol Sulfate [Ventolin HFA] 2 puff INHALATION RT-Q4H PRN 09/18/20 10/14/20 Previous Rx's Medication Instructions Recorded Ascorbic Acid [Vitamin C] 1,000 mg PO DAILY #10 tab 10/08/20 Benzonatate [Tessalon Perles] 100 mg PO TID PRN #30 cap 10/08/20 Cholecalciferol [Vitamin D3] 400 unit PO DAILY #10 tab 10/08/20 Melatonin 5 mg PO HS #10 tablet 10/08/20 Zinc Sulfate [Orazinc] 220 mg PO DAILY #10 cap 10/08/20 guaiFENesin [Mucinex] 600 mg PO Q12HR #0 tablet.er 10/08/20 Levofloxacin [Levaquin] 500 mg PO DAILY 3 Days #3 tab 10/17/20 Nystatin 100,000 Unit/ml Susp 500,000 unit PO QID #140 ml 10/17/20 [Mycostatin Oral Susp] Tiotropium 18 Mcg/Puff [Spiriva] 1 puff INHALATION RT-DAILY #2 10/17/20 inhaler amLODIPine [Norvasc] 2.5 mg PO DAILY #30 tab 10/17/20 predniSONE 0 mg PO DIRECTED #30 tab 10/17/20 Allergies Allergy/AdvReac Type Severity Reaction Status Date / Time Penicillins Allergy Unknown Rash/Hives Verified 10/29/20 14:56 Review of Systems ROS Statement: Those systems with pertinent positive or pertinent negative responses have been documented in the HPI. ROS Other: All systems not noted in ROS Statement are negative. Past Medical History Past Medical History: Cancer, COPD Additional Past Medical History / Comment(s): HX PROSTATE CANCER WITH SURGERY & RADIATION (2006), KIDNEY STONES. lymphoma, O2 dependent History of Any Multi-Drug Resistant Organisms: None Reported Past Surgical History: Joint Replacement, Orthopedic Surgery, Prostate Surgery Additional Past Surgical History / Comment(s): BRAIN SURGERY TO RELIEVE PRESSURE AFTER HEAD INJURY (6 YRS OLD), TOTAL LEFT KNEE, LEFT SHOULDER SURGERY, LEFT ARM SURGERY AFTER CRUSHING INJURY. Chest tube for pneumothorax. Lithotripsy. Prostatectomy secondary to prostate cancer. Past Anesthesia/Blood Transfusion Reactions: Motion Sickness Additional Past Anesthesia/Blood Transfusion Reaction / Comment(s): SLOW TO WAKE UP Past Psychological History: No Psychological Hx Reported Smoking Status: Former smoker Past Alcohol Use History: None Reported Past Drug Use History: None Reported - Past Family History Mother History Unknown: Yes Family Medical History: No Reported History Additional Family Medical History / Comment(s): Pt was adopted and does not know natural mother's medical hx: Father Family Medical History: COPD Additional Family Medical History / Comment(s): Pt was adopted and does not know much of his natural fathers medical hx General Exam Limitations: no limitations Course Vital Signs 10/29/20 10/29/20 10/29/20 14:53 15:56 16:00 Temperature 99.5 F Pulse Rate 134 H 103 H 103 H Respiratory 24 20 20 Rate Blood Pressure 128/70 105/64 105/64 O2 Sat by Pulse 87 L 93 L 93 L Oximetry Medical Decision Making - Lab Data Result diagrams: 10/29/20 15:19 10/29/20 15:19 Lab Results 10/29/20 10/29/20 10/29/20 Range/Units 15:19 15: 15:19 WBC 10.8 H (3.8-10.6) k/uL RBC 5.85 (4.30-5.90) m/uL Hgb 16.8 D (13.0-17.5) gm/dL Hct 53.8 H (39.0-53.0) % MCV 91.9 (80.0-100.0) fL MCH 28.6 (25.0-35.0) pg MCHC 31.2 (31.0-37.0) g/dL RDW 14.3 (11.5-15.5) % Plt Count 355 D (150-450) k/uL MPV 7.3 Neutrophils % (Manual) 82 % Band Neuts % (Manual) 10 % Lymphocytes % (Manual) 2 % Monocytes % (Manual) 5 % Metamyelocytes % 1 % Neutrophils # (Manual) 9.90 H (1.3-7.7) k/uL Lymphocytes # (Manual) 0.22 L (1.0-4.8) k/uL Monocytes # (Manual) 0.54 (0-1.0) k/uL Metamyelocytes # (Man) 0.11 H (0) k/uL Nucleated RBCs 0 (0-0) /100 WBC Manual Slide Review Performed PT 12.1 H (9.0-12.0) sec INR 1.2 H (<1.2) APTT 21.5 L (22.0-30.0) sec D-Dimer (<0.60) mg/L FEU Sodium 130 L (137-145) mmol/L Potassium 5.2 H (3.5-5.1) mmol/L Chloride 97 L (98-107) mmol/L Carbon Dioxide 24 (22-30) mmol/L Anion Gap 9 mmol/L BUN 15 (9-20) mg/dL Creatinine 0.84 (0.66-1.25) mg/dL Est GFR (CKD-EPI)AfAm >90 (>60 ml/min/1.73 sqM) Est GFR (CKD-EPI)NonAf 87 (>60 ml/min/1.73 sqM) Glucose 179 H (74-99) mg/dL POC Glucose (mg/dL) (75-99) mg/dL POC Glu Senior Principal Architect ID Lactic Ac Sepsis Rflx Plasma Lactic Acid Alexis (0.7-2.0) mmol/L Calcium 8.8 (8.4-10.2) mg/dL Magnesium 1.9 (1.6-2.3) mg/dL Total Bilirubin 1.6 H (0.2-1.3) mg/dL AST 45 (17-59) U/L ALT 34 (4-49) U/L Alkaline Phosphatase 98 (38-126) U/L Ammonia (<30) umol/L Troponin I (0.000-0.034) ng/mL Total Protein 6.0 L (6.3-8.2) g/dL Albumin 3.3 L (3.5-5.0) g/dL TSH 1.030 (0.465-4.680) mIU/L Urine Color Urine Appearance (Clear) Urine pH (5.0-8.0) Ur Specific [place] (1.001-1.035) Urine Protein (Negative) Urine Glucose (UA) (Negative) Urine Ketones (Negative) Urine Blood (Negative) Urine Nitrite (Negative) Urine Bilirubin (Negative) Urine Urobilinogen (<2.0) mg/dL Ur Leukocyte Esterase (Negative) 10/29/20 10/29/20 10/29/20 Range/Units 15:19 15:19 15:19 WBC (3.8-10.6) k/uL RBC (4.30-5.90) m/uL Hgb (13.0-17.5) gm/dL Hct (39.0-53.0) % MCV (80.0-100.0) fL MCH (25.0-35.0) pg MCHC (31.0-37.0) g/dL RDW (11.5-15.5) % Plt Count (150-450) k/uL MPV Neutrophils % (Manual) % Band Neuts % (Manual) % Lymphocytes % (Manual) % Monocytes % (Manual) % Metamyelocytes % % Neutrophils # (Manual) (1.3-7.7) k/uL Lymphocytes # (Manual) (1.0-4.8) k/uL Monocytes # (Manual) (0-1.0) k/uL Metamyelocytes # (Man) (0) k/uL Nucleated RBCs (0-0) /100 WBC Manual Slide Review PT (9.0-12.0) sec INR (<1.2) APTT (22.0-30.0) sec D-Dimer (<0.60) mg/L FEU Sodium (137-145) mmol/L Potassium (3.5-5.1) mmol/L Chloride (98-107) mmol/L Carbon Dioxide (22-30) mmol/L Anion Gap mmol/L BUN (9-20) mg/dL Creatinine (0.66-1.25) mg/dL Est GFR (CKD-EPI)AfAm (>60 ml/min/1.73 sqM) Est GFR (CKD-EPI)NonAf (>60 ml/min/1.73 sqM) Glucose (74-99) mg/dL POC Glucose (mg/dL) 172 H (75-99) mg/dL POC Glu Senior Principal Architect ID Shira Porter Lactic Ac Sepsis Rflx Plasma Lactic Acid Alexis 2.4 H* (0.7-2.0) mmol/L Calcium (8.4-10.2) mg/dL Magnesium (1.6-2.3) mg/dL Total Bilirubin (0.2-1.3) mg/dL AST (17-59) U/L ALT (4-49) U/L Alkaline Phosphatase (38-126) U/L Ammonia <9 (<30) umol/L Troponin I 0.031 (0.000-0.034) ng/mL Total Protein (6.3-8.2) g/dL Albumin (3.5-5.0) g/dL TSH (0.465-4.680) mIU/L Urine Color Urine Appearance (Clear) Urine pH (5.0-8.0) Ur Specific [place] (1.001-1.035) Urine Protein (Negative) Urine Glucose (UA) (Negative) Urine Ketones (Negative) Urine Blood (Negative) Urine Nitrite (Negative) Urine Bilirubin (Negative) Urine Urobilinogen (<2.0) mg/dL Ur Leukocyte Esterase (Negative) 10/29/20 10/29/20 10/29/20 Range/Units 15:19 15:58 17:08 WBC (3.8-10.6) k/uL RBC (4.30-5.90) m/uL Hgb (13.0-17.5) gm/dL Hct (39.0-53.0) % MCV (80.0-100.0) fL MCH (25.0-35.0) pg MCHC (31.0-37.0) g/dL RDW (11.5-15.5) % Plt Count (150-450) k/uL MPV Neutrophils % (Manual) % Band Neuts % (Manual) % Lymphocytes % (Manual) % Monocytes % (Manual) % Metamyelocytes % % Neutrophils # (Manual) (1.3-7.7) k/uL Lymphocytes # (Manual) (1.0-4.8) k/uL Monocytes # (Manual) (0-1.0) k/uL Metamyelocytes # (Man) (0) k/uL Nucleated RBCs (0-0) /100 WBC Manual Slide Review PT (9.0-12.0) sec INR (<1.2) APTT (22.0-30.0) sec D-Dimer 11.53 H (<0.60) mg/L FEU Sodium (137-145) mmol/L Potassium (3.5-5.1) mmol/L Chloride (98-107) mmol/L Carbon Dioxide (22-30) mmol/L Anion Gap mmol/L BUN (9-20) mg/dL Creatinine (0.66-1.25) mg/dL Est GFR (CKD-EPI)AfAm (>60 ml/min/1.73 sqM) Est GFR (CKD-EPI)NonAf (>60 ml/min/1.73 sqM) Glucose (74-99) mg/dL POC Glucose (mg/dL) (75-99) mg/dL POC Glu Senior Principal Architect ID Lactic Ac Sepsis Rflx Y Plasma Lactic Acid Alexis (0.7-2.0) mmol/L Calcium (8.4-10.2) mg/dL Magnesium (1.6-2.3) mg/dL Total Bilirubin (0.2-1.3) mg/dL AST (17-59) U/L ALT (4-49) U/L Alkaline Phosphatase (38-126) U/L Ammonia (<30) umol/L Troponin I (0.000-0.034) ng/mL Total Protein (6.3-8.2) g/dL Albumin (3.5-5.0) g/dL TSH (0.465-4.680) mIU/L Urine Color Yellow Urine Appearance Clear (Clear) Urine pH 7.5 (5.0-8.0) Ur Specific [place] 1.008 (1.001-1.035) Urine Protein Negative (Negative) Urine Glucose (UA) Negative (Negative) Urine Ketones Trace H (Negative) Urine Blood Negative (Negative) Urine Nitrite Negative (Negative) Urine Bilirubin Negative (Negative) Urine Urobilinogen <2.0 (<2.0) mg/dL Ur Leukocyte Esterase Negative (Negative) Disposition Clinical Impression: Confusion, Weakness, Hypoxia Disposition: ADMITTED IP TO THIS HOSP Condition: Fair Referrals: Nathalie Garzon MD [Primary Care Provider] - 1-2 days Decision Time: 18:28
[2020-10-29 15:20] LABS: Glucose,Whole Blood 172 mg/dL (75-99)
[2020-10-29 15:30] LABS: HCT 53.8 % (39.0-53.0); MCH 28.6 pg (25.0-35.0); MCHC 31.2 g/dL (31.0-37.0); MCV 91.9 fL (80.0-100.0); Mean Platelet Volume 7.3; RBC 5.85 m/uL (4.30-5.90); RDW 14.3 % (11.5-15.5); WBC 10.8 k/uL (3.8-10.6)
[2020-10-29 15:31] LABS: HGB 16.8 gm/dL (13.0-17.5); Platelet Count 355 k/uL (150-450)
[2020-10-29 15:41] LABS: ALT 34 U/L (4-49); AST 45 U/L (17-59); African American GFR (CKD) >90 (>60 ml/min/1.73 sqM); Albumin 3.3 g/dL (3.5-5.0); Alkaline Phosphatase 98 U/L (38-126); Anion Gap 9 mmol/L; Blood Urea Nitrogen 15 mg/dL (9-20); Calcium 8.8 mg/dL (8.4-10.2); Carbon Dioxide 24 mmol/L (22-30); Chloride 97 mmol/L (98-107); Glucose 179 mg/dL (74-99); Magnesium 1.9 mg/dL (1.6-2.3); Non-African American GFR(CKD) 87 (>60 ml/min/1.73 sqM); Sodium 130 mmol/L (137-145); Total Bilirubin 1.6 mg/dL (0.2-1.3)
[2020-10-29 15:52] LABS: INR 1.2 (<1.2); Prothrombin Time 12.1 sec (9.0-12.0)
[2020-10-29 15:56] LABS: Potassium 5.2 mmol/L (3.5-5.1)
[2020-10-29 15:58] LABS: Lactic Acid, Venous 2.4 mmol/L (0.7-2.0)
[2020-10-29 16:01] LABS: Partial Thromboplastin Time 21.5 sec (22.0-30.0)
[2020-10-29 16:15] LABS: Band Neutrophils % 10 %; Lymphocytes # (M) 0.22 k/uL (1.0-4.8); Metamyelocytes # (M) 0.11 k/uL (0); Metamyelocytes % 1 %; Monocytes # (M) 0.54 k/uL (0-1.0); Neutrophils % (M) 82 %; Nucleated Red Blood Cells 0 /100 WBC (0-0); Total Cells Counted 100
--- NOTE | 2020-10-29 16:19 | CT ---
EXAMINATION TYPE: CT brain wo con DATE OF EXAM: 10/29/2020 COMPARISON: None HISTORY: Altered mental status. CT DLP: 1044.3 mGycm Automated exposure control for dose reduction was used. Exam performed with no contrast. There is cerebral cortical atrophy. There is patchy hypodensity in the periventricular white matter. There is no mass effect nor midline shift. There is no sign of intracranial hemorrhage. Calvarium is intact. IMPRESSION: Cerebral atrophy and chronic small vessel ischemia. No acute intracranial abnormality.
--- NOTE | 2020-10-29 16:29 | XR ---
EXAMINATION TYPE: XR chest 1V portable DATE OF EXAM: 10/29/2020 COMPARISON: 10/15/2020 HISTORY: Chest pain TECHNIQUE: FINDINGS: There is patchy airspace infiltrate and atelectasis at the lung bases. There is no heart fa ilure. Heart size is normal. There are chest leads. IMPRESSION: Bilateral lower lobe pneumonia and pleural reaction is increased compared to no heart dyana lure.
[2020-10-29 17:19] LABS: Appearance,Urine Clear (Clear); Bilirubin,Urine Negative (Negative); Blood,Urine Negative (Negative); Color,Urine Yellow; Glucose,Urine (UA) Negative (Negative); Ketones,Urine Trace (Negative); Leukocyte Esterase,Urine Negative (Negative); Nitrite,Urine Negative (Negative); PH, Urine 7.5 (5.0-8.0); Protein,Urine Negative (Negative); Specific Gravity,Urine 1.008 (1.001-1.035); Urobilinogen,Urine <2.0 mg/dL (<2.0)
--- NOTE | 2020-10-29 18:09 | CT ---
EXAMINATION TYPE: CT angio chest DATE OF EXAM: 10/29/2020 COMPARISON: 10/14/2020 HISTORY: elevated d-dimer CT DLP: 521 mGycm Automated exposure control for dose reduction was used. CONTRAST: Performed with IV Contrast, patient injected with 80 mL of Isovue 370. There are 3-D post processed images. There is normal contrast opacification of the pulmonary arteries. There are no filling defects. There is no mediastinal adenopathy. There is some mild atheromatous change in the thoracic aorta. The re is no aneurysm or dissection. There are no hilar masses. Heart size is normal. There is patchy airspace consolidation in both lower lobes. There is no pleural effusion. There is no pericardial effusion. Bony thorax is intact. There is mild pulmonary emphysema. IMPRESSION: No evidence of pulmonary embolism. Bilateral patchy pneumonia and atelectasis in both lower lobes unc hanged compared to recent exam.
[2020-10-29] MEDS ORDERED: VANCOMYCIN IV PER PHARMACY 1 EACH MISC MISCELLANE PRN (18:15)
[2020-10-29] MEDS ORDERED: LEVOFLOXACIN 750MG-D5W PMX 750 MG in DEXTROSE/WATER 1 150ML.BAG IVPB STA (18:15)
[2020-10-29] MEDS ORDERED: VANCOMYCIN 1,750 MG in SODIUM CHLORIDE 0.9% 500 ML 500 ML IVPB STA (18:19)
[2020-10-29] MEDS ORDERED: ONDANSETRON 4 MG/2 ML VIAL IVP PRN (18:29)
[2020-10-29] MEDS ORDERED: NALOXONE 0.4 MG/ML 1 ML VIAL IV PRN (18:29)
[2020-10-29] MEDS: SODIUM CHLORIDE 0.9% 1,000 ML IV SCH (18:32)
[2020-10-29] MEDS ORDERED: IPRATROPIUM-ALBUTEROL 3 ML NEB INHALATION PRN (20:47)
[2020-10-29] MEDS ORDERED: predniSONE 20 MG TAB PO STA (20:47)
--- NOTE | 2020-10-29 20:49 | P.HPIM ---
History of Present Illness H&P Date: 10/29/20 The patient is a 75-year-old male with a PMH of COPD, recently diagnosed COVID- 19 with hospitalizations ( dx 08/04), and hypertension who presents to the emergency room with complaints of fatigue, ongoing shortness of breath, and just not feeling like himself. The patient was recently admitted to the hospital on 08/14 for bilateral pneumonia and COPD exacerbation and was discharged home with oral 7 day course of Levaquin. The patient completed his course but notes ongoing symptoms as stated above. The patient reports compliance with his inhalers and using his rescue inhaler 3-4 times daily with little relief. He reports a chronic cough productive of white phlegm, unchanged from prior. Den ied fever or chest pain. Denied leg pain or swelling. Notes that he has been walking to the bathroom at home with a walker, although with much difficulty. As per the ED documentation, the patient's had reported that the patient has not been able to do his ADLs due to his diffuse weakness and had episodes of confusion. Denied nausea, vomiting, abdominal pain, diarrhea. Also denied headache, visual disturbances, weakness, numbness, tingling. Upon presentation to the emergency room, the patient's vital signs revealed a pulse of 134, SpO2 87% on room air, temperature 99.5F, and a BP of 128/70. Laboratory evaluation was remarkable for a WBC count of 10.8, d-dimer 11.5, sodium 130, potassium 5.2 (slight hemolysis), chloride 97, glucose 179, lactic acid 2.4, glucose 179, total bilirubin 1.6, and coronavirus PCR positive. Chest CTA revealed no evidence of PE with bilateral patchy basilar atelectasis and pneumonia unchanged from prior. EKG revealed sinus tachycardia at 123 bpm with no acute ST/T-wave changes noted as reviewed by me. Brain CT was unremarkable. The patient was given a dose of vancomycin and Levaquin in the emergency room and is now being prepared for an admission to the medical service. Review of Systems Pertinent positives and negatives as discussed in HPI, a complete review of systems was performed and all other systems are negative. Past Medical History Past Medical History: Cancer, COPD Additional Past Medical History / Comment(s): HX PROSTATE CANCER WITH SURGERY & RADIATION (2006), KIDNEY STONES. lymphoma, O2 dependent History of Any Multi-Drug Resistant Organisms: None Reported Past Surgical History: Joint Replacement, Orthopedic Surgery, Prostate Surgery Additional Past Surgical History / Comment(s): BRAIN SURGERY TO RELIEVE PRESSURE AFTER HEAD INJURY (6 YRS OLD), TOTAL LEFT KNEE, LEFT SHOULDER SURGERY, LEFT ARM SURGERY AFTER CRUSHING INJURY. Chest tube for pneumothorax. Lithotripsy. Prostatectomy secondary to prostate cancer. Past Anesthesia/Blood Transfusion Reactions: Motion Sickness Additional Past Anesthesia/Blood Transfusion Reaction / Comment(s): SLOW TO WAKE UP Past Psychological History: No Psychological Hx Reported Smoking Status: Former smoker Past Alcohol Use History: None Reported Past Drug Use History: None Reported - Past Family History Mother History Unknown: Yes Family Medical History: No Reported History Additional Family Medical History / Comment(s): Pt was adopted and does not know natural mother's medical hx: Father Family Medical History: COPD Additional Family Medical History / Comment(s): Pt was adopted and does not know much of his natural fathers medical hx Medications and Allergies Home Medications Medication Instructions Recorded Confirmed Type Budesonide/Formoterol Fumarate 2 puff INHALATION RT-BID 08/12/19 10/29/20 History [Symbicort 160-4.5 Mcg Inhaler] Albuterol Nebulized [Ventolin 2.5 mg INHALATION RT-Q6H PRN 09/18/20 10/29/20 History Nebulized] Albuterol Sulfate [Ventolin HFA] 2 puff INHALATION RT-Q4H PRN 09/18/20 10/29/20 History Ascorbic Acid [Vitamin C] 1,000 mg PO DAILY #10 tab 10/08/20 10/29/20 Rx Benzonatate [Tessalon Perles] 100 mg PO TID PRN #30 cap 10/08/20 10/29/20 Rx Cholecalciferol [Vitamin D3] 400 unit PO DAILY #10 tab 10/08/20 10/29/20 Rx Melatonin 5 mg PO HS #10 tablet 10/08/20 10/29/20 Rx guaiFENesin [Mucinex] 600 mg PO Q12HR #0 tablet.er 10/08/20 10/29/20 Rx amLODIPine [Norvasc] 2.5 mg PO DAILY #30 tab 10/17/20 10/29/20 Rx LORazepam [Ativan] 0.5 mg PO BID 10/29/20 10/29/20 History predniSONE See Taper PO DAILY 10/29/20 10/29/20 History Allergies Allergy/AdvReac Type Severity Reaction Status Date / Time Penicillins Allergy Unknown Rash/Hives Verified 10/29/20 18:33 Physical Exam Vitals: Vital Signs Temp Pulse Resp BP Pulse Ox 10/29/20 19:19 97.8 F 96 19 106/63 92 L 10/29/20 19:00 98 20 108/87 93 L 10/29/20 18:00 18 93 L 10/29/20 17:00 20 93 L 10/29/20 16:00 103 H 20 105/64 93 L 10/29/20 15:56 103 H 20 105/64 93 L 10/29/20 14:53 99.5 F 134 H 24 128/70 87 L Intake and Output 10/29/20 10/29/20 10/29/20 06:59 14:59 22:59 Other: Weight 74.843 kg General: non toxic, no distress, appears at stated age, normal weight Derm: no unusual rashes/lesions no unusual ecchymoses, warm, dry Head: atraumatic, normocephalic, symmetric Eyes: EOMI, no lid lag, anicteric sclera, pupils equal round reactive to light ENT: Nose and ears atraumatic, no pharyngeal erythema Neck: No thyromegaly, no cervical lymphadenopathy, trachea midline, supple Mouth: no lip lesion, mucus membranes moist Cardiovascular: S1S2 reg, no murmur, positive posterior tibial pulse bilateral, no edema, capillary refill less than 2 seconds Lungs: Poor air entry bilaterally with scattered rhonchi, no wheezing appreciated, no accessory muscle use Abdominal: soft, nontender to palpation, no guarding, no appreciable organomegaly, normal bowel sounds Ext: no gross muscle atrophy, muscle strength 4 out of 5 in all 4 extremities grossly, no contractures, Neuro: CN II-XI grossly intact, light touch intact all 4 extremities, finger to nose within normal limits, Psych: Alert, oriented, appropriate affect Results CBC & Chem 7: 10/29/20 15:19 10/29/20 15:19 Labs: Abnormal Lab Results - Last 24 Hours (Table) 10/29/20 10/29/20 10/29/20 Range/Units 15: 15: 15: WBC 10.8 H (3.8-10.6) k/uL Hct 53.8 H (39.0-53.0) % Neutrophils # (Manual) 9.90 H (1.3-7.7) k/uL Lymphocytes # (Manual) 0.22 L (1.0-4.8) k/uL Metamyelocytes # (Man) 0.11 H (0) k/uL PT 12.1 H (9.0-12.0) sec INR 1.2 H (<1.2) APTT 21.5 L (22.0-30.0) sec D-Dimer (<0.60) mg/L FEU Sodium 130 L (137-145) mmol/L Potassium 5.2 H (3.5-5.1) mmol/L Chloride 97 L (98-107) mmol/L Glucose 179 H (74-99) mg/dL POC Glucose (mg/dL) (75-99) mg/dL Plasma Lactic Acid Alexis (0.7-2.0) mmol/L Total Bilirubin 1.6 H (0.2-1.3) mg/dL Total Protein 6.0 L (6.3-8.2) g/dL Albumin 3.3 L (3.5-5.0) g/dL Urine Ketones (Negative) Coronavirus (PCR) (Not Detectd) 10/29/20 10/29/20 10/29/20 Range/Units 15:19 15:19 15:19 WBC (3.8-10.6) k/uL Hct (39.0-53.0) % Neutrophils # (Manual) (1.3-7.7) k/uL Lymphocytes # (Manual) (1.0-4.8) k/uL Metamyelocytes # (Man) (0) k/uL PT (9.0-12.0) sec INR (<1.2) APTT (22.0-30.0) sec D-Dimer 11.53 H (<0.60) mg/L FEU Sodium (137-145) mmol/L Potassium (3.5-5.1) mmol/L Chloride (98-107) mmol/L Glucose (74-99) mg/dL POC Glucose (mg/dL) 172 H (75-99) mg/dL Plasma Lactic Acid Alexis 2.4 H* (0.7-2.0) mmol/L Total Bilirubin (0.2-1.3) mg/dL Total Protein (6.3-8.2) g/dL Albumin (3.5-5.0) g/dL Urine Ketones (Negative) Coronavirus (PCR) (Not Detectd) 10/29/20 10/29/20 Range/Units 17:08 19:11 WBC (3.8-10.6) k/uL Hct (39.0-53.0) % Neutrophils # (Manual) (1.3-7.7) k/uL Lymphocytes # (Manual) (1.0-4.8) k/uL Metamyelocytes # (Man) (0) k/uL PT (9.0-12.0) sec INR (<1.2) APTT (22.0-30.0) sec D-Dimer (<0.60) mg/L FEU Sodium (137-145) mmol/L Potassium (3.5-5.1) mmol/L Chloride (98-107) mmol/L Glucose (74-99) mg/dL POC Glucose (mg/dL) (75-99) mg/dL Plasma Lactic Acid Alexis (0.7-2.0) mmol/L Total Bilirubin (0.2-1.3) mg/dL Total Protein (6.3-8.2) g/dL Albumin (3.5-5.0) g/dL Urine Ketones Trace H (Negative) Coronavirus (PCR) Detected A (Not Detectd) Assessment and Plan Plan: SOB, suspected multifactorial with acute COPD exacerbation and possible on-going COVID-19 pneumonia (significantly elevated D-dimer) -Check Ferritin and LDH levels -CTA negative for PE. Check LE duplex -Oral Prednisone for now -Pulmonary consult -Supplemental oxygen -Duonebs round the clock and prn -Hold off on Abxs for now -Lovenox intermediate dosing for now -PT consult -C/w Vit C, D, Zinc, and Melatonin Hypochloremic hyponatremia -Likely due to poor oral intake -C/w IVFs and monitor BMP Lactic acidosis -Resolved HTN -Hold antihypertensives in setting of borderline BP DVT prophylaxis -Lovenox The patient is admitted with an anticipated greater than 2 midnight stay for evaluation of SOB CODE STATUS: Full Code Discussed with: Patient Anticipated discharge date: 2-[address]: Home A total of 40 minutes was spent on the care of this complex patient more than 50% of the time was spent in counseling and care coordination.
--- NOTE | 2020-10-29 21:50 | US ---
EXAMINATION TYPE: US venous doppler duplex LE DATE OF EXAM: 10/29/2020 9:41 PM COMPARISON: NONE CLINICAL HISTORY: r/o DVT. elevated D-Dimer SIDE PERFORMED: bilateral TECHNIQUE: The lower extremity deep venous system is examined utilizing real time linear array sonog flor with graded compression, doppler sonography and color-flow sonography. VESSELS IMAGED: Common Femoral Vein Deep Femoral Vein Greater Saphenous Vein * Femoral Vein Popliteal Vein Small Saphenous Vein * Proximal Calf Veins (* superficial vessels) Right Leg: no evidence of DVT. Rouleaux flow noted Left Leg: no evidence of DVT. Rouleaux flow noted IMPRESSION: No sign of deep vein thrombosis in both legs.
[2020-10-29] MEDS: MELATONIN 5 MG TABLET PO SCH (22:09)
[2020-10-29] MEDS: BENZONATATE 100 MG CAP PO PRN (22:09)
[2020-10-29] MEDS: ENOXAPARIN 40 MG/0.4 ML SYRINGE SQ SCH (22:09)
[2020-10-30] MEDS ORDERED: ALBUTEROL HFA INHALER INHALATION PRN (02:39)
[2020-10-30] MEDS: SODIUM CHLORIDE 0.9% 1,000 ML IV SCH (05:58)
[2020-10-30] MEDS ORDERED: IPRATROPIUM-ALBUTEROL 3 ML NEB INHALATION SCH (08:00)
[2020-10-30] MEDS: ASCORBIC ACID 500 MG TAB PO SCH (08:19)
[2020-10-30] MEDS: predniSONE 20 MG TAB PO SCH (08:20)
[2020-10-30] MEDS: ENOXAPARIN 40 MG/0.4 ML SYRINGE SQ SCH ×2 (08:20→21:55)
[2020-10-30] MEDS: CHOLECALCIFEROL 400 UNIT TAB PO SCH (08:52)
[2020-10-30 09:30] LABS: HCT 41.6 % (39.0-53.0); MCH 31.6 pg (25.0-35.0); MCHC 33.2 g/dL (31.0-37.0); MCV 95.1 fL (80.0-100.0); Mean Platelet Volume 7.2; Platelet Count 232 k/uL (150-450); RBC 4.37 m/uL (4.30-5.90); WBC 6.1 k/uL (3.8-10.6)
[2020-10-30 09:31] LABS: HGB 13.8 gm/dL (13.0-17.5)
[2020-10-30] MEDS: SYMBICORT 160-4.5 MCG INHALER INHALATION SCH ×2 (10:56→20:41)
[2020-10-30] MEDS: ALBUTEROL HFA INHALER INHALATION SCH ×4 (10:56→20:41)
[2020-10-30 11:06] VITALS: BMI 25.0
--- NOTE | 2020-10-30 11:50 | P.PN ---
Subjective Progress Note Date: 10/30/20 Patient is feeling about the same today. His shortness of breath is not improving. He said that he is having hard time moving air in and out. Objective - Vital Signs Vital signs: Vital Signs Temp 97.9 F 10/30/20 11:00 Pulse 69 10/30/20 11:00 Resp 17 10/30/20 11:00 BP 122/71 10/30/20 11:00 Pulse Ox 97 10/30/20 11:00 Intake & Output 10/29/20 10/30/20 10/30/20 18:59 06:59 18:59 Weight 74.843 kg 74.843 kg 74.843 kg Other: # Voids 3 # Bowel Movements 1 - Exam General: The patient is awake and alert, in no distress Eye: there is normal conjunctiva bilaterally. Neck: The neck is supple, there is no JVD. Cardiovascular: Normal S1-S2, no S3-S4, no murmurs. Respiratory: Lungs are diminished Gastrointestinal: Abdomen is soft, nontender Musculoskeletal: There is no pedal edema. Neurological:. Speech is normal. Skin: Skin is warm and dry - Labs CBC & Chem 7: 10/30/20 08:19 10/29/20 15:19 Labs: Abnormal Lab Results - Last 24 Hours (Table) 10/29/20 10/29/20 10/29/20 Range/Units 15:19 15:19 15:19 WBC 10.8 H (3.8-10.6) k/uL Hct 53.8 H (39.0-53.0) % Neutrophils # (Manual) 9.90 H (1.3-7.7) k/uL Lymphocytes # (Manual) 0.22 L (1.0-4.8) k/uL Metamyelocytes # (Man) 0.11 H (0) k/uL PT 12.1 H (9.0-12.0) sec INR 1.2 H (<1.2) APTT 21.5 L (22.0-30.0) sec D-Dimer (<0.60) mg/L FEU Sodium 130 L (137-145) mmol/L Potassium 5.2 H (3.5-5.1) mmol/L Chloride 97 L (98-107) mmol/L Glucose 179 H (74-99) mg/dL POC Glucose (mg/dL) (75-99) mg/dL Plasma Lactic Acid Alexis (0.7-2.0) mmol/L Total Bilirubin 1.6 H (0.2-1.3) mg/dL Lactate Dehydrogenase (313-618) U/L Total Protein 6.0 L (6.3-8.2) g/dL Albumin 3.3 L (3.5-5.0) g/dL Urine Ketones (Negative) Coronavirus (PCR) (Not Detectd) 10/29/20 10/29/20 10/29/20 Range/Units 15:19 15:19 15:19 WBC (3.8-10.6) k/uL Hct (39.0-53.0) % Neutrophils # (Manual) (1.3-7.7) k/uL Lymphocytes # (Manual) (1.0-4.8) k/uL Metamyelocytes # (Man) (0) k/uL PT (9.0-12.0) sec INR (<1.2) APTT (22.0-30.0) sec D-Dimer 11.53 H (<0.60) mg/L FEU Sodium (137-145) mmol/L Potassium (3.5-5.1) mmol/L Chloride (98-107) mmol/L Glucose (74-99) mg/dL POC Glucose (mg/dL) 172 H (75-99) mg/dL Plasma Lactic Acid Alexis 2.4 H* (0.7-2.0) mmol/L Total Bilirubin (0.2-1.3) mg/dL Lactate Dehydrogenase (313-618) U/L Total Protein (6.3-8.2) g/dL Albumin (3.5-5.0) g/dL Urine Ketones (Negative) Coronavirus (PCR) (Not Detectd) 10/29/20 10/29/20 10/29/20 Range/Units 15:19 17:08 19:11 WBC (3.8-10.6) k/uL Hct (39.0-53.0) % Neutrophils # (Manual) (1.3-7.7) k/uL Lymphocytes # (Manual) (1.0-4.8) k/uL Metamyelocytes # (Man) (0) k/uL PT (9.0-12.0) sec INR (<1.2) APTT (22.0-30.0) sec D-Dimer (<0.60) mg/L FEU Sodium (137-145) mmol/L Potassium (3.5-5.1) mmol/L Chloride (98-107) mmol/L Glucose (74-99) mg/dL POC Glucose (mg/dL) (75-99) mg/dL Plasma Lactic Acid Alexis (0.7-2.0) mmol/L Total Bilirubin (0.2-1.3) mg/dL Lactate Dehydrogenase 1482 H (313-618) U/L Total Protein (6.3-8.2) g/dL Albumin (3.5-5.0) g/dL Urine Ketones Trace H (Negative) Coronavirus (PCR) Detected A (Not Detectd) Assessment and Plan Assessment: The patient is a 75-year-old male with a PMH of COPD, recently diagnosed COVID- 19 with hospitalizations (dx 08/04), and hypertension who presents to the emergency room with complaints of fatigue, ongoing shortness of breath, and just not feeling like himself. The patient was recently admitted to the hospital on 08/14 for bilateral pneumonia and COPD exacerbation and was discharged home with oral 7 day course of Levaquin. He reports a chronic cough productive of white phlegm, unchanged from prior. Patient was evaluated in the ER and Chest CTA revealed no evidence of PE with bilateral patchy basilar atelectasis and pneumonia unchanged from prior. EKG revealed sinus tachycardia. Brain CT was unremarkable. The patient was given a dose of vancomycin and Levaquin and admitted to the hospital for further man agement Assessment and Plan Plan: SOB, suspected multifactorial with acute COPD exacerbation and possible on-going COVID-19 pneumonia (significantly elevated D-dimer) -Check Ferritin and LDH levels -CTA negative for PE. LE duplex negative -Oral Prednisone 40 mg daily -Pulmonary consult -Supplemental oxygen -Albuterol inhaler round the clock and Symbicort twice daily -Hold off on Abxs for now -Lovenox daily -PT consult -C/w Vit C, D, Zinc, and Melatonin Hypochloremic hyponatremia -Likely due to poor oral intake -Received IV fluid awaiting repeat level Lactic acidosis -Resolved HTN -Hold antihypertensives in setting of borderline BP DVT prophylaxis -Lovenox The patient is admitted with an anticipated greater than 2 midnight stay for evaluation of SOB CODE STATUS: Full Code Discussed with: Patient Anticipated discharge date: Pending clinical course Anticipated discharge place: Home 25 minutes was spent on the care of this patient more than 50% of the time was spent in counseling and care coordination.
[2020-10-30 12:35] LABS: African American GFR (CKD) 108.5 (60.0-200.0); Anion Gap 6.1 mmol/L (4.00-12.00); BUN/Creat Ratio 21.43 Ratio (12.00-20.00); Carbon Dioxide 29.9 mmol/L (21.6-31.8); Non-African American GFR(CKD) 93.6 (60.0-200.0); Potassium 5.4 mmol/L (3.5-5.5)
[2020-10-30] MEDS ORDERED: LORazepam 0.5 MG TAB PO STA (12:39)
--- NOTE | 2020-10-30 13:48 | P.CNPUL ---
History of Present Illness Consult date: 10/30/20 Requesting physician: Kendell Heath Reason for consult: COPD, abnormal CXR/CT Chief complaint: Shortness of breath History of present illness: This is a pleasant 75-year-old gentleman who follows with Dr. Jamari cramer as his primary care provider. He has a history of B-cell non-Hodgkin's lymphoma following with Dr. Garcia, prostate cancer status post surgery and radiation, multiple orthopedic surgeries, former smoker and a history of COPD with an FEV1 value of 49% of predicted, oxygen dependent. He follows in our office for the same. He had multiple admissions for COPD exacerbations. Recent bronchoscopy with BAL. He was also diagnosed with CoVID 19 at the end of September 2020 and had received Remdesivir. Most recent discharge 10/14/2020. He presented here again yesterday with complaints of increasing shortness of breath cough and congestion. His family has also noted him to have some slow speech and disorganized thinking. Altered mental status. CT scan of the brain revealed cerebral atrophy and chronic small vessel ischemia. No acute intracranial abnormalities. Chest x-ray shows bilateral lower lobe pneumonia and pleural reaction, some chronicity compared to previous. CT angiogram ruled out pulmonary embolism. There is continued bilateral patchy pneumonia and atel ectasis of both lower lungs unchanged compared to recent CAT scan on 10/14/2020. 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 LDH 1482. D-dimer 11.53. Dopplers of the lower extremities were negative for DVT. White count 6.1. Hemoglobin 13.8. Sodium 140. Potassium 5.4. Creatinine 0.7. Glucose 192. He is seen today in consultation on the regular medical floor. He is currently sitting up at the bedside having lunch. Awake and alert in no acute distress. Oriented 3. Maintaining O2 saturations in the upper 90s on 2 L/m per nasal cannula. Somewhat bronchospastic and wheezy. He's been afebrile. Hemodynamically stable. Appears anxious at times. He has been initiated on Symbicort, Ventolin, pr ednisone, Lovenox. Review of Systems REVIEW OF SYSTEMS: CONSTITUTIONAL: Denies any recent significant weight loss or weight gain. EYES: Denies change in vision. EARS, NOSE, MOUTH, THROAT: Denies headaches, denies sore throat. CARDIOVASCULAR: Denies chest pain, palpitations or syncopal episodes. RESPIRATORY: Positive for shortness of breath, cough, congestion no hemoptysis. GASTROINTESTINAL: Denies change in appetite, denies abdominal pain GENITOURINARY: Denies hematuria, denies infections. MUSKULOSKELETAL: Denies pain, denies swelling. INTEGUMENTARY: Denies rash, denies eczema. NEUROLOGICAL: Denies recent memory loss, no recent seizure activity. PSYCHIATRIC: Positive for anxiety, denies depression. HEMATOLOGIC/LYMPHATIC: Denies anemia, denies enlarged lymph nodes. Past Medical History Past Medical History: Cancer, COPD Additional Past Medical History / Comment(s): HX PROSTATE CANCER WITH SURGERY & RADIATION (2006), KIDNEY STONES. lymphoma, O2 dependent History of Any Multi-Drug Resistant Organisms: None Reported Past Surgical History: Joint Replacement, Orthopedic Surgery, Prostate Surgery Additional Past Surgical History / Comment(s): BRAIN SURGERY TO RELIEVE PRESSURE AFTER HEAD INJURY (6 YRS OLD), TOTAL LEFT KNEE, LEFT SHOULDER SURGERY, LEFT ARM SURGERY AFTER CRUSHING INJURY. Chest tube for pneumothorax. Lithotripsy. Prostatectomy secondary to prostate cancer. Past Anesthesia/Blood Transfusion Reactions: Motion Sickness Additional Past Anesthesia/Blood Transfusion Reaction / Comment(s): SLOW TO WAKE UP Past Psychological History: No Psychological Hx Reported Smoking Status: Former smoker Past Alcohol Use History: None Reported Past Drug Use History: None Reported - Past Family History Mother History Unknown: Yes Family Medical History: No Reported History Additional Family Medical History / Comment(s): Pt was adopted and does not know natural mother's medical hx: Father Family Medical History: COPD Additional Family Medical History / Comment(s): Pt was adopted and does not know much of his natural fathers medical hx Medications and Allergies Home Medications Medication Instructions Recorded Confirmed Type Budesonide/Formoterol Fumarate 2 puff INHALATION RT-BID 08/12/19 10/29/20 History [Symbicort 160-4.5 Mcg Inhaler] Albuterol Nebulized [Ventolin 2.5 mg INHALATION RT-Q6H PRN 09/18/20 10/29/20 History Nebulized] Albuterol Sulfate [Ventolin HFA] 2 puff INHALATION RT-Q4H PRN 09/18/20 10/29/20 History Ascorbic Acid [Vitamin C] 1,000 mg PO DAILY #10 tab 10/08/20 10/29/20 Rx Benzonatate [Tessalon Perles] 100 mg PO TID PRN #30 cap 10/08/20 10/29/20 Rx Cholecalciferol [Vitamin D3] 400 unit PO DAILY #10 tab 10/08/20 10/29/20 Rx Melatonin 5 mg PO HS #10 tablet 10/08/20 10/29/20 Rx guaiFENesin [Mucinex] 600 mg PO Q12HR #0 tablet.er 10/08/20 10/29/20 Rx amLODIPine [Norvasc] 2.5 mg PO DAILY #30 tab 10/17/20 10/29/20 Rx LORazepam [Ativan] 0.5 mg PO BID 10/29/20 10/29/20 History predniSONE See Taper PO DAILY 10/29/20 10/29/20 History Allergies Allergy/AdvReac Type Severity Reaction Status Date / Time Penicillins Allergy Unknown Rash/Hives Verified 10/29/20 18:33 Physical Exam Vitals: Vital Signs Temp Pulse Pulse Resp BP BP Pulse Ox 10/30/20 11:00 97.9 F 69 17 122/71 97 10/30/20 04:02 97.4 F L 74 18 113/74 93 L 10/29/20 20:30 97.6 F 87 20 105/56 90 L 10/29/20 20:12 97.8 F 98 19 111/71 92 L 10/29/20 19:19 97.8 F 96 19 106/63 92 L 10/29/20 19:00 98 20 108/87 93 L 10/29/20 18:00 18 93 L 10/29/20 17:00 20 93 L 10/29/20 16:00 103 H 20 105/64 93 L 10/29/20 15:56 103 H 20 105/64 93 L 10/29/20 14:53 99.5 F 134 H 24 128/70 87 L Intake and Output 10/29/20 10/30/20 10/30/20 22:59 06:59 14:59 Other: # Voids 3 # Bowel Movements 1 Weight 74.843 kg 74.843 kg GENERAL EXAM: Alert, active, pleasant 75-year-old gentleman, on 2 L nasal cannula, comfortable in no apparent distress. HEAD: Normocephalic. EYES: Normal reaction of pupils, equal size. NOSE: Clear with pink turbinates. THROAT: No erythema or exudates. NECK: No masses, no JVD. CHEST: No chest wall deformity. LUNGS: Equal air entry with end expiratory wheeze, few scattered rhonchi, diminished. CVS: S1 and S2 normal with no audible murmur, regular rhythm. ABDOMEN: No hepatosplenomegaly, normal bowel sounds, no guarding or rigidity. SPINE: No scoliosis or deformity SKIN: No rashes CENTRAL NERVOUS SYSTEM: No focal deficits, tone is normal in all 4 extremities. EXTREMITIES: There is no peripheral edema. No clubbing, no cyanosis. Peripheral pulses are intact. Results - Laboratory Findings CBC and BMP: 10/30/20 08:19 10/30/20 08:19 PT/INR, D-dimer PT 12.1 sec (9.0-12.0) H 10/29/20 15:19 INR 1.2 (<1.2) H 10/29/20 15:19 D-Dimer 11.53 mg/L FEU (<0.60) H 10/29/20 15:19 Abnormal lab findings: Abnormal Labs 10/29/20 10/29/20 10/29/20 15:19 15:19 15:19 WBC 10.8 H Hct 53.8 H Neutrophils # (Manual) 9.90 H Lymphocytes # (Manual) 0.22 L Metamyelocytes # (Man) 0.11 H PT 12.1 H INR 1.2 H APTT 21.5 L D-Dimer Sodium 130 L Potassium 5.2 H Chloride 97 L BUN/Creatinine Ratio Glucose 179 H POC Glucose (mg/dL) Plasma Lactic Acid Alexis Calcium Total Bilirubin 1.6 H Lactate Dehydrogenase Total Protein 6.0 L Albumin 3.3 L Urine Ketones Coronavirus (PCR) 10/29/20 10/29/20 10/29/20 15:19 15:19 15:19 WBC Hct Neutrophils # (Manual) Lymphocytes # (Manual) Metamyelocytes # (Man) PT INR APTT D-Dimer 11.53 H Sodium Potassium Chloride BUN/Creatinine Ratio Glucose POC Glucose (mg/dL) 172 H Plasma Lactic Acid Alexis 2.4 H* Calcium Total Bilirubin Lactate Dehydrogenase Total Protein Albumin Urine Ketones Coronavirus (PCR) 10/29/20 10/29/20 10/29/20 15:19 17:08 19:11 WBC Hct Neutrophils # (Manual) Lymphocytes # (Manual) Metamyelocytes # (Man) PT INR APTT D-Dimer Sodium Potassium Chloride BUN/Creatinine Ratio Glucose POC Glucose (mg/dL) Plasma Lactic Acid Alexis Calcium Total Bilirubin Lactate Dehydrogenase 1482 H Total Protein Albumin Urine Ketones Trace H Coronavirus (PCR) Detected A 10/30/20 08:19 WBC Hct Neutrophils # (Manual) Lymphocytes # (Manual) Metamyelocytes # (Man) PT INR APTT D-Dimer Sodium Potassium Chloride BUN/Creatinine Ratio 21.43 H Glucose 192 H POC Glucose (mg/dL) Plasma Lactic Acid Alexis Calcium 8.0 L Total Bilirubin Lactate Dehydrogenase Total Protein Albumin Urine Ketones Coronavirus (PCR) - Diagnostic Findings Chest x-ray: image reviewed CT scan - chest: image reviewed Assessment and Plan Assessment: 1 Acute on chronic hypoxic respiratory failure secondary to an acute exacerbation of chronic obstructive pulmonary disease secondary to possible padmini y versus chronic changes 2 Recent admission for CoVID 19 pneumonitis, PCR still positive 3 Elevated d-dimer secondary to above, CT angiogram ruled out pulmonary embolism, venous Dopplers ruled out DVT, on Lovenox 4 Altered mental status suspect secondary to hypoxia versus early dementia 5 Non-Hodgkin's lymphoma 6 History of prostate cancer status post surgery and radiation 7 Former smoker 8 Anxiety Plan: The patient was seen and evaluated by Dr. Matthews Chest x-ray, labs, CAT scan all reviewed We'll initiate empiric antibiotics in the form of ceftriaxone and azithromycin Continue Lovenox, prednisone, Symbicort, albuterol Continue vitamin supplements Follow-up chest x-ray in a.m. We will continue to follow and make further recommendations based on his clinical status I, the cosigning physician, performed a history & physical examination of the patient. Lungs sounds with bilateral end expiratory wheeze, few scattered rhonchi, diminished Maintaining good O2 saturations in the 90s on 2 L/m per nasal cannula. I discussed the assessment and plan of care with my nurse practitioner, Ally Mendieta. I attest to the above consultation as dictated by her. Time with Patient: Greater than 30
[2020-10-30] MEDS: AZITHROMYCIN 500 MG TAB PO SCH (14:31)
[2020-10-30] MEDS: LORazepam 0.5 MG TAB PO SCH (21:55)
[2020-10-30] MEDS: MELATONIN 5 MG TABLET PO SCH (21:55)
[2020-10-30] MEDS: BENZONATATE 100 MG CAP PO PRN (21:55)
[2020-10-31] MEDS: CHOLECALCIFEROL 400 UNIT TAB PO SCH (08:05)
[2020-10-31] MEDS: LORazepam 0.5 MG TAB PO SCH ×2 (08:05→21:15)
[2020-10-31] MEDS: ASCORBIC ACID 500 MG TAB PO SCH (08:05)
[2020-10-31] MEDS: ENOXAPARIN 40 MG/0.4 ML SYRINGE SQ SCH ×2 (08:05→21:15)
[2020-10-31] MEDS: predniSONE 20 MG TAB PO SCH (08:06)
[2020-10-31] MEDS: SYMBICORT 160-4.5 MCG INHALER INHALATION SCH ×2 (08:48→20:39)
[2020-10-31] MEDS: ALBUTEROL HFA INHALER INHALATION SCH ×4 (08:48→20:39)
[2020-10-31] MEDS ORDERED: ENOXAPARIN 40 MG/0.4 ML SYRINGE SQ SCH (09:00)
[2020-10-31 10:49] LABS: African American GFR (CKD) 108.5 (60.0-200.0); Non-African American GFR(CKD) 93.6 (60.0-200.0)
[2020-10-31] MEDS: AZITHROMYCIN 500 MG TAB PO SCH (12:08)
[2020-10-31] MEDS: BENZONATATE 100 MG CAP PO PRN ×2 (12:08→21:52)
--- NOTE | 2020-10-31 13:11 | P.PN ---
Subjective Progress Note Date: 10/31/20 Patient reports having an episode of severe shortness of breath this morning. He admits that anxiety is big part of the reason why he is having O's episodes. He is currently comfortable and his shortness of breath is at baseline. His oxygen requirement are at baseline. Objective - Vital Signs Vital signs: Vital Signs Temp 99.3 F 10/31/20 10:33 Pulse 112 H 10/31/20 10:33 Resp 18 10/31/20 10:33 BP 112/55 10/31/20 10:33 Pulse Ox 91 L 10/31/20 10:33 Intake & Output 10/30/20 10/31/20 10/31/20 18:59 06:59 18:59 Intake Total 600 Balance 600 Weight 74.843 kg Intake: Oral 600 Other: # Voids 3 - Exam General: The patient is awake and alert, in no distress Eye: there is normal conjunctiva bilaterally. Neck: The neck is supple, there is no JVD. Cardiovascular: Normal S1-S2, no S3-S4, no murmurs. Respiratory: Lungs are diminished Gastrointestinal: Abdomen is soft, nontender Musculoskeletal: There is no pedal edema. Neurological:. Speech is normal. Skin: Skin is warm and dry - Labs CBC & Chem 7: 10/30/20 08:19 10/31/20 05:37 Labs: Abnormal Lab Results - Last 24 Hours (Table) 10/29/20 Range/Units 15:19 Ferritin 2700.0 H (22.0-322.0) ng/mL Assessment and Plan Assessment: The patient is a 75-year-old male with a PMH of COPD, recently diagnosed COVID- 19 with hospitalizations (dx 08/04), and hypertension who presents to the emergency room with complaints of fatigue, ongoing shortness of breath, and just not feeling like himself. The patient was recently admitted to the hospital on 08/14 for bilateral pneumonia and COPD exacerbation and was discharged home with oral 7 day course of Levaquin. He reports a chronic cough productive of white phlegm, unchanged from prior. Patient was evaluated in the ER and Chest CTA revealed no evidence of PE with bilateral patchy basilar atelectasis and pneumonia unchanged from prior. EKG revealed sinus tachycardia. Brain CT was unremarkable. The patient was given a dose of vancomycin and Levaquin and admitted to the hospital for further management Assessment and Plan Plan: SOB, suspected multifactorial with acute COPD exacerbation and possible on-going COVID-19 pneumonia (significantly elevated D-dimer) -Ferritin and LDH levels higher than last admission. Repeat ordered today. -CTA negative for PE. LE duplex negative -Oral Prednisone 40 mg daily -Pulmonary consult, appreciate recommendations -Supplemental oxygen -Albuterol inhaler round the clock and Symbicort twice daily - antibiotic with ceftriaxone and azithromycin ordered by pulmonology-Lovenox daily -PT consult -C/w Vit C, D, Zinc, and Melatonin Hypochloremic hyponatremia -Resolved with IV fluid hydration Lactic acidosis -Resolved HTN -Home meds On hold since admission in setting of borderline BP DVT prophylaxis -Lovenox
--- NOTE | 2020-10-31 13:13 | P.PN ---
Progress Note - Text Progress Note Date: 10/31/20 Today, I had a prolonged discussion with the patient's and his , Aminata, that I called separately over the phone. We discussed his current medical condition. We also discussed the severity of his underlying lung disease. Patient had a lot of questions that I answered to his satisfaction. We also discussed goals of care and CODE STATUS. Patient informed me that he would like to be DO NOT RESUSCITATE/DO NOT INTUBATE and his Aminata was agreeable. We also discussed comfort care/hospice this may be something to consider down the road if no symptomatic improvement after the patient recovered from Covid19 ongoing infection. Time spent >16 minutes
--- NOTE | 2020-10-31 14:06 | P.PN ---
Subjective Progress Note Date: 10/31/20 Principal diagnosis: Acute on chronic hypoxic referral failure secondary to acute exacerbation of COPD and recent covid 19 pneumonitis. This is a pleasant 75-year-old gentleman who follows with Dr. Jamari cramer as his primary care provider. He has a history of B-cell non-Hodgkin's lymphoma following with Dr. Garcia, prostate cancer status post surgery and radiation, multiple orthopedic surgeries, former smoker and a history of COPD with an FEV1 value of 49% of predicted, oxygen dependent. He follows in our office for the same. He had multiple admissions for COPD exacerbations. Recent bronchoscopy with BAL. He was also diagnosed with CoVID 19 at the end of September 2020 and h ad received Remdesivir. Most recent discharge 10/14/2020. He presented here again yesterday with complaints of increasing shortness of breath cough and congestion. His family has also noted him to have some slow speech and disorganized thinking. Altered mental status. CT scan of the brain revealed cerebral atrophy and chronic small vessel ischemia. No acute intracranial abnormalities. Chest x-ray shows bilateral lower lobe pneumonia and pleural reaction, some chronicity compared to previous. CT angiogram ruled out pulmonary embolism. There is continued bilateral patchy pneumonia and a telectasis of both lower lungs unchanged compared to recent CAT scan on 10/14/2020. 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 LDH 1482. D-dimer 11.53. Dopplers of the lower extremities were negative for DVT. White count 6.1. Hemoglobin 13.8. Sodium 140. Potassium 5.4. Creatinine 0.7. Glucose 192. He is seen today in consultation on the regular medical floor. He is currently sitting up at the bedside having lunch. Awake and alert in no acute distress. Oriented 3. Maintaining O2 saturations in the upper 90s on 2 L/m per nasal cannula. Somewhat bronchospastic and wheezy. He's been afebrile. Hemodynamically stable. Appears anxious at times. He has been initiated on Symbicort, Ventolin, prednisone, Lovenox. Reevaluated today on 10/31/20, patient continues to have multiple complaints, continues to have intermittent episodes of cough wheezing and shortness of breath, especially this morning he woke up with symptoms of cough, cough is productive with yellow phlegm, wheezing, shortness of breath, improved shortly after he received his bronchodilators. Chest x-ray on this admission and CT of the chest showed no evidence of significant change except for bibasilar infiltrates most likely related to his recent infection with Covid 19. CBC is normal basic metabolic profile is normal. His PCR for Doyle virus was positive again on this admission. Objective - Vital Signs Vital signs: Vital Signs Temp 99.3 F 10/31/20 10:33 Pulse 112 H 10/31/20 10:33 Resp 18 10/31/20 10:33 BP 112/55 10/31/20 10:33 Pulse Ox 91 L 10/31/20 10:33 Intake & Output 10/30/20 10/31/20 10/31/20 18:59 06:59 18:59 Intake Total 600 Balance 600 Weight 74.843 kg Intake: Oral 600 Other: # Voids 3 - Exam GENERAL EXAM: Alert, active, pleasant 75-year-old gentleman, on 2 L nasal cannula, comfortable in no apparent distress. HEAD: Normocephalic. Atraumatic. ENT: PERRLA, EOMI, nonicteric sclerae, no neck masses, no JVD, no stridor. CHEST: No chest wall deformity. Her metrical chest expansion. LUNGS: Crackles and rhonchi at the bases more so on forced expiratory maneuver. CVS: S1 and S2 normal with no audible murmur, regular rhythm. ABDOMEN: No hepatosplenomegaly, normal bowel sounds, no guarding or rigidity. SPINE: No scoliosis or deformity SKIN: No rashes CENTRAL NERVOUS SYSTEM: Alert and oriented 3 focal deficits. EXTREMITIES: Clubbing edema or cyanosis. - Labs CBC & Chem 7: 10/30/20 08:19 10/31/20 05:37 Assessment and Plan Assessment: Impression: Acute on chronic hypoxic respiratory failure secondary to acute exacerbation of COPD Recent covid 19 pneumonia, PCR remains positive. CT of the chest showed no evidence of pulmonary embolism. Non-Hodgkin's lymphoma. History of prostate cancer with previous surgery and radiation. Former smoker. History of severe COPD FEV1 is 45%. Generalized anxiety disorder. Recommendation: Continue antibiotics including Rocephin and Zithromax. Continue the Covid 19 cocktail. Continue GI and DVT prophylaxis. Consider discharge planning in the next 24-48 hours. We'll continue to follow. Time with Patient: Less than 30
[2020-10-31] MEDS: MELATONIN 5 MG TABLET PO SCH (21:15)
[2020-11-01] MEDS: SYMBICORT 160-4.5 MCG INHALER INHALATION SCH ×2 (07:59→21:34)
[2020-11-01] MEDS: ALBUTEROL HFA INHALER INHALATION SCH ×4 (07:59→21:33)
[2020-11-01] MEDS: ASCORBIC ACID 500 MG TAB PO SCH (08:05)
[2020-11-01] MEDS: LORazepam 0.5 MG TAB PO SCH ×2 (08:05→20:22)
[2020-11-01] MEDS: ENOXAPARIN 40 MG/0.4 ML SYRINGE SQ SCH ×2 (08:05→20:22)
[2020-11-01] MEDS: CHOLECALCIFEROL 400 UNIT TAB PO SCH (08:05)
[2020-11-01] MEDS: predniSONE 20 MG TAB PO SCH (08:07)
[2020-11-01] MEDS ORDERED: LORazepam 0.5 MG TAB PO STA (10:12)
[2020-11-01 10:16] LABS: Glucose,Whole Blood 182 mg/dL (75-99)
--- NOTE | 2020-11-01 10:38 | XR ---
EXAMINATION TYPE: XR chest 1V DATE OF EXAM: 11/01/2020 COMPARISON: 10/29/2020 HISTORY: Ataxia TECHNIQUE: Single frontal view of the chest is obtained. FINDINGS: Bilateral lower lobe infiltrate and small right effusion. Hyperinflation. Heart size isela l. No pneumothorax. Arthropathy of the shoulders. IMPRESSION: 1. Bilateral lower lobe infiltrate and small right effusion similar to the prior exam correlate for p neumonia superimposed on a background of COPD.
[2020-11-01 10:50] LABS: HCT 41.8 % (39.0-53.0); HGB 13.7 gm/dL (13.0-17.5); MCH 30.5 pg (25.0-35.0); MCHC 32.7 g/dL (31.0-37.0); MCV 93.1 fL (80.0-100.0); Mean Platelet Volume 7.2; Platelet Count 269 k/uL (150-450); RBC 4.49 m/uL (4.30-5.90); RDW 14.3 % (11.5-15.5); WBC 5.6 k/uL (3.8-10.6)
[2020-11-01 11:08] LABS: African American GFR (CKD) >90 (>60 ml/min/1.73 sqM); Anion Gap 5 mmol/L; Blood Urea Nitrogen 11 mg/dL (9-20); Calcium 8.1 mg/dL (8.4-10.2); Carbon Dioxide 30 mmol/L (22-30); Chloride 96 mmol/L (98-107); Glucose 186 mg/dL (74-99); Non-African American GFR(CKD) >90 (>60 ml/min/1.73 sqM); Potassium 3.9 mmol/L (3.5-5.1); Sodium 131 mmol/L (137-145)
[2020-11-01 11:19] LABS: Band Neutrophils % 3 %; Lymphocytes # (M) 0.06 k/uL (1.0-4.8); Monocytes # (M) 0.39 k/uL (0-1.0); Neutrophils % (M) 89 %; Nucleated Red Blood Cells 0 /100 WBC (0-0); Total Cells Counted 100
[2020-11-01 12:04] LABS: Ferritin 1344.7 ng/mL (22.0-322.0)
[2020-11-01] MEDS: AZITHROMYCIN 500 MG TAB PO SCH (12:42)
--- NOTE | 2020-11-01 13:08 | P.PN ---
Subjective Progress Note Date: 11/01/20 Patient is complaining of severe shortness of breath today. His oxygen requirement increased and he is currently on 6 L of oxygen. He reported that he is not comfortable going home. His lungs are still diminished and unchanged compared to yesterday. Objective - Vital Signs Vital signs: Vital Signs Temp 99.2 F 11/01/20 10:10 Pulse 127 H 11/01/20 10:10 Resp 24 11/01/20 10:10 BP 119/60 11/01/20 10:10 Pulse Ox 91 L 11/01/20 10:10 Intake & Output 10/31/20 11/01/20 11/01/20 18:59 06:59 18:59 Other: # Voids 2 - Exam General: The patient is awake and alert, in no distress Eye: there is normal conjunctiva bilaterally. Neck: The neck is supple, there is no JVD. Cardiovascular: Normal S1-S2, no S3-S4, no murmurs. Respiratory: Lungs are diminished Gastrointestinal: Abdomen is soft, nontender Musculoskeletal: There is no pedal edema. Neurological:. Speech is normal. Skin: Skin is warm and dry - Labs CBC & Chem 7: 11/01/20 10:33 11/01/20 10:33 Labs: Abnormal Lab Results - Last 24 Hours (Table) 11/01/20 11/01/20 11/01/20 Range/Units 06:21 10:05 10:33 Lymphocytes # (Manual) 0.06 L (1.0-4.8) k/uL Sodium (137-145) mmol/L Chloride (98-107) mmol/L Creatinine (0.66-1.25) mg/dL Glucose (74-99) mg/dL POC Glucose (mg/dL) 182 H (75-99) mg/dL Calcium (8.4-10.2) mg/dL Ferritin 1344.7 H (22.0-322.0) ng/mL Lactate Dehydrogenase 263 H (120-246) U/L 11/01/20 Range/Units 10:33 Lymphocytes # (Manual) (1.0-4.8) k/uL Sodium 131 L (137-145) mmol/L Chloride 96 L (98-107) mmol/L Creatinine 0.64 L (0.66-1.25) mg/dL Glucose 186 H (74-99) mg/dL POC Glucose (mg/dL) (75-99) mg/dL Calcium 8.1 L (8.4-10.2) mg/dL Ferritin (22.0-322.0) ng/mL Lactate Dehydrogenase (120-246) U/L Assessment and Plan Assessment: The patient is a 75-year-old male with a PMH of COPD, recently diagnosed COVID- 19 with hospitalizations (dx 08/04), and hypertension who presents to the emergency room with complaints of fatigue, ongoing shortness of breath, and just not feeling like himself. The patient was recently admitted to the hospital on 08/14 for bilateral pneumonia and COPD exacerbation and was discharged home with oral 7 day course of Levaquin. He reports a chronic cough productive of white phlegm, unchanged from prior. Patient was evaluated in the ER and Chest CTA revealed no evidence of PE with bilateral patchy basilar atelectasis and pneumonia unchanged from prior. EKG revealed sinus tachycardia. Brain CT was unremarkable. The patient was given a dose of vancomycin and Levaquin and admitted to the hospital for further management SOB, suspected multifactorial with acute COPD exacerbation and possible on-going COVID-19 pneumonia (significantly elevated D-dimer) -Ferritin and LDH levels higher than last admission. Repeat trending down -CTA negative for PE. LE duplex negative -Oral Prednisone 40 mg daily -Pulmonary consult, appreciate recommendations -Supplemental oxygen -Albuterol inhaler round the clock and Symbicort twice daily antibiotic with ceftriaxone and azithromycin ordered by pulmonology -Lovenox daily -PT consult -C/w Vit C, D, Zinc, and Melatonin Hypochloremic hyponatremia -Resolved with IV fluid hydration Lactic acidosis -Resolved HTN -Home meds On hold since admission in setting of borderline BP DVT prophylaxis -Lovenox CODE STATUS DO NOT RESUSCITATE/DO NOT INTUBATE Consult hospice for informative meeting. Consider palliative care/comfort.
--- NOTE | 2020-11-01 14:06 | P.PN ---
Subjective Progress Note Date: 11/01/20 Principal diagnosis: Acute on chronic hypoxic referral failure secondary to acute exacerbation of COPD and recent covid 19 pneumonitis. This is a pleasant 75-year-old gentleman who follows with Dr. Jamari cramer as his primary care provider. He has a history of B-cell non-Hodgkin's lymphoma following with Dr. Garcia, prostate cancer status post surgery and radiation, multiple orthopedic surgeries, former smoker and a history of COPD with an FEV1 value of 49% of predicted, oxygen dependent. He follows in our office for the same. He had multiple admissions for COPD exacerbations. Recent bronchoscopy with BAL. He was also diagnosed with CoVID 19 at the end of September 2020 and h ad received Remdesivir. Most recent discharge 10/14/2020. He presented here again yesterday with complaints of increasing shortness of breath cough and congestion. His family has also noted him to have some slow speech and disorganized thinking. Altered mental status. CT scan of the brain revealed cerebral atrophy and chronic small vessel ischemia. No acute intracranial abnormalities. Chest x-ray shows bilateral lower lobe pneumonia and pleural reaction, some chronicity compared to previous. CT angiogram ruled out pulmonary embolism. There is continued bilateral patchy pneumonia and a telectasis of both lower lungs unchanged compared to recent CAT scan on 10/14/2020. 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 LDH 1482. D-dimer 11.53. Dopplers of the lower extremities were negative for DVT. White count 6.1. Hemoglobin 13.8. Sodium 140. Potassium 5.4. Creatinine 0.7. Glucose 192. He is seen today in consultation on the regular medical floor. He is currently sitting up at the bedside having lunch. Awake and alert in no acute distress. Oriented 3. Maintaining O2 saturations in the upper 90s on 2 L/m per nasal cannula. Somewhat bronchospastic and wheezy. He's been afebrile. Hemodynamically stable. Appears anxious at times. He has been initiated on Symbicort, Ventolin, prednisone, Lovenox. Reevaluated today on 10/31/20, patient continues to have multiple complaints, continues to have intermittent episodes of cough wheezing and shortness of breath, especially this morning he woke up with symptoms of cough, cough is productive with yellow phlegm, wheezing, shortness of breath, improved shortly after he received his bronchodilators. Chest x-ray on this admission and CT of the chest showed no evidence of significant change except for bibasilar infiltrates most likely related to his recent infection with Covid 19. CBC is normal basic metabolic profile is normal. His PCR for Doyle virus was positive again on this admission. Reevaluated today on 11/01/20, patient is improving from the pulmonary perspective, however he had an episode of lightheadedness today, almost passed out, denies any chest pain, no palpitations, no cough no wheezing no fever no chills no hemoptysis. Patient was evaluated by the admitting physician for his lightheadedness, I believe the patient may be dehydrated, will probably benefit from more hydration, in the meantime continue the treatment for Covid 19 pneumonitis. And for COPD exacerbation Objective - Vital Signs Vital signs: Vital Signs Temp 99.2 F 11/01/20 10:10 Pulse 127 H 11/01/20 10:10 Resp 24 11/01/20 10:10 BP 119/60 11/01/20 10:10 Pulse Ox 91 L 11/01/20 10:10 Intake & Output 10/31/20 11/01/20 11/01/20 18:59 06:59 18:59 Other: # Voids 2 - Exam GENERAL EXAM: Alert, active, pleasant 75-year-old gentleman, on 2 L nasal cannula, comfortable in no apparent distress. HEAD: Normocephalic. Atraumatic. ENT: PERRLA, EOMI, nonicteric sclerae, no neck masses, no JVD, no stridor. CHEST: No chest wall deformity. Her metrical chest expansion. LUNGS: Crackles and rhonchi at the bases more so on forced expiratory maneuver. CVS: S1 and S2 normal with no audible murmur, regular rhythm. ABDOMEN: No hepatosplenomegaly, normal bowel sounds, no guarding or rigidity. SPINE: No scoliosis or deformity SKIN: No rashes CENTRAL NERVOUS SYSTEM: Alert and oriented 3 focal deficits. EXTREMITIES: Clubbing edema or cyanosis. - Labs CBC & Chem 7: 11/01/20 10:33 11/01/20 10:33 Labs: Abnormal Lab Results - Last 24 Hours (Table) 11/01/20 11/01/20 11/01/20 Range/Units 06:21 10:05 10:33 Lymphocytes # (Manual) 0.06 L (1.0-4.8) k/uL Sodium (137-145) mmol/L Chloride (98-107) mmol/L Creatinine (0.66-1.25) mg/dL Glucose (74-99) mg/dL POC Glucose (mg/dL) 182 H (75-99) mg/dL Calcium (8.4-10.2) mg/dL Ferritin 1344.7 H (22.0-322.0) ng/mL Lactate Dehydrogenase 263 H (120-246) U/L 11/01/20 Range/Units 10:33 Lymphocytes # (Manual) (1.0-4.8) k/uL Sodium 131 L (137-145) mmol/L Chloride 96 L (98-107) mmol/L Creatinine 0.64 L (0.66-1.25) mg/dL Glucose 186 H (74-99) mg/dL POC Glucose (mg/dL) (75-99) mg/dL Calcium 8.1 L (8.4-10.2) mg/dL Ferritin (22.0-322.0) ng/mL Lactate Dehydrogenase (120-246) U/L Assessment and Plan Assessment: Impression: Acute on chronic hypoxic respiratory failure secondary to acute exacerbation of COPD Recent covid 19 pneumonia, PCR remains positive. CT of the chest showed no evidence of pulmonary embolism. Non-Hodgkin's lymphoma. History of prostate cancer with previous surgery and radiation. Former smoker. History of severe COPD FEV1 is 45%. Generalized anxiety disorder. Lightheadedness, exact etiology is not clear could be secondary to dehydration. Recommendation: Continue IV fluids, hydrate cautiously. Continue antibiotics including Rocephin and Zithromax. Continue the Covid 19 cocktail. Continue GI and DVT prophylaxis. Consider discharge planning in the nex 24 hours We'll continue to follow. Time with Patient: Less than 30
[2020-11-01] MEDS: SODIUM CHLORIDE 0.9% 1,000 ML IV SCH (18:17)
[2020-11-01] MEDS: BENZONATATE 100 MG CAP PO PRN (20:21)
[2020-11-01] MEDS: MELATONIN 5 MG TABLET PO SCH (20:22)
[2020-11-01] MEDS ORDERED: BENZOCAINE/MENTHOL LOZENG 1 EACH LOZENGE MUCOUS MEM PRN (21:26)
[2020-11-02] MEDS: predniSONE 20 MG TAB PO SCH (08:42)
[2020-11-02] MEDS: BENZONATATE 100 MG CAP PO PRN (08:42)
[2020-11-02] MEDS: ASCORBIC ACID 500 MG TAB PO SCH (08:42)
[2020-11-02] MEDS: LORazepam 0.5 MG TAB PO SCH (08:42)
[2020-11-02] MEDS: CHOLECALCIFEROL 400 UNIT TAB PO SCH (08:42)
[2020-11-02] MEDS: ENOXAPARIN 40 MG/0.4 ML SYRINGE SQ SCH (08:42)
[2020-11-02] MEDS: ALBUTEROL HFA INHALER INHALATION SCH ×2 (09:20→12:03)
[2020-11-02] MEDS: SYMBICORT 160-4.5 MCG INHALER INHALATION SCH (09:20)
[2020-11-02 11:46] VITALS: BP 136/78; PULSE 102; RESP 17; TEMP 98.1
[2020-11-02] MEDS: AZITHROMYCIN 500 MG TAB PO SCH (12:35)
[2020-11-02] MEDS: SODIUM CHLORIDE 0.9% 1,000 ML IV SCH (12:36)
--- NOTE | 2020-11-02 13:25 | P.DS ---
Providers Date of admission: 10/29/20 20:58 Expected date of discharge: 11/02/20 Attending physician: Kendell Heath MD Consults: 10/29/20 18:18 Consult Physician Routine Consulting Provider: Azul Loco Consult Reason/Comments: persistent hypoxia Do you want consulting provider notified?: Yes Primary care physician: Nathalie [facility] Course: The patient is a 75-year-old male with a PMH of COPD, recently diagnosed COVID- 19 with hospitalizations (dx 08/04), and hypertension who presents to the emergency room with complaints of fatigue, ongoing shortness of breath, and just not feeling like himself. The patient was recently admitted to the hospital on 08/14 for bilateral pneumonia and COPD exacerbation and was discharged home with oral 7 day course of Levaquin. He reports a chronic cough productive of white phlegm, unchanged from prior. Patient was evaluated in the ER and Chest CTA revealed no evidence of PE with bilateral patchy basilar atelectasis and pneumonia unchanged from prior. EKG revealed sinus tachycardia. Brain CT was unremarkable. The patient was given a dose of vancomycin and Levaquin and admitted to the hospital for further management SOB, suspected multifactorial with acute COPD exacerbation and possible on-going COVID-19 pneumonia (significantly elevated D-dimer) -Ferritin and LDH levels higher than last admission. Repeat trending down -CTA negative for PE. LE duplex negative -Oral Prednisone 40 mg daily with plan for slow taper course prednisone -Pulmonary consult, appreciate recommendations -Supplemental oxygen -Albuterol inhaler round the clock and Symbicort twice daily antibiotic with ceftriaxone and azithromycin ordered by pulmonology will finish 5 days course of antibiotic with Keflex and azithromycin outpatient -C/w Vit C, D, Zinc, and Melatonin Hypochloremic hyponatremia -Resolved with IV fluid hydration Lactic acidosis -Resolved HTN -Home meds On hold since admission in setting of borderline BP -Discontinue home dose of amlodipine as blood pressure is within acceptable range DVT prophylaxis -Lovenox CODE STATUS DO NOT RESUSCITATE/DO NOT INTUBATE Patient will be discharged home with home health care. He had severe underlying lung disease and will follow-up with Dr. Faye in the office as directed. Palliative care arranged at home as well. Patient Condition at Discharge: Poor Plan - Discharge Summary New Discharge Prescriptions: New Cephalexin [Keflex] 500 mg PO Q8HR 3 Days #9 cap predniSONE 0 mg PO DIRECTED #30 tab Azithromycin [Zithromax] 250 mg PO DAILY 3 Days #3 tab Continue Budesonide/Formoterol Fumarate [Symbicort 160-4.5 Mcg Inhaler] 2 puff INHALATION RT-BID Albuterol Sulfate [Ventolin HFA] 2 puff INHALATION RT-Q4H PRN PRN Reason: Shortness Of Breath Albuterol Nebulized [Ventolin Nebulized] 2.5 mg INHALATION RT-Q6H PRN PRN Reason: Shortness Of Breath Melatonin 5 mg PO HS #10 tablet guaiFENesin [Mucinex] 600 mg PO Q12HR #0 tablet.er Benzonatate [Tessalon Perles] 100 mg PO TID PRN #30 cap PRN Reason: Cough Ascorbic Acid [Vitamin C] 1,000 mg PO DAILY #10 tab Cholecalciferol [Vitamin D3] 400 unit PO DAILY #10 tab LORazepam [Ativan] 0.5 mg PO BID Discontinued amLODIPine [Norvasc] 2.5 mg PO DAILY #30 tab predniSONE See Taper PO DAILY Discharge Medication List Budesonide/Formoterol Fumarate [Symbicort 160-4.5 Mcg Inhaler] 2 puff INHALATION RT-BID 08/12/19 [History] Albuterol Nebulized [Ventolin Nebulized] 2.5 mg INHALATION RT-Q6H PRN 09/18/20 [History] Albuterol Sulfate [Ventolin HFA] 2 puff INHALATION RT-Q4H PRN 09/18/20 [History] Ascorbic Acid [Vitamin C] 1,000 mg PO DAILY #10 tab 10/08/20 [Rx] Benzonatate [Tessalon Perles] 100 mg PO TID PRN #30 cap 10/08/20 [Rx] Cholecalciferol [Vitamin D3] 400 unit PO DAILY #10 tab 10/08/20 [Rx] Melatonin 5 mg PO HS #10 tablet 10/08/20 [Rx] guaiFENesin [Mucinex] 600 mg PO Q12HR #0 tablet.er 10/08/20 [Rx] LORazepam [Ativan] 0.5 mg PO BID 10/29/20 [History] Azithromycin [Zithromax] 250 mg PO DAILY 3 Days #3 tab 12/23/20 [Rx] Cephalexin [Keflex] 500 mg PO Q8HR 3 Days #9 cap 11/02/20 [Rx] predniSONE 0 mg PO DIRECTED #30 tab 11/02/20 [Rx] Follow up Appointment(s)/Referral(s): Nathalie Garzon MD [Primary Care Provider] - 1-2 days Gordon Faye DO [Doctor of Osteopathic Medicine] - 1 Week [facility], [NON-STAFF] - 1-2 Days [facility] [NON-STAFF] - As Needed Discharge Disposition: HOME WITH HOME HEALTH SERVICES
--- NOTE | 2020-11-02 14:13 | P.PN ---
Subjective Progress Note Date: 11/02/20 Principal diagnosis: Acute on chronic hypoxic referral failure secondary to acute exacerbation of COPD and recent covid 19 pneumonitis. This is a pleasant 75-year-old gentleman who follows with Dr. Jamari cramer as his primary care provider. He has a history of B-cell non-Hodgkin's lymphoma following with Dr. Garcia, prostate cancer status post surgery and radiation, multiple orthopedic surgeries, former smoker and a history of COPD with an FEV1 value of 49% of predicted, oxygen dependent. He follows in our office for the same. He had multiple admissions for COPD exacerbations. Recent bronchoscopy with BAL. He was also diagnosed with CoVID 19 at the end of September 2020 and h ad received Remdesivir. Most recent discharge 10/14/2020. He presented here again yesterday with complaints of increasing shortness of breath cough and congestion. His family has also noted him to have some slow speech and disorganized thinking. Altered mental status. CT scan of the brain revealed cerebral atrophy and chronic small vessel ischemia. No acute intracranial abnormalities. Chest x-ray shows bilateral lower lobe pneumonia and pleural reaction, some chronicity compared to previous. CT angiogram ruled out pulmonary embolism. There is continued bilateral patchy pneumonia and a telectasis of both lower lungs unchanged compared to recent CAT scan on 10/14/2020. 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 LDH 1482. D-dimer 11.53. Dopplers of the lower extremities were negative for DVT. White count 6.1. Hemoglobin 13.8. Sodium 140. Potassium 5.4. Creatinine 0.7. Glucose 192. He is seen today in consultation on the regular medical floor. He is currently sitting up at the bedside having lunch. Awake and alert in no acute distress. Oriented 3. Maintaining O2 saturations in the upper 90s on 2 L/m per nasal cannula. Somewhat bronchospastic and wheezy. He's been afebrile. Hemodynamically stable. Appears anxious at times. He has been initiated on Symbicort, Ventolin, prednisone, Lovenox. Reevaluated today on 10/31/20, patient continues to have multiple complaints, continues to have intermittent episodes of cough wheezing and shortness of breath, especially this morning he woke up with symptoms of cough, cough is productive with yellow phlegm, wheezing, shortness of breath, improved shortly after he received his bronchodilators. Chest x-ray on this admission and CT of the chest showed no evidence of significant change except for bibasilar infiltrates most likely related to his recent infection with Covid 19. CBC is normal basic metabolic profile is normal. His PCR for Doyle virus was positive again on this admission. Reevaluated today on 11/01/20, patient is improving from the pulmonary perspective, however he had an episode of lightheadedness today, almost passed out, denies any chest pain, no palpitations, no cough no wheezing no fever no chills no hemoptysis. Patient was evaluated by the admitting physician for his lightheadedness, I believe the patient may be dehydrated, will probably benefit from more hydration, in the meantime continue the treatment for Covid 19 pneumonitis. And for COPD exacerbation Patient was reevaluated today on 11/02/20, patient is sitting at a bedside chair, ready to be discharged home. His discharge summary has been dictated. Patient is doing well, relatively asymptomatic he does have chronic shortness of breath, and intermittent episodes of cough and wheezing. Patient could be discharged home on antibiotics, bronchodilators, and prednisone burst and taper. Advised to follow-up with Dr. Faye in one week Objective - Vital Signs Vital signs: Vital Signs Temp 98.1 F 11/02/20 11:00 Pulse 102 H 11/02/20 11:00 Resp 17 11/02/20 11:00 BP 136/78 11/02/20 11:00 Pulse Ox 93 L 11/02/20 11:00 Intake & Output 11/01/20 11/02/20 11/02/20 18:59 06:59 18:59 Intake Total 590 Balance 590 Intake: Oral 590 Other: # Voids 2 - Exam GENERAL EXAM: Alert, active, pleasant 75-year-old gentleman, on 2 L nasal cannula, comfortable in no apparent distress. HEAD: Normocephalic. Atraumatic. ENT: PERRLA, EOMI, nonicteric sclerae, no neck masses, no JVD, no stridor. CHEST: No chest wall deformity. Her metrical chest expansion. LUNGS: Minimal rhonchi and wheezes bilaterally. CVS: S1 and S2 normal with no audible murmur, regular rhythm. ABDOMEN: No hepatosplenomegaly, normal bowel sounds, no guarding or rigidity. SPINE: No scoliosis or deformity SKIN: No rashes CENTRAL NERVOUS SYSTEM: Alert and oriented 3 focal deficits. EXTREMITIES: Clubbing edema or cyanosis. - Labs CBC & Chem 7: 11/01/20 10:33 11/01/20 10:33 Assessment and Plan Assessment: Impression: Acute on chronic hypoxic respiratory failure secondary to acute exacerbation of COPD Recent covid 19 pneumonia, PCR remains positive. CT of the chest showed no evidence of pulmonary embolism. Non-Hodgkin's lymphoma. History of prostate cancer with previous surgery and radiation. Former smoker. History of severe COPD FEV1 is 45%. Generalized anxiety disorder. Lightheadedness, exact etiology is not clear could be secondary to dehydration. Recommendation: Continue IV fluids, hydrate cautiously. Continue antibiotics, transition to oral antibiotics including Ceftin and Zithromax. Continue the Covid 19 cocktail. Continue GI and DVT prophylaxis. Agree with discharging the patient home today. Follow-up with Dr. Faye in one week. Time with Patient: Less than 30
== END 2020-11-02 14:45 | disposition home health service (06) | DRG 177 ==
LOC: EC 14:52 → 1SOBS 18:29 → 6NMEDSUR 20:02 → OBSVTOIN 20:58
PROVIDERS: ADMIT Internal Medicine; ATTEND Internal Medicine
DX: U07.1 COVID-19 (principal); J96.21 Acute and chronic respiratory failure with hypoxia; J12.89 Other viral pneumonia; J44.0 Chronic obstructive pulmonary disease with (acute) lower respiratory infection; E87.1 Hypo-osmolality and hyponatremia; E87.2 Acidosis; J44.1 Chronic obstructive pulmonary disease with (acute) exacerbation; C85.90 Non-Hodgkin lymphoma, unspecified, unspecified site; I10 Essential (primary) hypertension; Z66 Do not resuscitate; Z51.5 Encounter for palliative care; E87.8 Other disorders of electrolyte and fluid balance, not elsewhere classified; F41.1 Generalized anxiety disorder; E86.0 Dehydration; Z79.899 Other long term (current) drug therapy; Z79.51 Long term (current) use of inhaled steroids; Z88.0 Allergy status to penicillin; Z87.442 Personal history of urinary calculi; Z99.81 Dependence on supplemental oxygen; Z92.3 Personal history of irradiation; Z87.891 Personal history of nicotine dependence; Z85.46 Personal history of malignant neoplasm of prostate; Z82.5 Family history of asthma and other chronic lower respiratory diseases
CPT/HCPCS: 36415; 70450; 71045; 71275; 80048; 80053; 81003; 82140; 82565; 82728; 83605; 83615; 83735; 83880; 84443; 84484; 85025; 85027; 85379; 85610; 85730; 87635; 93005; 93970; 94640; 96361; 96374; 99285

== ENCOUNTER 2020-11-16 11:11 | Inpatient (IN) | payer MEDICARE ==
[2020-11-16] MEDS ORDERED: SODIUM CHLORIDE 0.9% 1,000 ML IV STA (11:24)
--- NOTE | 2020-11-16 11:37 | ED ---
General Adult HPI - General Chief complaint: Shortness of Breath Stated complaint: Fever/Covid+ Time Seen by Provider: 11/16/20 11:22 Source: patient, family Mode of arrival: wheelchair Limitations: physical limitation - History of Present Illness Initial comments: Dictation was produced using [employer] dictation software. please excuse any grammatical, word or spelling errors. This patient was cared for during a federal and state declared state of emergency secondary to Covid 19 Chief Complaint: 75-year-old male past medical history of prostate cancer and COPD presents with dyspnea History of Present Illness: 75-year-old male here arrives to is from his primary care physician's office. Patient's history of prostate cancer, non-Hodgkin's lymphoma and COPD. Patient was sent over for worsening dyspnea over the last couple days. Patient tasted positive for coronavirus one month ago. He was seen in primary care physician's office and was told to come to the emergency department for unstable vitals. Patient had a heart rate in the 120s, fever of 100.2, low blood pressure 75/61. He is 92% on his usual oxygen. Patient states he does not feel terrible over does report some mild dyspnea. The ROS documented in this emergency department record has been reviewed and confirmed by me. Those systems with pertinent positive or negative responses have been documented in the HPI. All other systems are other negative and/or noncontributory. PHYSICAL EXAM: General Impression: Alert and oriented x3, mildly dyspneic with some intercostal retractions HEENT: Normocephalic atraumatic, extra-ocular movements intact, pupils equal and reactive to light bilaterally, mucous membranes moist. Cardiovascular: Heart regular rate and rhythm Chest: Able to complete full sentences, no retractions, no tachypnea Abdomen: abdomen soft, non-tender, non-distended, no organomegaly Musculoskeletal: Pulses present and equal in all extremities, no peripheral edema Motor: no focal deficits noted Neurological: CN II-XII grossly intact, no focal motor or sensory deficits noted Skin: Intact with no visualized rashes Psych: Normal affect and mood ED course: 75-year-old male presents with chief complaint of worsening dyspnea. Patient is positive for coronavirus one month ago.. Signs upon arrival shows temperature 11.8, respiratory rate of 28, 92% on nasal cannula 2 L, respiratory rate of 28. Patient is placed on high flow nasal cannula. Laboratory evaluation obtained. Mild leukocytosis of 10.9, coag panel is unremarkable. D-dimer is 2.31. Metabolic panel shows sodium 132, CRP 164, Doyle virus is positive. Chest x- ray shows bilateral infiltrates. Case is discussed with Dr. Heath. Patient will be admitted. CT angios the chest shows no pulmonary embolism. EKG interpretation: Ventricular rate 117, sinus tachycardia,. Interval 152, QRS 70, QTc 435. No NH prolongation, no QTC prolongation, no ST or T-wave changes n oted. EKG compared to 10/29/2020 showing no changes. Overall, this EKG is unremarkable - Related Data Home Medications Medication Instructions Recorded Confirmed Budesonide/Formoterol Fumarate 2 puff INHALATION RT-BID 08/12/19 11/16/20 [Symbicort 160-4.5 Mcg Inhaler] Albuterol Nebulized [Ventolin 2.5 mg INHALATION RT-Q6H PRN 09/18/20 11/16/20 Nebulized] Albuterol Sulfate [Ventolin HFA] 2 puff INHALATION RT-Q4H PRN 09/18/20 11/16/20 Allergies Allergy/AdvReac Type Severity Reaction Status Date / Time Penicillins Allergy Unknown Rash/Hives Verified 11/16/20 14:00 Review of Systems ROS Statement: Those systems with pertinent positive or pertinent negative responses have been documented in the HPI. ROS Other: All systems not noted in ROS Statement are negative. Past Medical History Past Medical History: Cancer, COPD Additional Past Medical History / Comment(s): HX PROSTATE CANCER WITH SURGERY & RADIATION (2006), KIDNEY STONES. lymphoma, O2 dependent History of Any Multi-Drug Resistant Organisms: None Reported Past Surgical History: Joint Replacement, Orthopedic Surgery, Prostate Surgery Additional Past Surgical History / Comment(s): BRAIN SURGERY TO RELIEVE PRESSURE AFTER HEAD INJURY (6 YRS OLD), TOTAL LEFT KNEE, LEFT SHOULDER SURGERY, LEFT ARM SURGERY AFTER CRUSHING INJURY. Chest tube for pneumothorax. Lithotripsy. Prostatectomy secondary to prostate cancer. Past Anesthesia/Blood Transfusion Reactions: Motion Sickness Additional Past Anesthesia/Blood Transfusion Reaction / Comment(s): SLOW TO WAKE UP Past Psychological History: No Psychological Hx Reported Smoking Status: Former smoker Past Alcohol Use History: None Reported Past Drug Use History: None Reported - Past Family History Mother History Unknown: Yes Family Medical History: No Reported History Additional Family Medical History / Comment(s): Pt was adopted and does not know natural mother's medical hx: Father Family Medical History: COPD Additional Family Medical History / Comment(s): Pt was adopted and does not know much of his natural fathers medical hx General Exam Limitations: physical limitation Course Vital Signs 11/16/20 11/16/20 11/16/20 11:12 11:22 13:11 Temperature 101.8 F H 98.3 F Pulse Rate 78 89 Respiratory 28 H 20 20 Rate Blood Pressure 108/68 106/63 O2 Sat by Pulse 92 L 95 Oximetry Medical Decision Making - Lab Data Result diagrams: 11/16/20 11:42 11/16/20 11:42 Lab Results 11/16/20 11/16/20 11/16/20 Range/Units 11:42 11:42 11:42 WBC 10.9 H (3.8-10.6) k/uL RBC 4.98 (4.30-5.90) m/uL Hgb 15.6 (13.0-17.5) gm/dL Hct 45.8 (39.0-53.0) % MCV 91.9 (80.0-100.0) fL MCH 31.3 (25.0-35.0) pg MCHC 34.1 (31.0-37.0) g/dL RDW 14.3 (11.5-15.5) % Plt Count 316 (150-450) k/uL MPV 6.9 Neutrophils % (Manual) 91 % Band Neuts % (Manual) 2 % Lymphocytes % (Manual) 1 % Monocytes % (Manual) 6 % Neutrophils # (Manual) 10.10 H (1.3-7.7) k/uL Lymphocytes # (Manual) 0.11 L (1.0-4.8) k/uL Monocytes # (Manual) 0.65 (0-1.0) k/uL Nucleated RBCs 0 (0-0) /100 WBC Manual Slide Review Performed RBC Morphology Normal PT 11.2 (9.0-12.0) sec INR 1.1 (<1.2) APTT 21.4 L (22.0-30.0) sec D-Dimer 2.31 H (<0.60) mg/L FEU Sodium 132 L (137-145) mmol/L Potassium 4.7 (3.5-5.1) mmol/L Chloride 97 L (98-107) mmol/L Carbon Dioxide 26 (22-30) mmol/L Anion Gap 9 mmol/L BUN 16 (9-20) mg/dL Creatinine 0.74 (0.66-1.25) mg/dL Est GFR (CKD-EPI)AfAm >90 (>60 ml/min/1.73 sqM) Est GFR (CKD-EPI)NonAf >90 (>60 ml/min/1.73 sqM) Glucose 99 (74-99) mg/dL Plasma Lactic Acid Alexis (0.7-2.0) mmol/L Calcium 8.7 (8.4-10.2) mg/dL Magnesium 2.2 (1.6-2.3) mg/dL Total Bilirubin 1.5 H (0.2-1.3) mg/dL AST 42 (17-59) U/L ALT 38 (4-49) U/L Alkaline Phosphatase 88 (38-126) U/L Troponin I (0.000-0.034) ng/mL C-Reactive Protein 164.0 H (<10.0) mg/L NT-Pro-B Natriuret Pep pg/mL Total Protein 6.3 (6.3-8.2) g/dL Albumin 3.6 (3.5-5.0) g/dL Coronavirus (PCR) (Not Detectd) 11/16/20 11/16/20 11/16/20 Range/Units 11:42 11:42 11:42 WBC (3.8-10.6) k/uL RBC (4.30-5.90) m/uL Hgb (13.0-17.5) gm/dL Hct (39.0-53.0) % MCV (80.0-100.0) fL MCH (25.0-35.0) pg MCHC (31.0-37.0) g/dL RDW (11.5-15.5) % Plt Count (150-450) k/uL MPV Neutrophils % (Manual) % Band Neuts % (Manual) % Lymphocytes % (Manual) % Monocytes % (Manual) % Neutrophils # (Manual) (1.3-7.7) k/uL Lymphocytes # (Manual) (1.0-4.8) k/uL Monocytes # (Manual) (0-1.0) k/uL Nucleated RBCs (0-0) /100 WBC Manual Slide Review RBC Morphology PT (9.0-12.0) sec INR (<1.2) APTT (22.0-30.0) sec D-Dimer (<0.60) mg/L FEU Sodium (137-145) mmol/L Potassium (3.5-5.1) mmol/L Chloride (98-107) mmol/L Carbon Dioxide (22-30) mmol/L Anion Gap mmol/L BUN (9-20) mg/dL Creatinine (0.66-1.25) mg/dL Est GFR (CKD-EPI)AfAm (>60 ml/min/1.73 sqM) Est GFR (CKD-EPI)NonAf (>60 ml/min/1.73 sqM) Glucose (74-99) mg/dL Plasma Lactic Acid Alexis 1.8 (0.7-2.0) mmol/L Calcium (8.4-10.2) mg/dL Magnesium (1.6-2.3) mg/dL Total Bilirubin (0.2-1.3) mg/dL AST (17-59) U/L ALT (4-49) U/L Alkaline Phosphatase (38-126) U/L Troponin I <0.012 (0.000-0.034) ng/mL C-Reactive Protein (<10.0) mg/L NT-Pro-B Natriuret Pep 146 pg/mL Total Protein (6.3-8.2) g/dL Albumin (3.5-5.0) g/dL Coronavirus (PCR) (Not Detectd) 11/16/20 Range/Units 11:42 WBC (3.8-10.6) k/uL RBC (4.30-5.90) m/uL Hgb (13.0-17.5) gm/dL Hct (39.0-53.0) % MCV (80.0-100.0) fL MCH (25.0-35.0) pg MCHC (31.0-37.0) g/dL RDW (11.5-15.5) % Plt Count (150-450) k/uL MPV Neutrophils % (Manual) % Band Neuts % (Manual) % Lymphocytes % (Manual) % Monocytes % (Manual) % Neutrophils # (Manual) (1.3-7.7) k/uL Lymphocytes # (Manual) (1.0-4.8) k/uL Monocytes # (Manual) (0-1.0) k/uL Nucleated RBCs (0-0) /100 WBC Manual Slide Review RBC Morphology PT (9.0-12.0) sec INR (<1.2) APTT (22.0-30.0) sec D-Dimer (<0.60) mg/L FEU Sodium (137-145) mmol/L Potassium (3.5-5.1) mmol/L Chloride (98-107) mmol/L Carbon Dioxide (22-30) mmol/L Anion Gap mmol/L BUN (9-20) mg/dL Creatinine (0.66-1.25) mg/dL Est GFR (CKD-EPI)AfAm (>60 ml/min/1.73 sqM) Est GFR (CKD-EPI)NonAf (>60 ml/min/1.73 sqM) Glucose (74-99) mg/dL Plasma Lactic Acid Alexis (0.7-2.0) mmol/L Calcium (8.4-10.2) mg/dL Magnesium (1.6-2.3) mg/dL Total Bilirubin (0.2-1.3) mg/dL AST (17-59) U/L ALT (4-49) U/L Alkaline Phosphatase (38-126) U/L Troponin I (0.000-0.034) ng/mL C-Reactive Protein (<10.0) mg/L NT-Pro-B Natriuret Pep pg/mL Total Protein (6.3-8.2) g/dL Albumin (3.5-5.0) g/dL Coronavirus (PCR) Detected A (Not Detectd) Disposition Clinical Impression: COVID-19 Disposition: ADMITTED IP TO THIS [facility] Condition: Fair Referrals: Nathalie Garzon MD [Primary Care Provider] - 1-2 days Decision Time: 14:05
[2020-11-16] MEDS ORDERED: ACETAMINOPHEN TAB 500 MG TAB PO STA (11:39)
[2020-11-16 11:48] LABS: HCT 45.8 % (39.0-53.0); HGB 15.6 gm/dL (13.0-17.5); MCH 31.3 pg (25.0-35.0); MCHC 34.1 g/dL (31.0-37.0); MCV 91.9 fL (80.0-100.0); Mean Platelet Volume 6.9; Platelet Count 316 k/uL (150-450); RBC 4.98 m/uL (4.30-5.90); RDW 14.3 % (11.5-15.5); WBC 10.9 k/uL (3.8-10.6)
[2020-11-16 12:00] LABS: ALT 38 U/L (4-49); AST 42 U/L (17-59); African American GFR (CKD) >90 (>60 ml/min/1.73 sqM); Albumin 3.6 g/dL (3.5-5.0); Alkaline Phosphatase 88 U/L (38-126); Anion Gap 9 mmol/L; Blood Urea Nitrogen 16 mg/dL (9-20); Calcium 8.7 mg/dL (8.4-10.2); Carbon Dioxide 26 mmol/L (22-30); Chloride 97 mmol/L (98-107); Glucose 99 mg/dL (74-99); Magnesium 2.2 mg/dL (1.6-2.3); Non-African American GFR(CKD) >90 (>60 ml/min/1.73 sqM); Potassium 4.7 mmol/L (3.5-5.1); Sodium 132 mmol/L (137-145); Total Bilirubin 1.5 mg/dL (0.2-1.3); Total Protein 6.3 g/dL (6.3-8.2)
[2020-11-16 12:07] LABS: Band Neutrophils % 2 %; Lymphocytes # (M) 0.11 k/uL (1.0-4.8); Monocytes # (M) 0.65 k/uL (0-1.0); Neutrophils % (M) 91 %; Nucleated Red Blood Cells 0 /100 WBC (0-0); Total Cells Counted 100
[2020-11-16 12:11] LABS: INR 1.1 (<1.2); Partial Thromboplastin Time 21.4 sec (22.0-30.0); Prothrombin Time 11.2 sec (9.0-12.0)
--- NOTE | 2020-11-16 12:14 | XR ---
EXAMINATION TYPE: XR chest 1V portable DATE OF EXAM: 11/16/2020 COMPARISON: Chest x-ray November 01, 2020. CTA chest October 29, 2020. HISTORY: Fever and cough. TECHNIQUE: 2 AP portable frontal semiupright view of the chest is obtained. FINDINGS: There is chronic emphysematous change with persistent bibasilar opacities. The cardiac si lhouette size is stable and within normal limits. The osseous structures remain demineralized. IMPRESSION: Chronic emphysematous change with persistent bibasilar acute infiltrate and/or atelectas is. No significant change from most recent x-ray.
[2020-11-16 12:33] LABS: D-Dimer 2.31 mg/L FEU (<0.60)
[2020-11-16] MEDS ORDERED: DEXAMETHASONE SOD PHOSPHATE 10 MG/ML 1 ML VIAL IV STA (12:52)
[2020-11-16] MEDS ORDERED: NALOXONE 0.4 MG/ML 1 ML VIAL IV PRN ×2 (13:10→14:42)
[2020-11-16] MEDS ORDERED: ONDANSETRON 4 MG/2 ML VIAL IVP PRN (13:10)
--- NOTE | 2020-11-16 13:56 | CT ---
CT CHEST FOR PULMONARY EMBOLISM. EXAMINATION TYPE: CT angio chest DATE OF EXAM: 11/16/2020 INDICATION: CT DLP: mGycm, Automated exposure control for dose reduction was used. CONTRAST: Patient injected with mL of . COMPARISON: 10/29/2020 TECHNIQUE: CT of the chest is performed on a spiral scan at 2 mm thick sections. Study is performed with intravenous contrast timed for evaluation for pulmonary embolism. This will limit additional po rtions of the evaluation. 3-D MIP images reconstructed by the technologist are reviewed on the compu ter in the coronal and sagittal planes. FINDINGS: No persistent filling defects are evident to suggest an acute pulmonary embolism. No mediastinal or hilar adenopathy enlarged by CT criteria is evident. The ascending aorta diameter at the level of the main pulmonary artery is 3.2 cm. The main pulmonary artery diameter at the bifur cation is 2.9 cm. There is a pleural calcification along the posterior lateral right apex. Some focal pleural thickenin g may be present at that level. There is an irregular density measuring approximately 2.9 x 3.7 cm posterior medial left lung base. T his could be consolidation such as from pneumonia. Underlying mass should be considered. Atelectasis could be considered. Bilateral lung base infiltrates are present suggestive for atelectasis. Some paraseptal emphysematous changes are present. Limited CT section through the upper abdomen are unremarkable. IMPRESSIONS: 1. No acute pulmonary embolism. 2. Masslike area medial left lung base. Atelectasis or infiltrate from pneumonia consolidation could be considered. Mass should be considered. Follow-up is recommended. Lung bases findings were present previously.
[2020-11-16] MEDS ORDERED: ALBUTEROL HFA INHALER INHALATION STA (14:35)
[2020-11-16] MEDS ORDERED: ACETAMINOPHEN TAB 325 MG TAB PO PRN (14:35)
[2020-11-16] MEDS ORDERED: PROCHLORPERAZINE 5 MG TAB PO PRN (14:42)
[2020-11-16] MEDS ORDERED: bisacodyL 5 MG TABLET.DR PO PRN (14:42)
[2020-11-16] MEDS ORDERED: HYDROcodone/APAP 5-325MG 1 EACH TAB PO PRN (14:42)
[2020-11-16] MEDS: SODIUM CHLORIDE 0.9% 1,000 ML IV SCH (14:55)
[2020-11-16 15:06] LABS: Appearance,Urine Clear (Clear); Bilirubin,Urine Negative (Negative); Blood,Urine Negative (Negative); Color,Urine Yellow; Glucose,Urine (UA) Negative (Negative); Ketones,Urine 1+ (Negative); Leukocyte Esterase,Urine Negative (Negative); Nitrite,Urine Negative (Negative); Protein,Urine Negative (Negative); Specific Gravity,Urine 1.045 (1.001-1.035); Urobilinogen,Urine <2.0 mg/dL (<2.0)
[2020-11-16] MEDS ORDERED: LEVOFLOXACIN 750MG-D5W PMX 750 MG in DEXTROSE/WATER 1 150ML.BAG IVPB SCH (15:15)
--- NOTE | 2020-11-16 15:24 | P.HPMEDMHU ---
<Juan Alberto Magaña - Last Filed: 11/16/20 14:10> History of Present Illness H&P Date: 11/16/20 Chief Complaint: Shortness of Breath History of presenting illness Patient is a 75-year-old male with a past medical history of COPD home oxygen dependent on 2 L at all times, non-Hodgkin's lymphoma, and prostate cancer resulting in a prostatectomy in 2006. Patient reports he is currently supposed to be undergoing chemotherapy infusions for his non-Hodgkin's lymphoma, however he tested positive for Covid 19 virus on 10/04/20 and states that his oncologist (Dr. Garcia) stopped treatment at that time. Patient states that upon his diagnosis with Covid 19 virus he was symptomatic for approximately 3 days when he was first diagnosed and his symptoms and then then completely resolved. Pt states that in addition to his bout with COVID over the past 3 months, he has been experiencing a decreased appetite with a reported 45 lb weight loss over the past 3 months, becoming easily fatigued, and has had progressively worsening dyspnea with exertion along with chronic coarse cough. Pt states that he went to his PCPs office today simply for a checkup and stated he felt very winded and short of breath and the staff assessed his vitals and his doctor immediately s ent him to the hospital for further evaluation. Patient currently denies having any headache, lightheadedness, dizziness, changes in vision or hearing, sore throat or dysphasia, chest pain or palpitations, abdominal pain, nausea, vomiting, changes in urinary or bowel function, or having any numbnes s/tingling/weakness/swelling in extremities. ED course: Patient was seen and fully evaluated in the emergency department resulting in admission to general medical unit with telemetry where he will receive continuous cardiac and close hemodynamic monitoring. Labs: CBC revealing mild leukocytosis with WBC count of 10.9 otherwise unremarkable. Coags revealing an elevated PTT of 21.4 and elevated d-dimer of 2.31. BMP revealing mild hyponatremia with sodium of 132 and hypochloremia with chloride of 97 otherwise normal findings. Liver profile revealing an elevated total bili of 1.5. Troponin normal findings at less than 0.012. CRP significantly elevated at 164.0. Covid PCR positive (Initial positive test 10/04/20). EKG completed revealing sinus tachycardia at 117 bpm with no significant T-wave abnormalities or ST depression/elevation noted. Chest x-ray: Chronic emphysematous change with persistent bibasilar acute infiltrate and/or atelectasis. No significant change from most recent x-ray. CTA Chest: showing no acute pulmonary embolism. Masslike area to the medial left lung base. Atelectasis or infiltrate from pneumonia consolidation could be considered. Mass should be considered. Follow-up is recommended. Lung bases findings were present previously. Review of Systems Review of systems: Pertinent positives and negatives as discussed in HPI, a complete review of systems was performed and all other systems are negative. Past Medical History Past Medical History: Cancer, COPD Additional Past Medical History / Comment(s): HX PROSTATE CANCER WITH SURGERY & RADIATION (2006), KIDNEY STONES. lymphoma, O2 dependent History of Any Multi-Drug Resistant Organisms: None Reported Past Surgical History: Joint Replacement, Orthopedic Surgery, Prostate Surgery Additional Past Surgical History / Comment(s): BRAIN SURGERY TO RELIEVE PRESSURE AFTER HEAD INJURY (6 YRS OLD), TOTAL LEFT KNEE, LEFT SHOULDER SURGERY, LEFT ARM SURGERY AFTER CRUSHING INJURY. Chest tube for pneumothorax. Lithotripsy. Prostatectomy secondary to prostate cancer. Past Anesthesia/Blood Transfusion Reactions: Motion Sickness Additional Past Anesthesia/Blood Transfusion Reaction / Comment(s): SLOW TO WAKE UP Past Psychological History: No Psychological Hx Reported Smoking Status: Former smoker Past Alcohol Use History: None Reported Past Drug Use History: None Reported - Past Family History Mother History Unknown: Yes Family Medical History: No Reported History Additional Family Medical History / Comment(s): Pt was adopted and does not know natural mother's medical hx: Father Family Medical History: COPD Additional Family Medical History / Comment(s): Pt was adopted and does not know much of his natural fathers medical hx Medications and Allergies Home Medications Medication Instructions Recorded Confirmed Type Budesonide/Formoterol Fumarate 2 puff INHALATION RT-BID 08/12/19 11/16/20 History [Symbicort 160-4.5 Mcg Inhaler] Albuterol Nebulized [Ventolin 2.5 mg INHALATION RT-Q6H PRN 09/18/20 11/16/20 History Nebulized] Albuterol Sulfate [Ventolin HFA] 2 puff INHALATION RT-Q4H PRN 09/18/20 11/16/20 History Allergies Allergy/AdvReac Type Severity Reaction Status Date / Time Penicillins Allergy Unknown Rash/Hives Verified 11/16/20 14:00 Physical Exam Vitals: Vital Signs Temp Pulse Resp BP Pulse Ox 11/16/20 13:11 98.3 F 89 20 106/63 95 11/16/20 11:22 20 11/16/20 11:12 101.8 F H 78 28 H 108/68 92 L Intake and Output 11/15/20 11/16/20 11/16/20 22:59 06:59 14:59 Other: Weight 71.214 kg Physical exam General: non toxic, no distress, appears at stated age Derm: warm, dry Head: atraumatic, normocephalic, symmetric Eyes: EOMI, no lid lag, anicteric sclera Mouth: no lip lesion, mucus membranes moist Cardiovascular: S1S2 reg, no murmur, positive posterior tibial pulse bilaterally, no lower extremity edema, cap refill < 2 seconds Lungs: Respirations tachypneic at 24 breaths per minute during assessment, lungs significantly diminished bilaterally with minimal air movement noted. No wheezes, rhonchi, or reveals present upon auscultation. Patient did have coarse cough noted. Abdominal: soft, nontender to palpation, no guarding, no appreciable organomegaly Ext: no gross muscle atrophy, no edema, no contractures Neuro: CN II-XII grossly intact, no focal neuro deficits Psych: Alert, oriented, appropriate affect Results CBC & Chem 7: 11/16/20 11:42 11/16/20 11:42 Labs: Abnormal Lab Results - Last 24 Hours (Table) 11/16/20 11/16/20 11/16/20 Range/Units 11:42 11:42 11:42 WBC 10.9 H (3.8-10.6) k/uL Neutrophils # (Manual) 10.10 H (1.3-7.7) k/uL Lymphocytes # (Manual) 0.11 L (1.0-4.8) k/uL APTT 21.4 L (22.0-30.0) sec D-Dimer 2.31 H (<0.60) mg/L FEU Sodium 132 L (137-145) mmol/L Chloride 97 L (98-107) mmol/L Total Bilirubin 1.5 H (0.2-1.3) mg/dL C-Reactive Protein 164.0 H (<10.0) mg/L Coronavirus (PCR) (Not Detectd) 11/16/20 Range/Units 11:42 WBC (3.8-10.6) k/uL Neutrophils # (Manual) (1.3-7.7) k/uL Lymphocytes # (Manual) (1.0-4.8) k/uL APTT (22.0-30.0) sec D-Dimer (<0.60) mg/L FEU Sodium (137-145) mmol/L Chloride (98-107) mmol/L Total Bilirubin (0.2-1.3) mg/dL C-Reactive Protein (<10.0) mg/L Coronavirus (PCR) Detected A (Not Detectd) Assessment and Plan Plan: Severe sepsis, likely secondary to underlying pneumonia infection. -Severe sepsis as evidenced by heart rate 120, temp 101.8, respiratory rate 28, and leukocytosis with WBC count of 10.9. -Covid 19 PCR positive -Order placed for lactate, procalcitonin, blood cultures, and urinalysis. May consider IV hydration and/or fluid bolus pending lactate results. -CT revealed possible atelectasis or infiltrate from pneumonia, sepsis likely secondary to pneumonia versus Covid 19 virus infection. -Patient being started on Levaquin secondary to ALLERGY to penicillins and concerns for possible underlying pneumonia infection. -Patient to be provided with oxygen supplementation as needed to maintain SpO2 equal to or greater than 92% at all times. -Patient to be provided with oxygen supplementation titrated as needed to maintain SpO2 equal to or greater than 92%. -Continuation of Symbicort and Ventolin inhalers. -Incentive spirometry -Consult to , Deliverer Outside. Acute COPD exacerbation, likely secondary to underlying pneumonia infection -Patient with a history of COPD and is home oxygen dependent on 2 L at all times. -Patient to be provided with oxygen supplementation titrated as needed to maintain SpO2 equal to or greater than 92%. -Continuation of Symbicort and Ventolin inhalers. -Incentive spirometry -Consult to , Deliverer Outside Non-Hodgkin's lymphoma -Patient reports he is currently supposed to be undergoing chemotherapy infusions for his non-Hodgkin's lymphoma, however he tested positive for Covid 19 virus on 10/04/20 and states that his oncologist (Dr. Garcia) stopped treatment at that time. -Consult placed to Rakesh Alfaro/Onc The patient is admitted with an anticipated greater than 2 midnight stay for evaluation of acute respiratory distress and sepsis. Surrogate decision-maker: CODE STATUS: DNR Limited, yes to all medical interventions and no to CPR, intubation, and mechanical ventilation. DVT prophylaxis: Lovenox Discussed with: Patient Anticipated discharge date: 2-[address]: Home A total of 50 minutes was spent on the care of this complex patient more than 50% of the time was spent in counseling and care coordination. <Kendell Heath F - Last Filed: 11/16/20 16:27> Physical Exam Vitals: Vital Signs Temp Pulse Resp BP Pulse Ox 11/16/20 14:00 96 16 92 L 11/16/20 13:11 98.3 F 89 20 106/63 95 11/16/20 11:22 20 11/16/20 11:12 101.8 F H 78 28 H 108/68 92 L Intake and Output 11/16/20 11/16/20 11/16/20 06:59 14:59 22:59 Other: Weight 71.214 kg Results CBC & Chem 7: 11/16/20 11:42 11/16/20 11:42 Labs: Abnormal Lab Results - Last 24 Hours (Table) 11/16/20 11/16/20 11/16/20 Range/Units 11:23 11:42 11:42 WBC 10.9 H (3.8-10.6) k/uL Neutrophils # (Manual) 10.10 H (1.3-7.7) k/uL Lymphocytes # (Manual) 0.11 L (1.0-4.8) k/uL APTT 21.4 L (22.0-30.0) sec D-Dimer 2.31 H (<0.60) mg/L FEU Sodium (137-145) mmol/L Chloride (98-107) mmol/L Total Bilirubin (0.2-1.3) mg/dL C-Reactive Protein (<10.0) mg/L Ur Specific [place] 1.045 H (1.001-1.035) Urine Ketones 1+ H (Negative) Coronavirus (PCR) (Not Detectd) 11/16/20 11/16/20 Range/Units 11:42 11:42 WBC (3.8-10.6) k/uL Neutrophils # (Manual) (1.3-7.7) k/uL Lymphocytes # (Manual) (1.0-4.8) k/uL APTT (22.0-30.0) sec D-Dimer (<0.60) mg/L FEU Sodium 132 L (137-145) mmol/L Chloride 97 L (98-107) mmol/L Total Bilirubin 1.5 H (0.2-1.3) mg/dL C-Reactive Protein 164.0 H (<10.0) mg/L Ur Specific [place] (1.001-1.035) Urine Ketones (Negative) Coronavirus (PCR) Detected A (Not Detectd) Assessment and Plan Plan: Patient seen and examined in conjunction with the nurse practitioner. I agree with above. Since patient was treated recently with antibiotics and has been hospitalized multiple times for pneumonia he will be started on cefepime, vancomycin as well as Levaquin. He'll also be treated with DuoNeb's as well as steroids. Oxygen as needed to keep sats above 92%.
[2020-11-16] MEDS ORDERED: VANCOMYCIN IV PER PHARMACY 1 EACH MISC MISCELLANE PRN (16:38)
--- NOTE | 2020-11-16 16:44 | P.HPIM ---
History of Present Illness H&P Date: 11/16/20 History of Present Illness H&P Date: 11/16/20 Chief Complaint: Shortness of Breath History of presenting illness Patient is a 75-year-old male with a past medical history of COPD home oxygen d ependent on 2 L at all times, non-Hodgkin's lymphoma, and prostate cancer resulting in a prostatectomy in 2006. Patient reports he is currently supposed to be undergoing chemotherapy infusions for his non-Hodgkin's lymphoma, however he tested positive for Covid 19 virus on 10/04/20 and states that his oncologist (Dr. Garcia) stopped treatment at that time. Patient states that upon his diagnosis with Covid 19 virus he was symptomatic for approximately 3 days when he was first diagnosed and his symptoms and then then completely resolved. Pt states that in addition to his bout with COVID over the past 3 months, he has been experiencing a decreased appetite with a reported 45 lb weight loss over the past 3 months, becoming easily fatigued, and has had progressively worsening dyspnea with exertion along with chronic coarse cough. Pt states that he went to his PCPs office today simply for a checkup and stated he felt very winded and short of breath and the staff assessed his vitals and his doctor immediately sent him to the hospital for further evaluation. Patient currently denies having any headache, lightheadedness, dizziness, changes in vision or hearing, sore throat or dysphasia, chest pain or palpitations, abdominal pain, nausea, vomiting, changes in urinary or bowel function, or having any numbness/tingling/weakness/swelling in extremities. ED course: Patient was seen and fully evaluated in the emergency department resulting in admission to general medical unit with telemetry where he will receive continuous cardiac and close hemodynamic monitoring. Labs: CBC revealing mild leukocytosis with WBC count of 10.9 otherwise unremark able. Coags revealing an elevated PTT of 21.4 and elevated d-dimer of 2.31. BMP revealing mild hyponatremia with sodium of 132 and hypochloremia with chloride of 97 otherwise normal findings. Liver profile revealing an elevated total bili of 1.5. Troponin normal findings at less than 0.012. CRP s ignificantly elevated at 164.0. Covid PCR positive (Initial positive test 10/04/20). EKG completed revealing sinus tachycardia at 117 bpm with no significant T-wave abnormalities or ST depression/elevation noted. Chest x-ray: Chronic emphysematous change with persistent bibasilar acute infiltrate and/or atelectasis. No significant change from most recent x-ray. CTA Chest: showing no acute pulmonary embolism. Masslike area to the medial left lung base. Atelectasis or infiltrate from pneumonia consolidation could be considered. Mass should be considered. Follow-up is recommended. Lung bases findings were present previously. Review of Systems Review of systems: Pertinent positives and negatives as discussed in HPI, a complete review of systems was performed and all other systems are negative. Past Medical History Past Medical History: Cancer, COPD Additional Past Medical History / Comment(s): HX PROSTATE CANCER WITH SURGERY & RADIATION (2006), KIDNEY STONES. lymphoma, O2 dependent History of Any Multi-Drug Resistant Organisms: None Reported Past Surgical History: Joint Replacement, Orthopedic Surgery, Prostate Surgery Additional Past Surgical History / Comment(s): BRAIN SURGERY TO RELIEVE PRESSURE AFTER HEAD INJURY (6 YRS OLD), TOTAL LEFT KNEE, LEFT SHOULDER SURGERY, LEFT ARM SURGERY AFTER CRUSHING INJURY. Chest tube for pneumothorax. Lithotripsy. Prostatectomy secondary to prostate cancer. Past Anesthesia/Blood Transfusion Reactions: Motion Sickness Additional Past Anesthesia/Blood Transfusion Reaction / Comment(s): SLOW TO WAKE UP Past Psychological History: No Psychological Hx Reported Smoking Status: Former smoker Past Alcohol Use History: None Reported Past Drug Use History: None Reported - Past Family History Mother History Unknown: Yes Family Medical History: No Reported History Additional Family Medical History / Comment(s): Pt was adopted and does not know natural mother's medical hx: Father Family Medical History: COPD Additional Family Medical History / Comment(s): Pt was adopted and does not know much of his natural fathers medical hx Medications and Allergies Home Medications Medication Instructions Recorded Confirmed Type Budesonide/Formoterol Fumarate 2 puff INHALATION RT-BID 08/12/19 11/16/20 History [Symbicort 160-4.5 Mcg Inhaler] Albuterol Nebulized [Ventolin 2.5 mg INHALATION RT-Q6H PRN 09/18/20 11/16/20 His tory Nebulized] Albuterol Sulfate [Ventolin HFA] 2 puff INHALATION RT-Q4H PRN 09/18/20 11/16/20 History Allergies Allergy/AdvReac Type Severity Reaction Status Date / Time Penicillins Allergy Unknown Rash/Hives Verified 11/16/20 14:00 Physical Exam Vitals: Vital Signs Temp Pulse Resp BP Pulse Ox 11/16/20 13:11 98.3 F 89 20 106/63 95 11/16/20 11:22 20 11/16/20 11:12 101.8 F H 78 28 H 108/68 92 L Intake and Output 11/15/20 11/16/20 11/16/20 22:59 06:59 14:59 Other: Weight 71.214 kg Physical exam General: non toxic, no distress, appears at stated age Derm: warm, dry Head: atraumatic, normocephalic, symmetric Eyes: EOMI, no lid lag, anicteric sclera Mouth: no lip lesion, mucus membranes moist Cardiovascular: S1S2 reg, no murmur, positive posterior tibial pulse bilaterally, no lower extremity edema, cap refill < 2 seconds Lungs: Respirations tachypneic at 24 breaths per minute during assessment, lungs significantly diminished bilaterally with minimal air movement noted. No wheezes, rhonchi, or reveals present upon auscultation. Patient did have coarse cough noted. Abdominal: soft, nontender to palpation, no guarding, no appreciable organomegaly Ext: no gross muscle atrophy, no edema, no contractures Neuro: CN II-XII grossly intact, no focal neuro deficits Psych: Alert, oriented, appropriate affect Results CBC & Chem 7: 11/16/20 11:42 11/16/20 11:42 Labs: Abnormal Lab Results - Last 24 Hours (Table) 11/16/20 11/16/20 11/16/20 Range/Units 11:42 11:42 11:42 WBC 10.9 H (3.8-10.6) k/uL Neutrophils # (Manual) 10.10 H (1.3-7.7) k/uL Lymphocytes # (Manual) 0.11 L (1.0-4.8) k/uL APTT 21.4 L (22.0-30.0) sec D-Dimer 2.31 H (<0.60) mg/L FEU Sodium 132 L (137-145) mmol/L Chloride 97 L (98-107) mmol/L Total Bilirubin 1.5 H (0.2-1.3) mg/dL C-Reactive Protein 164.0 H (<10.0) mg/L Coronavirus (PCR) (Not Detectd) 11/16/20 Range/Units 11:42 WBC (3.8-10.6) k/uL Neutrophils # (Manual) (1.3-7.7) k/uL Lymphocytes # (Manual) (1.0-4.8) k/uL APTT (22.0-30.0) sec D-Dimer (<0.60) mg/L FEU Sodium (137-145) mmol/L Chloride (98-107) mmol/L Total Bilirubin (0.2-1.3) mg/dL C-Reactive Protein (<10.0) mg/L Coronavirus (PCR) Detected A (Not Detectd) Assessment and Plan Plan: Severe sepsis, likely secondary to underlying pneumonia infection. -Severe sepsis as evidenced by heart rate 120, temp 101.8, respiratory rate 28, and leukocytosis with WBC count of 10.9. -Covid 19 PCR positive -Order placed for lactate, procalcitonin, blood cultures, and urinalysis. May consider IV hydration and/or fluid bolus pending lactate results. -CT revealed possible atelectasis or infiltrate from pneumonia, sepsis likely secondary to pneumonia versus Covid 19 virus infection. -Patient being started on IV antibiotics cefepime and vancomycin for treatment of suspected pneumonia. -Patient to be provided with oxygen supplementation as needed to maintain SpO2 equal to or greater than 92% at all times. -Patient to be provided with oxygen supplementation titrated as needed to maintain SpO2 equal to or greater than 92%. -Continuation of Symbicort and Ventolin inhalers. -Incentive spirometry -Consult to , [facility]. Acute COPD exacerbation, likely secondary to underlying pneumonia infection -Patient with a history of COPD and is home oxygen dependent on 2 L at all times. -Patient to be provided with oxygen supplementation titrated as needed to maintain SpO2 equal to or greater than 92%. -Continuation of Symbicort and Ventolin inhalers. -Incentive spirometry -Consult to , [facility] Non-Hodgkin's lymphoma -Patient reports he is currently supposed to be undergoing chemotherapy infusions for his non-Hodgkin's lymphoma, however he tested positive for Covid 19 virus on 10/04/20 and states that his oncologist (Dr. Garcia) stopped treatment at that time. -Consult placed to Dr. Jose, Heme/Onc The patient is admitted with an anticipated greater than 2 midnight stay for evaluation of acute respiratory distress and sepsis. Surrogate decision-maker: CODE STATUS: DNR Limited, yes to all medical interventions and no to CPR, intubation, and mechanical ventilation. DVT prophylaxis: Lovenox Discussed with: Patient Anticipated discharge date: 2-[address]: Home A total of 50 minutes was spent on the care of this complex patient more than 50% of the time was spent in counseling and care coordination. <Kendell Heath F - Last Filed: 11/16/20 16:27> Physical Exam Vitals: Vital Signs Temp Pulse Resp BP Pulse Ox 11/16/20 14:00 96 16 92 L 11/16/20 13:11 98.3 F 89 20 106/63 95 11/16/20 11:22 20 11/16/20 11:12 101.8 F H 78 28 H 108/68 92 L Intake and Output 11/16/20 11/16/20 11/16/20 06:59 14:59 22:59 Other: Weight 71.214 kg Results CBC & Chem 7: 11/16/20 11:42 11/16/20 11:42 Labs: Abnormal Lab Results - Last 24 Hours (Table) 11/16/20 11/16/20 11/16/20 Range/Units 11:23 11:42 11:42 WBC 10.9 H (3.8-10.6) k/uL Neutrophils # (Manual) 10.10 H (1.3-7.7) k/uL Lymphocytes # (Manual) 0.11 L (1.0-4.8) k/uL APTT 21.4 L (22.0-30.0) sec D-Dimer 2.31 H (<0.60) mg/L FEU Sodium (137-145) mmol/L Chloride (98-107) mmol/L Total Bilirubin (0.2-1.3) mg/dL C-Reactive Protein (<10.0) mg/L Ur Specific [place] 1.045 H (1.001-1.035) Urine Ketones 1+ H (Negative) Coronavirus (PCR) (Not Detectd) 11/16/20 11/16/20 Range/Units 11:42 11:42 WBC (3.8-10.6) k/uL Neutrophils # (Manual) (1.3-7.7) k/uL Lymphocytes # (Manual) (1.0-4.8) k/uL APTT (22.0-30.0) sec D-Dimer (<0.60) mg/L FEU Sodium 132 L (137-145) mmol/L Chloride 97 L (98-107) mmol/L Total Bilirubin 1.5 H (0.2-1.3) mg/dL C-Reactive Protein 164.0 H (<10.0) mg/L Ur Specific [place] (1.001-1.035) Urine Ketones (Negative) Coronavirus (PCR) Detected A (Not Detectd) Assessment and Plan Plan: Patient seen and examined in conjunction with the nurse practitioner. I agree with above. Since patient was treated recently with antibiotics and has been hospitalized multiple times for pneumonia he will be started on cefepime, vancomycin as well as Levaquin. He'll also be treated with DuoNeb's as well as steroids. Oxygen as needed to keep sats above 92%. Past Medical History Past Medical History: Cancer, COPD, Pneumonia Additional Past Medical History / Comment(s): HX PROSTATE CANCER WITH SURGERY & RADIATION (2006), KIDNEY STONES. lymphoma, O2 dependent History of Any Multi-Drug Resistant Organisms: None Reported Past Surgical History: Joint Replacement, Orthopedic Surgery, Prostate Surgery Additional Past Surgical History / Comment(s): BRAIN SURGERY TO RELIEVE PRESSURE AFTER HEAD INJURY (6 YRS OLD), TOTAL LEFT KNEE, LEFT SHOULDER SURGERY, LEFT ARM SURGERY AFTER CRUSHING INJURY. Chest tube for pneumothorax. Lithotripsy. Prostatectomy secondary to prostate cancer. Past Anesthesia/Blood Transfusion Reactions: Motion Sickness Additional Past Anesthesia/Blood Transfusion Reaction / Comment(s): SLOW TO WAKE UP Past Psychological History: No Psychological Hx Reported Additional Psychological History / Comment(s): Pt resides with his spouse. He has a nebulizer. He is normally independent. Smoking Status: Former smoker Past Alcohol Use History: None Reported Additional Past Alcohol Use History / Comment(s): Pt started smoking in 1961 and quit in 1998. Past Drug Use History: None Reported - Past Family History Mother History Unknown: Yes Family Medical History: No Reported History Additional Family Medical History / Comment(s): Pt was adopted and does not know natural mother's medical hx: Father Family Medical History: COPD Additional Family Medical History / Comment(s): Pt was adopted and does not know much of his natural fathers medical hx Medications and Allergies Home Medications Medication Instructions Recorded Confirmed Type Budesonide/Formoterol Fumarate 2 puff INHALATION RT-BID 08/12/19 11/16/20 History [Symbicort 160-4.5 Mcg Inhaler] Albuterol Nebulized [Ventolin 2.5 mg INHALATION RT-Q6H PRN 09/18/20 11/16/20 History Nebulized] Albuterol Sulfate [Ventolin HFA] 2 puff INHALATION RT-Q4H PRN 09/18/20 11/16/20 History Allergies Allergy/AdvReac Type Severity Reaction Status Date / Time Penicillins Allergy Unknown Rash/Hives Verified 11/16/20 14:00 Physical Exam Vitals: Vital Signs Temp Pulse Resp BP Pulse Ox 11/16/20 14:00 96 16 92 L 11/16/20 13:11 98.3 F 89 20 106/63 95 11/16/20 11:22 20 11/16/20 11:12 101.8 F H 78 28 H 108/68 92 L Intake and Output 11/16/20 11/16/20 11/16/20 06:59 14:59 22:59 Other: Weight 71.214 kg Results CBC & Chem 7: 11/16/20 11:42 11/16/20 11:42 Labs: Abnormal Lab Results - Last 24 Hours (Table) 11/16/20 11/16/20 11/16/20 Range/Units 11:23 11:42 11:42 WBC 10.9 H (3.8-10.6) k/uL Neutrophils # (Manual) 10.10 H (1.3-7.7) k/uL Lymphocytes # (Manual) 0.11 L (1.0-4.8) k/uL APTT 21.4 L (22.0-30.0) sec D-Dimer 2.31 H (<0.60) mg/L FEU Sodium (137-145) mmol/L Chloride (98-107) mmol/L Total Bilirubin (0.2-1.3) mg/dL C-Reactive Protein (<10.0) mg/L Ur Specific [place] 1.045 H (1.001-1.035) Urine Ketones 1+ H (Negative) Coronavirus (PCR) (Not Detectd) 11/16/20 11/16/20 Range/Units 11:42 11:42 WBC (3.8-10.6) k/uL Neutrophils # (Manual) (1.3-7.7) k/uL Lymphocytes # (Manual) (1.0-4.8) k/uL APTT (22.0-30.0) sec D-Dimer (<0.60) mg/L FEU Sodium 132 L (137-145) mmol/L Chloride 97 L (98-107) mmol/L Total Bilirubin 1.5 H (0.2-1.3) mg/dL C-Reactive Protein 164.0 H (<10.0) mg/L Ur Specific [place] (1.001-1.035) Urine Ketones (Negative) Coronavirus (PCR) Detected A (Not Detectd)
[2020-11-16] MEDS: VANCOMYCIN 1,500 MG in SODIUM CHLORIDE 0.9% 250 ML IVPB SCH (18:09)
[2020-11-16] MEDS: SYMBICORT 160-4.5 MCG INHALER INHALATION SCH (18:59)
[2020-11-16] MEDS: ALBUTEROL HFA INHALER INHALATION PRN (18:59)
[2020-11-16] MEDS: CEFEPIME 2 GM in SODIUM CHLORIDE 0.9% 100 ML IVPB SCH (21:58)
[2020-11-17] MEDS: VANCOMYCIN 1,500 MG in SODIUM CHLORIDE 0.9% 250 ML IVPB SCH ×2 (06:04→18:20)
[2020-11-17 07:05] LABS: Basophils % (A) 1 %; Eosinophils % (A) 0 %; HCT 41.4 % (39.0-53.0); HGB 12.9 gm/dL (13.0-17.5); Lymphocytes # (A) 0.2 k/uL (1.0-4.8); Lymphocytes % (A) 2 %; MCH 29.5 pg (25.0-35.0); MCHC 31.1 g/dL (31.0-37.0); MCV 94.7 fL (80.0-100.0); Monocytes # (A) 0.4 k/uL (0-1.0); Monocytes % (A) 6 %; Neutrophils # (A) 6.5 k/uL (1.3-7.7); Neutrophils % (A) 90 %; Platelet Count 255 k/uL (150-450); RBC 4.37 m/uL (4.30-5.90); RDW 14.7 % (11.5-15.5); WBC 7.2 k/uL (3.8-10.6)
[2020-11-17 07:11] LABS: ALT 32 U/L (4-49); AST 27 U/L (17-59); African American GFR (CKD) >90 (>60 ml/min/1.73 sqM); Albumin 2.7 g/dL (3.5-5.0); Albumin/Globulin Ratio 1.2; Alkaline Phosphatase 73 U/L (38-126); Anion Gap 4 mmol/L; Blood Urea Nitrogen 16 mg/dL (9-20); Calcium 8.4 mg/dL (8.4-10.2); Carbon Dioxide 27 mmol/L (22-30); Chloride 104 mmol/L (98-107); Globulin 2.2 g/dL; Glucose 184 mg/dL (74-99); Magnesium 2.4 mg/dL (1.6-2.3); Non-African American GFR(CKD) >90 (>60 ml/min/1.73 sqM); Potassium 4.6 mmol/L (3.5-5.1); Sodium 135 mmol/L (137-145); Total Bilirubin 0.5 mg/dL (0.2-1.3); Total Protein 4.9 g/dL (6.3-8.2)
[2020-11-17 07:12] LABS: INR 1.1 (<1.2); Prothrombin Time 11.3 sec (9.0-12.0)
[2020-11-17 07:14] LABS: Partial Thromboplastin Time 21.8 sec (22.0-30.0)
[2020-11-17 07:30] LABS: C Reactive Protein 131.1 mg/L (<10.0)
[2020-11-17] MEDS: SYMBICORT 160-4.5 MCG INHALER INHALATION SCH ×2 (07:36→19:58)
[2020-11-17] MEDS: ALBUTEROL HFA INHALER INHALATION PRN ×3 (07:36→19:58)
[2020-11-17] MEDS: ENOXAPARIN 40 MG/0.4 ML SYRINGE SQ SCH (08:24)
[2020-11-17] MEDS: CEFEPIME 2 GM in SODIUM CHLORIDE 0.9% 100 ML IVPB SCH ×3 (08:24→23:24)
[2020-11-17] MEDS ORDERED: dexAMETHasone 2 MG TAB PO SCH (09:00)
[2020-11-17 12:15] LABS: Ferritin 2265.4 ng/mL (22.0-322.0)
--- NOTE | 2020-11-17 12:15 | P.PN ---
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 Patient reports he is currently supposed to be undergoing chemotherapy infusions for his non-Hodgkin's lymphoma, however he tested positive for Covid 19 virus on 10/04/20 and states that his oncologist (Dr. Garcia) stopped treatment at that time. Patient states that upon his diagnosis with Covid 19 virus he was symptomatic for approximately 3 days when he was first diagnosed and his symptoms and then then completely resolved. Pt states that in addition to his bout with COVID over the past 3 months, he has been experiencing a decreased appetite with a reported 45 lb weight loss over the past 3 months, becoming easily fatigued, and has had progressively worsening dyspnea with exertion along with chronic coarse cough. Pt states that he went to his PCPs office today simply for a checkup and stated he felt very winded and short of breath and the staff assessed his vitals and his doctor immediately sent him to the hospital for further evaluation. Patient currently denies having any headache, lightheadedness, dizziness, changes in vision or hearing, sore throat or dysphasia, chest pain or palpitations, abdominal pain, nausea, vomiting, changes in urinary or bowel function, or having any numbness/tingling/weakness/swelling in extremities. 11/16/19: Patient was seen and fully evaluated in the emergency department resulting in admission to general medical unit with telemetry where he will receive continuous cardiac and close hemodynamic monitoring. Labs: CBC revealing mild leukocytosis with WBC count of 10.9 otherwise unremarkable. Coags revealing an elevated PTT of 21.4 and elevated d-dimer of 2.31. BMP revealing mild hyponatremia with sodium of 132 and hypochloremia with chloride of 97 otherwise normal findings. Liver profile revealing an elevated total bili of 1.5. Troponin normal findings at less than 0.012. CRP significantly elevated at 164.0. Covid PCR positive (Initial positive test 10/04/20). -EKG completed revealing sinus tachycardia at 117 bpm with no significant T-wave abnormalities or ST depression/elevation noted. -Chest x-ray: Chronic emphysematous change with persistent bibasilar acute infiltrate and/or atelectasis. No significant change from most recent x-ray. -CTA Chest: showing no acute pulmonary embolism. Masslike area to the medial left lung base. Atelectasis or infiltrate from pneumonia consolidation could be considered. Mass should be considered. Follow-up is recommended. Lung bases findings were present previously. 11/17/19: Patient was seen and fully evaluated at the bedside. He continues to complain of mild dyspnea with minimal exertion. Reports he has been using his incentive spirometry as instructed and demonstrated proper use. Patient assisted up to chair and was noted to be winded with this little movement. At rest, respirations remain even, regular, and unlabored 2 L O2 via nasal cannula with SpO2 maintaining at 92%. Procalcitonin was elevated at 0.13. CBC unremarkable this morning revealing improvement in WBC count from previous 10.9 now 7.2. CRP also showing improvement from 164 down to 131.1. BMP showing no sigificant abnormalities with the exception of Na+ 135. Urinalysis negative for infection. Pt reports feeling only slightly better from yesterday and as stated above, he continues to have dyspnea with the minimalist exertion. Pt to continue IV antibiotics Vancomycin and Cefepime and instructed to continue to use incentive spirometry 10x per hour while awake. We will continue with Decadron 6 mg daily. Awaiting pulmonolgy consult and further recommendations. Objective - Vital Signs Vital signs: Vital Signs Temp 97.4 F L 11/17/20 09:58 Pulse 88 11/17/20 09:58 Resp 18 11/17/20 09:58 BP 104/60 11/17/20 09:58 Pulse Ox 92 L 11/17/20 09:58 Intake & Output 11/16/20 11/17/20 11/17/20 18:59 06:59 18:59 Intake Total 20 1000 Balance 20 1000 Weight 71.214 kg Intake: Intake, IV Titration 20 1000 Amount Sodium Chloride 0.9% 1, 20 000 ml @ 20 mls/hr IV . Q24H [facility] Rx#:[id number] Vancomycin 1,500 mg In 1000 Sodium Chloride 0.9% 250 ml @ 125 mls/hr IVPB Q12H [facility] Rx#:[id number] - Exam Physical exam General: non toxic, no distress, appears at stated age Derm: warm, dry Head: atraumatic, normocephalic, symmetric Eyes: EOMI, no lid lag, anicteric sclera Mouth: no lip lesion, mucus membranes moist Cardiovascular: S1S2 reg, no murmur, positive posterior tibial pulse bilaterally, no lower extremity edema, cap refill < 2 seconds Lungs: Respirations even, regular and unlabored on 2L O2 via NC. lungs significantly diminished bilaterally, but noted improvement compared to yesterdays exam. No wheezes, rhonchi, or rales present upon auscultation. Pt does have coarse raspy cough. Abdominal: soft, nontender to palpation, no guarding, no appreciable organomegaly Ext: no gross muscle atrophy, no edema, no contractures Neuro: CN II-XII grossly intact, no focal neuro deficits Psych: Alert, oriented, appropriate affect - Labs CBC & Chem 7: 11/17/20 06:32 11/17/20 06:32 Labs: Abnormal Lab Results - Last 24 Hours (Table) 11/16/20 11/16/20 11/16/20 Range/Units 11:23 11:42 11:42 WBC 10.9 H (3.8-10.6) k/uL Hgb (13.0-17.5) gm/dL Neutrophils # (Manual) 10.10 H (1.3-7.7) k/uL Lymphocytes # (1.0-4.8) k/uL Lymphocytes # (Manual) 0.11 L (1.0-4.8) k/uL APTT 21.4 L (22.0-30.0) sec D-Dimer 2.31 H (<0.60) mg/L FEU Sodium (137-145) mmol/L Chloride (98-107) mmol/L Creatinine (0.66-1.25) mg/dL Glucose (74-99) mg/dL Magnesium (1.6-2.3) mg/dL Total Bilirubin (0.2-1.3) mg/dL C-Reactive Protein (<10.0) mg/L Total Protein (6.3-8.2) g/dL Albumin (3.5-5.0) g/dL Procalcitonin (0.02-0.09) ng/mL Ur Specific [place] 1.045 H (1.001-1.035) Urine Ketones 1+ H (Negative) Coronavirus (PCR) (Not Detectd) 11/16/20 11/16/20 11/16/20 Range/Units 11:42 11:42 15:45 WBC (3.8-10.6) k/uL Hgb (13.0-17.5) gm/dL Neutrophils # (Manual) (1.3-7.7) k/uL Lymphocytes # (1.0-4.8) k/uL Lymphocytes # (Manual) (1.0-4.8) k/uL APTT (22.0-30.0) sec D-Dimer (<0.60) mg/L FEU Sodium 132 L (137-145) mmol/L Chloride 97 L (98-107) mmol/L Creatinine (0.66-1.25) mg/dL Glucose (74-99) mg/dL Magnesium (1.6-2.3) mg/dL Total Bilirubin 1.5 H (0.2-1.3) mg/dL C-Reactive Protein 164.0 H (<10.0) mg/L Total Protein (6.3-8.2) g/dL Albumin (3.5-5.0) g/dL Procalcitonin 0.13 H (0.02-0.09) ng/mL Ur Specific [place] (1.001-1.035) Urine Ketones (Negative) Coronavirus (PCR) Detected A (Not Detectd) 11/17/20 11/17/20 11/17/20 Range/Units 06:32 06:32 06:32 WBC (3.8-10.6) k/uL Hgb 12.9 L (13.0-17.5) gm/dL Neutrophils # (Manual) (1.3-7.7) k/uL Lymphocytes # 0.2 L (1.0-4.8) k/uL Lymphocytes # (Manual) (1.0-4.8) k/uL APTT 21.8 L (22.0-30.0) sec D-Dimer (<0.60) mg/L FEU Sodium 135 L (137-145) mmol/L Chloride (98-107) mmol/L Creatinine 0.52 L (0.66-1.25) mg/dL Glucose 184 H (74-99) mg/dL Magnesium 2.4 H (1.6-2.3) mg/dL Total Bilirubin (0.2-1.3) mg/dL C-Reactive Protein 131.1 H (<10.0) mg/L Total Protein 4.9 L (6.3-8.2) g/dL Albumin 2.7 L (3.5-5.0) g/dL Procalcitonin (0.02-0.09) ng/mL Ur Specific [place] (1.001-1.035) Urine Ketones (Negative) Coronavirus (PCR) (Not Detectd) Assessment and Plan Plan: Severe sepsis, likely secondary to underlying pneumonia infection. -Severe sepsis was evidenced by heart rate 120, temp 101.8, respiratory rate 28, and leukocytosis with WBC count of 10.9. This is slowly improving. Pt is now afebrile with HR remaining in normal limits currently at 82 bpm. -Covid 19 PCR positive -Procal elevated at 0.13, Lactate normal findings at 1.8 with repeat 1.2. WBCs are trending down with previous WBC 10.9 and now 7.2 and CRP improving from previous 164 down to 131.1. -Urinalysis positive for ketones and negative for blood or infection. -CT revealed possible atelectasis or infiltrate from pneumonia, sepsis likely secondary to pneumonia versus Covid 19 virus infection. -Patient to continue IV antibiotics cefepime and vancomycin for treatment of suspected pneumonia. -Patient to be provided with oxygen supplementation as needed to maintain SpO2 equal to or greater than 92% at all times. -Patient to be provided with oxygen supplementation titrated as needed to maintain SpO2 equal to or greater than 92%. -Continuation of Symbicort and Ventolin inhalers. -Incentive spirometry -Consult to , Book Cleaner. Appreciate recommendations. Acute COPD exacerbation, likely secondary to underlying pneumonia infection -Patient with a history of COPD and is home oxygen dependent on 2 L at all times. -Patient to be provided with oxygen supplementation titrated as needed to maintain SpO2 equal to or greater than 92%. -Continuation of Symbicort and Ventolin inhalers. -Incentive spirometry -Consult to , Book Cleaner, appreciate recommendations. Non-Hodgkin's lymphoma -Patient reports he is currently supposed to be undergoing chemotherapy infusions for his non-Hodgkin's lymphoma, however he tested positive for Covid 19 virus on 10/04/20 and states that his oncologist (Dr. Garcia) stopped treatment at that time. -Consult placed to Dr. Garcia, Heme/Onc, appreciate recommendations. DVT prophylaxis: Lovenox Discussed with: Patient and pt discussed with on the phone. Anticipated discharge: 2-[address]: home A total of 35 minutes was spent on the care of this complex patient more than 50% of the time was spent in counseling and care coordination. <Kendell Heath Nawras F - Last Filed: 11/17/20 16:02> Objective - Vital Signs Vital signs: Vital Signs Temp 97.4 F L 11/17/20 09:58 Pulse 88 11/17/20 09:58 Resp 18 11/17/20 09:58 BP 104/60 11/17/20 09:58 Pulse Ox 92 L 11/17/20 14:35 Intake & Output 11/16/20 11/17/20 11/17/20 18:59 06:59 18:59 Intake Total 20 1000 Balance 20 1000 Weight 71.214 kg Intake: Intake, IV Titration 20 1000 Amount Sodium Chloride 0.9% 1, 20 000 ml @ 20 mls/hr IV . Q24H [facility] Rx#:[id number] Vancomycin 1,500 mg In 1000 Sodium Chloride 0.9% 250 ml @ 125 mls/hr IVPB Q12H [facility] Rx#:[id number] - Labs CBC & Chem 7: 11/17/20 06:32 11/17/20 06:32 Labs: Abnormal Lab Results - Last 24 Hours (Table) 11/16/20 11/17/20 11/17/20 Range/Units 15:45 06:32 06:32 Hgb 12.9 L (13.0-17.5) gm/dL Lymphocytes # 0.2 L (1.0-4.8) k/uL APTT 21.8 L (22.0-30.0) sec Sodium (137-145) mmol/L Creatinine (0.66-1.25) mg/dL Glucose (74-99) mg/dL Magnesium (1.6-2.3) mg/dL Ferritin (22.0-322.0) ng/mL C-Reactive Protein (<10.0) mg/L Total Protein (6.3-8.2) g/dL Albumin (3.5-5.0) g/dL Procalcitonin 0.13 H (0.02-0.09) ng/mL 11/17/20 Range/Units 06:32 Hgb (13.0-17.5) gm/dL Lymphocytes # (1.0-4.8) k/uL APTT (22.0-30.0) sec Sodium 135 L (137-145) mmol/L Creatinine 0.52 L (0.66-1.25) mg/dL Glucose 184 H (74-99) mg/dL Magnesium 2.4 H (1.6-2.3) mg/dL Ferritin 2265.4 H (22.0-322.0) ng/mL C-Reactive Protein 131.1 H (<10.0) mg/L Total Protein 4.9 L (6.3-8.2) g/dL Albumin 2.7 L (3.5-5.0) g/dL Procalcitonin (0.02-0.09) ng/mL Assessment and Plan Plan: Patient was seen and examined with [employer] FINISHER, agree with above
[2020-11-17] MEDS: SODIUM CHLORIDE 0.9% 1,000 ML IV SCH (12:51)
[2020-11-17] MEDS: methylPREDNISolone SOD SUCCI 125 MG/2 ML VIAL IV SCH ×3 (12:51→23:24)
--- NOTE | 2020-11-17 17:11 | P.CNPUL ---
History of Present Illness Consult date: 11/17/20 Reason for consult: dyspnea, cough Chief complaint: Shortness of breath History of present illness: This is a 75-year-old male with history of end-stage COPD on home oxygen 2 L nasal cannula, patient has covid 19 pneumonia back in September, patient was treated with usual therapeutic intervention has been discharge however continued to have ongoing shortness of breath slightly more than the baseline, he claims that he has 4-5 times with pneumonia and not getting relief, patient got in to an argument with his primary law enforcement officer, and physician Dr. yulia jiang however patient wants to resume care with the primary law enforcement officer, I advised patient to patch through and communicate, in the meantime we'll continue to provide pulmonary care, Review of the data revealed that patient also have non-Hodgkin's lymphoma, and prostate cancer resulting in a prostatectomy in 2006. Patient reports he is currently supposed to be undergoing chemotherapy infusions for his non-Hodgkin's lymphoma, however he tested positive for Covid 19 virus on 10/04/20 and states that his oncologist (Dr. Garcia) stopped treatment at that time. Patient states that upon his diagnosis with Covid 19 virus he was symptomatic for approximately 3 days when he was first diagnosed and his symptoms and then then completely resolved. Pt states that in addition to his bout with COVID over the past 3 months, he has been experiencing a decreased appetite with a reported 45 lb weight loss over the past 3 months, becoming easily fatigued, and has had progressively worsening dyspnea with exertion along with chronic coarse cough. Patient went to his PCPs office yesterday for a checkup and stated he felt very winded and short of breath and the staff assessed his vitals and his doctor immediately sent him to the hospital for further evaluation. Patient currently denies having any headache, lightheadedness, dizziness, changes in vision or hearing, sore throat or dysphasia, chest pain or palpitations, abdominal pain, nausea, vomiting, changes in urinary or bowel function, or having any numbness/tingling/weakness/swelling in extremities. In the emergency department patient had mild leukocytosis with WBC count of 10,900, d-dimer was elevated 2.3, sodium was 132, mildly elevated liver enzymes were noted, C-reactive protein was elevated to 164, Covid testing remains positive as done in the emergency department, patient chest x-ray noted to have the basilar infiltrate versus atelectasis, CAT scan of the chest was negative for pulmonary embolism however homogeneous masslike density with irregular was noted in left lower lobe medial side, with a differential diagnoses of non- Hodgkin's lymphoma versus atelectasis versus neoplastic process cannot be excluded Currently patient is on 2 L nasal cannula does complaining or shortness of breath feels almost back to baseline, afebrile hemodynamically stable, Review of Systems All systems: negative Past Medical History Past Medical History: Cancer, COPD, Pneumonia Additional Past Medical History / Comment(s): HX PROSTATE CANCER WITH SURGERY & RADIATION (2006), KIDNEY STONES. lymphoma, O2 dependent History of Any Multi-Drug Resistant Organisms: None Reported Past Surgical History: Joint Replacement, Orthopedic Surgery, Prostate Surgery Additional Past Surgical History / Comment(s): BRAIN SURGERY TO RELIEVE PRESSURE AFTER HEAD INJURY (6 YRS OLD), TOTAL LEFT KNEE, LEFT SHOULDER SURGERY, LEFT ARM SURGERY AFTER CRUSHING INJURY. Chest tube for pneumothorax. Lithotripsy. Prostatectomy secondary to prostate cancer. Past Anesthesia/Blood Transfusion Reactions: Motion Sickness Additional Past Anesthesia/Blood Transfusion Reaction / Comment(s): SLOW TO WAKE UP Past Psychological History: No Psychological Hx Reported Additional Psychological History / Comment(s): Pt resides with his spouse. He has a nebulizer. He is normally independent. Smoking Status: Former smoker Past Alcohol Use History: None Reported Additional Past Alcohol Use History / Comment(s): Pt started smoking in 1961 and quit in 1998. Past Drug Use History: None Reported - Past Family History Mother History Unknown: Yes Family Medical History: No Reported History Additional Family Medical History / Comment(s): Pt was adopted and does not know natural mother's medical hx: Father Family Medical History: COPD Additional Family Medical History / Comment(s): Pt was adopted and does not know much of his natural fathers medical hx Medications and Allergies Home Medications Medication Instructions Recorded Confirmed Type Budesonide/Formoterol Fumarate 2 puff INHALATION RT-BID 08/12/19 11/16/20 History [Symbicort 160-4.5 Mcg Inhaler] Albuterol Nebulized [Ventolin 2.5 mg INHALATION RT-Q6H PRN 09/18/20 11/16/20 History Nebulized] Albuterol Sulfate [Ventolin HFA] 2 puff INHALATION RT-Q4H PRN 09/18/20 11/16/20 History Allergies Allergy/AdvReac Type Severity Reaction Status Date / Time Penicillins Allergy Unknown Rash/Hives Verified 11/16/20 14:00 Physical Exam Vitals: Vital Signs Temp Pulse Resp BP Pulse Ox 11/17/20 14:35 92 L 11/17/20 09:58 97.4 F L 88 18 104/60 92 L 11/17/20 08:30 97.5 F L 11/17/20 04:41 83 20 104/59 91 L 11/16/20 20:00 98.6 F 68 18 104/68 94 L Intake and Output 11/17/20 11/17/20 11/17/20 06:59 14:59 22:59 Intake Total 1000 Balance 1000 Intake: Intake, IV Titration 1000 Amount Vancomycin 1,500 mg In 1000 Sodium Chloride 0.9% 250 ml @ 125 mls/hr IVPB Q12H [facility] Rx#:[id number] - Constitutional General appearance: average body habitus, cooperative, disheveled - EENT Eyes: PERRLA Ears: bilateral: normal - Neck Carotids: bilateral: upstroke normal Thyroid: bilateral: normal size - Respiratory Respiratory: bilateral: diminished - Cardiovascular Rhythm: regular Heart sounds: normal: S1, S2 - Gastrointestinal General gastrointestinal: normal bowel sounds - Neurologic Neurologic: CNII-XII intact - Musculoskeletal Musculoskeletal: gait normal, generalized weakness, strength equal bilaterally - Psychiatric Psychiatric: A&O x's 3, appropriate affect, intact judgment & insight Results - Laboratory Findings CBC and BMP: 11/17/20 06:32 11/17/20 06:32 PT/INR, D-dimer PT 11.3 sec (9.0-12.0) 11/17/20 06:32 INR 1.1 (<1.2) 11/17/20 06:32 D-Dimer 2.31 mg/L FEU (<0.60) H 11/16/20 11:42 Abnormal lab findings: Abnormal Labs 11/16/20 11/16/20 11/16/20 11:23 11:42 11:42 WBC 10.9 H Hgb Neutrophils # (Manual) 10.10 H Lymphocytes # Lymphocytes # (Manual) 0.11 L APTT 21.4 L D-Dimer 2.31 H Sodium Chloride Creatinine Glucose Magnesium Ferritin Total Bilirubin C-Reactive Protein Total Protein Albumin Procalcitonin Ur Specific [place] 1.045 H Urine Ketones 1+ H Coronavirus (PCR) 11/16/20 11/16/20 11/16/20 11:42 11:42 15:45 WBC Hgb Neutrophils # (Manual) Lymphocytes # Lymphocytes # (Manual) APTT D-Dimer Sodium 132 L Chloride 97 L Creatinine Glucose Magnesium Ferritin Total Bilirubin 1.5 H C-Reactive Protein 164.0 H Total Protein Albumin Procalcitonin 0.13 H Ur Specific [place] Urine Ketones Coronavirus (PCR) Detected A 11/17/20 11/17/20 11/17/20 06:32 06:32 06:32 WBC Hgb 12.9 L Neutrophils # (Manual) Lymphocytes # 0.2 L Lymphocytes # (Manual) APTT 21.8 L D-Dimer Sodium 135 L Chloride Creatinine 0.52 L Glucose 184 H Magnesium 2.4 H Ferritin 2265.4 H Total Bilirubin C-Reactive Protein 131.1 H Total Protein 4.9 L Albumin 2.7 L Procalcitonin Ur Specific [place] Urine Ketones Coronavirus (PCR) - Diagnostic Findings Chest x-ray: report reviewed, image reviewed CT scan - chest: report reviewed, image reviewed Assessment and Plan Assessment: Masslike density left lower lobe with a differential leg doses of atelectasis, non-Hodgkin's lymphoma, neoplastic process Code 19 infection End-stage COPD Non-Hodgkin's lymphoma Acute on chronic hypoxic respiratory failure Weight loss of 45 pounds likely related to bite correctly of factors including recent code 19 pneumonia, prostate cancer, lymphoma, end-stage COPD Plan: Patient will benefit from PET scan as outpatient Continue antibiotics steroids and bronchodilator Supplemental oxygen DVT prophylaxis Supportive care Continue home medications Deep breathing expense incentive spirometry Patient will continue to follow his primary law enforcement officer as outpatient recommend to patch it up Time with Patient: Greater than 30
--- NOTE | 2020-11-17 19:42 | P.CONS ---
History of Present Illness - Reason for Consult Consult date: 11/17/20 NHL on Rituxan Requesting physician: Juan Alberto Magaañ - Chief Complaint Shortness of breath post covid - History of Present Illness Mr Gibbons is a pleasant white female, initially seen in consult at [facility] on 02/20/19. He had presented with left-sided back pain that started about 2 weeks ago, which was fairly severe but had resolved spontaneously. He had attributed this to kidney stone. He came into the ER with recurrent symptoms relating across the mid back, recurrence after initial resolution. He also complained of subjective fever with flushing and chills prior to admission. CT of the abdomen and pelvis showed a large mesenteric mass, 0.4 cm in size as well as significant periaortic adenopathy. The patient had a prior history of prostate cancer treated with surgery and radiation in 7. PSA was normal. The mesenteric mass was not safe basis for biopsy due to proximity to bowel. 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 He was seen for his first office visit on 03/09/19. He was started on bendamustine - Rituxan as he was symptomatic with the severe back and abdominal pain, on 03/17/19. He is s/p 6 cycles, completing those on 08/04/19 08/10/19-"Something on my head hurts", top of the head, "outside" been there for about 3-4 days, painful to touch, don't know what it is, neck hurts, "everything is bad" ever since he had "that shot". He was having trouble breathing, was going to go to ER but then he changed his mind. The back hurt for about 2 days, feels like it did when he was diagnosed. Denies fevers, chills, ear pain, thr oat pain, oral irritation, palpitations, chest pain, nausea, vomiting, indigestion, acute changes in bowel or bladder habits. Respiratory status improved on its own, his back doesn't hurt today. as above. He was treated on valtrex He started maintenance Rituxan in 09/29. the patient stated that he had developed a persistent cough, worse with lying down, with some shortness of breath in early 02/28. This ultimately resolved with 2 courses of steroids and 2 courses of antibiotics. He still has shortness of breath on exertion, but this is close to his usual baseline now. mild residual numbness on his scalp from his prior shingles.. His back pain is essentially resolved, with occasional twinges patient's follow-up CT scans on 09/10/20 showed right lower lobe consolidation as well as smaller left lower lobe infiltrate. He was reporting some cough and shortness of breath. COVID testing was negative. he was treated with 1 week course of doxycycline. he had a bronchoscopy on 09/15/20 with thick mucous plugs noted in the right lower lobe. cytology and cultures were negative. He was actually admitted for a day off the bronchoscopy because of increased shortness of breath and cough. Symptoms are now improved and he has completed antibiotics. Last seen in office on 09/26/20 - His CT scans otherwise did not show any evidence of lymphoma recurrence. - Check labs He was provided antibiotic (Anti virals) course for another week at that time and plan was to then resume Rituxan. - Signs and symptoms of recurrence discussed no evidence at the last follow-up. He now presents to [facility]. COVID diagnosis last month and remains symptomatic Review of Systems All systems: negative Constitutional: Reports as per HPI Past Medical History Past Medical History: Cancer, COPD, Pneumonia Additional Past Medical History / Comment(s): HX PROSTATE CANCER WITH SURGERY & RADIATION (2006), KIDNEY STONES. lymphoma, O2 dependent History of Any Multi-Drug Resistant Organisms: None Reported Past Surgical History: Joint Replacement, Orthopedic Surgery, Prostate Surgery Additional Past Surgical History / Comment(s): BRAIN SURGERY TO RELIEVE PRESSURE AFTER HEAD INJURY (6 YRS OLD), TOTAL LEFT KNEE, LEFT SHOULDER SURGERY, LEFT ARM SURGERY AFTER CRUSHING INJURY. Chest tube for pneumothorax. Lithotripsy. Prostatectomy secondary to prostate cancer. Past Anesthesia/Blood Transfusion Reactions: Motion Sickness Additional Past Anesthesia/Blood Transfusion Reaction / Comm: SLOW TO WAKE UP Past Psychological History: No Psychological Hx Reported Additional Psychological History / Comment(s): Pt resides with his spouse. He has a nebulizer. He is normally independent. Smoking Status: Former smoker Past Alcohol Use History: None Reported Additional Past Alcohol Use History / Comment(s): Pt started smoking in 1961 and quit in 1998. Past Drug Use History: None Reported - Past Family History Mother History Unknown: Yes Family Medical History: No Reported History Additional Family Medical History / Comment(s): Pt was adopted and does not know natural mother's medical hx: Father Family Medical History: COPD Additional Family Medical History / Comment(s): Pt was adopted and does not know much of his natural fathers medical hx Medications and Allergies Home Medications Medication Instructions Recorded Confirmed Type Budesonide/Formoterol Fumarate 2 puff INHALATION RT-BID 08/12/19 11/16/20 History [Symbicort 160-4.5 Mcg Inhaler] Albuterol Nebulized [Ventolin 2.5 mg INHALATION RT-Q6H PRN 09/18/20 11/16/20 History Nebulized] Albuterol Sulfate [Ventolin HFA] 2 puff INHALATION RT-Q4H PRN 09/18/20 11/16/20 History Allergies Allergy/AdvReac Type Severity Reaction Status Date / Time Penicillins Allergy Unknown Rash/Hives Verified 11/16/20 14:00 Physical Exam Vitals: Vital Signs Temp Pulse Resp BP Pulse Ox 11/17/20 17:00 96.9 F L 97 17 114/49 90 L 11/17/20 14:35 92 L 11/17/20 09:58 97.4 F L 88 18 104/60 92 L 11/17/20 08:30 97.5 F L 11/17/20 04:41 83 20 104/59 91 L 11/16/20 20:00 98.6 F 68 18 104/68 94 L Intake and Output 11/17/20 11/17/20 11/17/20 06:59 14:59 22:59 Intake Total 1000 570 Balance 1000 570 Intake: Intake, IV Titration 1000 570 Amount Cefepime 2 gm In Sodium 200 Chloride 0.9% 100 ml @ 25 mls/hr IVPB Q8HR [facility] Rx# :[id number] Sodium Chloride 0.9% 1, 120 000 ml @ 20 mls/hr IV . Q24H [facility] Rx#:[id number] Vancomycin 1,500 mg In 1000 250 Sodium Chloride 0.9% 250 ml @ 125 mls/hr IVPB Q12H [facility] Rx#:[id number] - Constitutional General appearance: cooperative, mild distress - EENT Eyes: EOMI, PERRLA ENT: NA/AT, normal oropharynx - Neck Neck: normal ROM - Respiratory Respiratory: bilateral: diminished, rhonchi (Scattered) - Cardiovascular Rhythm: regularly irregular - Gastrointestinal General gastrointestinal: normal bowel sounds, soft - Integumentary Integumentary: pale - Neurologic Neurologic: CNII-XII intact - Musculoskeletal Musculoskeletal: generalized weakness, strength equal bilaterally - Psychiatric Psychiatric: A&O x's 3, appropriate affect Results CBC & Chem 7: 11/17/20 06:32 11/17/20 06:32 Labs: Abnormal Lab Results - Last 24 Hours (Table) 11/16/20 11/17/20 11/17/20 Range/Units 15:45 06:32 06:32 Hgb 12.9 L (13.0-17.5) gm/dL Lymphocytes # 0.2 L (1.0-4.8) k/uL APTT 21.8 L (22.0-30.0) sec Sodium (137-145) mmol/L Creatinine (0.66-1.25) mg/dL Glucose (74-99) mg/dL Magnesium (1.6-2.3) mg/dL Ferritin (22.0-322.0) ng/mL C-Reactive Protein (<10.0) mg/L Total Protein (6.3-8.2) g/dL Albumin (3.5-5.0) g/dL Procalcitonin 0.13 H (0.02-0.09) ng/mL 11/17/20 Range/Units 06:32 Hgb (13.0-17.5) gm/dL Lymphocytes # (1.0-4.8) k/uL APTT (22.0-30.0) sec Sodium 135 L (137-145) mmol/L Creatinine 0.52 L (0.66-1.25) mg/dL Glucose 184 H (74-99) mg/dL Magnesium 2.4 H (1.6-2.3) mg/dL Ferritin 2265.4 H (22.0-322.0) ng/mL C-Reactive Protein 131.1 H (<10.0) mg/L Total Protein 4.9 L (6.3-8.2) g/dL Albumin 2.7 L (3.5-5.0) g/dL Procalcitonin (0.02-0.09) ng/mL Microbiology - Last 24 Hours (Table) 11/16/20 15:45 Blood Culture - Preliminary Blood No Growth after 24 hours 11/16/20 11:23 Blood Culture - Preliminary Blood No Growth after 24 hours Chest x-ray: report reviewed CT scan - chest: report reviewed Assessment and Plan (1) COVID-19 Current Visit: Yes Status: Acute Code(s): U07.1 - COVID-19 SNOMED Code(s): 381721101 (2) Acute respiratory distress Current Visit: No Status: Acute Code(s): R06.03 - ACUTE RESPIRATORY DISTRESS SNOMED Code(s): 693598207 (3) Lymphoma Current Visit: No Status: Acute Priority: Medium Code(s): C85.90 - NON- HODGKIN LYMPHOMA, UNSPECIFIED, UNSPECIFIED SITE SNOMED Code(s): 079576453 (4) Pneumonia Current Visit: No Status: Acute Priority: High Code(s): J18.9 - PNEUMONIA, UNSPECIFIED ORGANISM SNOMED Code(s): 146425608 Plan: Continue supportive care per primary and pulmonary teams Will check immunoglobulins for possible addition of IVIG for immune support Physician Attest: I have completed the full history and physical and agree with above dictation, dictated as a scribe.
--- NOTE | 2020-11-17 23:47 | CONS ---
CONSULTATION DATE OF SERVICE: 11/17/2020 REASON: Pneumonia. HISTORY OF PRESENT ILLNESS: The patient is a 75-year-old male with a past medical history significant for COPD, home O2 dependent. The patient also has history of non-Hodgkin lymphoma and the patient did have a COVID-19 infection 10/04/2020 for which the patient has been treated by his primary team and director of guidance in public [employer]. The patient has been mentioning increasing shortness of breath, and approximately 45 pound weight loss for the past 3 months. The patient did go to his primary care physician for a regular checked and in the PCP office, the patient was noticed to be having shortness of breath and apparently the patient did have a fever at the primary care physician office. Subsequently, patient was sent to the [facility] ER for further evaluation. Patient complaining of shortness of breath. Minimal exertion. He also has a cough which is moderate intensity with occasional sputum production. No hemoptysis. The patient denies having pleuritic chest pain. No nausea, no vomiting. No abdominal pain. No diarrhea. On presentation to the hospital, the patient did have fever of 101.8 degrees Fahrenheit. The patient did have hypoxemia with O2 sats of 92% currently on 2 L nasal cannula. The patient did have mild elevated white count 10.9 with a left shift and did have a normal creatinine. Liver enzymes are normal. CRP is 164, procalcitonin 0.13. Urine is negative. Doyle PCR came back positive. Blood culture so far negative. The patient did have a CT angiogram of the chest that was negative for PE. Did not show any ground glass opacities. However, did show most likely area mid left lung base, atelectasis was infiltrated from pneumonia consideration could be considered. The patient has been started on cefepime and vancomycin. Infectious Disease was consulted for further management of antibiotic therapy. REVIEW OF SYSTEMS: Positive points have been mentioned in HPI. Rest of the systems are negative. PAST MEDICAL HISTORY: Non-Hodgkin lymphoma, prostate cancer, COPD, Covid 19. PAST SURGICAL HISTORY: Total left knee with left shoulder surgery, left arm surgery and prostate surgery. SOCIAL HISTORY: Positive for smoking in the past. No drinking or drug use. FAMILY HISTORY: No pertinent findings were noticed as the patient was adopted. ALLERGIES: TO PENICILLIN. NO HISTORY OF ANAPHYLAXIS. TOLERATED CEPHALOSPORIN. MEDICATIONS: The patient is currently on Tylenol, [place], Dulcolax, and Symbicort, cefepime 2 grams q.12 hours. He is on Lovenox, melatonin, Solu-Medrol, Narcan, Zofran and vancomycin. PHYSICAL EXAMINATION: Blood pressure is 140/73 with a pulse of 97. Temperature is 97.7. He is 94% on 2 L nasal cannula. General description is an elderly male up in the chair in no distress. No tachypnea or accessory muscle of respiration use. HEENT: No pallor or scleral icterus. Oral mucous membranes dry. Neck: Trachea central. No thyromegaly. Lungs unlabored breathing, decreased breath sounds in the bases. No wheeze or crackles. Heart S1, S2. Regular rate and rhythm. ABDOMEN: Soft, no tenderness. No guarding. No rigidity. EXTREMITIES: No edema of the feet. Skin examination: No rash or mass palpable. NEUROLOGICAL: Patient is awake, alert, oriented times three. Mood and affect normal. LABS: Hemoglobin is 12.8, white count 7.2, admission white count 10.9 with left shift. D- dimer is 2.31. BUN of 16, creatinine 0.52. Electrolytes have been normal. Liver enzymes are normal. CRP 131, procalcitonin 0.13. Blood culture so far negative. DIAGNOSTIC IMPRESSION/PLAN: The patient admitted to the hospital with increased shortness of breath and a fever with evidence of mask like consolidation left lower lobe, possible pneumonia in this patient who also has a positive Covid test could be the left over antigen from his COVID- 19 infection in September, september, as there was no evidence of any ground-glass opacity commonly seen with COVID-19 infection. PLAN: 1. We will try to obtain sputum for Gram stain and culture. 2. Vancomycin pharmacy to dose target of 15 while watching his kidney function closely. 3. Cefepime 2-gm q48hr 4. We will follow on his clinical condition and culture to further adjust medication if needed. Thank you for this consultation. We will follow this patient along with you. MMSHILAL / CIRILON: [id number] / MTDD
[2020-11-18] MEDS: methylPREDNISolone SOD SUCCI 125 MG/2 ML VIAL IV SCH ×3 (05:51→18:35)
[2020-11-18] MEDS: VANCOMYCIN 1,500 MG in SODIUM CHLORIDE 0.9% 250 ML IVPB SCH ×2 (05:52→18:36)
[2020-11-18 06:50] LABS: HCT 37.7 % (39.0-53.0); HGB 12.3 gm/dL (13.0-17.5); MCH 30.6 pg (25.0-35.0); MCHC 32.6 g/dL (31.0-37.0); MCV 94.1 fL (80.0-100.0); Mean Platelet Volume 8.8; Platelet Count 291 k/uL (150-450); RDW 14.7 % (11.5-15.5); WBC 11.2 k/uL (3.8-10.6)
[2020-11-18] MEDS: CEFEPIME 2 GM in SODIUM CHLORIDE 0.9% 100 ML IVPB SCH ×2 (09:11→16:24)
[2020-11-18] MEDS: ENOXAPARIN 40 MG/0.4 ML SYRINGE SQ SCH (09:12)
[2020-11-18] MEDS: ALBUTEROL HFA INHALER INHALATION PRN ×2 (09:13→20:17)
[2020-11-18] MEDS: SYMBICORT 160-4.5 MCG INHALER INHALATION SCH ×2 (09:14→20:17)
[2020-11-18 09:33] LABS: Band Neutrophils % 4 %; Lymphocytes # (M) 0.22 k/uL (1.0-4.8); Monocytes # (M) 0.45 k/uL (0-1.0); Myelocytes # (M) 0.11 k/uL (0); Myelocytes % 1 %; Neutrophils % (M) 90 %; Nucleated Red Blood Cells 0 /100 WBC (0-0); Total Cells Counted 200
[2020-11-18 09:34] LABS: INR 1.04 (0.90-1.11); Prothrombin Time 11.2 sec (9.9-11.9)
[2020-11-18 09:44] LABS: Anisocytosis (M) Present; Poikilocytosis (M) Present
[2020-11-18 09:57] LABS: African American GFR (CKD) 108.5 (60.0-200.0); Albumin 3.5 g/dL (3.80-4.90); Albumin/Globulin Ratio 2.92 (1.60-3.17); BUN/Creat Ratio 27.14 Ratio (12.00-20.00); C Reactive Protein 5.8 mg/dL (0.0-0.8); Calcium 8.3 mg/dL (8.7-10.3); Globulin 1.2 g/dL (1.6-3.3); Magnesium 2.2 mg/dL (1.5-2.4); Non-African American GFR(CKD) 93.6 (60.0-200.0); Potassium 5.3 mmol/L (3.5-5.5); Total Bilirubin 0.4 mg/dL (0.3-1.2); Total Protein 4.7 g/dL (6.2-8.2)
[2020-11-18 10:32] LABS: Ferritin 2059.3 ng/mL (22.0-322.0)
--- NOTE | 2020-11-18 10:57 | P.PN ---
Subjective Progress Note Date: 11/18/20 Principal diagnosis: Masslike density left lower lobe with a differential leg doses of atelectasis, non-Hodgkin's lymphoma, neoplastic process Code 19 infection End-stage COPD Healthcare care associated pneumonia Non-Hodgkin's lymphoma Acute on chronic hypoxic respiratory failure Immunosuppressive status likely multifactorial but predominantly related to non- Hodgkin's lymphoma Weight loss of 45 pounds likely related to bite correctly of factors including recent code 19 pneumonia, prostate cancer, lymphoma, end-stage COPD 11/18/2020, patient seen eval examined during the rounds and labs reviewed medications reviewed care plan discussed, respiratory status remains stable, dry nonproductive cough is present, patient remains on 2 L oxygen remains on broad- spectrum antibiotics, as well as high-dose IV steroids, patient is being continued on breathing treatment, computed tomography scan chest x-ray reviewed, there are concerns of recurrence of lymphoma, will have consulted oncology, cold antibody a send out test has been done as well, patient remains positive for cold with 19 from September up to now, This is a 75-year-old male with history of end-stage COPD on home oxygen 2 L nasal cannula, patient has covid 19 pneumonia back in September, patient was treated with usual therapeutic intervention has been discharge however continued to have ongoing shortness of breath slightly more than the baseline, he claims that he has 4-5 times with pneumonia and not getting relief, patient got in to an argument with his primary wire preparation worker, and physician Dr. yulia jiang however patient wants to resume care with the primary wire preparation worker, I advised patient to patch through and communicate, in the meantime we'll continue to provide pulmonary care, Review of the data revealed that patient also have non-Hodgkin's lymphoma, and prostate cancer resulting in a prostatectomy in 2006. Patient reports he is currently supposed to be undergoing chemotherapy infusions for his non-Hodgkin's lymphoma, however he tested positive for Covid 19 virus on 10/04/20 and states that his oncologist (Dr. Garcia) stopped treatment at that time. Patient states that upon his diagnosis with Covid 19 virus he was symptomatic for approximately 3 days when he was first diagnosed and his symptoms and then then completely resolved. Pt states that in addition to his bout with COVID over the past 3 months, he has been experiencing a decreased appetite with a reported 45 lb weight loss over the past 3 months, becoming easily fatigued, and has had pro gressively worsening dyspnea with exertion along with chronic coarse cough. Patient went to his PCPs office yesterday for a checkup and stated he felt very winded and short of breath and the staff assessed his vitals and his doctor immediately sent him to the hospital for further evaluation. Patient currently denies having any headache, lightheadedness, dizziness, changes in vision or hearing, sore throat or dysphasia, chest pain or palpitations, abdominal pain, nausea, vomiting, changes in urinary or bowel function, or having any numbness/tingling/weakness/swelling in extremities. In the emergency department patient had mild leukocytosis with WBC count of 10,900, d-dimer was elevated 2.3, sodium was 132, mildly elevated liver enzymes were noted, C-reactive protein was elevated to 164, Covid testing remains positive as done in the emergency department, patient chest x-ray noted to have the basilar infiltrate versus atelectasis, CAT scan of the chest was negative for pulmonary embolism however homogeneous masslike density with irregular was noted in left lower lobe medial side, with a differential diagnoses of non- Hodgkin's lymphoma versus atelectasis versus neoplastic process cannot be excluded Currently patient is on 2 L nasal cannula does complaining or shortness of breath feels almost back to baseline, afebrile hemodynamically stable, Objective - Vital Signs Vital signs: Vital Signs Temp 97.5 F L 11/18/20 10:23 Pulse 91 11/18/20 10:23 Resp 16 11/18/20 10:23 BP 138/65 11/18/20 10:23 Pulse Ox 93 L 11/18/20 10:23 Intake & Output 11/17/20 11/18/20 11/18/20 18:59 06:59 18:59 Intake Total 570 1740 Balance 570 1740 Intake: Intake, IV Titration 570 550 Amount Cefepime 2 gm In Sodium 200 200 Chloride 0.9% 100 ml @ 25 mls/hr IVPB Q8HR [facility] Rx# :[id number] Sodium Chloride 0.9% 1, 120 100 000 ml @ 20 mls/hr IV . Q24H [facility] Rx#:[id number] Vancomycin 1,500 mg In 250 250 Sodium Chloride 0.9% 250 ml @ 125 mls/hr IVPB Q12H [facility] Rx#:[id number] Oral 1190 Other: Voiding Method Toilet # Voids 3 - Exam - Constitutional General appearance: average body habitus, cooperative, disheveled - EENT Eyes: PERRLA Ears: bilateral: normal - Neck Carotids: bilateral: upstroke normal Thyroid: bilateral: normal size - Respiratory Respiratory: bilateral: diminished - Cardiovascular Rhythm: regular Heart sounds: normal: S1, S2 - Gastrointestinal General gastrointestinal: normal bowel sounds - Neurologic Neurologic: CNII-XII intact - Musculoskeletal Musculoskeletal: gait normal, generalized weakness, strength equal bilaterally - Psychiatric Psychiatric: A&O x's 3, appropriate affect, intact judgment & insight - Labs CBC & Chem 7: 11/18/20 05:43 11/18/20 05:43 Labs: Abnormal Lab Results - Last 24 Hours (Table) 11/17/20 11/18/20 11/18/20 Range/Units 06:32 05:43 05:43 WBC 11.2 H (3.8-10.6) k/uL RBC 4.00 L (4.30-5.90) m/uL Hgb 12.3 L (13.0-17.5) gm/dL Hct 37.7 L (39.0-53.0) % Neutrophils # (Manual) 10.50 H (1.3-7.7) k/uL Lymphocytes # (Manual) 0.22 L (1.0-4.8) k/uL Myelocytes # (Manual) 0.11 H (0) k/uL APTT 21.4 L (22.0-30.0) sec BUN/Creatinine Ratio (12.00-20.00) Ratio Glucose (70-110) mg/dL Calcium (8.7-10.3) mg/dL Ferritin 2265.4 H (22.0-322.0) ng/mL C-Reactive Protein (0.0-0.8) mg/dL Total Protein (6.2-8.2) g/dL Albumin (3.80-4.90) g/dL Globulin (1.6-3.3) g/dL 11/18/20 Range/Units 05:43 WBC (3.8-10.6) k/uL RBC (4.30-5.90) m/uL Hgb (13.0-17.5) gm/dL Hct (39.0-53.0) % Neutrophils # (Manual) (1.3-7.7) k/uL Lymphocytes # (Manual) (1.0-4.8) k/uL Myelocytes # (Manual) (0) k/uL APTT (22.0-30.0) sec BUN/Creatinine Ratio 27.14 H (12.00-20.00) Ratio Glucose 225 H (70-110) mg/dL Calcium 8.3 L (8.7-10.3) mg/dL Ferritin 2059.3 H (22.0-322.0) ng/mL C-Reactive Protein 5.8 H (0.0-0.8) mg/dL Total Protein 4.7 L (6.2-8.2) g/dL Albumin 3.50 L (3.80-4.90) g/dL Globulin 1.2 L (1.6-3.3) g/dL Microbiology - Last 24 Hours (Table) 11/17/20 22:45 Sputum Culture - Preliminary Sputum 11/16/20 15:45 Blood Culture - Preliminary Blood No Growth after 24 hours 11/16/20 11:23 Blood Culture - Preliminary Blood No Growth after 24 hours Assessment and Plan Assessment: Masslike density left lower lobe with a differential leg doses of atelectasis, non-Hodgkin's lymphoma, neoplastic process Code 19 infection End-stage COPD Healthcare care associated pneumonia Non-Hodgkin's lymphoma Acute on chronic hypoxic respiratory failure Immunosuppressive status likely multifactorial but predominantly related to non- Hodgkin's lymphoma Weight loss of 45 pounds likely related to bite correctly of factors including recent code 19 pneumonia, prostate cancer, lymphoma, end-stage COPD Plan: Covid antibody send out test has been ordered Oncology consultation Patient will benefit from PET scan as outpatient Continue antibiotics steroids and bronchodilator Supplemental oxygen DVT prophylaxis Supportive care Continue home medications Deep breathing expense incentive spirometry Patient will continue to follow his primary wire preparation worker as outpatient recommend to patch it up for an differences Time with Patient: Greater than 30
[2020-11-18] MEDS: SODIUM CHLORIDE 0.9% 1,000 ML IV SCH (13:05)
[2020-11-18 13:50] LABS: Immunoglobulin M <16.9 mg/dL (40.0-280.0)
--- NOTE | 2020-11-18 14:34 | P.PN ---
<Juan Alberto Magaña - Last Filed: 11/18/20 14:22> Subjective Progress Note Date: 11/18/20 Patient is a 75-year-old male with a past medical history of COPD home oxygen dependent on 2 L at all times, non-Hodgkin's lymphoma, and prostate cancer resulting in a prostatectomy in 2006. Patient reports he is currently supposed to be undergoing chemotherapy infusions for his non-Hodgkin's lymphoma, however he tested positive for Covid 19 virus on 10/04/20 and states that his oncologist (Dr. Garcia) stopped treatment at that time. Patient states that upon his diagnosis with Covid 19 virus he was symptomatic for approximately 3 days when he was first diagnosed and his symptoms and then then completely resolved. Pt states that in addition to his bout with COVID over the past 3 months, he has been experiencing a decreased appetite with a reported 45 lb weight loss over the past 3 months, becoming easily fatigued, and has had progressively worsening dyspnea with exertion along with chronic coarse cough. Pt states that he went to his PCPs office today simply for a checkup and stated he felt very winded and short of breath and the staff assessed his vitals and his doctor immediately sent him to the hospital for further evaluation. Patient currently denies having any headache, lightheadedness, dizziness, changes in vision or hearing, sore throat or dysphasia, chest pain or palpitations, abdominal pain, nausea, vomiting, changes in urinary or bowel function, or having any numbness/tingling/weakness/swelling in extremities. 11/16/20: Patient was seen and fully evaluated in the emergency department resulting in admission to general medical unit with telemetry where he will receive continuous cardiac and close hemodynamic monitoring. Labs: CBC revealing mild leukocytosis with WBC count of 10.9 otherwise unremarkable. Coags revealing an elevated PTT of 21.4 and elevated d-dimer of 2.31. BMP revealing mild hyponatremia with sodium of 132 and hypochloremia with chloride of 97 otherwise normal findings. Liver profile revealing an elevated total bili of 1.5. Troponin normal findings at less than 0.012. CRP significantly elevated at 164.0. Covid PCR positive (Initial positive test 10/04/20). -EKG completed revealing sinus tachycardia at 117 bpm with no significant T-wave abnormalities or ST depression/elevation noted. -Chest x-ray: Chronic emphysematous change with persistent bibasilar acute infiltrate and/or atelectasis. No significant change from most recent x-ray. -CTA Chest: showing no acute pulmonary embolism. Masslike area to the medial left lung base. Atelectasis or infiltrate from pneumonia consolidation could be considered. Mass should be considered. Follow-up is recommended. Lung bases findings were present previously. 11/17/20: Patient was seen and fully evaluated at the bedside. He continues to complain of mild dyspnea with minimal exertion. Reports he has been using his incentive spirometry as instructed and demonstrated proper use. Patient assisted up to chair and was noted to be winded with this little movement. At rest, respirations remain even, regular, and unlabored 2 L O2 via nasal cannula with SpO2 maintaining at 92%. Procalcitonin was elevated at 0.13. CBC unremarkable this morning revealing improvement in WBC count from previous 10.9 now 7.2. CRP also showing improvement from 164 down to 131.1. BMP showing no sigificant abnormalities with the exception of Na+ 135. Urinalysis negative for infection. Pt reports feeling only slightly better from yesterday and as stated above, he continues to have dyspnea with the minimalist exertion. Pt to continue IV antibiotics Vancomycin and Cefepime and instructed to continue to use incentive spirometry 10x per hour while awake. We will continue with Decadron 6 mg daily. Awaiting pulmonolgy consult and further recommendations. 11/18/20: Patient seen and fully evaluated at the bedside. He continues to have mild dyspnea with minimal exertion. Patient states he has been using his incentive spirometer as instructed and reports he has even increased his numbers. He denies having any headache, lightheadedness, dizziness, changes in vision or hearing, chest pain or palpitations, or experiencing any swelling in his lower extremities. Patient has been ambulatory in room unassisted and seems to be improving slightly. While sitting at bedside his respirations were even, regular, and unlabored. He continues to remain on 2 L O2 via nasal cannula. His blood cultures reveal no growth over the past 24 hours and his sputum culture is currently pending. Morning labs did reveal patient to have leukocytosis with WBC count of 11.2, but CRP has significantly improved from previous 164.0 now 5.8. I had a lengthy discussion with Dr. Mcdonald, english instructor regarding patient's plan of care. Patient to stay in hospital throughout the weekend with continued IV antibiotics vancomycin and cefepime. Covid 19 antigen was ordered to determine if patient has antibodies present or if he continues to fight this infection secondary to impaired immune system. At this time we will plan for discharge home on Saturday and to obtain a PET scan on outpatient basis. Objective - Vital Signs Vital signs: Vital Signs Temp 97.5 F L 11/18/20 10:23 Pulse 91 11/18/20 10:23 Resp 16 11/18/20 10:23 BP 138/65 11/18/20 10:23 Pulse Ox 93 L 11/18/20 10:23 Intake & Output 11/17/20 11/18/20 11/18/20 18:59 06:59 18:59 Intake Total 570 1740 Balance 570 1740 Intake: Intake, IV Titration 570 550 Amount Cefepime 2 gm In Sodium 200 200 Chloride 0.9% 100 ml @ 25 mls/hr IVPB Q8HR [facility] Rx# :[id number] Sodium Chloride 0.9% 1, 120 100 000 ml @ 20 mls/hr IV . Q24H [facility] Rx#:[id number] Vancomycin 1,500 mg In 250 250 Sodium Chloride 0.9% 250 ml @ 125 mls/hr IVPB Q12H [facility] Rx#:[id number] Oral 1190 Other: Voiding Method Toilet Toilet # Voids 3 - Exam Physical exam General: non toxic, no distress, appears at stated age Derm: warm, dry Head: atraumatic, normocephalic, symmetric Eyes: EOMI, no lid lag, anicteric sclera Mouth: no lip lesion, mucus membranes moist Cardiovascular: S1S2 reg, no murmur, positive posterior tibial pulse bilaterally, no lower extremity edema, cap refill < 2 seconds Lungs: Respirations even, regular and unlabored on 2L O2 via NC. lungs significantly diminished bilaterally, but noted improvement compared to yesterdays exam. No wheezes, rhonchi, or rales present upon auscultation. Pt does have coarse raspy cough. Abdominal: soft, nontender to palpation, no guarding, no appreciable organomegaly Ext: no gross muscle atrophy, no edema, no contractures Neuro: CN II-XII grossly intact, no focal neuro deficits Psych: Alert, oriented, appropriate affect - Labs CBC & Chem 7: 11/18/20 05:43 11/18/20 05:43 Labs: Abnormal Lab Results - Last 24 Hours (Table) 11/17/20 11/18/20 11/18/20 Range/Units 06:32 05:43 05:43 WBC 11.2 H (3.8-10.6) k/uL RBC 4.00 L (4.30-5.90) m/uL Hgb 12.3 L (13.0-17.5) gm/dL Hct 37.7 L (39.0-53.0) % Neutrophils # (Manual) 10.50 H (1.3-7.7) k/uL Lymphocytes # (Manual) 0.22 L (1.0-4.8) k/uL Myelocytes # (Manual) 0.11 H (0) k/uL APTT 21.4 L (22.0-30.0) sec BUN/Creatinine Ratio (12.00-20.00) Ratio Glucose (70-110) mg/dL Calcium (8.7-10.3) mg/dL Ferritin 2265.4 H (22.0-322.0) ng/mL C-Reactive Protein (0.0-0.8) mg/dL Total Protein (6.2-8.2) g/dL Albumin (3.80-4.90) g/dL Globulin (1.6-3.3) g/dL 11/18/20 Range/Units 05:43 WBC (3.8-10.6) k/uL RBC (4.30-5.90) m/uL Hgb (13.0-17.5) gm/dL Hct (39.0-53.0) % Neutrophils # (Manual) (1.3-7.7) k/uL Lymphocytes # (Manual) (1.0-4.8) k/uL Myelocytes # (Manual) (0) k/uL APTT (22.0-30.0) sec BUN/Creatinine Ratio 27.14 H (12.00-20.00) Ratio Glucose 225 H (70-110) mg/dL Calcium 8.3 L (8.7-10.3) mg/dL Ferritin 2059.3 H (22.0-322.0) ng/mL C-Reactive Protein 5.8 H (0.0-0.8) mg/dL Total Protein 4.7 L (6.2-8.2) g/dL Albumin 3.50 L (3.80-4.90) g/dL Globulin 1.2 L (1.6-3.3) g/dL Microbiology - Last 24 Hours (Table) 11/17/20 22:45 Sputum Culture - Preliminary Sputum 11/16/20 15:45 Blood Culture - Preliminary Blood No Growth after 24 hours 11/16/20 11:23 Blood Culture - Preliminary Blood No Growth after 24 hours Assessment and Plan Plan: Severe sepsis, secondary to underlying pneumonia infection and COVID 19...improving. -Severe sepsis was present on admission as evidenced by heart rate 120, temp 101.8, respiratory rate 28, and leukocytosis with WBC count of 10.9. This is slowly improving. Pt is now afebrile with HR remaining in normal limits currently at 82 bpm. -Covid 19 PCR positive -Procal elevated at 0.13, Lactate normal findings at 1.8 with repeat 1.2. Morning labs reveal patient didn't have leukocytosis with WBC count of 11.2, however patient has shown significant improvement with CRP initially 164.0 now 5.8. -CT revealed possible atelectasis or infiltrate from pneumonia, sepsis likely secondary to pneumonia versus Covid 19 virus infection. -Patient to continue IV antibiotics cefepime and vancomycin for treatment of pneumonia. -Patient to be provided with oxygen supplementation as needed to maintain SpO2 equal to or greater than 92% at all times. -Continuation of Symbicort and Ventolin inhalers. -Incentive spirometry 10-15 times hourly while awake. -Dr. Mcdonald, english instructor, recommending patient to stay in hospital throughout the weekend with continued IV antibiotics vancomycin and cefepime. -Covid 19 antigen was ordered to determine if patient has antibodies present or if he continues to fight this infection secondary to impaired immune system. Acute COPD exacerbation, likely secondary to underlying pneumonia infection -Patient with a history of COPD and is home oxygen dependent on 2 L at all times. -Patient to be provided with oxygen supplementation titrated as needed to maintain SpO2 equal to or greater than 92%. -Continuation of Symbicort and Ventolin inhalers. -Incentive spirometry -Research Epidemiologist following, Dr. Mcdonald. Non-Hodgkin's lymphoma -Patient reports he is currently supposed to be undergoing chemotherapy infusions for his non-Hodgkin's lymphoma, however he tested positive for Covid 19 virus on 10/04/20 and states that his oncologist (Dr. Garcia) stopped treatment at that time. -Consult placed to Dr. Garcia, Heme/Onc, appreciate recommendations. DVT prophylaxis: Lovenox Discussed with: Patient and pt discussed with on the phone. Anticipated discharge: [address]: home A total of 35 minutes was spent on the care of this complex patient more than 50% of the time was spent in counseling and care coordination. <Kendell Heath F - Last Filed: 11/18/20 15:47> Objective - Vital Signs Vital signs: Vital Signs Temp 97.5 F L 11/18/20 10:23 Pulse 91 11/18/20 10:23 Resp 16 11/18/20 10:23 BP 138/65 11/18/20 10:23 Pulse Ox 94 L 11/18/20 14:00 Intake & Output 11/17/20 11/18/20 11/18/20 18:59 06:59 18:59 Intake Total 570 1740 Balance 570 1740 Intake: Intake, IV Titration 570 550 Amount Cefepime 2 gm In Sodium 200 200 Chloride 0.9% 100 ml @ 25 mls/hr IVPB Q8HR [facility] Rx# :[id number] Sodium Chloride 0.9% 1, 120 100 000 ml @ 20 mls/hr IV . Q24H [facility] Rx#:[id number] Vancomycin 1,500 mg In 250 250 Sodium Chloride 0.9% 250 ml @ 125 mls/hr IVPB Q12H [facility] Rx#:[id number] Oral 1190 Other: Voiding Method Toilet Toilet # Voids 3 - Labs CBC & Chem 7: 11/18/20 05:43 11/18/20 05:43 Labs: Abnormal Lab Results - Last 24 Hours (Table) 11/17/20 11/18/20 11/18/20 Range/Units 11:26 05:43 05:43 WBC 11.2 H (3.8-10.6) k/uL RBC 4.00 L (4.30-5.90) m/uL Hgb 12.3 L (13.0-17.5) gm/dL Hct 37.7 L (39.0-53.0) % Neutrophils # (Manual) 10.50 H (1.3-7.7) k/uL Lymphocytes # (Manual) 0.22 L (1.0-4.8) k/uL Myelocytes # (Manual) 0.11 H (0) k/uL APTT 21.4 L (22.0-30.0) sec BUN/Creatinine Ratio (12.00-20.00) Ratio Glucose (70-110) mg/dL Calcium (8.7-10.3) mg/dL Ferritin (22.0-322.0) ng/mL C-Reactive Protein (0.0-0.8) mg/dL Total Protein (6.2-8.2) g/dL Albumin (3.80-4.90) g/dL Globulin (1.6-3.3) g/dL IgG 237.0 L (700.0-1600.0) mg/dL IgA 40.0 L (60.0-350.0) mg/dL IgM <16.9 L (40.0-280.0) mg/dL 11/18/20 Range/Units 05:43 WBC (3.8-10.6) k/uL RBC (4.30-5.90) m/uL Hgb (13.0-17.5) gm/dL Hct (39.0-53.0) % Neutrophils # (Manual) (1.3-7.7) k/uL Lymphocytes # (Manual) (1.0-4.8) k/uL Myelocytes # (Manual) (0) k/uL APTT (22.0-30.0) sec BUN/Creatinine Ratio 27.14 H (12.00-20.00) Ratio Glucose 225 H (70-110) mg/dL Calcium 8.3 L (8.7-10.3) mg/dL Ferritin 2059.3 H (22.0-322.0) ng/mL C-Reactive Protein 5.8 H (0.0-0.8) mg/dL Total Protein 4.7 L (6.2-8.2) g/dL Albumin 3.50 L (3.80-4.90) g/dL Globulin 1.2 L (1.6-3.3) g/dL IgG (700.0-1600.0) mg/dL IgA (60.0-350.0) mg/dL IgM (40.0-280.0) mg/dL Microbiology - Last 24 Hours (Table) 11/17/20 22:45 Gram Stain - Preliminary Sputum Sputum Culture - Preliminary 11/16/20 15:45 Blood Culture - Preliminary Blood No Growth after 24 hours 11/16/20 11:23 Blood Culture - Preliminary Blood No Growth after 24 hours Assessment and Plan Plan: According to pulmonary recommendations patient will benefit from a PET scan done on an outpatient basis. This was discussed with oncology service who will follow-up on that. Patient is aware. Patient is currently improving. Continue current treatment with antibiotics as well as steroids at this point.
--- NOTE | 2020-11-18 14:54 | P.PN ---
Subjective Progress Note Date: 11/18/20 HISTORY OF PRESENT ILLNESS This is a 75-year-old male treated for pneumonia with recent history of positive Covid in September. No evidence of groundglass opacities on this current admission. Plans to continue treatment for bacterial pneumonia. Patient states he continues to have a cough and sputum culture was obtained yesterday. He denies having shortness of breath or chest pain. He states he is healing pretty good. Cough is decreasing in frequency. He denies any nausea or vomiting. No abdominal pain or diarrhea. Patient has been afebrile since admission, heart rate 91, blood pressure 138/65, pulse ox 93% on 2 L nasal cannula. PHYSICAL EXAMINATION Gen: This is a 75-year-old male. He is resting in chair and appears to be comfortable and in no acute distress. HEENT: Head is atraumatic, normocephalic. Pupils equal, round. Sclerae is anicteric. NECK: Supple. No JVD. No lymphadenopathy. LUNGS: Crackles in the right base. No wheezes No intercostal retractions. HEART: Regular rate and rhythm. No murmur. ABDOMEN: Soft. Bowel sounds are present. No masses. No tenderness. EXTREMITIES: No pedal edema. No calf tenderness. NEUROLOGICAL: Patient is awake, alert and oriented x3. ASSESSMENT Bacterial pneumonia Recent treatment for Covid 19 pneumonia in September PLAN Continue IV cefepime 2 g IV piggyback every 8 hours Continue vancomycin, pharmacy dosing Wait for sputum culture completion Further recommendations based upon patient's clinical course The above dictated assessment and findings were discussed with Dr. Hickey. The impression and plan of care have been directed as dictated. Marilyn Madrigal nurse practitioner acting as scribe for Dr. Hickey. Objective - Vital Signs Vital signs: Vital Signs Temp 97.5 F L 11/18/20 10:23 Pulse 91 11/18/20 10:23 Resp 16 11/18/20 10:23 BP 138/65 11/18/20 10:23 Pulse Ox 93 L 11/18/20 10:23 Intake & Output 11/17/20 11/18/20 11/18/20 18:59 06:59 18:59 Intake Total 570 1740 Balance 570 1740 Intake: Intake, IV Titration 570 550 Amount Cefepime 2 gm In Sodium 200 200 Chloride 0.9% 100 ml @ 25 mls/hr IVPB Q8HR [facility] Rx# :[id number] Sodium Chloride 0.9% 1, 120 100 000 ml @ 20 mls/hr IV . Q24H [facility] Rx#:[id number] Vancomycin 1,500 mg In 250 250 Sodium Chloride 0.9% 250 ml @ 125 mls/hr IVPB Q12H [facility] Rx#:[id number] Oral 1190 Other: Voiding Method Toilet Toilet # Voids 3 - Labs CBC & Chem 7: 11/18/20 05:43 11/18/20 05:43 Labs: Abnormal Lab Results - Last 24 Hours (Table) 11/18/20 11/18/20 11/18/20 Range/Units 05:43 05:43 05:43 WBC 11.2 H (3.8-10.6) k/uL RBC 4.00 L (4.30-5.90) m/uL Hgb 12.3 L (13.0-17.5) gm/dL Hct 37.7 L (39.0-53.0) % Neutrophils # (Manual) 10.50 H (1.3-7.7) k/uL Lymphocytes # (Manual) 0.22 L (1.0-4.8) k/uL Myelocytes # (Manual) 0.11 H (0) k/uL APTT 21.4 L (22.0-30.0) sec BUN/Creatinine Ratio 27.14 H (12.00-20.00) Ratio Glucose 225 H (70-110) mg/dL Calcium 8.3 L (8.7-10.3) mg/dL Ferritin 2059.3 H (22.0-322.0) ng/mL C-Reactive Protein 5.8 H (0.0-0.8) mg/dL Total Protein 4.7 L (6.2-8.2) g/dL Albumin 3.50 L (3.80-4.90) g/dL Globulin 1.2 L (1.6-3.3) g/dL Microbiology - Last 24 Hours (Table) 11/17/20 22:45 Sputum Culture - Preliminary Sputum 11/16/20 15:45 Blood Culture - Preliminary Blood No Growth after 24 hours 11/16/20 11:23 Blood Culture - Preliminary Blood No Growth after 24 hours
--- NOTE | 2020-11-18 15:56 | P.PN ---
Subjective Progress Note Date: 11/18/20 Principal diagnosis: COVID effects IgG is quite low at 237, I have talked with pharmacy and asked for Gammaglobulin infusion for increased support of patient with active infection and immunocompromised given history of lymphoma. Objective - Vital Signs Vital signs: Vital Signs Temp 97.5 F L 11/18/20 10:23 Pulse 91 11/18/20 10:23 Resp 16 11/18/20 10:23 BP 138/65 11/18/20 10:23 Pulse Ox 94 L 11/18/20 14:00 Intake & Output 11/17/20 11/18/20 11/18/20 18:59 06:59 18:59 Intake Total 570 1740 Balance 570 1740 Intake: Intake, IV Titration 570 550 Amount Cefepime 2 gm In Sodium 200 200 Chloride 0.9% 100 ml @ 25 mls/hr IVPB Q8HR [facility] Rx# :[id number] Sodium Chloride 0.9% 1, 120 100 000 ml @ 20 mls/hr IV . Q24H [facility] Rx#:[id number] Vancomycin 1,500 mg In 250 250 Sodium Chloride 0.9% 250 ml @ 125 mls/hr IVPB Q12H [facility] Rx#:[id number] Oral 1190 Other: Voiding Method Toilet Toilet # Voids 3 - Exam - Constitutional General appearance: cooperative, mild distress - EENT Eyes: EOMI, PERRLA ENT: NA/AT, normal oropharynx - Neck Neck: normal ROM - Respiratory Respiratory: bilateral: diminished, rhonchi (Scattered) - Cardiovascular Rhythm: regularly irregular - Gastrointestinal General gastrointestinal: normal bowel sounds, soft - Integumentary Integumentary: pale - Neurologic Neurologic: CNII-XII intact - Musculoskeletal Musculoskeletal: generalized weakness, strength equal bilaterally - Psychiatric Psychiatric: A&O x's 3, appropriate affect - Labs CBC & Chem 7: 11/18/20 05:43 11/18/20 05:43 Labs: Abnormal Lab Results - Last 24 Hours (Table) 11/17/20 11/18/20 11/18/20 Range/Units 11:26 05:43 05:43 WBC 11.2 H (3.8-10.6) k/uL RBC 4.00 L (4.30-5.90) m/uL Hgb 12.3 L (13.0-17.5) gm/dL Hct 37.7 L (39.0-53.0) % Neutrophils # (Manual) 10.50 H (1.3-7.7) k/uL Lymphocytes # (Manual) 0.22 L (1.0-4.8) k/uL Myelocytes # (Manual) 0.11 H (0) k/uL APTT 21.4 L (22.0-30.0) sec BUN/Creatinine Ratio (12.00-20.00) Ratio Glucose (70-110) mg/dL Calcium (8.7-10.3) mg/dL Ferritin (22.0-322.0) ng/mL C-Reactive Protein (0.0-0.8) mg/dL Total Protein (6.2-8.2) g/dL Albumin (3.80-4.90) g/dL Globulin (1.6-3.3) g/dL IgG 237.0 L (700.0-1600.0) mg/dL IgA 40.0 L (60.0-350.0) mg/dL IgM <16.9 L (40.0-280.0) mg/dL 11/18/20 Range/Units 05:43 WBC (3.8-10.6) k/uL RBC (4.30-5.90) m/uL Hgb (13.0-17.5) gm/dL Hct (39.0-53.0) % Neutrophils # (Manual) (1.3-7.7) k/uL Lymphocytes # (Manual) (1.0-4.8) k/uL Myelocytes # (Manual) (0) k/uL APTT (22.0-30.0) sec BUN/Creatinine Ratio 27.14 H (12.00-20.00) Ratio Glucose 225 H (70-110) mg/dL Calcium 8.3 L (8.7-10.3) mg/dL Ferritin 2059.3 H (22.0-322.0) ng/mL C-Reactive Protein 5.8 H (0.0-0.8) mg/dL Total Protein 4.7 L (6.2-8.2) g/dL Albumin 3.50 L (3.80-4.90) g/dL Globulin 1.2 L (1.6-3.3) g/dL IgG (700.0-1600.0) mg/dL IgA (60.0-350.0) mg/dL IgM (40.0-280.0) mg/dL Microbiology - Last 24 Hours (Table) 11/17/20 22:45 Gram Stain - Preliminary Sputum Sputum Culture - Preliminary 11/16/20 15:45 Blood Culture - Preliminary Blood No Growth after 24 hours 11/16/20 11:23 Blood Culture - Preliminary Blood No Growth after 24 hours Assessment and Plan (1) COVID-19 Current Visit: Yes Status: Acute Code(s): U07.1 - COVID-19 SNOMED Code(s): 850049293 (2) Acute respiratory distress Current Visit: No Status: Acute Code(s): R06.03 - ACUTE RESPIRATORY DISTRESS SNOMED Code(s): 982727789 (3) Lymphoma Current Visit: No Status: Acute Priority: Medium Code(s): C85.90 - NON- HODGKIN LYMPHOMA, UNSPECIFIED, UNSPECIFIED SITE SNOMED Code(s): 379689240 (4) Pneumonia Current Visit: No Status: Acute Priority: High Code(s): J18.9 - PNEUMONIA, UNSPECIFIED ORGANISM SNOMED Code(s): 989736088 Plan: Continue supportive care per primary and pulmonary teams IgG is low at 237, discussed with pharmacy and will give IVIG today at 30 grams
[2020-11-18] MEDS ORDERED: IMMUNE GLOBULIN (GAMMAGARD) 30 GM in EMPTY BAG 1 BAG IV NR (17:00)
[2020-11-18] MEDS ORDERED: VANCOMYCIN TROUGH DUE 1 EACH MISC MISCELLANE ONE (17:00)
[2020-11-18] MEDS: MELATONIN 3 MG TABLET PO PRN (20:52)
[2020-11-19] MEDS: CEFEPIME 2 GM in SODIUM CHLORIDE 0.9% 100 ML IVPB SCH ×3 (00:20→15:49)
[2020-11-19] MEDS: methylPREDNISolone SOD SUCCI 125 MG/2 ML VIAL IV SCH ×4 (00:20→17:37)
[2020-11-19] MEDS: VANCOMYCIN 1,250 MG in SODIUM CHLORIDE 0.9% 250 ML IVPB SCH ×3 (02:47→17:37)
[2020-11-19 07:19] LABS: HCT 35.5 % (39.0-53.0); HGB 11.7 gm/dL (13.0-17.5); MCH 30.7 pg (25.0-35.0); MCHC 32.8 g/dL (31.0-37.0); MCV 93.5 fL (80.0-100.0); Mean Platelet Volume 7.8; Platelet Count 239 k/uL (150-450); RDW 14.8 % (11.5-15.5)
[2020-11-19 07:30] LABS: Glucose,Whole Blood 247 mg/dL (75-99)
[2020-11-19 07:41] LABS: Partial Thromboplastin Time 20.3 sec (22.0-30.0)
[2020-11-19] MEDS: ALBUTEROL HFA INHALER INHALATION PRN ×3 (07:59→19:17)
[2020-11-19] MEDS: SYMBICORT 160-4.5 MCG INHALER INHALATION SCH ×2 (08:00→19:17)
[2020-11-19 08:26] LABS: Band Neutrophils % 4 %; Metamyelocytes % 2 %; Myelocytes % 4 %; Neutrophils % (M) 85 %; Nucleated Red Blood Cells 0 /100 WBC (0-0); Total Cells Counted 200
[2020-11-19 08:27] LABS: Poikilocytosis (M) Present
[2020-11-19 08:39] LABS: Prothrombin Time 10.6 sec (9.0-12.0)
--- NOTE | 2020-11-19 09:59 | P.PN ---
Subjective Progress Note Date: 11/19/20 Principal diagnosis: Shortness of breath Patient is currently feeling better compared to admission. He is on his baseline oxygen. No fevers or chills. No overnight issues. Objective - Vital Signs Vital signs: Vital Signs Temp 97.6 F 11/19/20 05:00 Pulse 74 11/19/20 05:00 Resp 18 11/19/20 05:00 BP 135/73 11/19/20 05:00 Pulse Ox 93 L 11/19/20 05:00 Intake & Output 11/18/20 11/19/20 11/19/20 18:59 06:59 18:59 Intake Total 100 Balance 100 Intake: Intake, IV Titration 100 Amount Cefepime 2 gm In Sodium 100 Chloride 0.9% 100 ml @ 25 mls/hr IVPB Q8HR [facility] Rx# :[id number] Other: Voiding Method Toilet Toilet # Voids 1 1 - Exam General: non toxic, no distress, appears at stated age Derm: warm, dry Head: atraumatic, normocephalic, symmetric Eyes: EOMI, no lid lag, anicteric sclera Mouth: no lip lesion, mucus membranes moist Cardiovascular: S1S2 reg, no murmur, positive posterior tibial pulse bilaterally, no lower extremity edema, cap refill < 2 seconds Lungs: Respirations even, regular and unlabored on 2L O2 via NC. lungs significantly diminished bilaterally. No wheezes, rhonchi, or rales present upon auscultation. Abdominal: soft, nontender to palpation, no guarding, no appreciable organomegaly Ext: no gross muscle atrophy, no edema, no contractures Neuro: CN II-XII grossly intact, no focal neuro deficits Psych: Alert, oriented, appropriate affect - Labs CBC & Chem 7: 11/19/20 06:38 11/18/20 05:43 Labs: Abnormal Lab Results - Last 24 Hours (Table) 11/17/20 11/18/20 11/19/20 Range/Units 11:26 05:43 06:38 RBC 3.80 L (4.30-5.90) m/uL Hgb 11.7 L (13.0-17.5) gm/dL Hct 35.5 L (39.0-53.0) % Neutrophils # (Manual) 8.90 H (1.3-7.7) k/uL Lymphocytes # (Manual) 0.30 L (1.0-4.8) k/uL Metamyelocytes # (Man) 0.20 H (0) k/uL Myelocytes # (Manual) 0.40 H (0) k/uL APTT (22.0-30.0) sec BUN/Creatinine Ratio 27.14 H (12.00-20.00) Ratio Glucose 225 H (70-110) mg/dL POC Glucose (mg/dL) (75-99) mg/dL Calcium 8.3 L (8.7-10.3) mg/dL Ferritin 2059.3 H (22.0-322.0) ng/mL C-Reactive Protein 5.8 H (0.0-0.8) mg/dL Total Protein 4.7 L (6.2-8.2) g/dL Albumin 3.50 L (3.80-4.90) g/dL Globulin 1.2 L (1.6-3.3) g/dL IgG 237.0 L (700.0-1600.0) mg/dL IgA 40.0 L (60.0-350.0) mg/dL IgM <16.9 L (40.0-280.0) mg/dL 11/19/20 11/19/20 Range/Units 06:38 07:29 RBC (4.30-5.90) m/uL Hgb (13.0-17.5) gm/dL Hct (39.0-53.0) % Neutrophils # (Manual) (1.3-7.7) k/uL Lymphocytes # (Manual) (1.0-4.8) k/uL Metamyelocytes # (Man) (0) k/uL Myelocytes # (Manual) (0) k/uL APTT 20.3 L (22.0-30.0) sec BUN/Creatinine Ratio (12.00-20.00) Ratio Glucose (70-110) mg/dL POC Glucose (mg/dL) 247 H (75-99) mg/dL Calcium (8.7-10.3) mg/dL Ferritin (22.0-322.0) ng/mL C-Reactive Protein (0.0-0.8) mg/dL Total Protein (6.2-8.2) g/dL Albumin (3.80-4.90) g/dL Globulin (1.6-3.3) g/dL IgG (700.0-1600.0) mg/dL IgA (60.0-350.0) mg/dL IgM (40.0-280.0) mg/dL Microbiology - Last 24 Hours (Table) 11/16/20 15:45 Blood Culture - Preliminary Blood No Growth after 48 hours 11/16/20 11:23 Blood Culture - Preliminary Blood No Growth after 48 hours 11/17/20 22:45 Gram Stain - Preliminary Sputum Sputum Culture - Preliminary Assessment and Plan Plan: Severe sepsis, secondary to underlying pneumonia infection and COVID 19.. .improving. -Severe sepsis was present on admission as evidenced by heart rate 120, temp 101.8, respiratory rate 28, and leukocytosis with WBC count of 10.9. This is slowly improving. Pt is now afebrile with HR remaining in normal limits currently at 82 bpm. -Covid 19 PCR positive -Procal elevated at 0.13, Lactate normal findings at 1.8 with repeat 1.2. Morning labs reveal patient didn't have leukocytosis with WBC count of 11.2, however patient has shown significant improvement with CRP initially 164.0 now 5.8. -CT revealed possible atelectasis or infiltrate from pneumonia, sepsis likely secondary to pneumonia versus Covid 19 virus infection. -Patient to continue IV antibiotics cefepime and vancomycin for treatment of pneumonia. -O2 supplementation as needed to maintain SpO2 equal to or greater than 92% at all times. -Continuation of Symbicort and Ventolin inhalers. -Incentive spirometry 10-15 times hourly while awake. -Dr. Mcdonald, waxer floor following Low IgG Oncology planning IVIG infusion Acute COPD exacerbation, likely secondary to underlying pneumonia infection -Patient with a history of COPD and is home oxygen dependent on 2 L at all times. -Continuation of Symbicort and Ventolin inhalers. -Incentive spirometry -Document Coordinator following, Dr. Mcdonald. Non-Hodgkin's lymphoma -Follow with PET scan outpatient, d/w Heme/Onc, appreciate recommendations. DVT prophylaxis: Lovenox Discussed with: Patient Anticipated discharge: saturday Anticipated discharge place: home A total of 35 minutes was spent on the care of this complex patient more than 50% of the time was spent in counseling and care coordination.
[2020-11-19] MEDS: ENOXAPARIN 40 MG/0.4 ML SYRINGE SQ SCH (10:37)
[2020-11-19 11:02] LABS: Glucose,Whole Blood 417 mg/dL (75-99)
[2020-11-19] MEDS: INSULIN ASPART (NovoLOG) 100 UNIT/ML VIAL SQ SCH ×3 (11:09→22:04)
[2020-11-19] MEDS ORDERED: IMMUNE GLOBULIN (GAMMAGARD) 30 GM in EMPTY BAG 1 BAG IV NR ×2 (12:00→21:00)
[2020-11-19 12:10] LABS: Ferritin 1600.9 ng/mL (22.0-322.0)
[2020-11-19 12:11] LABS: African American GFR (CKD) 115.6 (60.0-200.0); Albumin 3.4 g/dL (3.80-4.90); Albumin/Globulin Ratio 2.83 (1.60-3.17); Anion Gap 7.9 mmol/L (4.00-12.00); C Reactive Protein 3.2 mg/dL (0.0-0.8); Carbon Dioxide 27.1 mmol/L (21.6-31.8); Globulin 1.2 g/dL (1.6-3.3); Non-African American GFR(CKD) 99.7 (60.0-200.0); Potassium 3.7 mmol/L (3.5-5.5); Total Bilirubin 0.4 mg/dL (0.3-1.2); Total Protein 4.6 g/dL (6.2-8.2)
[2020-11-19 17:12] LABS: Glucose,Whole Blood 312 mg/dL (75-99)
--- NOTE | 2020-11-19 18:25 | PN ---
PROGRESS NOTE DATE OF SERVICE: 11/19/2020 REASON FOR FOLLOWUP: Pneumonia. INTERVAL HISTORY: The patient is currently afebrile. The patient is breathing more comfortably. Patient denies having any chest pain or shortness of breath. Occasional cough. No abdominal pain or diarrhea. PHYSICAL EXAMINATION: Blood pressure 152/70 with a pulse of 85, temperature 97.5. He is 93% on 2 L nasal cannula. General description is an elderly male lying in bed in no distress. RESPIRATORY SYSTEM: Unlabored breathing with decreased intensity of breath sounds. No wheeze. HEART: S1, S2. Regular rate and rhythm. ABDOMEN: Soft. No tenderness. LABS: Hemoglobin is 11.7, white count 10.0. BUN of 18, creatinine 0.6. DIAGNOSTIC IMPRESSION AND PLAN: Patient with pneumonia, possibly Gram-negative. Waiting for sputum culture to finalize. Patient is clinically responding to vancomycin, which will be continued, adjusting it further based on the culture report. Continue with supportive care. MMODL / IJN: [id number] /
[2020-11-19 20:24] LABS: Glucose,Whole Blood 320 mg/dL (75-99)
[2020-11-19] MEDS ORDERED: IMMUNE GLOBULIN (GAMMAGARD) 30 GM in EMPTY BAG 1 BAG IV ONE (21:00)
[2020-11-19] MEDS: SODIUM CHLORIDE 0.9% 1,000 ML IV SCH (21:28)
[2020-11-19] MEDS ORDERED: TEMAZEPAM 7.5 MG CAP PO PRN (22:00)
[2020-11-20] MEDS: methylPREDNISolone SOD SUCCI 125 MG/2 ML VIAL IV SCH ×3 (00:16→12:13)
[2020-11-20] MEDS: VANCOMYCIN 1,250 MG in SODIUM CHLORIDE 0.9% 250 ML IVPB SCH ×3 (01:35→13:50)
[2020-11-20] MEDS: CEFEPIME 2 GM in SODIUM CHLORIDE 0.9% 100 ML IVPB SCH ×3 (01:36→15:59)
[2020-11-20] MEDS: SYMBICORT 160-4.5 MCG INHALER INHALATION SCH ×2 (07:30→19:53)
[2020-11-20 07:44] LABS: Glucose,Whole Blood 252 mg/dL (75-99)
--- NOTE | 2020-11-20 08:52 | P.PN ---
Subjective Progress Note Date: 11/20/20 Principal diagnosis: Masslike density left lower lobe with a differential leg doses of atelectasis, non-Hodgkin's lymphoma, neoplastic process Code 19 infection End-stage COPD Healthcare care associated pneumonia Non-Hodgkin's lymphoma Acute on chronic hypoxic respiratory failure Immunosuppressive status likely multifactorial but predominantly related to non- Hodgkin's lymphoma Weight loss of 45 pounds likely related to bite correctly of factors including recent code 19 pneumonia, prostate cancer, lymphoma, end-stage COPD 11/20/2020, patient seen eval examined during the rounds labs reviewed medications reviewed overall in good spirits doing well denies any chest pain cough or sputum production symptoms significantly improved status post IVIG for low IgG levels, patient remains on 2 L nasal cannula, 11/18/2020, patient seen eval examined during the rounds and labs reviewed medications reviewed care plan discussed, respiratory status remains stable, dry nonproductive cough is present, patient remains on 2 L oxygen remains on broad- spectrum antibiotics, as well as high-dose IV steroids, patient is being continued on breathing treatment, computed tomography scan chest x-ray reviewed, there are concerns of recurrence of lymphoma, will have consulted oncology, cold antibody a send out test has been done as well, patient remains positive for cold with 19 from September up to now, This is a 75-year-old male with history of end-stage COPD on home oxygen 2 L nasal cannula, patient has covid 19 pneumonia back in September, patient was treated with usual therapeutic intervention has been discharge however continued to have ongoing shortness of breath slightly more than the baseline, he claims that he has 4-5 times with pneumonia and not getting relief, patient got in to an argument with his primary senior operations analyst, and physician Dr. yulia jiang however patient wants to resume care with the primary senior operations analyst, I advised patient to patch through and communicate, in the meantime we'll continue to provide pulmonary care, Review of the data revealed that patient also have non-Hodgkin's lymphoma, and prostate cancer resulting in a prostatectomy in 2006. Patient reports he is currently supposed to be undergoing chemotherapy infusions for his non-Hodgkin's lymphoma, however he tested positive for Covid 19 virus on 10/04/20 and states that his oncologist (Dr. Garcia) stopped treatment at that time. Patient states that upon his diagnosis with Covid 19 virus he was symptomatic for approximately 3 days when he was first diagnosed and his symptoms and then then completely resolved. Pt states that in addition to his bout with COVID over the past 3 months, he has been experiencing a decreased appetite with a reported 45 lb weight loss over the past 3 months, becoming easily fatigued, and has had progressively worsening dyspnea with exertion along with chronic coarse cough. Patient went to his PCPs office yesterday for a checkup and stated he felt very winded and short of breath and the staff assessed his vitals and his doctor immediately sent him to the hospital for further evaluation. Patient currently denies having any headache, lightheadedness, dizziness, changes in vision or hearing, sore throat or dysphasia, chest pain or palpitations, abdominal pain, nausea, vomiting, changes in urinary or bowel function, or having any numbness/tingling/weakness/swelling in extremities. In the emergency department patient had mild leukocytosis with WBC count of 10,900, d-dimer was elevated 2.3, sodium was 132, mildly elevated liver enzymes were noted, C-reactive protein was elevated to 164, Covid testing remains positive as done in the emergency department, patient chest x-ray noted to have the basilar infiltrate versus atelectasis, CAT scan of the chest was negative for pulmonary embolism however homogeneous masslike density with irregular was noted in left lower lobe medial side, with a differential diagnoses of non- Hodgkin's lymphoma versus atelectasis versus neoplastic process cannot be excluded Currently patient is on 2 L nasal cannula does complaining or shortness of breath feels almost back to baseline, afebrile hemodynamically stable, Objective - Vital Signs Vital signs: Vital Signs Temp 97.5 F L 11/20/20 05:00 Pulse 78 11/20/20 05:00 Resp 18 11/20/20 05:00 BP 157/70 11/20/20 05:00 Pulse Ox 96 11/20/20 05:00 Intake & Output 11/19/20 11/20/20 11/20/20 18:59 06:59 18:59 Intake Total 950 428.833 Balance 950 428.833 Intake: Intake, IV Titration 350 138.833 Amount Cefepime 2 gm In Sodium 100 Chloride 0.9% 100 ml @ 25 mls/hr IVPB Q8HR [facility] Rx# :[id number] Immune Globulin ( 138.833 Gammagard) 30 gm In Empty Bag 1 bag @ Per Protocol IV .Q0M ONE Rx#: [id number] Vancomycin 1,250 mg In 250 Sodium Chloride 0.9% 250 ml @ 125 mls/hr IVPB Q8H [facility] Rx#:[id number] Oral 600 290 Other: Voiding Method Toilet Toilet # Voids 3 1 - Exam - Constitutional General appearance: average body habitus, cooperative, disheveled - EENT Eyes: PERRLA Ears: bilateral: normal - Neck Carotids: bilateral: upstroke normal Thyroid: bilateral: normal size - Respiratory Respiratory: bilateral: diminished - Cardiovascular Rhythm: regular Heart sounds: normal: S1, S2 - Gastrointestinal General gastrointestinal: normal bowel sounds - Neurologic Neurologic: CNII-XII intact - Musculoskeletal Musculoskeletal: gait normal, generalized weakness, strength equal bilaterally - Psychiatric Psychiatric: A&O x's 3, appropriate affect, intact judgment & insight - Labs CBC & Chem 7: 11/19/20 06:38 11/19/20 06:38 Labs: Abnormal Lab Results - Last 24 Hours (Table) 11/19/20 11/19/20 11/19/20 Range/Units 06:38 11:01 17:11 BUN/Creatinine Ratio 30.00 H (12.00-20.00) Ratio Glucose 257 H (70-110) mg/dL POC Glucose (mg/dL) 417 H 312 H (75-99) mg/dL Calcium 8.0 L (8.7-10.3) mg/dL Ferritin 1600.9 H (22.0-322.0) ng/mL C-Reactive Protein 3.2 H (0.0-0.8) mg/dL Total Protein 4.6 L (6.2-8.2) g/dL Albumin 3.40 L (3.80-4.90) g/dL Globulin 1.2 L (1.6-3.3) g/dL 11/19/20 11/20/20 Range/Units 20:23 07:43 BUN/Creatinine Ratio (12.00-20.00) Ratio Glucose (70-110) mg/dL POC Glucose (mg/dL) 320 H 252 H (75-99) mg/dL Calcium (8.7-10.3) mg/dL Ferritin (22.0-322.0) ng/mL C-Reactive Protein (0.0-0.8) mg/dL Total Protein (6.2-8.2) g/dL Albumin (3.80-4.90) g/dL Globulin (1.6-3.3) g/dL Microbiology - Last 24 Hours (Table) 11/16/20 15:45 Blood Culture - Preliminary Blood No Growth after 72 hours 11/16/20 11:23 Blood Culture - Preliminary Blood No Growth after 72 hours Assessment and Plan Assessment: Immunosuppressed status with low IgG Masslike density left lower lobe with a differential leg doses of atelectasis, non-Hodgkin's lymphoma, neoplastic process Code 19 infection End-stage COPD Healthcare care associated pneumonia Non-Hodgkin's lymphoma Acute on chronic hypoxic respiratory failure Immunosuppressive status likely multifactorial but predominantly related to non- Hodgkin's lymphoma Weight loss of 45 pounds likely related to bite correctly of factors including recent code 19 pneumonia, prostate cancer, lymphoma, end-stage COPD Plan: Status post IVIG Covid antibody send out test has been ordered Oncology consultation notes and recommendation appreciated Patient will benefit from PET scan as outpatient Continue antibiotics steroids and bronchodilator Supplemental oxygen DVT prophylaxis Supportive care Continue home medications Deep breathing expense incentive spirometry Antibiotic switched to oral like Augmentin 500 twice a day for 5-7 days a starting tomorrow Agree with discharge planning Patient will continue to follow his primary senior operations analyst as outpatient recommend to patch it up for an differences Time with Patient: Greater than 30
[2020-11-20] MEDS ORDERED: VANCOMYCIN TROUGH DUE 1 EACH MISC MISCELLANE ONE (09:00)
[2020-11-20] MEDS: INSULIN ASPART (NovoLOG) 100 UNIT/ML VIAL SQ SCH ×4 (10:17→21:28)
[2020-11-20] MEDS: ENOXAPARIN 40 MG/0.4 ML SYRINGE SQ SCH (10:17)
[2020-11-20 11:14] LABS: Glucose,Whole Blood 347 mg/dL (75-99)
[2020-11-20 11:56] LABS: African American GFR (CKD) 108.5 (60.0-200.0); Non-African American GFR(CKD) 93.6 (60.0-200.0)
[2020-11-20] MEDS: ALBUTEROL HFA INHALER INHALATION PRN ×3 (12:02→19:52)
--- NOTE | 2020-11-20 15:43 | P.PN ---
Subjective Progress Note Date: 11/20/20 Principal diagnosis: Shortness of breath She is currently doing well. He feels his breathing is back to his baseline. No fevers or chills Objective - Vital Signs Vital signs: Vital Signs Temp 98.1 F 11/20/20 11:00 Pulse 91 11/20/20 11:00 Resp 17 11/20/20 11:00 BP 145/78 11/20/20 11:00 Pulse Ox 93 L 11/20/20 14:00 Intake & Output 11/19/20 11/20/20 11/20/20 18:59 06:59 18:59 Intake Total 950 428.833 Balance 950 428.833 Intake: Intake, IV Titration 350 138.833 Amount Cefepime 2 gm In Sodium 100 Chloride 0.9% 100 ml @ 25 mls/hr IVPB Q8HR [facility] Rx# :[id number] Immune Globulin ( 138.833 Gammagard) 30 gm In Empty Bag 1 bag @ Per Protocol IV .Q0M [facility] Rx#: [id number] Vancomycin 1,250 mg In 250 Sodium Chloride 0.9% 250 ml @ 125 mls/hr IVPB Q8H [facility] Rx#:[id number] Oral 600 290 Other: Voiding Method Toilet Toilet Toilet # Voids 3 1 - Exam General: non toxic, no distress, appears at stated age Derm: warm, dry Head: atraumatic, normocephalic, symmetric Eyes: EOMI, no lid lag, anicteric sclera Mouth: no lip lesion, mucus membranes moist Cardiovascular: S1S2 reg, no murmur, positive posterior tibial pulse bilaterally, no lower extremity edema, cap refill < 2 seconds Lungs: Respirations even, regular and unlabored on 2L O2 via NC. lungs significantly diminished bilaterally. No wheezes, rhonchi, or rales present upon auscultation. Abdominal: soft, nontender to palpation, no guarding, no appreciable organomegaly Ext: no gross muscle atrophy, no edema, no contractures Neuro: CN II-XII grossly intact, no focal neuro deficits Psych: Alert, oriented, appropriate affect - Labs CBC & Chem 7: 11/19/20 06:38 11/20/20 08:31 Labs: Abnormal Lab Results - Last 24 Hours (Table) 11/19/20 11/19/20 11/20/20 Range/Units 17:11 20:23 07:43 POC Glucose (mg/dL) 312 H 320 H 252 H (75-99) mg/dL 11/20/20 Range/Units 11:12 POC Glucose (mg/dL) 347 H (75-99) mg/dL Microbiology - Last 24 Hours (Table) 11/19/20 19:25 Gram Stain - Preliminary Sputum Sputum Culture - Preliminary 11/17/20 22:45 Gram Stain - Preliminary Sputum Sputum Culture - Preliminary Ana albicans Gram Neg Bacilli 11/16/20 15:45 Blood Culture - Preliminary Blood No Growth after 72 hours 11/16/20 11:23 Blood Culture - Preliminary Blood No Growth after 72 hours Assessment and Plan Plan: Severe sepsis, secondary to underlying healthcare associated pneumonia and COVID 19...improving. Acute on chronic hypoxic respiratory failure. -Severe sepsis was present on admission as evidenced by heart rate 120, temp 101.8, respiratory rate 28, and leukocytosis with WBC count of 10.9. Sepsis currently resolved. -Procal elevated at 0.13, -CT revealed possible atelectasis or infiltrate from pneumonia, sepsis likely secondary to pneumonia versus Covid 19 virus infection. -Patient to continue IV antibiotics cefepime and vancomycin for treatment of pneumonia. -O2 supplementation as needed to maintain SpO2 equal to or greater than 92% at all times. -Continuation of Symbicort and Ventolin inhalers. -Dr. Mcdonald, permit coordinator following Low IgG Status post IVIG infusion, managed by oncology Acute COPD exacerbation, likely secondary to underlying pneumonia infection -Patient with a history of COPD and is home oxygen dependent on 2 L at all times. -Continuation of Symbicort and Ventolin inhalers. -Incentive spirometry -Silk Finisher following, Dr. Mcdonald. Non-Hodgkin's lymphoma -Follow with PET scan outpatient, d/w Heme/Onc, appreciate recommendations. Patient can be switched to Augmentin tomorrow and discharge home. According to Dr. Mcdonald patient will benefit from outpatient PET scan to look more into his CAT scan findings on admission. This was communicated by myself with oncology ser vice. Patient will need walking O2 evaluation prior to discharge. He does have oxygen at home but he is not sure when to wear it. DVT prophylaxis: Lovenox Discussed with: Patient Anticipated discharge: saturday Anticipated discharge place: home A total of 35 minutes was spent on the care of this complex patient more than 50% of the time was spent in counseling and care coordination.
[2020-11-20 16:58] LABS: Glucose,Whole Blood 276 mg/dL (75-99)
[2020-11-20] MEDS: SODIUM CHLORIDE 0.9% 1,000 ML IV SCH (20:18)
[2020-11-20 20:20] LABS: Glucose,Whole Blood 209 mg/dL (75-99)
[2020-11-20] MEDS ORDERED: LORazepam 1 MG TAB PO STA (20:25)
[2020-11-20] MEDS: INSULIN DETEMIR (LEVEMIR) 100 UNIT/ML SYR SQ SCH (21:28)
[2020-11-20] MEDS ORDERED: VANCOMYCIN 1,250 MG in SODIUM CHLORIDE 0.9% 250 ML IVPB SCH (22:00)
--- NOTE | 2020-11-20 22:04 | PN ---
PROGRESS NOTE DATE OF SERVICE: 11/20/2020 REASON FOR FOLLOWUP: Gram-negative pneumonia. INTERVAL HISTORY: The patient is currently afebrile. The patient is breathing comfortably. The patient denies having any chest pain or shortness of breath. Occasional cough. No abdominal pain or diarrhea. PHYSICAL EXAMINATION: Blood pressure 156/56, pulse of 91, temperature 97.9. He is 92% on 2 L nasal cannula. General description is an elderly male lying in bed in no distress. RESPIRATORY SYSTEM: Unlabored breathing with decreased breath sounds at the base. No wheeze. HEART: S1, S2. Regular rate and rhythm. ABDOMEN: Soft. No tenderness. LABS: No new labs have been obtained today. Blood culture negative. Sputum showing Gram- negative bacilli. ID and sensitivities pending. DIAGNOSTIC IMPRESSION AND PLAN: Patient with Gram-negative pneumonia, covered with cefepime. With no Gram-positive, vancomycin will be discontinued. Will wait for the culture to finalize to determine his discharge antibiotics. Continue supportive care. MMODL / IJN: [id number] /
[2020-11-21] MEDS: CEFEPIME 2 GM in SODIUM CHLORIDE 0.9% 100 ML IVPB SCH ×4 (00:32→23:31)
[2020-11-21 03:42] LABS: Glucose,Whole Blood 114 mg/dL (75-99)
[2020-11-21 07:14] LABS: Glucose,Whole Blood 104 mg/dL (75-99)
[2020-11-21] MEDS: INSULIN ASPART (NovoLOG) 100 UNIT/ML VIAL SQ SCH ×4 (07:31→22:11)
[2020-11-21] MEDS: ALBUTEROL HFA INHALER INHALATION PRN ×3 (07:43→20:08)
[2020-11-21] MEDS: SYMBICORT 160-4.5 MCG INHALER INHALATION SCH ×2 (07:44→20:08)
[2020-11-21] MEDS: ENOXAPARIN 40 MG/0.4 ML SYRINGE SQ SCH (08:00)
[2020-11-21 09:10] LABS: African American GFR (CKD) 108.5 (60.0-200.0); Non-African American GFR(CKD) 93.6 (60.0-200.0)
[2020-11-21 11:35] LABS: Glucose,Whole Blood 130 mg/dL (75-99)
--- NOTE | 2020-11-21 11:39 | P.PN ---
Subjective Progress Note Date: 11/21/20 Principal diagnosis: Masslike density left lower lobe with a differential leg doses of atelectasis, non-Hodgkin's lymphoma, neoplastic process Code 19 infection End-stage COPD Healthcare care associated pneumonia Non-Hodgkin's lymphoma Acute on chronic hypoxic respiratory failure Immunosuppressive status likely multifactorial but predominantly related to non- Hodgkin's lymphoma Weight loss of 45 pounds likely related to bite correctly of factors including recent code 19 pneumonia, prostate cancer, lymphoma, end-stage COPD 11/21/2020, patient seen eval examined during the rounds labs reviewed medications reviewed patient is again noted to be on room air advised to put oxygen on, patient had episode he earlier this morning in which she pulled of the oxygen for extended period time desaturated, currently on a liter high flow oxygen, saturation 95%, room air the drop down to 82%, will check chest x-ray 11/20/2020, patient seen eval examined during the rounds labs reviewed medications reviewed overall in good spirits doing well denies any chest pain cough or sputum production symptoms significantly improved status post IVIG for low IgG levels, patient remains on 2 L nasal cannula, 11/18/2020, patient seen eval examined during the rounds and labs reviewed me dications reviewed care plan discussed, respiratory status remains stable, dry nonproductive cough is present, patient remains on 2 L oxygen remains on broad- spectrum antibiotics, as well as high-dose IV steroids, patient is being continued on breathing treatment, computed tomography scan chest x-ray reviewed, there are concerns of recurrence of lymphoma, will have consulted oncology, cold antibody a send out test has been done as well, patient remains positive for cold with 19 from September up to now, This is a 75-year-old male with history of end-stage COPD on home oxygen 2 L nasal cannula, patient has covid 19 pneumonia back in September, patient was treated with usual therapeutic intervention has been discharge however continued to have ongoing shortness of breath slightly more than the baseline, he claims that he has 4-5 times with pneumonia and not getting relief, patient got in to an argument with his primary nutrition club ambassador, and physician Dr. bender terminated however patient wants to resume care with the primary nutrition club ambassador, I advised patient to patch through and communicate, in the meantime we'll continue to provide pulmonary care, Review of the data revealed that patient also have non-Hodgkin's lymphoma, and prostate cancer resulting in a prostatectomy in 2006. Patient reports he is currently supposed to be undergoing chemotherapy infusions for his non-Hodgkin's lymphoma, however he tested positive for Covid 19 virus on 10/04/20 and states that his oncologist (Dr. Garcia) stopped treatment at that time. Patient states that upon his diagnosis with Covid 19 virus he was symptomatic for approximately 3 days when he was first diagnosed and his symptoms and then then completely resolved. Pt states that in addition to his bout with COVID over the past 3 months, he has been experiencing a decreased appetite with a reported 45 lb weight loss over the past 3 months, becoming easily fatigued, and has had progressively worsening dyspnea with exertion along with chronic coarse cough. Patient went to his PCPs office yesterday for a checkup and stated he felt very winded and short of breath and the staff assessed his vitals and his doctor immediately sent him to the hospital for further evaluation. Patient currently denies having any headache, lightheadedness, dizziness, changes in vision or hearing, sore throat or dysphasia, chest pain or palpitations, abdominal pain, nausea, vomiting, changes in urinary or bowel function, or having any numbness/tingling/weakness/swelling in extremities. In the emergency department patient had mild leukocytosis with WBC count of 10,900, d-dimer was elevated 2.3, sodium was 132, mildly elevated liver enzymes were noted, C-reactive protein was elevated to 164, Covid testing remains positive as done in the emergency department, patient chest x-ray noted to have the basilar infiltrate versus atelectasis, CAT scan of the chest was negative for pulmonary embolism however homogeneous masslike density with irregular was noted in left lower lobe medial side, with a differential diagnoses of non- Hodgkin's lymphoma versus atelectasis versus neoplastic process cannot be excluded Currently patient is on 2 L nasal cannula does complaining or shortness of breath feels almost back to baseline, afebrile hemodynamically stable, Objective - Vital Signs Vital signs: Vital Signs Temp 99.2 F 11/21/20 05:00 Pulse 118 H 11/21/20 05:00 Resp 36 H 11/21/20 05:00 BP 136/74 11/21/20 05:00 Pulse Ox 95 11/21/20 05:00 Intake & Output 11/20/20 11/21/20 11/21/20 18:59 06:59 18:59 Intake Total 950 180 Output Total 900 2000 Balance 950 -720 -2000 Intake: Intake, IV Titration 350 180 Amount Cefepime 2 gm In Sodium 100 100 Chloride 0.9% 100 ml @ 25 mls/hr IVPB Q8HR [facility] Rx# :[id number] Sodium Chloride 0.9% 1, 80 000 ml @ 20 mls/hr IV . Q24H [facility] Rx#:[id number] Vancomycin 1,250 mg In 250 Sodium Chloride 0.9% 250 ml @ 125 mls/hr IVPB Q8H [facility] Rx#:[id number] Oral 600 Output: Urine 900 2000 Straight 600 1000 Other: Voiding Method Toilet Toilet Indwelling Catheter Urinal # Voids 3 - Exam - Constitutional General appearance: average body habitus, cooperative, disheveled - EENT Eyes: PERRLA Ears: bilateral: normal - Neck Carotids: bilateral: upstroke normal Thyroid: bilateral: normal size - Respiratory Respiratory: bilateral: diminished - Cardiovascular Rhythm: regular Heart sounds: normal: S1, S2 - Gastrointestinal General gastrointestinal: normal bowel sounds - Neurologic Neurologic: CNII-XII intact - Musculoskeletal Musculoskeletal: gait normal, generalized weakness, strength equal bilaterally - Psychiatric Psychiatric: A&O x's 3, appropriate affect, intact judgment & insight - Labs CBC & Chem 7: 11/19/20 06:38 11/21/20 05:29 Labs: Abnormal Lab Results - Last 24 Hours (Table) 11/20/20 11/20/20 11/21/20 Range/Units 16:56 20:19 03:40 POC Glucose (mg/dL) 276 H 209 H 114 H (75-99) mg/dL 11/21/20 Range/Units 06:58 POC Glucose (mg/dL) 104 H (75-99) mg/dL Microbiology - Last 24 Hours (Table) 11/17/20 22:45 Gram Stain - Final Sputum Sputum Culture - Final Ana albicans Pseudomonas aeruginosa 11/16/20 15:45 Blood Culture - Preliminary Blood No Growth after 96 hours 11/16/20 11:23 Blood Culture - Preliminary Blood No Growth after 96 hours 11/19/20 19:25 Gram Stain - Preliminary Sputum Sputum Culture - Preliminary Assessment and Plan Assessment: Acute on chronic hypoxic restrictive failure Immunosuppressed status with low IgG Masslike density left lower lobe with a differential leg doses of atelectasis, non-Hodgkin's lymphoma, neoplastic process Code 19 infection End-stage COPD Healthcare care associated pneumonia Non-Hodgkin's lymphoma Acute on chronic hypoxic respiratory failure Immunosuppressive status likely multifactorial but predominantly related to non- Hodgkin's lymphoma Weight loss of 45 pounds likely related to bite correctly of factors including recent code 19 pneumonia, prostate cancer, lymphoma, end-stage COPD Plan: Continue supplemental oxygen titrated down as tolerated We'll check chest x-ray Status post IVIG Covid antibody send out test has been ordered Oncology consultation notes and recommendation appreciated Patient will benefit from PET scan as outpatient Continue antibiotics steroids and bronchodilator Supplemental oxygen DVT prophylaxis Supportive care Continue home medications Deep breathing expense incentive spirometry Antibiotic switched to oral like Augmentin 500 twice a day at time of discharge Patient will continue to follow his primary nutrition club ambassador as outpatient recommend to patch it up for an differences Time with Patient: Greater than 30
--- NOTE | 2020-11-21 13:44 | P.PN ---
Subjective Progress Note Date: 11/21/20 HISTORY OF PRESENT ILLNESS This is a 75-year-old male treated for gram-negative pneumonia with r ecent history of positive Covid in September. No evidence of groundglass opacities on this current admission. Patient denies any chest pain or shortness of breath. He continues to have occasional cough. No abdominal pain or diarrhea. Patient has been afebrile since admission, heart rate 125, blood pressure 164/89, pulse ox 94% on 8 L nasal cannula. Sputum culture is positive for Ana and pseudomonas aeruginosa. PHYSICAL EXAMINATION Gen: This is a 75-year-old male. He is resting in chair and appears to be comfortable and in no acute distress. HEENT: Head is atraumatic, normocephalic. Pupils equal, round. Sclerae is anicteric. NECK: Supple. No JVD. No lymphadenopathy. LUNGS: Crackles in the right base. No wheezes No intercostal retractions. HEART: Regular rate and rhythm. No murmur. ABDOMEN: Soft. Bowel sounds are present. No masses. No tenderness. EXTREMITIES: No pedal edema. No calf tenderness. NEUROLOGICAL: Patient is awake, alert and oriented x3. ASSESSMENT Pseudomonas pneumonia Recent treatment for Covid 19 pneumonia in September History non-Hodgkin's lymphoma Acute on chronic hypoxic respiratory failure PLAN Continue IV cefepime 2 g IV piggyback every 8 hours Vancomycin has been discontinued Further recommendations based upon patient's clinical course The above dictated assessment and findings were discussed with Dr. Hickey. The impression and plan of care have been directed as dictated. Marilyn Madrigal nurse practitioner acting as scribe for Dr. Hickey. Objective - Vital Signs Vital signs: Vital Signs Temp 98.9 F 11/21/20 11:00 Pulse 125 H 11/21/20 11:00 Resp 20 11/21/20 11:00 BP 164/89 11/21/20 11:00 Pulse Ox 94 L 11/21/20 11:00 Intake & Output 11/20/20 11/21/20 11/21/20 18:59 06:59 18:59 Intake Total 950 180 Output Total 900 2000 Balance 950 -720 -2000 Intake: Intake, IV Titration 350 180 Amount Cefepime 2 gm In Sodium 100 100 Chloride 0.9% 100 ml @ 25 mls/hr IVPB Q8HR [facility] Rx# :[id number] Sodium Chloride 0.9% 1, 80 000 ml @ 20 mls/hr IV . Q24H [facility] Rx#:[id number] Vancomycin 1,250 mg In 250 Sodium Chloride 0.9% 250 ml @ 125 mls/hr IVPB Q8H [facility] Rx#:[id number] Oral 600 Output: Urine 900 2000 Straight 600 1000 Other: Voiding Method Toilet Toilet Indwelling Catheter Urinal # Voids 3 - Labs CBC & Chem 7: 11/19/20 06:38 11/21/20 05:29 Labs: Abnormal Lab Results - Last 24 Hours (Table) 11/20/20 11/20/20 11/21/20 Range/Units 16:56 20:19 03:40 POC Glucose (mg/dL) 276 H 209 H 114 H (75-99) mg/dL 11/21/20 11/21/20 Range/Units 06:58 11:26 POC Glucose (mg/dL) 104 H 130 H (75-99) mg/dL Microbiology - Last 24 Hours (Table) 11/17/20 22:45 Gram Stain - Final Sputum Sputum Culture - Final Ana albicans Pseudomonas aeruginosa 11/16/20 15:45 Blood Culture - Preliminary Blood No Growth after 96 hours 11/16/20 11:23 Blood Culture - Preliminary Blood No Growth after 96 hours 11/19/20 19:25 Gram Stain - Preliminary Sputum Sputum Culture - Preliminary
--- NOTE | 2020-11-21 14:05 | P.PN ---
Subjective Progress Note Date: 11/21/20 Principal diagnosis: covid 19 In f/u pt is tired, feeling pretty weak, no acute pain Objective - Vital Signs Vital signs: Vital Signs Temp 98.9 F 11/21/20 11:00 Pulse 125 H 11/21/20 11:00 Resp 20 11/21/20 11:00 BP 164/89 11/21/20 11:00 Pulse Ox 94 L 11/21/20 11:00 Intake & Output 11/20/20 11/21/20 11/21/20 18:59 06:59 18:59 Intake Total 950 180 Output Total 900 2000 Balance 950 -720 -2000 Intake: Intake, IV Titration 350 180 Amount Cefepime 2 gm In Sodium 100 100 Chloride 0.9% 100 ml @ 25 mls/hr IVPB Q8HR [facility] Rx# :[id number] Sodium Chloride 0.9% 1, 80 000 ml @ 20 mls/hr IV . Q24H [facility] Rx#:[id number] Vancomycin 1,250 mg In 250 Sodium Chloride 0.9% 250 ml @ 125 mls/hr IVPB Q8H [facility] Rx#:[id number] Oral 600 Output: Urine 900 2000 Straight 600 1000 Other: Voiding Method Toilet Toilet Indwelling Catheter Urinal # Voids 3 - Constitutional General appearance: Present: average body habitus, no acute distress - Respiratory Details: resp rate increased, no adventitious breath sound audible - Neurologic Neurologic: Present: CNII-XII intact - Musculoskeletal Musculoskeletal: Present: generalized weakness - Psychiatric Psychiatric Comment(s): drowsy - Labs CBC & Chem 7: 11/19/20 06:38 11/21/20 05:29 Labs: Abnormal Lab Results - Last 24 Hours (Table) 11/20/20 11/20/20 11/21/20 Range/Units 16:56 20:19 03:40 POC Glucose (mg/dL) 276 H 209 H 114 H (75-99) mg/dL 11/21/20 11/21/20 Range/Units 06:58 11:26 POC Glucose (mg/dL) 104 H 130 H (75-99) mg/dL Microbiology - Last 24 Hours (Table) 11/17/20 22:45 Gram Stain - Final Sputum Sputum Culture - Final Ana albicans Pseudomonas aeruginosa 11/16/20 15:45 Blood Culture - Preliminary Blood No Growth after 96 hours 11/16/20 11:23 Blood Culture - Preliminary Blood No Growth after 96 hours 11/19/20 19:25 Gram Stain - Preliminary Sputum Sputum Culture - Preliminary Assessment and Plan (1) COVID-19 Narrative/Plan: Being treated for the same Current Visit: Yes Status: Acute Priority: High Code(s): U07.1 - COVID-19 SNOMED Code(s): 114503944 (2) Hypogammaglobulinaemia, unspecified Narrative/Plan: IgG 237. IVIG adminstered. Current Visit: Yes Status: Acute Priority: High Code(s): D80.1 - NONFAMILIAL HYPOGAMMAGLOBULINEMIA SNOMED Code(s): 214025943 (3) Non-Hodgkin lymphoma Narrative/Plan: Pt was to be on maintenance Rituxan. He will resume on DC Current Visit: Yes Status: Chronic Priority: Medium Code(s): C85.90 - NON- HODGKIN LYMPHOMA, UNSPECIFIED, UNSPECIFIED SITE SNOMED Code(s): 229006745 (4) History of prostate cancer Current Visit: No Status: Chronic Priority: Low Code(s): Z85.46 - PERSONAL HISTORY OF MALIGNANT NEOPLASM OF PROSTATE SNOMED Code(s): 013597319
--- NOTE | 2020-11-21 14:25 | P.PN ---
Subjective Progress Note Date: 11/21/20 Patient is complaining of severe shortness of breath today. He appeared very anxious when I saw him. Objective - Vital Signs Vital signs: Vital Signs Temp 98.9 F 11/21/20 11:00 Pulse 125 H 11/21/20 11:00 Resp 20 11/21/20 11:00 BP 164/89 11/21/20 11:00 Pulse Ox 94 L 11/21/20 11:00 Intake & Output 11/20/20 11/21/20 11/21/20 18:59 06:59 18:59 Intake Total 950 180 Output Total 900 2000 Balance 950 -720 -2000 Intake: Intake, IV Titration 350 180 Amount Cefepime 2 gm In Sodium 100 100 Chloride 0.9% 100 ml @ 25 mls/hr IVPB Q8HR [facility] Rx# :[id number] Sodium Chloride 0.9% 1, 80 000 ml @ 20 mls/hr IV . Q24H [facility] Rx#:[id number] Vancomycin 1,250 mg In 250 Sodium Chloride 0.9% 250 ml @ 125 mls/hr IVPB Q8H [facility] Rx#:[id number] Oral 600 Output: Urine 900 2000 Straight 600 1000 Other: Voiding Method Toilet Toilet Indwelling Catheter Urinal # Voids 3 - Exam General: The patient is awake and alert, in no distress Eye: there is normal conjunctiva bilaterally. Neck: The neck is supple, there is no JVD. Cardiovascular: Normal S1-S2, no S3-S4, no murmurs. Respiratory: Lungs are diminished with minimal air movement bilaterally Gastrointestinal: Abdomen is soft, nontender Musculoskeletal: There is no pedal edema. Neurological:. Speech is normal. Skin: Skin is warm and dry - Labs CBC & Chem 7: 11/19/20 06:38 11/21/20 05:29 Labs: Abnormal Lab Results - Last 24 Hours (Table) 11/20/20 11/20/20 11/21/20 Range/Units 16:56 20:19 03:40 POC Glucose (mg/dL) 276 H 209 H 114 H (75-99) mg/dL 11/21/20 11/21/20 Range/Units 06:58 11:26 POC Glucose (mg/dL) 104 H 130 H (75-99) mg/dL Microbiology - Last 24 Hours (Table) 11/17/20 22:45 Gram Stain - Final Sputum Sputum Culture - Final Ana albicans Pseudomonas aeruginosa 11/16/20 15:45 Blood Culture - Preliminary Blood No Growth after 96 hours 11/16/20 11:23 Blood Culture - Preliminary Blood No Growth after 96 hours 11/19/20 19:25 Gram Stain - Preliminary Sputum Sputum Culture - Preliminary Assessment and Plan Assessment: Severe sepsis, secondary to underlying healthcare associated pneumonia and COVID 19...improving. Acute on chronic hypoxic respiratory failure. -Severe sepsis present on admission, currently resolved. -Procal elevated at 0.13, -CT revealed possible atelectasis or infiltrate from pneumonia, sepsis likely s econdary to pneumonia versus Covid 19 virus infection. -Patient to continue IV antibiotics cefepime and vancomycin for treatment of pneumonia. -O2 supplementation as needed to maintain SpO2 equal to or greater than 90% at all times. -Continuation of Symbicort and Ventolin inhalers. -Dr. Mcdonald, case folder following Low IgG Status post IVIG infusion, managed by oncology Acute COPD exacerbation, likely secondary to underlying pneumonia infection -Patient with a history of COPD and is home oxygen dependent on 2 L at all times. -Continuation of Symbicort and Ventolin inhalers. -Incentive spirometry -Proof Coin Collector following, Dr. Mcdonald. Non-Hodgkin's lymphoma -Follow with PET scan outpatient, d/w Heme/Onc, appreciate recommendations. Patient can be switched to Augmentin tomorrow and discharge home. According to Dr. Mcdonald patient will benefit from outpatient PET scan to look more into his CAT scan findings on admission. Patient will need walking O2 evaluation prior to discharge. He does have oxygen at home but he is not sure when to wear it. DVT prophylaxis: Lovenox Discussed with: Patient Anticipated discharge: saturday Anticipated discharge place: home A total of 35 minutes was spent on the care of this complex patient more than 50% of the time was spent in counseling and care coordination.
[2020-11-21] MEDS: SODIUM CHLORIDE 0.9% 1,000 ML IV SCH (15:52)
[2020-11-21 18:17] LABS: Glucose,Whole Blood 185 mg/dL (75-99)
--- NOTE | 2020-11-21 19:33 | XR ---
EXAMINATION TYPE: XR chest 1V portable DATE OF EXAM: 11/21/2020 COMPARISON: 11/01/2020. HISTORY: Shortness of breath. TECHNIQUE: Single frontal view of the chest is obtained. FINDINGS: There is unchanged moderate bibasilar patchy opacities. No pleural effusion, or pneumothor ax seen. The cardiac silhouette size is within normal limits. The osseous structures are intact. IMPRESSION: No significant interval change.
[2020-11-21] MEDS: MELATONIN 3 MG TABLET PO PRN (20:19)
[2020-11-21] MEDS ORDERED: LORazepam 1 MG TAB PO STA (20:23)
[2020-11-21 20:56] LABS: ABG HCO3 34 mmol/L (21-25); ABG Oxygen Saturation 95.6 % (94-97); ABG PCO2 39 mmHg (35-45); ABG PO2 67 mmHg (83-108); ABG TCO2 36 mmol/L (19-24); Allen Test Performed? Yes
[2020-11-21 20:57] LABS: ABG PH 7.56 (7.35-7.45)
[2020-11-21 21:49] LABS: Glucose,Whole Blood 166 mg/dL (75-99)
[2020-11-21] MEDS: INSULIN DETEMIR (LEVEMIR) 100 UNIT/ML SYR SQ SCH (22:11)
[2020-11-22 07:43] LABS: Glucose,Whole Blood 118 mg/dL (75-99)
[2020-11-22] MEDS: ALBUTEROL HFA INHALER INHALATION PRN ×2 (07:51→21:07)
[2020-11-22] MEDS: SYMBICORT 160-4.5 MCG INHALER INHALATION SCH ×2 (07:51→21:07)
[2020-11-22] MEDS: INSULIN ASPART (NovoLOG) 100 UNIT/ML VIAL SQ SCH ×4 (07:56→23:01)
[2020-11-22] MEDS: CEFEPIME 2 GM in SODIUM CHLORIDE 0.9% 100 ML IVPB SCH ×3 (08:01→23:51)
[2020-11-22] MEDS: ENOXAPARIN 40 MG/0.4 ML SYRINGE SQ SCH (08:01)
[2020-11-22 09:19] LABS: HCT 41.2 % (39.0-53.0); HGB 13.8 gm/dL (13.0-17.5); MCHC 33.6 g/dL (31.0-37.0); MCV 92.3 fL (80.0-100.0); Platelet Count 227 k/uL (150-450); RBC 4.46 m/uL (4.30-5.90); RDW 14.8 % (11.5-15.5); WBC 10.4 k/uL (3.8-10.6)
[2020-11-22 09:28] LABS: African American GFR (CKD) >90 (>60 ml/min/1.73 sqM); Anion Gap 5 mmol/L; Blood Urea Nitrogen 24 mg/dL (9-20); Calcium 8.4 mg/dL (8.4-10.2); Carbon Dioxide 35 mmol/L (22-30); Chloride 99 mmol/L (98-107); Glucose 118 mg/dL (74-99); Non-African American GFR(CKD) >90 (>60 ml/min/1.73 sqM); Sodium 139 mmol/L (137-145)
[2020-11-22 10:15] LABS: African American GFR (CKD) 115.6 (60.0-200.0); Non-African American GFR(CKD) 99.7 (60.0-200.0)
[2020-11-22 10:15] LABS: Band Neutrophils % 2 %; Metamyelocytes # (M) 0.21 k/uL (0); Metamyelocytes % 2 %; Myelocytes # (M) 0.21 k/uL (0); Myelocytes % 2 %; Neutrophils % (M) 94 %; Nucleated Red Blood Cells 0 /100 WBC (0-0); Total Cells Counted 200
--- NOTE | 2020-11-22 10:25 | XR ---
EXAMINATION TYPE: XR chest 1V DATE OF EXAM: 11/22/2020 COMPARISON: Prior chest x-ray 11/21/[address] 11/16/2020 HISTORY: Covid 19 pneumonia TECHNIQUE: Single frontal view of the chest is obtained. FINDINGS: Patchy bibasilar increased density persists. There may be underlying emphysematous changes , upper lobe lucency is present. No evident pneumothorax or pleural effusion. Cardiac mediastinal ranjan houette shows a similar appearance, prominence of pulmonary artery may be indicative of pulmonary art sharmin hypertension. Aorta is dense. IMPRESSION: Basilar atelectasis versus pneumonia. Emphysema.
--- NOTE | 2020-11-22 11:00 | P.PN ---
Subjective Progress Note Date: 11/22/20 (Critical care time 35 minutes) Principal diagnosis: Acute on chronic hypoxic respiratory failure Altered mental status encephalopathy Masslike density left lower lobe with a differential leg doses of atelectasis, non-Hodgkin's lymphoma, neoplastic process Code 19 infection End-stage COPD Healthcare care associated pneumonia Non-Hodgkin's lymphoma Acute on chronic hypoxic respiratory failure Immunosuppressive status likely multifactorial but predominantly related to non- Hodgkin's lymphoma Weight loss of 45 pounds likely related to bite correctly of factors including recent code 19 pneumonia, prostate cancer, lymphoma, end-stage COPD 11/22/2020, patient remains on 8 L oxygen, confused mental status had changed more somnolent now but arousable and physical and verbal stimuli noncommunicative mumbles, is moving all 4 extremities intermittently very weak, patient has arterial blood gas later on yesterday which is reviewed consistent with respiratory alkalosis, initiating addition to computed tomography scan of the head will recommend doing a CTA pulmonary angiogram to rule out pulmonary embolism, continue current plan of care we'll also consider neurology evaluation 11/21/2020, patient seen eval examined during the rounds labs reviewed medications reviewed patient is again noted to be on room air advised to put oxygen on, patient had episode he earlier this morning in which she pulled of the oxygen for extended period time desaturated, currently on a liter high flow oxygen, saturation 95%, room air the drop down to 82%, will check chest x-ray 11/20/2020, patient seen eval examined during the rounds labs reviewed medications reviewed overall in good spirits doing well denies any chest pain cough or sputum production symptoms significantly improved status post IVIG for low IgG levels, patient remains on 2 L nasal cannula, 11/18/2020, patient seen eval examined during the rounds and labs reviewed medications reviewed care plan discussed, respiratory status remains stable, dry nonproductive cough is present, patient remains on 2 L oxygen remains on broad- spectrum antibiotics, as well as high-dose IV steroids, patient is being continued on breathing treatment, computed tomography scan chest x-ray reviewed, there are concerns of recurrence of lymphoma, will have consulted oncology, cold antibody a send out test has been done as well, patient remains positive for cold with 19 from September up to now, This is a 75-year-old male with history of end-stage COPD on home oxygen 2 L nasal cannula, patient has covid 19 pneumonia back in September, patient was treated with usual therapeutic intervention has been discharge however continued to have ongoing shortness of breath slightly more than the baseline, he claims that he has 4-5 times with pneumonia and not getting relief, patient got in to an argument with his primary literacy consultant, and physician Dr. yulia jiang however patient wants to resume care with the primary literacy consultant, I advised patient to patch through and communicate, in the meantime we'll continue to provide pulmonary care, Review of the data revealed that patient also have non-Hodgkin's lymphoma, and prostate cancer resulting in a prostatectomy in 2006. Patient reports he is currently supposed to be undergoing chemotherapy infusions for his non-Hodgkin's lymphoma, however he tested positive for Covid 19 virus on 10/04/20 and states that his oncologist (Dr. Garcia) stopped treatment at that time. Patient states that upon his diagnosis with Covid 19 virus he was symptomatic for approximately 3 days when he was first diagnosed and his symptoms and then then completely resolved. Pt states that in addition to his bout with COVID over the past 3 months, he has been experiencing a decreased appetite with a reported 45 lb weight loss over the past 3 months, becoming easily fatigued, and has had progressively worsening dyspnea with exertion along with chronic coarse cough. Patient went to his PCPs office yesterday for a checkup and stated he felt very winded and short of breath and the staff assessed his vitals and his doctor immediately sent him to the hospital for further evaluation. Patient currently denies having any headache, lightheadedness, dizziness, changes in vision or hearing, sore throat or dysphasia, chest pain or palpitations, abdominal pain, nausea, vomiting, changes in urinary or bowel function, or having any numbness/tingling/weakness/swelling in extremities. In the emergency department patient had mild leukocytosis with WBC count of 10,900, d-dimer was elevated 2.3, sodium was 132, mildly elevated liver enzymes were noted, C-reactive protein was elevated to 164, Covid testing remains positive as done in the emergency department, patient chest x-ray noted to have the basilar infiltrate versus atelectasis, CAT scan of the chest was negative for pulmonary embolism however homogeneous masslike density with irregular was noted in left lower lobe medial side, with a differential diagnoses of non- Hodgkin's lymphoma versus atelectasis versus neoplastic process cannot be excluded Currently patient is on 2 L nasal cannula does complaining or shortness of breath feels almost back to baseline, afebrile hemodynamically stable, Objective - Vital Signs Vital signs: Vital Signs Temp 97.9 F 11/22/20 05:00 Pulse 113 H 11/22/20 05:00 Resp 28 H 11/22/20 05:00 BP 144/75 11/22/20 05:00 Pulse Ox 94 L 11/22/20 07:51 Intake & Output 11/21/20 11/22/20 11/22/20 18:59 06:59 18:59 Output Total 1999 600 Balance -2000 -600 Output: Urine 1999 600 Straight 1000 Other: Voiding Method Indwelling Catheter Indwelling Catheter - Exam - Constitutional General appearance: average body habitus, cooperative, disheveled - EENT Eyes: PERRLA Ears: bilateral: normal - Neck Carotids: bilateral: upstroke normal Thyroid: bilateral: normal size - Respiratory Respiratory: bilateral: diminished - Cardiovascular Rhythm: regular Heart sounds: normal: S1, S2 - Gastrointestinal General gastrointestinal: normal bowel sounds - Neurologic Neurologic: CNII-XII intact - Musculoskeletal Musculoskeletal: gait normal, generalized weakness, strength equal bilaterally - Psychiatric Psychiatric: A&O x's 3, appropriate affect, intact judgment & insight - Labs CBC & Chem 7: 11/22/20 08:46 11/22/20 08:46 Labs: Abnormal Lab Results - Last 24 Hours (Table) 11/21/20 11/21/20 11/21/20 Range/Units 11:26 18:15 20:50 Neutrophils # (Manual) (1.3-7.7) k/uL Lymphocytes # (Manual) (1.0-4.8) k/uL Metamyelocytes # (Man) (0) k/uL Myelocytes # (Manual) (0) k/uL D-Dimer (<0.60) mg/L FEU ABG pH 7.56 H* (7.35-7.45) ABG pO2 67 L (83-108) mmHg ABG HCO3 34 H (21-25) mmol/L ABG Total CO2 36 H (19-24) mmol/L Potassium (3.5-5.1) mmol/L Carbon Dioxide (22-30) mmol/L BUN (9-20) mg/dL Creatinine (0.66-1.25) mg/dL Glucose (74-99) mg/dL POC Glucose (mg/dL) 130 H 185 H (75-99) mg/dL 11/21/20 11/21/20 11/22/20 Range/Units 21:14 21:48 07:41 Neutrophils # (Manual) (1.3-7.7) k/uL Lymphocytes # (Manual) (1.0-4.8) k/uL Metamyelocytes # (Man) (0) k/uL Myelocytes # (Manual) (0) k/uL D-Dimer 1.63 H (<0.60) mg/L FEU ABG pH (7.35-7.45) ABG pO2 (83-108) mmHg ABG HCO3 (21-25) mmol/L ABG Total CO2 (19-24) mmol/L Potassium (3.5-5.1) mmol/L Carbon Dioxide (22-30) mmol/L BUN (9-20) mg/dL Creatinine (0.66-1.25) mg/dL Glucose (74-99) mg/dL POC Glucose (mg/dL) 166 H 118 H (75-99) mg/dL 11/22/20 11/22/20 Range/Units 08:46 08:46 Neutrophils # (Manual) 9.90 H (1.3-7.7) k/uL Lymphocytes # (Manual) 0.10 L (1.0-4.8) k/uL Metamyelocytes # (Man) 0.21 H (0) k/uL Myelocytes # (Manual) 0.21 H (0) k/uL D-Dimer (<0.60) mg/L FEU ABG pH (7.35-7.45) ABG pO2 (83-108) mmHg ABG HCO3 (21-25) mmol/L ABG Total CO2 (19-24) mmol/L Potassium 3.0 L (3.5-5.1) mmol/L Carbon Dioxide 35 H (22-30) mmol/L BUN 24 H (9-20) mg/dL Creatinine 0.58 L (0.66-1.25) mg/dL Glucose 118 H (74-99) mg/dL POC Glucose (mg/dL) (75-99) mg/dL Microbiology - Last 24 Hours (Table) 11/19/20 19:25 Gram Stain - Preliminary Sputum Sputum Culture - Preliminary Ana albicans 11/16/20 15:45 Blood Culture - Preliminary Blood No Growth after 120 hours 11/16/20 11:23 Blood Culture - Preliminary Blood No Growth after 120 hours 11/17/20 22:45 Gram Stain - Final Sputum Sputum Culture - Final Ana albicans Pseudomonas aeruginosa Assessment and Plan Assessment: Acute on chronic hypoxic restrictive failure Encephalopathy Immunosuppressed status with low IgG Masslike density left lower lobe with a differential leg doses of atelectasis, non-Hodgkin's lymphoma, neoplastic process Code 19 infection End-stage COPD Healthcare care associated pneumonia Non-Hodgkin's lymphoma Acute on chronic hypoxic respiratory failure Immunosuppressive status likely multifactorial but predominantly related to non- Hodgkin's lymphoma Weight loss of 45 pounds likely related to bite correctly of factors including recent code 19 pneumonia, prostate cancer, lymphoma, end-stage COPD Plan: Continue supplemental oxygen titrated down as tolerated Consider CTA chest to rule out pulmonary embolism and CT of the head to rule out stroke Neurology consultation Repeat arterial blood gas Status post IVIG Covid antibody send out test has been ordered Oncology consultation notes and recommendation appreciated Patient will benefit from PET scan as outpatient Continue antibiotics steroids and bronchodilator Supplemental oxygen DVT prophylaxis Supportive care Continue home medications Deep breathing expense incentive spirometry Antibiotic switched to oral like Augmentin 500 twice a day at time of discharge Patient will continue to follow his primary literacy consultant as outpatient recommend to patch it up for an differences Time with Patient: Greater than 30
--- NOTE | 2020-11-22 11:39 | CT ---
EXAMINATION TYPE: CT brain wo con DATE OF EXAM: 11/22/2020 COMPARISON: 10/29/2020 HISTORY: altered mental status CT DLP: 2126.3 mGycm Automated exposure control for dose reduction was used. FINDINGS: Exam severely limited due to motion artifact. Grossly there is evidence of degenerative change in low attenuation in the white matter suggestive of remote ischemia. The degree of artifact limits assessm ent for hemorrhage. No obvious midline shift or mass effect. The visualized portions of the calvarium are intact. Changes of chronic sinusitis. IMPRESSION: SEVERELY LIMITED EXAM DUE TO MOTION ARTIFACT. DEGENERATIVE AND NONSPECIFIC WHITE MATTER CHANGES MOST TYPICAL REMOTE ISCHEMIA NOTED. ASSESSMENT FOR HEMORRHAGE LIMITED DUE TO SEVERE ARTIFACT. NO OBVIOUS A CUTE HEMORRHAGE SEEN.
[2020-11-22 12:05] LABS: ABG Base Excess 12.3 mmol/L; ABG HCO3 35 mmol/L (21-25); ABG Oxygen Saturation 93.7 % (94-97); ABG PCO2 40 mmHg (35-45); ABG PH 7.55 (7.35-7.45); ABG PO2 61 mmHg (83-108); ABG TCO2 36 mmol/L (19-24); Allen Test Performed? Yes
[2020-11-22] MEDS ORDERED: LORazepam 2 MG/ML INJ IV PRN ×2 (12:07→16:07)
[2020-11-22 12:22] LABS: Glucose,Whole Blood 109 mg/dL (75-99)
--- NOTE | 2020-11-22 12:59 | P.PN ---
Subjective Progress Note Date: 11/22/20 Patient is a 75-year-old male with a past medical history of COPD home oxygen dependent on 2 L at all times, non-Hodgkin's lymphoma, and prostate cancer resulting in a prostatectomy in 2006. Patient reports he is currently supposed to be undergoing chemotherapy infusions for his non-Hodgkin's lymphoma, however he tested positive for Covid 19 virus on 10/04/20 and states that his oncologist (Dr. Garcia) stopped treatment at that time. Patient states that upon his diagnosis with Covid 19 virus he was symptomatic for approximately 3 days when he was first diagnosed and his symptoms and then then completely resolved. Pt states that in addition to his bout with COVID over the past 3 months, he has been experiencing a decreased appetite with a reported 45 lb weight loss over the past 3 months, becoming easily fatigued, and has had progressively worsening dyspnea with exertion along with chronic coarse cough. Pt states that he went to his PCPs office today simply for a checkup and stated he felt very winded and short of breath and the staff assessed his vitals and his doctor immediately sent him to the hospital for further evaluation. Patient currently denies having any headache, lightheadedness, dizziness, changes in vision or hearing, sore throat or dysphasia, chest pain or palpitations, abdominal pain, nausea, vomiting, changes in urinary or bowel function, or having any numbness/tingling/weakness/swelling in extremities. 11/16/20: Patient was seen and fully evaluated in the emergency department resulting in admission to general medical unit with telemetry where he will receive continuous cardiac and close hemodynamic monitoring. Labs: CBC revealing mild leukocytosis with WBC count of 10.9 otherwise unremarkable. Coags revealing an elevated PTT of 21.4 and elevated d-dimer of 2.31. BMP revealing mild hyponatremia with sodium of 132 and hypochloremia with chloride of 97 otherwise normal findings. Liver profile revealing an elevated total bili of 1.5. Troponin normal findings at less than 0.012. CRP significantly elevated at 164.0. Covid PCR positive (Initial positive test 10/04/20). -EKG completed revealing sinus tachycardia at 117 bpm with no significant T-wave abnormalities or ST depression/elevation noted. -Chest x-ray: Chronic emphysematous change with persistent bibasilar acute infiltrate and/or atelectasis. No significant change from most recent x-ray. -CTA Chest: showing no acute pulmonary embolism. Masslike area to the medial left lung base. Atelectasis or infiltrate from pneumonia consolidation could be considered. Mass should be considered. Follow-up is recommended. Lung bases findings were present previously. 11/17/20: Patient was seen and fully evaluated at the bedside. He continues to complain of mild dyspnea with minimal exertion. Reports he has been using his incentive spirometry as instructed and demonstrated proper use. Patient assisted up to chair and was noted to be winded with this little movement. At rest, respirations remain even, regular, and unlabored 2 L O2 via nasal cannula with SpO2 maintaining at 92%. Procalcitonin was elevated at 0.13. CBC unrema rkable this morning revealing improvement in WBC count from previous 10.9 now 7.2. CRP also showing improvement from 164 down to 131.1. BMP showing no sigificant abnormalities with the exception of Na+ 135. Urinalysis negative for infection. Pt reports feeling only slightly better from yesterday and as stated above, he continues to have dyspnea with the minimalist exertion. Pt to continue IV antibiotics Vancomycin and Cefepime and instructed to continue to use incentive spirometry 10x per hour while awake. We will continue with Decadron 6 mg daily. Awaiting pulmonolgy consult and further recommendations. 11/18/20: Patient seen and fully evaluated at the bedside. He continues to have mild dyspnea with minimal exertion. Patient states he has been using his incentive spirometer as instructed and reports he has even increased his numbers. He denies having any headache, lightheadedness, dizziness, changes in vision or hearing, chest pain or palpitations, or experiencing any swelling in his lower extremities. Patient has been ambulatory in room unassisted and seems to be improving slightly. While sitting at bedside his respirations were even, regular, and unlabored. He continues to remain on 2 L O2 via nasal cannula. His blood cultures reveal no growth over the past 24 hours and his sputum culture is currently pending. Morning labs did reveal patient to have leukocytosis with WBC count of 11.2, but CRP has significantly improved from previous 164.0 now 5.8. I had a lengthy discussion with Dr. Mcdonald, jewelry bench worker regarding patient's plan of care. Patient to stay in hospital throughout the weekend with continued IV antibiotics vancomycin and cefepime. Covid 19 antigen was ordered to determine if patient has antibodies present or if he continues to fight this infection secondary to impaired immune system. At this time we will plan for discharge home on Saturday and to obtain a PET scan on outpatient basis. 11/22/20: Patient was seen and fully evaluated at the bedside. He was awake, but very altered when compared to previous exams. Pt not focusing on objects or m aking eye contact, and is clearly speaking, but not answering any questions, pt repeatedly saying "Oh no, oh no, oh no" He is moving all extremities independently but appears to be very weak and not following any commands. Pupils were equal. Respirations tachypneic and shallow, but unlabored. He is currently on 8L high flow nasal canula which has significantly increased from the 2L pt was using on Saturday. Morning Labs unremarkable with the exception of mild hypokalemia with K+ 3.0 and hypercarbia with carbon dioxide 35. Blood glucose was 118. Pt did however have ABG completed last night at 2359 which revealed patient to have respiratory alkalosis with a pH of 7.56, CO2 36, and a pO2 of 67. Orders placed for potassium replacement, repeat stat ABG, CT head, and after discussion with jewelry bench worker Dr. Mcdonald a CT PE also ordered at this time. *UPDATE, Pt's condition continued to deteriorate throughout the day. Dr. Leon had a long discussion with patient's regarding pt's current clinical condition, his increased oxygen requirements and poor mentation. Pt's has chosen to make her a DNR comfort and to take him home in the morning on hospice. Hospice has been consulted and Case managment making arrangements at this time. Objective - Vital Signs Vital signs: Vital Signs Temp 97.9 F 11/22/20 05:00 Pulse 113 H 11/22/20 05:00 Resp 28 H 11/22/20 05:00 BP 144/75 11/22/20 05:00 Pulse Ox 94 L 11/22/20 07:51 Intake & Output 11/21/20 11/22/20 11/22/20 18:59 06:59 18:59 Output Total 2000 600 Balance -2000 -600 Output: Urine 2000 600 Straight 1000 Other: Voiding Method Indwelling Catheter Indwelling Catheter - Exam Physical exam General: Pt very altered, unable to maintain eye contact or follow directions. Derm: warm, and skin appears very dry Head: atraumatic, normocephalic, symmetric Eyes: eyes not focusing on object, unable to maintain eye contact. Pupils equal. Mouth: Mucus membranes dry Cardiovascular: S1S2 reg, no murmur, positive posterior tibial pulse bilaterally, no lower extremity edema, cap refill < 2 seconds Lungs: Respirations tachypneic unlabored on 8L O2 via high flow NC.. Lungs significantly diminished bilaterally, No wheezes, rhonchi, or rales present upon auscultation. Pt does have coarse raspy cough. Abdominal: soft, nontender to palpation, no guarding, no appreciable organomegaly Ext: no gross muscle atrophy, no edema, no contractures Neuro: Pt is awake, but altered. Pupils equal and round. Speech is clear, but he is only repeating a few words over and over again, not conversating or answering questions. Pt would not follow commands but was noted to move all extremities with what appeared to be equal movement. Psych: Pt is awake, but very altered when compared to previous exams. Pt not following commands, not focusing on objects or making eye contact, and is speaking, but not answering any questions, pt repeatedly saying "Oh no, oh no, oh no" - Labs CBC & Chem 7: 11/22/20 08:46 11/22/20 08:46 Labs: Abnormal Lab Results - Last 24 Hours (Table) 11/21/20 11/21/20 11/21/20 Range/Units 11:26 18:15 20:50 Neutrophils # (Manual) (1.3-7.7) k/uL Lymphocytes # (Manual) (1.0-4.8) k/uL Metamyelocytes # (Man) (0) k/uL Myelocytes # (Manual) (0) k/uL D-Dimer (<0.60) mg/L FEU ABG pH 7.56 H* (7.35-7.45) ABG pO2 67 L (83-108) mmHg ABG HCO3 34 H (21-25) mmol/L ABG Total CO2 36 H (19-24) mmol/L Potassium (3.5-5.1) mmol/L Carbon Dioxide (22-30) mmol/L BUN (9-20) mg/dL Creatinine (0.66-1.25) mg/dL Glucose (74-99) mg/dL POC Glucose (mg/dL) 130 H 185 H (75-99) mg/dL 11/21/20 11/21/20 11/22/20 Range/Units 21:14 21:48 07:41 Neutrophils # (Manual) (1.3-7.7) k/uL Lymphocytes # (Manual) (1.0-4.8) k/uL Metamyelocytes # (Man) (0) k/uL Myelocytes # (Manual) (0) k/uL D-Dimer 1.63 H (<0.60) mg/L FEU ABG pH (7.35-7.45) ABG pO2 (83-108) mmHg ABG HCO3 (21-25) mmol/L ABG Total CO2 (19-24) mmol/L Potassium (3.5-5.1) mmol/L Carbon Dioxide (22-30) mmol/L BUN (9-20) mg/dL Creatinine (0.66-1.25) mg/dL Glucose (74-99) mg/dL POC Glucose (mg/dL) 166 H 118 H (75-99) mg/dL 11/22/20 11/22/20 Range/Units 08:46 08:46 Neutrophils # (Manual) 9.90 H (1.3-7.7) k/uL Lymphocytes # (Manual) 0.10 L (1.0-4.8) k/uL Metamyelocytes # (Man) 0.21 H (0) k/uL Myelocytes # (Manual) 0.21 H (0) k/uL D-Dimer (<0.60) mg/L FEU ABG pH (7.35-7.45) ABG pO2 (83-108) mmHg ABG HCO3 (21-25) mmol/L ABG Total CO2 (19-24) mmol/L Potassium 3.0 L (3.5-5.1) mmol/L Carbon Dioxide 35 H (22-30) mmol/L BUN 24 H (9-20) mg/dL Creatinine 0.58 L (0.66-1.25) mg/dL Glucose 118 H (74-99) mg/dL POC Glucose (mg/dL) (75-99) mg/dL Microbiology - Last 24 Hours (Table) 11/19/20 19:25 Gram Stain - Preliminary Sputum Sputum Culture - Preliminary Ana albicans 11/16/20 15:45 Blood Culture - Preliminary Blood No Growth after 120 hours 11/16/20 11:23 Blood Culture - Preliminary Blood No Growth after 120 hours 11/17/20 22:45 Gram Stain - Final Sputum Sputum Culture - Final Ana albicans Pseudomonas aeruginosa Assessment and Plan Plan: Acute encephalopathy -Acute encephalopathy likely secondary to worsening sepsis -ABG revealing respiratory alkalosis -CT head negative for acute intracranial process, limited exam secondary to artifact. -CT PE negative for acute pulmonary embolism -Fall precautions -Symptomatic care with redirection and assistance as needed. -Pt's condition continued to deteriorate throughout the day, patient's was called and had lengthy discussion. Patient's has chosen to take her home on hospice tomorrow morning. Consult was placed to Hospice and case management are ranging at this time. Severe sepsis, secondary to underlying pneumonia infection and COVID 19, worsening -Severe sepsis was present on admission, SIRS likely secondary to respiratory distress resulting from non-Hodgkin's lymphoma accompanied by acute COPD exacerbation accompanied by underlying infection with Covid pneumonia. -Covid 19 PCR positive on 10/04/20. -Procal elevated at 0.13, Lactate normal findings at 1.8 with repeat 1.2. Morning labs reveal patient negative for leukocytosis with WBC count of 10.4. -CT revealed possible atelectasis or infiltrate from pneumonia,. -Patient to continue IV antibiotics cefepime and vancomycin for treatment of pneumonia, sputum cultures positive for pseudomonas aeruginosa. -Blood cultures showing no growth after 120 hours. -We will continue providing oxygen supplementation as needed to maintain SpO2 equal to or greater than 92% at all times. -Blood gas this morning revealing respiratory alkalosis, oxygen being increased at this time. -Covid 19 antigen not reactive. -Pt's condition continued to deteriorate throughout the day, patient's was called and had lengthy discussion. Patient's has chosen to take her home on hospice tomorrow morning. Consult was placed to Hospice and case management are ranging at this time. Acute COPD exacerbation, likely secondary to underlying pneumonia infection -Patient with a history of COPD and is home oxygen dependent on 2 L at all times. -Continue with oxygen supplementation titrated up as needed to maintain SpO2 equal to or greater than 92%. -Continuation of Symbicort and Ventolin inhalers. -Incentive spirometry -Furniture Upholsterer Apprentice following, Dr. Mcdonald. Non-Hodgkin's lymphoma -Patient was undergoing chemotherapy infusions for his non-Hodgkin's lymphoma, however after testing positive for Covid 19 virus on 10/04/20, chemo treatment was stopped at that time. -Consult placed to Dr. Garcia, Heme/Onc, appreciate further recommendations. DVT prophylaxis: Lovenox Discussed with: Patient's . A lengthy discussion was completed with patient's regarding pt's continued deterioration. Discussed possible Hospice Care. Patient's has chosen to take her home on hospice tomorrow morning. Consult was placed to Hospice and case management are ranging at this time. Anticipated discharge: tomorrow Anticipated discharge place: home with hospice care A total of 45 minutes was spent on the care of this complex patient more than 50% of the time was spent in counseling and care coordination.
[2020-11-22] MEDS: POTASSIUM CHLORIDE 20 MEQ in WATER FOR INJECTION 1 100ML.BAG IVPB SCH ×2 (13:18→15:06)
[2020-11-22] MEDS: SODIUM CHLORIDE 0.9% 1,000 ML IV SCH (13:34)
--- NOTE | 2020-11-22 13:35 | CT ---
EXAMINATION TYPE: CT chest angio for PE DATE OF EXAM: 11/22/2020 COMPARISON: 11/16/2020 HISTORY: Elevated d dimer CT DLP: 406.8 mGycm Automated exposure control for dose reduction was used. CONTRAST: CT Chest for pulmonary embolism performed with with IV Contrast, patient injected with 100 mL of Isov ue 370. FINDINGS: LUNGS: Diffuse emphysematous changes are seen. There is pleural thickening and calcification correlat e for asbestos related disease. Areas of subsegmental consolidation are seen bilaterally correlate fo r bilateral lower lobe pneumonia. More masslike area of consolidation left lower lobe still likely is postinflammatory or postinfectious. No significant interval change relative to the prior exam on the left. There is progression on the right with increasing consolidation. No pneumothorax. No sizable p leural effusion. MEDIASTINUM: There is a small filling defect within a left lower lobe pulmonary arterial branch on ax ial image 95. Heart size stable. Aorta of normal caliber. Coronary artery calcification seen. OTHER: Hypertrophic and degenerative change of the spine. IMPRESSION: 1. Bilateral lower lobe infiltrate increasing on the right correlate for pneumonia. 2. Although it cannot exclude a tiny distal pulmonary embolism within the left lower lobe axial image 95 and coronal image 20, suspect this most likely is artifactual but should be correlated clinically . 3. Pleural thickening and calcification correlate for asbestosis related disease.
--- NOTE | 2020-11-22 14:54 | P.PN ---
Subjective Progress Note Date: 11/22/20 HISTORY OF PRESENT ILLNESS This is a 75-year-old male treated for gram-negative pneumonia with r ecent history of positive Covid in September. No evidence of groundglass opacities on this current admission. Patient continues to have occasional cough. No abdominal pain or diarrhea. Patient has been afebrile since admission, heart rate 110, blood pressure 129/74, pulse ox 95% on 8 L nasal cannula. Sputum culture is positive for Ana and pseudomonas aeruginosa. Plan to continue cefepime for now. PHYSICAL EXAMINATION Gen: This is a 75-year-old male. He is resting in chair and appears to be comfortable and in no acute distress. HEENT: Head is atraumatic, normocephalic. Pupils equal, round. Sclerae is anicteric. NECK: Supple. No JVD. No lymphadenopathy. LUNGS: Clear to auscultation no wheezes, no crackles. No wheezes No intercostal retractions. HEART: Regular rate and rhythm. No murmur. ABDOMEN: Soft. Bowel sounds are present. No masses. No tenderness. EXTREMITIES: No pedal edema. No calf tenderness. NEUROLOGICAL: Patient is awake, alert and oriented to person. ASSESSMENT Pseudomonas pneumonia Recent treatment for Covid 19 pneumonia in September History non-Hodgkin's lymphoma Acute on chronic hypoxic respiratory failure PLAN Continue IV cefepime 2 g IV piggyback every 8 hours Further recommendations based upon patient's clinical course The above dictated assessment and findings were discussed with Dr. Hickey. The impression and plan of care have been directed as dictated. Marilyn Madrigal nurse practitioner acting as scribe for Dr. Hickey. Objective - Vital Signs Vital signs: Vital Signs Temp 98.5 F 11/22/20 11:00 Pulse 110 H 11/22/20 11:00 Resp 18 11/22/20 11:00 BP 129/74 11/22/20 11:00 Pulse Ox 95 11/22/20 11:00 Intake & Output 11/21/20 11/22/20 11/22/20 18:59 06:59 18:59 Output Total 1999 600 Balance -2000 -600 Output: Urine 2000 600 Straight 1000 Other: Voiding Method Indwelling Catheter Indwelling Catheter Indwelling Catheter - Labs CBC & Chem 7: 11/22/20 08:46 11/22/20 08:46 Labs: Abnormal Lab Results - Last 24 Hours (Table) 11/21/20 11/21/20 11/21/20 Range/Units 18:15 20:50 21:14 Neutrophils # (Manual) (1.3-7.7) k/uL Lymphocytes # (Manual) (1.0-4.8) k/uL Metamyelocytes # (Man) (0) k/uL Myelocytes # (Manual) (0) k/uL D-Dimer 1.63 H (<0.60) mg/L FEU ABG pH 7.56 H* (7.35-7.45) ABG pO2 67 L (83-108) mmHg ABG HCO3 34 H (21-25) mmol/L ABG Total CO2 36 H (19-24) mmol/L ABG O2 Saturation (94-97) % Potassium (3.5-5.1) mmol/L Carbon Dioxide (22-30) mmol/L BUN (9-20) mg/dL Creatinine (0.66-1.25) mg/dL Glucose (74-99) mg/dL POC Glucose (mg/dL) 185 H (75-99) mg/dL 11/21/20 11/22/20 11/22/20 Range/Units 21:48 07:41 08:46 Neutrophils # (Manual) 9.90 H (1.3-7.7) k/uL Lymphocytes # (Manual) 0.10 L (1.0-4.8) k/uL Metamyelocytes # (Man) 0.21 H (0) k/uL Myelocytes # (Manual) 0.21 H (0) k/uL D-Dimer (<0.60) mg/L FEU ABG pH (7.35-7.45) ABG pO2 (83-108) mmHg ABG HCO3 (21-25) mmol/L ABG Total CO2 (19-24) mmol/L ABG O2 Saturation (94-97) % Potassium (3.5-5.1) mmol/L Carbon Dioxide (22-30) mmol/L BUN (9-20) mg/dL Creatinine (0.66-1.25) mg/dL Glucose (74-99) mg/dL POC Glucose (mg/dL) 166 H 118 H (75-99) mg/dL 11/22/20 11/22/20 11/22/20 Range/Units 08:46 11:59 12:02 Neutrophils # (Manual) (1.3-7.7) k/uL Lymphocytes # (Manual) (1.0-4.8) k/uL Metamyelocytes # (Man) (0) k/uL Myelocytes # (Manual) (0) k/uL D-Dimer (<0.60) mg/L FEU ABG pH 7.55 H (7.35-7.45) ABG pO2 61 L (83-108) mmHg ABG HCO3 35 H (21-25) mmol/L ABG Total CO2 36 H (19-24) mmol/L ABG O2 Saturation 93.7 L (94-97) % Potassium 3.0 L (3.5-5.1) mmol/L Carbon Dioxide 35 H (22-30) mmol/L BUN 24 H (9-20) mg/dL Creatinine 0.58 L (0.66-1.25) mg/dL Glucose 118 H (74-99) mg/dL POC Glucose (mg/dL) 109 H (75-99) mg/dL Microbiology - Last 24 Hours (Table) 11/19/20 19:25 Gram Stain - Preliminary Sputum Sputum Culture - Preliminary Ana albicans 11/16/20 15:45 Blood Culture - Preliminary Blood No Growth after 120 hours 11/16/20 11:23 Blood Culture - Preliminary Blood No Growth after 120 hours 11/17/20 22:45 Gram Stain - Final Sputum Sputum Culture - Final Ana albicans Pseudomonas aeruginosa
--- NOTE | 2020-11-22 15:36 | P.PN ---
Progress Note - Text Progress Note Date: 11/22/20 Today, I had a prolonged discussion over the phone with Aminata, his , regarding his guarded prognosis and current clinical condition. We discussed his worsening condition over the last couple of months. We also discussed recurrent readmissions and his guarded prognosis during current admission. Aminata was realistic and she understand that her has severe lung disease. She has made him DO NOT RESUSCITATE/DO NOT INTUBATE during last hospitalization. Patient has been on palliative care at home with no significant improvement overall. Given deterioration in his current clinical condition, increased oxygen requirement, and poor mentation, Aminata decided to transition the patient to comfort care and requested hospice. [facility]NA consulted and planned to discharge home on hospice tomorrow. Time spent greater than 16 minutes
[2020-11-22 17:37] LABS: Glucose,Whole Blood 98 mg/dL (75-99)
[2020-11-22] MEDS: INSULIN DETEMIR (LEVEMIR) 100 UNIT/ML SYR SQ SCH (23:02)
[2020-11-22] MEDS: MORPHINE SULFATE 2 MG/ML SYRINGE IV PRN (23:55)
[2020-11-23 04:13] VITALS: BP 155/82; PULSE 101; RESP 16
[2020-11-23] MEDS ORDERED: ACETAMINOPHEN SUPPOSITORY 650 MG SUPP RECTAL STA (04:24)
[2020-11-23] MEDS: MORPHINE SULFATE 2 MG/ML SYRINGE IV PRN (04:59)
[2020-11-23 06:00] VITALS: TEMP 98.1
--- NOTE | 2020-11-23 09:31 | P.DS ---
Providers Date of admission: 11/16/20 13:11 Expected date of discharge: 11/23/20 (Discharged home with Hospice Care) Attending physician: Kendell Heath MD Consults: 11/16/20 14:52 Consult Physician Routine Consulting Provider: Edi Garcia Consult Reason/Comments: Non-Hodkins Lymphoma, chemo was stopped in Sep after dx with COVID. Do you want consulting provider notified?: Yes 11/17/20 16:07 Consult Physician Routine Consulting Provider: Jamie Hickey Consult Reason/Comments: HCAP Do you want consulting provider notified?: Yes 11/17/20 16:08 Consult Physician Routine Consulting Provider: Harry Matthews Consult Reason/Comments: hcap Do you want consulting provider notified?: Yes 11/17/20 17:42 Consult Physician Routine Consulting Provider: César Mcdonald Consult Reason/Comments: pulmonary consult Do you want consulting provider notified?: Already Contacted Primary care physician: [facility] Course: Summary of Hospitalization: The patient is a very pleasant 75-year-old male with a past medical history significant for end-stage COPD, non-Hodgkin's lymphoma, prostate cancer, and Covid 19 virus infection. He was admitted to [facility] on 11/16/20 with a chief complaint of shortness of breath. Patient was diagnosed with Covid 19 virus infection on 10/04/20 and slowly declined over the past 2 months. Patient reports that since diagnosis he developed increasing fatigue and shortness of breath with minimal exertion, a 45 pound weight loss, and a worsened course chronic cough. At initial time of diagnosis of Covid 19 virus infection patient was undergoing chemotherapy for treatment of his non-Hodgkin's lymphoma. Due to Covid 19 virus infection chemotherapy was stopped at that time and was not resumed to date. Pt was admitted to our facility for treatment of severe sepsis secondary to underlying pneumonia infection and Covid 19. Patient was treated with steroids, breathing treatments, supplemental oxygen, fluids, and IV antibiotics. Patient's condition progressively worsened and after lengthy discussion with patient's was performed, she made the decision to stop treatment on 09/22/21 and arrange for patient to be transferred home on hospice care so he could be with his family. Arrangements were made and patient was discharged home with [facility] Hospice. Severe sepsis, secondary to underlying pneumonia infection and COVID 19, worsening -Severe sepsis was present on admission and is likely resulting from Covid pneumonia in addition to extensive comorbidities with end-stage advanced COPD and Non-Hodkins Lymphoma. -Pt was discharged home with [facility] on Hospice. Acute COPD exacerbation, likely combination of worsening end stage COPD on top of underlying COVID pneumonia and Non-Hodkins Lymphoma with mass in lung. -Pt was discharged home with [facility] on Hospice. Acute encephalopathy, worsening -Acute encephalopathy likely secondary to worsening sepsis resulting from Covid pneumonia in addition to extensive comorbidities with end-stage advanced COPD and Non-Hodkins Lymphoma. -Pt was discharged home with [facility] on Hospice. Non-Hodgkin's lymphoma -Pt was discharged home with [facility] on Hospice. Significant Lab results this hospitalization perioid: -Covid 19 PCR was positive on 10/04/20 and remained positive per PCR results upon admission. Covid 19 antigen was obtained and was not reactive, revealing patient has developed no antibodies to this infection. -Blood cultures were negative showing no growth after 120 hours. -Sputum cultures were positive for pseudomonas aeruginosa and Ana albicans. -ABGs did reveal patient developed respiratory alkalosis, accompanied by increasing oxygen demands. -Procalcitonin upon admission was elevated to 0.13 and initial lactate also elevated at 1.8. Significant Imaging results this hospitalization period: -CT head negative for acute intracranial process, limited exam secondary to artifact. -CT PE negative for acute pulmonary embolism -Chest x-ray chronic emphysematous changes with persistent diabetes later acute infiltrate and/or atelectasis. Patient Condition at Discharge: Poor Plan - Discharge Summary New Discharge Prescriptions: New LORazepam ORAL CONC [Ativan Intensol] 2 mg PO Q6H PRN 5 Days #20 ml PRN Reason: Agitation MORPHINE ORAL ROSEANNA 2mg/mL [Morphine Oral Soln 2 MG/ML] 2 mg PO Q4H PRN 5 Days #30 ml PRN Reason: Pain Continue Albuterol Nebulized [Ventolin Nebulized] 2.5 mg INHALATION RT-Q6H PRN PRN Reason: Shortness Of Breath Discontinued Budesonide/Formoterol Fumarate [Symbicort 160-4.5 Mcg Inhaler] 2 puff INHALATION RT-BID Albuterol Sulfate [Ventolin HFA] 2 puff INHALATION RT-Q4H PRN PRN Reason: Shortness Of Breath Discharge Medication List Albuterol Nebulized [Ventolin Nebulized] 2.5 mg INHALATION RT-Q6H PRN 09/18/20 [History] LORazepam ORAL CONC [Ativan Intensol] 2 mg PO Q6H PRN 5 Days #20 ml 11/23/20 [Rx] MORPHINE ORAL ROSEANNA 2mg/mL [Morphine Oral Soln 2 MG/ML] 2 mg PO Q4H PRN 5 Days #30 ml 11/23/20 [Rx] Follow up Appointment(s)/Referral(s): [facility], [NON-STAFF] - (Homecare and Palliative care) Discharge Disposition: HOME WITH HOSPICE
== END 2020-11-23 07:30 | disposition still patient (30) | DRG 871 ==
LOC: EC 11:11 → 6NMEDSUR 13:11
PROVIDERS: ADMIT Internal Medicine; ATTEND Internal Medicine
PROC: 5A09357 Assistance with Respiratory Ventilation, Less than 24 Consecutive Hours, Continuous Positive Airway Pressure (ICD-10-PCS; principal; 2020-11-22)
DX: A41.89 Other specified sepsis (principal); J12.82 Pneumonia due to coronavirus disease 2019; U07.1 COVID-19; J96.21 Acute and chronic respiratory failure with hypoxia; J15.6 Pneumonia due to other Gram-negative bacteria; J15.1 Pneumonia due to Pseudomonas; G93.41 Metabolic encephalopathy; J44.0 Chronic obstructive pulmonary disease with (acute) lower respiratory infection; J44.1 Chronic obstructive pulmonary disease with (acute) exacerbation; C81.90 Hodgkin lymphoma, unspecified, unspecified site; E87.3 Alkalosis; D80.1 Nonfamilial hypogammaglobulinemia; R65.20 Severe sepsis without septic shock; Z66 Do not resuscitate; Z51.5 Encounter for palliative care; R63.4 Abnormal weight loss; E87.6 Hypokalemia; E87.8 Other disorders of electrolyte and fluid balance, not elsewhere classified; N20.0 Calculus of kidney; R79.1 Abnormal coagulation profile; Z86.16 Personal history of COVID-19; Z79.899 Other long term (current) drug therapy; Z79.51 Long term (current) use of inhaled steroids; Z88.0 Allergy status to penicillin; Z92.3 Personal history of irradiation; Z85.46 Personal history of malignant neoplasm of prostate; Z87.442 Personal history of urinary calculi; Z90.79 Acquired absence of other genital organ(s); Z98.890 Other specified postprocedural states; Z87.891 Personal history of nicotine dependence; Z99.81 Dependence on supplemental oxygen; Z82.5 Family history of asthma and other chronic lower respiratory diseases; Z68.23 Body mass index [BMI] 23.0-23.9, adult; Z86.19 Personal history of other infectious and parasitic diseases
CPT/HCPCS: 36415; 36600; 70450; 71045; 71275; 80048; 80053; 80202; 81003; 82565; 82728; 82784; 82805; 83605; 83735; 83880; 84145; 84484; 85025; 85379; 85610; 85730; 86140; 86769; 87040; 87070; 87077; 87186; 87205; 87635; 93005; 94640; 94760; 96361; 96374; 99285